=== PATIENT | female | born 1955 | race Caucasian/White ===

== ENCOUNTER 2017-10-16 14:27 | Inpatient (IN) | payer SELFPAY ==
[~2017-10-16] VITALS: Ht 157.5 cm; Wt 115.0 kg
[~2017-10-16 14:27] MED LIST: ALBUAER2 INH; ATOR-24 PO; CETI10TA84 PO; CHOL100010 PO; CLOB-65 EXT; HMLI SC; IBUP-1459 PO; LISI10TA PO; LORA-741 PO; MOME100A INH; PHEN-876 PO; SNG10 PO; TRAM-10 PO
--- NOTE | 2017-10-16 15:05 | DIAGNOSTIC IMAGING REPORT ---
R ANKLE 2 VIEWS CLINICAL HISTORY: 61 years-old Female presenting with RT ANKLE INJURY. TECHNIQUE: Frontal and crosstable lateral views of the right ankle were obtained. COMPARISON: Correlation made to plain radiographs of the left ankle from 08/11/2016. FINDINGS: Obliquely oriented fracture of the distal fibular metaphysis extending from the posterior lateral cortex proximally to the anterior medial cortex distally. Transversely oriented fracture of the medial malleolus. Subtle fracture of the posterior malleolus. Disruption of the ankle mortise with medial clear space widening and widening of the distal tibiofibular syndesmosis. Valgus alignment of the talus. Diffuse soft tissue swelling. IMPRESSION: Rondon B/Stage IV supination exorotation injury pattern (trimalleolar fracture with disruption of ankle mortise). Electronically signed by: Trell Lui M.D. 10/16/2017 3:04 PM Dictated Date/Time: 10/16/2017 2:59 PM
[2017-10-16] MEDS ORDERED: [UNRECOGNIZED DRUG - REMARK] SC (15:06)
[2017-10-16] MEDS ORDERED: INSU100I SC (15:06)
[2017-10-16] MEDS ORDERED: KETOROLAC TROMETHAMINE 30 MG/ML VIAL IV STA (15:07)
[2017-10-16] MEDS ORDERED: MoRPHine SULFATE 10 MG/ML CARP/VIAL IV STA (15:07)
[2017-10-16] MEDS ORDERED: FENTANYL CITRATE INJ 50 MCG/1 ML 2 ML VIAL IV STA (15:27)
--- NOTE | 2017-10-16 15:47 | DIAGNOSTIC IMAGING REPORT ---
CHEST ONE VIEW PORTABLE CLINICAL HISTORY: 61 years-old Female presenting with Pre-op CXR. TECHNIQUE: Portable upright AP view of the chest was obtained. COMPARISON: 02/10/2015. FINDINGS: Cardiomediastinal silhouette normal. Lungs and pleural spaces clear. Osseous structures normal. Upper abdomen normal. IMPRESSION: 1. No acute cardiopulmonary disease. Electronically signed by: Trell Lui M.D. 10/16/2017 3:46 PM Dictated Date/Time: 10/16/2017 3:45 PM
--- NOTE | 2017-10-16 15:48 | DIAGNOSTIC IMAGING REPORT ---
R TIBIA/FIBULA 2 VIEWS ROUTINE CLINICAL HISTORY: 61 years-old Female presenting with R leg pain, ankle fracture. TECHNIQUE: Frontal and lateral views of the right lower leg were obtained. COMPARISON: None. FINDINGS: Knee joints congruent. Medial joint space loss likely degenerative in etiology. Redemonstration of the trimalleolar right ankle fracture. No additional fibular fracture. No gross disruption of the proximal tibiofibular articulation. Diffuse subcutaneous swelling at the ankle. IMPRESSION: Redemonstration of the trimalleolar right ankle fracture. No additional osseous abnormality. Electronically signed by: Trell Lui M.D. 10/16/2017 3:47 PM Dictated Date/Time: 10/16/2017 3:46 PM
[2017-10-16 15:57] LABS: BASO % 0.4 %; BASO ABS # 0.03 K/uL (0-0.2); COMPLETE YES; EOS % 2.2 %; HEMATOCRIT 44.4 % (37-47); IG% 0.5 %; LYMPH % 18.2 %; MEAN CELL VOLUME 96.3 fL (80-100); MEAN CORPUSCULAR HEMOGLOBIN 33.4 pg (25-34); MEAN CORPUSCULAR HGB CONC 34.7 g/dl (32-36); MEAN PLATELET VOLUME 11.2 fL (7.4-10.4); MONO % 8.6 %; NEUT % 70.1 %; PLATELET COUNT 190 K/uL (130-400); RED BLOOD COUNT 4.61 M/uL (4.2-5.4); WHITE BLOOD COUNT 7.71 K/uL (4.8-10.8)
[2017-10-16 16:23] LABS: BUN/CREATININE RATIO 15.2 (10-20); CALCIUM 9.2 mg/dl (8.5-10.1); CREATININE 0.74 mg/dl (0.60-1.20)
--- NOTE | 2017-10-16 16:51 | EMERGENCY ROOM VISIT NOTE ---
History First contact with patient: 14:37 Chief Complaint: ANKLE PAIN Stated Complaint: ANKLE PAIN History of Present Illness The patient is a 61 year old female who presents to the Emergency Room with complaints of a right ankle injury last night. The patient reports that she tripped over wrapping paper and twisted the ankle. She was drinking alcohol at the time. The patient applied a heating pad to her ankle last night. When she got up this morning, she noticed that she still cannot apply any weight to the leg. As she was attempting to stand up late morning, she felt something pop again. Because she was unable to put weight on the ankle, she called 911 for transportation to the emergency department. The patient also reports pain radiating into the leg. She denies any other injuries from this fall, and currently rates her discomfort a 9 out of 10 on my exam. She has not noticed any paresthesias or numbness of the right foot or toes. Review of Systems HEENT: Denies dizziness, visual problems, hearing loss, tinnitus. Denies difficulty swallowing or oral lesions. PULMONARY: Denies cough, shortness of breath, sputum production or hemoptysis. CARDIOVASCULAR: Denies chest pain, palpitations, dyspnea on exertion, orthopnea or peripheral edema. GASTROINTESTINAL: Denies diarrhea, constipation, nausea, vomiting, or abdominal pain. GENITOURINARY: Denies dysuria, frequency, urgency or nocturia. NEUROLOGIC: Denies history of epilepsy, CVA, TIA or chronic headaches. MUSCULOSKELETAL: Denies history of joint tenderness/swelling. SKIN: Denies rashes or lesions. PSYCHIATRIC: Denies history of depression or mental illness. ENDOCRINE: History of diabetes. Denies history of thyroid disorders. Past Medical/Surgical History Medical Problems: (1) DIAB FLAVIO WO COMPL, TYPE II OR UNSPEC TYPE, NOT UNCNTRLD (2) FX METATARSAL-CLOSED Family History Unremarkable Social History Smoking Status: Never Smoker Alcohol Use: occasionally Housing Status: lives alone Occupation Status: unemployed Current/Historical Medications Scheduled Insulin Lispro (Human) (Humalog), 1 DOSE SC AC [Unknown Insulin], 60 UNITS SC HS Physical Exam Vital Signs Date Time Temp Pulse Resp B/P (MAP) Pulse Ox O2 Delivery O2 Flow Rate FiO2 10/16/17 16:10 145/108 10/16/17 16:06 86 18 95 Room Air 10/16/17 14:38 36.6 87 20 195/101 95 Room Air Physical Exam CONSTITUTIONAL: Morbidly obese female, alert and oriented X 3 with positive affect. The patient appears in moderate discomfort from pain. HEENT: Normocephalic, atraumatic. Pupils equal, round and reactive. NECK: Full active range of motion without discomfort. RESPIRATORY: Clear to auscultation bilaterally with no wheezing, crackles, rhonchi or stridor. CARDIOVASCULAR: Regular rate and rhythm with no murmurs, rubs or gallops. GASTROINTESTINAL: Bowel sounds present in all quadrants. Protuberant but soft and nontender to palpation. MUSCULOSKELETAL: Examination shows diffuse edema and ecchymosis of the right ankle. No open wounds or skin tenting is noted. The patient does have some blisters on the lateral ankle region that the patient reports was secondary to heating pad use. The patient has no tenderness to palpation through the dorsal midfoot, metatarsals or phalanges. Capillary refill is less than 2 seconds. The patient does have moderate tenderness to palpation of the leg as well. No knee effusion or tenderness through the medial or lateral joint line of the knee. Negative logroll. INTEGUMENTARY: No rash or other significant dermatologic conditions noted. NEUROLOGIC: Right foot and toes are sensory intact. Medical Decision & Procedures ER Provider Diagnostic Interpretation: My interpretation of right ankle x-ray shows a trimalleolar fracture with ankle mortise disruption. Radiologist report is as follows: R ANKLE 2 VIEWS CLINICAL HISTORY: 61 years-old Female presenting with RT ANKLE INJURY. TECHNIQUE: Frontal and crosstable lateral views of the right ankle were obtained. COMPARISON: Correlation made to plain radiographs of the left ankle from 08/11/2016. FINDINGS: Obliquely oriented fracture of the distal fibular metaphysis extending from the posterior lateral cortex proximally to the anterior medial cortex distally. Transversely oriented fracture of the medial malleolus. Subtle fracture of the posterior malleolus. Disruption of the ankle mortise with medial clear space widening and widening of the distal tibiofibular syndesmosis. Valgus alignment of the talus. Diffuse soft tissue swelling. IMPRESSION: Rondon B/Stage IV supination exorotation injury pattern (trimalleolar fracture with disruption of ankle mortise). My interpretation of right tib-fib x-rays does not show any other acute fractures, dislocations or obvious syndesmotic widening. Radiologist report is as follows: R TIBIA/FIBULA 2 VIEWS ROUTINE CLINICAL HISTORY: 61 years-old Female presenting with R leg pain, ankle fracture. TECHNIQUE: Frontal and lateral views of the right lower leg were obtained. COMPARISON: None. FINDINGS: Knee joints congruent. Medial joint space loss likely degenerative in etiology. Redemonstration of the trimalleolar right ankle fracture. No additional fibular fracture. No gross disruption of the proximal tibiofibular articulation. Diffuse subcutaneous swelling at the ankle. IMPRESSION: Redemonstration of the trimalleolar right ankle fracture. No additional osseous abnormality. My interpretation of a preoperative chest x-ray does not show any consolidations , pneumothorax or cardiac prominence. Radiologist report is as follows: CHEST ONE VIEW PORTABLE CLINICAL HISTORY: 61 years-old Female presenting with Pre-op CXR. TECHNIQUE: Portable upright AP view of the chest was obtained. COMPARISON: 02/10/2015. FINDINGS: Cardiomediastinal silhouette normal. Lungs and pleural spaces clear. Osseous structures normal. Upper abdomen normal. IMPRESSION: 1. No acute cardiopulmonary disease. Post reduction x-ray shows some improved tibiotalar alignment. A preoperative ECG shows a normal sinus rhythm of [address] elevation or other conduction abnormalities. Laboratory Results 10/16/17 15:47 Red Blood Count 4.61, Mean Corpuscular Volume 96.3, Mean Corpuscular Hemoglobin 33.4, Mean Corpuscular Hemoglobin Concent 34.7, Mean Platelet Volume 11.2, Neutrophils (%) (Auto) 70.1, Lymphocytes (%) (Auto) 18.2, Monocytes (%) (Auto) 8.6, Eosinophils (%) (Auto) 2.2, Basophils (%) (Auto) 0.4, Neutrophils # (Auto) 5.41, Lymphocytes # (Auto) 1.40, Monocytes # (Auto) 0.66, Eosinophils # (Auto) 0.17, Basophils # (Auto) 0.03 10/16/17 15:47 Test 10/16/17 15:47 White Blood Count 7.71 K/uL (4.8-10.8) Red Blood Count 4.61 M/uL (4.2-5.4) Hemoglobin 15.4 g/dL (12.0-16.0) Hematocrit 44.4 % (37-47) Mean Corpuscular Volume 96.3 fL (80-100) Mean Corpuscular Hemoglobin 33.4 pg (25-34) Mean Corpuscular Hemoglobin Concent 34.7 g/dl (32-36) Platelet Count 190 K/uL (130-400) Mean Platelet Volume 11.2 fL (7.4-10.4) Neutrophils (%) (Auto) 70.1 % Lymphocytes (%) (Auto) 18.2 % Monocytes (%) (Auto) 8.6 % Eosinophils (%) (Auto) 2.2 % Basophils (%) (Auto) 0.4 % Neutrophils # (Auto) 5.41 K/uL (1.4-6.5) Lymphocytes # (Auto) 1.40 K/uL (1.2-3.4) Monocytes # (Auto) 0.66 K/uL (0.11-0.59) Eosinophils # (Auto) 0.17 K/uL (0-0.5) Basophils # (Auto) 0.03 K/uL (0-0.2) RDW Standard Deviation 46.3 fL (36.4-46.3) RDW Coefficient of Variation 13.3 % (11.5-14.5) Immature Granulocyte % (Auto) 0.5 % Immature Granulocyte # (Auto) 0.04 K/uL (0.00-0.02) Anion Gap 10.0 mmol/L (3-11) Est Creatinine Clear Calc Drug Dose 93.4 ml/min Estimated GFR () 99.9 Estimated GFR (Non- 86.2 BUN/Creatinine Ratio 15.2 (10-20) Calcium Level 9.2 mg/dl (8.5-10.1) Beta-Hydroxybutyric Acid 44.00 mg/dL (0.2-2.81) The above labs were reviewed. Medications Administered Medications (Trade) Dose Ordered Sig/Link Route Start Time Stop Time Status Last Admin Dose Admin Morphine Sulfate (MoRPHine SULFATE INJ) 6 mg NOW STAT IV 10/16/17 15:07 10/16/17 15:15 DC 10/16/17 15:56 6 MG Ketorolac Tromethamine (Toradol Inj) 30 mg NOW STAT IV 10/16/17 15:07 10/16/17 15:15 DC 10/16/17 15:57 30 MG Fentanyl Citrate (Fentanyl Inj) 100 mcg NOW STAT IV 10/16/17 15:27 10/16/17 15:28 DC 10/16/17 16:06 100 MCG ED Course Patient history and physical exam were performed. Nurse's notes were reviewed. Vital signs were reviewed and were normal. Initial x-ray of the right ankle shows a trauma yellow fracture with an ankle mortise disruption. At this point , I suggested intravenous access for preoperative labs and pain titration management. The patient was in agreement. IV access was established, and labs were drawn. The patient was initially administered morphine 6 mg and Zofran 4 mg IVP. Labs were drawn and were grossly normal. ECG and portable chest x-ray were also normal. The case was then further discussed with Dr. Capps, ED attending physician , and Dr. Liu, orthopedic surgeon on-call. Dr. Liu reviewed the x-rays and suggested reduction and post reduction x-rays. He also indicated that if the patient would find it difficult to ambulate and follow-up as an outpatient, he could arrange for surgical treatment 1 tomorrow surgery scheduled. The case was discussed further with the patient, who indicated that she could not put any weight at all on the right lower extremity, and is concerned that she will fall at home. Fracture reduction was performed by Dr. Capps after the patient was administered fentanyl 100 g IV push. A posterior and sugar tong Ortho-Glass splint was applied. Post reduction x-rays shows adequate reduction. The patient refused any analgesics after her post reduction procedure. Please see Dr. Liu's dictation for further surgical treatment and final disposition. Medical Decision Patient presents with a trimalleolar fracture of the right ankle, and associated ankle mortise disruption. Postreduction x-rays were normal. Additional x-rays of the tib-fib does not show any additional fractures. The patient denies any other injuries from her fall. Her labs, ECG and chest x-ray were also normal. [place] Drug Monitoring Program Search Results: patient reviewed within database, no issues identified Medication Reconcilliation Current Medication List: was personally reviewed by me Blood Pressure Screening Patient's blood pressure: Elevated blood pressure Blood pressure disposition: Referred to PCP Impression Primary Impression: Closed displaced trimalleolar fracture of right ankle Additional Impression: Fall at home Departure Information Referrals No Doctor, Assigned (PCP) Patient Instructions My [facility] Problem Qualifiers Primary Impression: Closed displaced trimalleolar fracture of right ankle Encounter type: initial encounter Qualified Codes: S82.851A - Displaced trimalleolar fracture of right lower leg, initial encounter for closed fracture Additional Impression: Fall at home Encounter type: initial encounter Qualified Codes: W19.XXXA - Unspecified fall, initial encounter; Y92.099 - Unspecified place in other non-institutional residence as the place of occurrence of the external cause
--- NOTE | 2017-10-16 16:53 | DIAGNOSTIC IMAGING REPORT ---
R ANKLE MIN 3 VIEWS ROUTINE CLINICAL HISTORY: 61 years-old Female presenting with R ankle fx/post-reduction. TECHNIQUE: Frontal, mortise, and lateral views of the right ankle were obtained. COMPARISON: 10/16/2017 at 2:44 PM. FINDINGS: Fiberglas cast now in place, which minimally obscures underlying osseous detail. There is persistent disruption of the ankle mortise with redemonstration of the obliquely oriented fracture of the fibula at the level of the syndesmosis and transversely oriented fracture of the medial malleolus. Minimal decrease in medial clear space widening. Increased opening of the anterior aspect of the ankle mortise, now measuring 11 mm previously 6 mm. IMPRESSION: Increased malalignment at the ankle mortise anteriorly. Electronically signed by: Trell Lui M.D. 10/16/2017 4:52 PM Dictated Date/Time: 10/16/2017 4:50 PM
[2017-10-16] MEDS ORDERED: MAGNESIUM HYDROXIDE SUSP 30 ML UDC PO PRN (17:00)
[2017-10-16] MEDS ORDERED: ONDANSETRON INJ 2 MG/ML 2 ML VIAL IV PRN (17:00)
[2017-10-16] MEDS ORDERED: METOCLOPRAMIDE HCL INJ 5 MG/ML 2 ML VIAL IV PRN (17:00)
[2017-10-16] MEDS ORDERED: GLUCOSE 40% GEL 15 GM TUBE PO PRN (17:00)
[2017-10-16] MEDS ORDERED: HYDROmorphone HCL 2 MG TAB PO PRN ×2 (17:00→19:30)
[2017-10-16] MEDS ORDERED: HYDROmorphone INJ 0.5 MG/0.5 ML SYR IV PRN (17:00)
[2017-10-16] MEDS ORDERED: DEXTROSE 50% 50 ML SYR IV PRN (17:00)
[2017-10-16] MEDS ORDERED: GLUCOSE 10 TABS/TUBE PO PRN (17:00)
[2017-10-16] MEDS ORDERED: GLUCAGON FOR INJ 1 MG VIAL SQ PRN (17:00)
[2017-10-16] MEDS ORDERED: ALUMINUM/MAGNESIUM SUSP 30 ML UDC PO PRN (17:00)
[2017-10-16] MEDS ORDERED: ZOLPIDEM TARTRATE 5 MG TAB PO PRN (17:00)
[2017-10-16] MEDS ORDERED: DiphenhydrAMINE HCL 50 MG/ML VIAL IV PRN (17:00)
[2017-10-16 18:15] VITALS: BP 151/85; TEMP 36.7; O2SAT 98; BMI 46.4
--- NOTE | 2017-10-16 19:05 | Medical Consult ---
Consultation Date of Consultation: Oct 16, 2017. Attending Physician: Dr. Liu Reason for Consultation: Medical Management - Diabetes History of Present Illness Ms. Hamilton is a 61 y/o female with PMHx of IDDM - Type 2, HLD, and Asthma was admitted due to a R Trimalleolar Ankle Fx. Hospitalist consulted for hyperglycemia. Patient reports she was drinking wine and tripped over a rolled wrapping paper and twist her ankle. This occurred on 10/15. She states that she had a lot of pain and swelling and difficulty bearing weight. Because of ambulatory dysfunction, she decided to try and wait for the swelling to go down before coming to the ED. However the swelling did not improve and she presented today. Fracture was unsuccessfully reduced in the ED with follow-up x -ray supporting a slightly increased malalignment. Plan for OR repair on 10/17. Patient is somewhat of a poor historian at this current time as she seems to be having difficulty with recall. She said this started after they gave her multiple pain medications in the emergency department. She is alert and oriented. She states that she was on multiple medications in the past including one that was "heart protective" but she cannot tell me what medication this is. She states she also took a cholesterol medication and inhalers in the past. She states she has not taken any other medications except her insulin since May 2017. ED labs significant for glucose 318 and beta hydroxybutyric acid of 44. She has mild hyponatremia which is likely related to her elevated glucose. There is no presence of an anion gap. Patient reports she takes a long-acting insulin of 60-80 units at bedtime daily and a Humalog sliding scale. She states that she is not on Lantus but is not sure of the name of her long-acting insulin. Stephen does not sound familiar to her so may possibly be Basaglar? She reports her sugars are normally 120-130 but has noticed her sugars closer to 300 over the holidays as she is with her daughter who cooks high carb foods. Past Medical/Surgical History 1. HTN 2. IDDM - Type 2 3. HLD 4. Asthma 5. S/P Tonsillectomy 6. Kidney Stones Family History Diabetes mellitus Hypertension Social History Smoking Status: Never Smoker Smokeless Tobacco Use: No Alcohol Use: socially (holidays and birthday") Drug Use: none Housing Status: lives alone Occupation Status: unemployed Allergies Coded Allergies: Grass (Verified Allergy, Intermediate, ASTHMATIC SYMPTOMS, 10/16/17) Milk (Verified Allergy, Unknown, INCREASED MUCUS-ASTHMAS AGGRAVATION, 03/12) Molds and Smuts (Verified Allergy, Unknown, ASTHMATIC SYMPTOMS, 03/12/15) Codeine (Verified Adverse Reaction, Unknown, HALLUCINATIONS, 10/16/17) Current Inpatient Medications Current Inpatient Medications Medications (Trade) Dose Ordered Sig/Link Route Start Time Stop Time Status Last Admin Dose Admin Diphenhydramine HCl (Benadryl Inj) 25 mg Q8 PRN IV 10/16/17 17:00 11/15/17 16:59 UNV Zolpidem Tartrate (Ambien Tab) 5 mg HSZ PRN PO 10/16/17 17:00 11/15/17 16:59 UNV Metoclopramide HCl (Reglan Inj) 10 mg Q6H PRN IV 10/16/17 17:00 11/15/17 16:59 UNV Ondansetron HCl (Zofran Inj) 4 mg Q6H PRN IV 10/16/17 17:00 11/15/17 16:59 UNV Al Hydroxide/Mg Hydroxide (Maalox Susp) 30 ml Q6H PRN PO 10/16/17 17:00 11/15/17 16:59 UNV Docusate Sodium (coLACE CAP) 100 mg BID PO 10/16/17 21:00 11/15/17 20:59 UNV Pantoprazole Sodium (Protonix Tab) 40 mg QAM PO 10/17/17 09:00 11/16/17 08:59 UNV Magnesium Hydroxide (Milk Of Magnesia Susp) 30 ml Q6H PRN PO 10/16/17 17:00 11/15/17 16:59 UNV Sodium Chloride 1,000 ml @ 75 mls/hr [id number] IV 10/16/17 16:59 11/15/17 16:58 UNV Cefazolin Sodium 2000 mg/Dextrose 60 ml @ 100 mls/hr PREOP IV 10/17/17 06:00 10/17/17 06:35 UNV Glucose (Glucose 40% Gel) 15-30 GRAMS 15 GRAMS... UD PRN PO 10/16/17 17:00 11/15/17 16:59 UNV Glucose (Glucose Chew Tab) 4-8 Tablets 4 Tabl... UD PRN PO 10/16/17 17:00 11/15/17 16:59 UNV Dextrose (Dextrose 50% 50ML Syringe) 25-50ML OF 50% DW IV FOR... UD PRN IV 10/16/17 17:00 11/15/17 16:59 UNV Glucagon (Glucagon Inj) 1 mg UD PRN SQ 10/16/17 17:00 11/15/17 16:59 UNV Hydromorphone HCl (Dilaudid Inj) 0.5 mg Q1H PRN IV 10/16/17 17:00 10/30/17 16:59 UNV Hydromorphone HCl (Dilaudid Tab) 2 mg Q2H PRN PO 10/16/17 17:00 10/30/17 16:59 UNV Insulin Aspart (novoLOG ASPART) SLIDING SCALE If C... ACHS SC 10/16/17 21:00 11/15/17 20:59 UNV Insulin Glargine (Lantus Per Unit) 10 units ONE STAT SC 10/16/17 18:52 10/16/17 18:53 UNV Review of Systems Constitutional: + problem reported ("drowsy"), No fever, No chills, No fatigue ENT: No nasal symptoms, No sore throat, No trouble swallowing Respiratory: No cough, No shortness of breath Cardiovascular: No chest pain, No palpitations Abdomen: No pain, No nausea, No vomiting, No diarrhea, No constipation Musculoskeletal: + joint pain (R ankle), + swelling (RLE) Hematologic / Lymphatic: No abnormal bleeding/bruising Physical Exam Date Time Temp Pulse Resp B/P (MAP) Pulse Ox O2 Delivery O2 Flow Rate FiO2 10/16/17 18:04 72 18 115/58 96 Room Air 10/16/17 16:10 145/108 10/16/17 16:06 86 18 95 Room Air 10/16/17 14:38 36.6 87 20 195/101 95 Room Air General Appearance: WD/WN, no apparent distress Head: normocephalic, atraumatic Eyes: sclerae normal ENT: hearing grossly normal Neck: supple, no JVD, trachea midline Respiratory/Chest: lungs clear, normal breath sounds, no respiratory distress, no accessory muscle use Cardiovascular: regular rate, rhythm, no gallop, no murmur Abdomen/GI: normal bowel sounds, non tender, soft Extremities/Musculoskelatal: + pertinent finding (RLE splinted and ISATU wrapped ; motor function intact to toes; temperature warm; immediate cap refill) Neurologic/Psych: alert, oriented x 3 Skin: normal color, warm/dry Laboratory Results Last 24 Hours Test 10/16/17 15:47 10/16/17 18:51 White Blood Count 7.71 K/uL Red Blood Count 4.61 M/uL Hemoglobin 15.4 g/dL Hematocrit 44.4 % Mean Corpuscular Volume 96.3 fL Mean Corpuscular Hemoglobin 33.4 pg Mean Corpuscular Hemoglobin Concent 34.7 g/dl Platelet Count 190 K/uL Mean Platelet Volume 11.2 fL Neutrophils (%) (Auto) 70.1 % Lymphocytes (%) (Auto) 18.2 % Monocytes (%) (Auto) 8.6 % Eosinophils (%) (Auto) 2.2 % Basophils (%) (Auto) 0.4 % Neutrophils # (Auto) 5.41 K/uL Lymphocytes # (Auto) 1.40 K/uL Monocytes # (Auto) 0.66 K/uL Eosinophils # (Auto) 0.17 K/uL Basophils # (Auto) 0.03 K/uL RDW Standard Deviation 46.3 fL RDW Coefficient of Variation 13.3 % Immature Granulocyte % (Auto) 0.5 % Immature Granulocyte # (Auto) 0.04 K/uL Sodium Level 133 mmol/L Potassium Level 4.0 mmol/L Chloride Level 101 mmol/L Carbon Dioxide Level 22 mmol/L Anion Gap 10.0 mmol/L Blood Urea Nitrogen 11 mg/dl Creatinine 0.74 mg/dl Est Creatinine Clear Calc Drug Dose 93.4 ml/min Estimated GFR () 99.9 Estimated GFR (Non- 86.2 BUN/Creatinine Ratio 15.2 Random Glucose 318 mg/dl Calcium Level 9.2 mg/dl Beta-Hydroxybutyric Acid 44.00 mg/dL Assessment & Plan Ms. Hamilton is a 61 y/o female with PMHx of IDDM - Type 2, HLD, and Asthma was admitted due to a R Trimalleolar Ankle Fx. Hospitalist consulted for hyperglycemia. Mechanical Fall with R Trimalleolar Ankle Fx: - Pain Management, IVF, PT/OT, DVT Prophylaxis per primary - Plan for OR repair on 10/17 Preoperative Clearance: - Patient appropriately functions at home and is able to complete ADLs - She denies cardiac history of OH/CHF/PE/DVT - reports she does occasionally have high blood pressure and was previously treated for high cholesterol - States she was on a "heart protective" medication but is unsure of the name - she has not taken any other medications except her insulin since May 2017 - EKG reveals NSR without ischemic findings - She is hemodynamically stable with appropriate kidney function; no recent illnesses; CXR without acute cardiopulmonary findings - She reports no previous adverse reactions to anesthesia - She appears optimal for surgical intervention Hyperglycemia with IDDM - Type 2: - Initial laboratories reveal glucose 318. Beta hydroxybutyric acid 44 - no presents of anion gap on labs - She is alert and oriented but having difficulty with recall - this may be related to the pain medications given in the ED but it is possible related to her higher sugars - Last A1c from approximately a year ago was 9.5 - patient states her sugars have been running around 300 during the holidays - Give 1 L bolus now and obtain updated BSG - instructed nursing staff to cover this reading with sliding scale ordered - Give Lantus 10 units now - currently she is ordered NPO and will be cautious with adjustments - We'll cover with sliding scale at this time but will likely need long-acting scheduled coverage post surgery Asthma without Exacerbation: - Reports she has known asthma - she previously had an inhaler but reports not needing this since April 2017 Disposition: - Reports she follows with [facility]; reporting noncompliance with previously prescribed medications I personally interviewed and examined the patient. I agree with history of present illness and physical exam mentioned above, I also performed my own history taking and examination. Past medical history and review of system has been obtained by myself I reviewed all pertinent labs and studies Reviewed current medications I discussed and formulated of the assessment and plan mentioned above. Please refer to the Summary mentioned below. Agree With Miss. Guadalupe's plan General Appearance: Mild acute distress Eyes: normal Sclerae, extraocular muscle intact ENT: hearing grossly normal Neck: supple Respiratory/Chest: Normal air entry bilateral , mild respiratory distress, no accessory muscle use, currently she is comfortable on room air Cardiovascular: no murmur, no tachycardia Abdomen: non tender, soft, no masses Extremities: no edema Neurologic/Psychiatric: Awake alert oriented times place and person moves all extremities sensation intact cranial nerves II-12 appear to be intact Skin: normal color, warm/dry, no rash Lower extremity wrapped 61 years old female presented to the ED with lower extremity fracture after mechanical fall, she was found to have elevated blood sugar Assessment Right ankle fracture secondary to mechanical fall Uncontrolled diabetes mellitus with hyperglycemia Obesity plan: continue supportive care Benefits from the surgery outweighs the risk thus patient is medically clear for surgical intervention 10 units Lantus subcutaneous Sliding scale insulin Monitor anion gap DVT prophylaxis and PT as per primary orthopedic team Lisa Kennedy MD, [facility]
[2017-10-16] MEDS ORDERED: LANTUS PER UNIT CHARGE SC SCH (19:06)
[2017-10-16] MEDS ORDERED: ALBUT/IPRATROP 3MG/0.5MG NEB 3 ML VIAL INH PRN (19:30)
[2017-10-16] MEDS ORDERED: HydrALAZINE HCL 20 MG/ML VIAL IV. PRN (19:30)
[2017-10-16] MEDS ORDERED: SODIUM CHLORIDE 0.9% 1000ML 1,000 ML IV SCH (20:45)
[2017-10-16] MEDS ORDERED: INSULIN GLARGINE SOLOSTAR 100 UNITS/ML 3 ML PEN SC SCH (21:00)
[2017-10-16] MEDS ORDERED: INSULIN ASPART 100 UNITS/ML 3 ML PEN SC SCH (21:00)
[2017-10-16] MEDS ORDERED: INSULIN HUMAN REGULAR SC SCH (21:00)
[2017-10-16] MEDS: DOCUSATE SODIUM 100 MG CAP PO SCH (21:24)
[2017-10-16] MEDS: SODIUM CHLORIDE 0.9% 1000ML 1,000 ML IV SCH (21:34)
[2017-10-16 22:57] VITALS: BP 150/84; PULSE 84; TEMP 37; O2SAT 96
[2017-10-17] VITALS (8 sets, daily range): BP systolic 131–187; BP diastolic 80–88; PULSE 75–97; TEMP 36.6–37.3; O2SAT 92–100; BMI 46.4
[2017-10-17 00:17] LABS: URINE APPEARANCE CLEAR (CLEAR); URINE BILIRUBIN NEG (NEG); URINE COLOR YELLOW; URINE NITRITE NEG (NEG); URINE SPECIFIC GRAVITY 1.041 (1.000-1.030); UROBILINOGEN NEG (NEG)
[2017-10-17 00:23] LABS: MANUAL MICROSCOPIC REQUIRED? NO; REVIEW REQ? NO
[2017-10-17] MEDS ORDERED: NURSING DECISION MEDICATION ORDER SCH (02:15)
[2017-10-17] MEDS ORDERED: CEFAZOLIN IV 2,000 MG in DEXTROSE 5% 50ML 50 ML IV SCH (06:00)
[2017-10-17] MEDS ORDERED: CEFAZOLIN 2000MG IV PUSH 10 ML IV SCH (06:00)
[2017-10-17] MEDS: INSULIN ASPART 100 UNITS/ML 3 ML PEN SC SCH ×4 (06:07→20:45)
[2017-10-17 06:30] LABS: MEAN CELL VOLUME 96.5 fL (80-100); MEAN CORPUSCULAR HEMOGLOBIN 32.7 pg (25-34); MEAN CORPUSCULAR HGB CONC 33.8 g/dl (32-36); MEAN PLATELET VOLUME 11.1 fL (7.4-10.4); PLATELET COUNT 161 K/uL (130-400); RED BLOOD COUNT 4.04 M/uL (4.2-5.4); WHITE BLOOD COUNT 5.51 K/uL (4.8-10.8)
[2017-10-17 06:54] LABS: BUN/CREATININE RATIO 21.6 (10-20); CALCIUM 8.4 mg/dl (8.5-10.1); CREATININE 0.62 mg/dl (0.60-1.20); MAGNESIUM 2.1 mg/dl (1.8-2.4); POTASSIUM 3.6 mmol/L (3.5-5.1)
[2017-10-17 07:07] LABS: ESTIMATED AVERAGE GLUCOSE 329 mg/dl; HA1C FLAG Normal (Normal)
[2017-10-17] MEDS: PANTOprazole SOD 40 MG TAB PO SCH (08:50)
[2017-10-17] MEDS: DOCUSATE SODIUM 100 MG CAP PO SCH ×2 (08:50→20:46)
--- NOTE | 2017-10-17 09:17 | HISTORY & PHYSICAL EXAMINATION ---
DATE OF ADMISSION: 10/16/2017 CHIEF COMPLAINT: Right ankle injury. HISTORY OF PRESENT ILLNESS: A 61-year-old female lives by herself with a history of insulin-dependent diabetes who sustained an injury on [place]. Apparently she was drinking some alcohol and kind of stumbled and twisted her ankle. She had acute onset of pain and swelling. She decided to just elevate and rest it overnight and tried to walk on it the next day. Pain has gotten worse and she presented to the Emergency Room yesterday with ankle fracture subluxation. She was seen in the ER and admitted for fixation. No other injuries. No preexisting ankle problems. Denies any chest pain, no shortness of breath. No head injury, no neck pain. PAST MEDICAL HISTORY: 1. Insulin-dependent diabetes. 2. Hypertension. 3. Asthma. PAST SURGICAL HISTORY: Include: 1. Kidney stones. 2. Bilateral carpal tunnel release. 3. Tonsillectomy. 4. Breast biopsy. ALLERGIES: MOLD AND GRASS. CURRENT MEDICATIONS: Include insulin. SOCIAL HISTORY: A 61-year-old female. She says she lives by herself, but she has some children that spend time with her. No significant smoking history. She does drink alcohol. FAMILY HISTORY: Noncontributory. REVIEW OF SYSTEMS: Significant for diabetes. Fairly poorly controlled recently. No chest pain or shortness of breath. No history of DVT or PE. Medical doctor is Dr. Barney. PHYSICAL EXAMINATION: GENERAL: Reveals a healthy pleasant, middle-aged female. She is lying in bed, looks reasonably comfortable. VITAL SIGNS: Her temperature is 36.6. Vital signs stable. HEAD, EYES, EARS, NOSE, AND THROAT EXAMINATION: Benign. NECK: Supple. No lymphadenopathy. LUNGS: Clear to auscultation. HEART: Regular rate and rhythm. ABDOMEN: Soft, nontender, nondistended. EXTREMITY EXAMINATION: Grossly neurovascularly intact except as follows: Examination of the right lower extremity reveals the splint to be in place. There is no obvious deformity to her ankle. She can flex or extend her toes appropriately. She is neurologically intact. X-RAYS: X-rays of the ankle from the ER were reviewed. It shows a right trimalleolar ankle fracture subluxation. The post-reduction films reveal it to be better located in the medial lateral plane but a little bit subluxated posteriorly. Diffuse osteopenia. ASSESSMENT: A 61-year-old female diabetic with a right trimalleolar ankle fracture subluxation. PLAN: The patient has been admitted to the hospital. She has been evaluated by medicine. Fairly poorly controlled diabetes and she is on insulin sliding scale and we have consulted them to better manage her blood glucose control. We are going to plan on fixing her ankle later on today. The risks and benefits of ORIF of right trimalleolar ankle fracture were explained to the patient including but not limited to DVT, PE, , infection, neurological injury, vascular injury, bleeding problem, pain, limited range of motion, stiffness, failure to relieve her symptoms, incomplete relief of symptoms, need for further surgery in the future. The patient understands with her diabetes the risk of nonunion, malunion and even Charcot arthropathy were elevated. She would like to proceed. In the meantime, we will continue insulin sliding scale coverage with the medicine following and optimize her medical care. DVT prophylaxis including thigh-high TEDs, SCDs, and aspirin postoperatively. DIANE
--- NOTE | 2017-10-17 10:43 | Hospitalist Progress Note ---
Hospitalist Progress Note Date of Service Oct 17, 2017. (Ana Guadalupe PA-C) Subjective Pt evaluation today including: conversation w/ patient, physical exam, chart review, lab review, review of studies, review of inpatient medication list Patient seen and evaluated. No acute events overnight. A1c is 13. Patient states she was last seen by the [facility] approx. 1 year ago but states she was given enough insulin for coverage. She currently does not have insurance but states that she has an application in process that should start in October. Discussed with child care centre manager and she will be discussing with he patient. Discussed with patient the importance of compliance and sugar control for appropriate healing as well as prevention of cardiovascular disease. Will need to assist with an affordable regimen due to lack of insurance and possibility of delayed/decline coverage with her current application that is pending. She reports pain is under control of her R ankle. She verbalizes no other issues. Constitutional: No fever, No chills Respiratory: No shortness of breath Cardiovascular: No chest pain Abdomen: No pain, No nausea, No vomiting, No diarrhea, No constipation Female : No dysuria Heme: No abnormal bleeding/bruising (Ana Guadalupe PA-C) Medications Current Inpatient Medications Medications (Trade) Dose Ordered Sig/Link Route Start Time Stop Time Status Last Admin Dose Admin Diphenhydramine HCl (Benadryl Inj) 25 mg Q8 PRN IV 10/16/17 17:00 11/15/17 16:59 Zolpidem Tartrate (Ambien Tab) 5 mg HSZ PRN PO 10/16/17 17:00 11/15/17 16:59 Metoclopramide HCl (Reglan Inj) 10 mg Q6H PRN IV 10/16/17 17:00 11/15/17 16:59 Ondansetron HCl (Zofran Inj) 4 mg Q6H PRN IV 10/16/17 17:00 11/15/17 16:59 Al Hydroxide/Mg Hydroxide (Maalox Susp) 30 ml Q6H PRN PO 10/16/17 17:00 11/15/17 16:59 Docusate Sodium (coLACE CAP) 100 mg BID PO 10/16/17 21:00 11/15/17 20:59 10/17/17 08:50 100 MG Pantoprazole Sodium (Protonix Tab) 40 mg QAM PO 10/17/17 09:00 10/20/17 08:59 10/17/17 08:50 40 MG Magnesium Hydroxide (Milk Of Magnesia Susp) 30 ml Q6H PRN PO 10/16/17 17:00 11/15/17 16:59 Sodium Chloride 1,000 ml @ 75 mls/hr [id number] IV 10/16/17 21:50 11/15/17 21:49 10/16/17 21:34 75 MLS/HR Glucose (Glucose 40% Gel) 15-30 GRAMS 15 GRAMS... UD PRN PO 10/16/17 17:00 11/15/17 16:59 Glucose (Glucose Chew Tab) 4-8 Tablets 4 Tabl... UD PRN PO 10/16/17 17:00 11/15/17 16:59 Dextrose (Dextrose 50% 50ML Syringe) 25-50ML OF 50% DW IV FOR... UD PRN IV 10/16/17 17:00 11/15/17 16:59 Glucagon (Glucagon Inj) 1 mg UD PRN SQ 10/16/17 17:00 11/15/17 16:59 Hydromorphone HCl (Dilaudid Inj) 0.5 mg Q1H PRN IV 10/16/17 17:00 10/30/17 16:59 10/16/17 23:51 0.5 MG Hydromorphone HCl (Dilaudid Tab) 1 mg Q2H PRN PO 10/16/17 19:30 10/30/17 16:59 Albuterol/ Ipratropium (Duoneb) 3 ml Q2H PRN INH 10/16/17 19:30 11/15/17 19:29 Hydralazine HCl (HydrALAZINE INJ) 10 mg Q6 PRN IV. 10/16/17 19:30 11/15/17 19:29 Cefazolin Sodium 10 ml @ 2.5 mls/min PREOP IV 10/17/17 06:00 10/17/17 18:00 Insulin Aspart (novoLOG ASPART) SLIDING SCALE If C... Q6 SC 10/17/17 06:00 11/16/17 05:59 10/17/17 06:07 4 UNITS (Ana Guadalupe, PA-C) Objective Vital Signs Date Time Temp Pulse Resp B/P (MAP) Pulse Ox O2 Delivery O2 Flow Rate FiO2 10/17/17 07:40 Room Air 10/17/17 06:52 36.6 75 19 136/84 (101) 94 Room Air 10/16/17 23:40 Room Air 10/16/17 22:57 37.0 84 18 150/84 (106) 96 Room Air 10/16/17 18:15 36.7 18 151/85 Room Air 10/16/17 18:15 36.7 18 151/85 (107) 98 Room Air 10/16/17 18:04 72 18 115/58 96 Room Air 10/16/17 16:10 145/108 10/16/17 16:06 86 18 95 Room Air 10/16/17 14:38 36.6 87 20 195/101 95 Room Air (Ana Guadalupe PA-C) Physical Exam General Appearance: WD/WN, no apparent distress, + obese Eyes: sclerae normal ENT: hearing grossly normal Neck: supple, no JVD, trachea midline Respiratory/Chest: lungs clear, normal breath sounds, no respiratory distress, no accessory muscle use Cardiovascular: regular rate, rhythm, no gallop, no murmur Abdomen: normal bowel sounds, non tender, soft Extremities: + pertinent finding (RLE with splint and ISATU wrap; movement to toes; temperature appropriate; approp. cap refill) Neurologic/Psychiatric: alert, oriented x 3 Skin: normal color, warm/dry (Ana Guadalupe PA-C) Laboratory Results Last 24 Hours Test 10/16/17 15:47 10/16/17 20:12 10/17/17 00:04 10/17/17 05:53 White Blood Count 7.71 K/uL Red Blood Count 4.61 M/uL Hemoglobin 15.4 g/dL Hematocrit 44.4 % Mean Corpuscular Volume 96.3 fL Mean Corpuscular Hemoglobin 33.4 pg Mean Corpuscular Hemoglobin Concent 34.7 g/dl Platelet Count 190 K/uL Mean Platelet Volume 11.2 fL Neutrophils (%) (Auto) 70.1 % Lymphocytes (%) (Auto) 18.2 % Monocytes (%) (Auto) 8.6 % Eosinophils (%) (Auto) 2.2 % Basophils (%) (Auto) 0.4 % Neutrophils # (Auto) 5.41 K/uL Lymphocytes # (Auto) 1.40 K/uL Monocytes # (Auto) 0.66 K/uL Eosinophils # (Auto) 0.17 K/uL Basophils # (Auto) 0.03 K/uL RDW Standard Deviation 46.3 fL RDW Coefficient of Variation 13.3 % Immature Granulocyte % (Auto) 0.5 % Immature Granulocyte # (Auto) 0.04 K/uL Sodium Level 133 mmol/L Potassium Level 4.0 mmol/L Chloride Level 101 mmol/L Carbon Dioxide Level 22 mmol/L Anion Gap 10.0 mmol/L Blood Urea Nitrogen 11 mg/dl Creatinine 0.74 mg/dl Est Creatinine Clear Calc Drug Dose 93.4 ml/min Estimated GFR () 99.9 Estimated GFR (Non- 86.2 BUN/Creatinine Ratio 15.2 Random Glucose 318 mg/dl Estimated Average Glucose 329 mg/dl Hemoglobin A1c 13.1 % Calcium Level 9.2 mg/dl Beta-Hydroxybutyric Acid 44.00 mg/dL Bedside Glucose 304 mg/dl 291 mg/dl Urine Color YELLOW Urine Appearance CLEAR Urine pH 5.0 Urine Specific D[place] 1.041 Urine Protein NEG Urine Glucose (UA) 3+ Urine Ketones 3+ Urine Occult Blood NEG Urine Nitrite NEG Urine Bilirubin NEG Urine Urobilinogen NEG Urine Leukocyte Esterase NEG Test 10/17/17 06:03 White Blood Count 5.51 K/uL Red Blood Count 4.04 M/uL Hemoglobin 13.2 g/dL Hematocrit 39.0 % Mean Corpuscular Volume 96.5 fL Mean Corpuscular Hemoglobin 32.7 pg Mean Corpuscular Hemoglobin Concent 33.8 g/dl RDW Standard Deviation 46.8 fL RDW Coefficient of Variation 13.3 % Platelet Count 161 K/uL Mean Platelet Volume 11.1 fL Sodium Level 135 mmol/L Potassium Level 3.6 mmol/L Chloride Level 105 mmol/L Carbon Dioxide Level 23 mmol/L Anion Gap 7.0 mmol/L Blood Urea Nitrogen 13 mg/dl Creatinine 0.62 mg/dl Est Creatinine Clear Calc Drug Dose 111.5 ml/min Estimated GFR () 111.2 Estimated GFR (Non- 96.0 BUN/Creatinine Ratio 21.6 Random Glucose 295 mg/dl Calcium Level 8.4 mg/dl Magnesium Level 2.1 mg/dl (Ana Guadalupe PA-C) Assessment and Plan Ms. Hamilton is a 61 y/o female with PMHx of IDDM - Type 2, HLD, and Asthma was admitted due to a R Trimalleolar Ankle Fx. Hospitalist consulted for hyperglycemia. Mechanical Fall with R Trimalleolar Ankle Fx: - Pain Management, IVF, PT/OT, DVT Prophylaxis per primary - Plan for OR repair on 10/17 Preoperative Clearance: - Patient appropriately functions at home and is able to complete ADLs - She denies cardiac history of AR/CHF/PE/DVT - reports she does occasionally have high blood pressure and was previously treated for high cholesterol - States she was on a "heart protective" medication but is unsure of the name - she has not taken any other medications except her insulin since May 2017 - EKG reveals NSR without ischemic findings - She is hemodynamically stable with appropriate kidney function; no recent illnesses; CXR without acute cardiopulmonary findings - She reports no previous adverse reactions to anesthesia - She appears optimal for surgical intervention - will need [employer] control of DM to prevent dealing healing and cardiovascular compromise Hyperglycemia with IDDM - Type 2: - Continues to be hyperglycemia - A1c 13.1 which suggests her sugars do not run where she reported yesterday; states she [facility] and was given enough supplies to cover her...A1c supports non -compliance and unsure if she is truly taking medications; last A1c from approximately a year ago was 9.5 - Give Lantus 40 units x 1 on 10/17 and check random BSG and cover with SSI - SSI with correction - when diet is advanced will need carb coverage Asthma without Exacerbation: - Reports she has known asthma - she previously had an inhaler but reports not needing this since April 2017 Disposition: - Reports she [facility] with [facility]; reporting noncompliance with previously prescribed medications - She is currently uninsured and states she has an application pending for insurance coverage for October (Ana Guadalupe PA-C) Reviewed: Pt Seen/Exam by Me (Dayana Darling DO) History Pt is doing well. Anticipating OR this afternoon. Pain is controlled. No chest pain or SOB. Agree with HPI/ROS as noted by PAC (Dayana Darling DO) General Appearance: no apparent distress, obese Respiratory: normal breath sounds, no respiratory distress Cardiovascular: normal peripheral pulses, regular rate, rhythm Gastrointestinal: non tender, soft Extremities: non-tender, no pedal edema Neurologic/Psychiatric: alert, oriented x 3 Skin Characteristics: normal color, warm/dry (Dayana Darling, DO) Assessment/Plan Agree with plan as outlined above s/p ankle fracture, awaiting OR DM uncontrolled with A1c 13.1 Will work with pt during admission for better control DM education (Dayana Darling, DO)
[2017-10-17] MEDS ORDERED: INSULIN GLARGINE SOLOSTAR 100 UNITS/ML 3 ML PEN SC ONE (10:45)
[2017-10-17] MEDS: SODIUM CHLORIDE 0.9% 1000ML 1,000 ML IV SCH (11:40)
[2017-10-17] MEDS ORDERED: LIDOCAINE HCL 2% 2 ML VIAL (20MG/ML) ONE (13:46)
[2017-10-17] MEDS ORDERED: ONDANSETRON INJ 2 MG/ML 2 ML VIAL ONE (13:46)
[2017-10-17] MEDS ORDERED: DEXAMETHASONE SOD INJ 4 MG/ML VIAL ONE (13:46)
[2017-10-17] MEDS ORDERED: PROPOFOL IV EMULSION 10 MG/ML 20 ML VIAL IV ONE (13:46)
[2017-10-17] MEDS ORDERED: FENTANYL CITRATE INJ 50 MCG/1 ML 2 ML VIAL ONE (13:46)
[2017-10-17] MEDS ORDERED: NEOSTIGMINE METHYLSULFATE 5 MG/5 ML SYR ONE (13:46)
[2017-10-17] MEDS ORDERED: GLYCOPYRROLATE INJ 0.2 MG/ML VIAL ONE (13:46)
[2017-10-17] MEDS ORDERED: MIDAZOLAM HCL 1 MG/ML 2ML VIAL ONE ×2 (13:46)
[2017-10-17] MEDS ORDERED: BUPIVACAINE 0.25% 30 ML VIAL ONE (13:51)
[2017-10-17] MEDS ORDERED: BUPIVACAINE 0.5 % 5 MG/1 ML PF 10ML VIAL ONE (13:51)
[2017-10-17] MEDS ORDERED: KETOROLAC TROMETHAMINE 30 MG/ML VIAL IV. PRN (14:15)
[2017-10-17] MEDS ORDERED: LABETALOL HCL IV 5 MG/ML 20ML IV PRN ×2 (14:15→16:15)
[2017-10-17] MEDS ORDERED: ONDANSETRON INJ 2 MG/ML 2 ML VIAL IV PRN ×3 (14:15→16:30)
[2017-10-17] MEDS ORDERED: HYDROmorphone INJ 2 MG/ML SYR/VIAL IV PRN (14:15)
[2017-10-17] MEDS ORDERED: ATROPINE SULFATE 0.1 MG/ML 5ML SYR IV PRN ×2 (14:15→16:15)
[2017-10-17] MEDS ORDERED: BACITRACIN 50000 UNIT VIAL ONE (14:30)
[2017-10-17] MEDS ORDERED: BUPIVACAINE/EPINEPHRINE 0.5% MPF 1:200,000 30 ML VIAL ONE (14:30)
[2017-10-17] MEDS ORDERED: NovoLIN-R INSULIN PER UNIT CHARGE ONE (14:43)
[2017-10-17] MEDS ORDERED: PHENYLEPHRINE 100MCG/ML 5ML SYR ONE (15:11)
[2017-10-17] MEDS ORDERED: PHENYLEPHRINE HCL INJ 10 MG/ML VIAL ONE (15:26)
--- NOTE | 2017-10-17 16:03 | DIAGNOSTIC IMAGING REPORT ---
R ANKLE MIN 3 VIEWS ROUTINE CLINICAL HISTORY: 61 years-old Female presenting with ORIF Right ankle FX. TECHNIQUE: 3 fluoroscopic spot image(s) obtained as part of an intraoperative procedure. COMPARISON: 10/16/2017. FINDINGS/IMPRESSION: Cortical compression plate and screw fixation of the distal fibula. Single lag screw through the medial malleolus. Ankle mortise grossly intact with anatomic alignment restored. Please see surgical report for further details. Fluoroscopy dosage (mGy): 0.74. Fluoroscopy time: 27.8 seconds. Number of fluoroscopic spot images: 3. Electronically signed by: Trell Lui M.D. 10/17/2017 4:02 PM Dictated Date/Time: 10/17/2017 3:59 PM
[2017-10-17] MEDS ORDERED: FLUMAZENIL 0.1 MG/1 ML 10 ML VIAL IV PRN (16:15)
[2017-10-17] MEDS ORDERED: FENTANYL CITRATE INJ 50 MCG/1 ML 2 ML VIAL IV PRN (16:15)
[2017-10-17] MEDS ORDERED: NALOXONE HCL 0.4 MG/1 ML VIAL/CARP IV PRN (16:15)
[2017-10-17] MEDS ORDERED: EpHEDrine SULFATE INJ 50 MG/ML AMP IV PRN (16:15)
[2017-10-17] MEDS ORDERED: MEPERIDINE HCL 25 MG/ML CARP IV PRN (16:15)
[2017-10-17] MEDS ORDERED: PHENYLEPHRINE 100MCG/ML 5ML SYR IV PRN (16:15)
--- NOTE | 2017-10-17 16:23 | [facility] Post Operative Brief Note ---
Immediate Operative Summary Operative Date Oct 17, 2017. Pre-Operative Diagnosis Right trimalleolar ankle fracture subluxation Post-Operative Diagnosis Same as preoperative diagnosis Procedure(s) Performed Open reduction internal fixation right ankle fracture Surgeon Dr. Liu Featherer Surgeon(s) Froylan Tamez PA-C Estimated Blood Loss 20ml Findings Unstable ankle fracture Fluids (cc crystalloids) 900 cc Specimens None Anesthesia General Complication(s) None Disposition Recovery Room / PACU
[2017-10-17] MEDS ORDERED: BISACODYL 10 MG SUPP PR PRN (16:30)
[2017-10-17] MEDS ORDERED: ALUMINUM/MAGNESIUM/SIMETH (MAALOX MAX) 30 ML UDC PO PRN (16:30)
[2017-10-17] MEDS ORDERED: MAGNESIUM HYDROXIDE SUSP 30 ML UDC PO PRN (16:30)
[2017-10-17] MEDS ORDERED: ZOLPIDEM TARTRATE 5 MG TAB PO PRN (16:30)
[2017-10-17] MEDS ORDERED: DiphenhydrAMINE HCL 50 MG/ML VIAL IV PRN (16:30)
[2017-10-17] MEDS ORDERED: METOCLOPRAMIDE HCL INJ 5 MG/ML 2 ML VIAL IV PRN (16:30)
[2017-10-17] MEDS ORDERED: ASPEC325 PO (16:33)
[2017-10-17] MEDS ORDERED: DLD/2 PO (16:33)
[2017-10-17] MEDS ORDERED: ACET-1256 PO (16:33)
--- NOTE | 2017-10-17 16:56 | Anesthesiology Progress Note ---
Anesthesia Post Op Note Date & Time Oct 17, 2017 at 16:55 Vital Signs Pain Intensity: 0 Vital Signs Past 12 Hours Date Time Temp Pulse Resp B/P (MAP) Pulse Ox O2 Delivery O2 Flow Rate FiO2 10/17/17 16:50 82 18 134/70 96 Nasal Cannula 2 10/17/17 16:40 77 16 129/70 96 Oxymask 10 10/17/17 16:30 85 20 148/78 99 Oxymask 10 10/17/17 16:24 36.7 80 20 162/78 97 Oxymask 10 10/17/17 13:45 82 18 176/102 (126) 96 Room Air 10/17/17 07:40 Room Air 10/17/17 06:52 36.6 75 19 136/84 (101) 94 Room Air Notes Mental Status: alert / awake / arousable, participated in evaluation Pt Amnestic to Procedure: Yes Nausea / Vomiting: adequately controlled Pain: adequately controlled Airway Patency, RR, SpO2: stable & adequate BP & HR: stable & adequate Hydration State: stable & adequate Anesthetic Complications: no major complications apparent Block working in pacu
[2017-10-17] MEDS: POTASSIUM CHLORIDE INJ 10 MEQ in SODIUM CHLORIDE 0.9% 1000ML 1,000 ML IV SCH (18:15)
[2017-10-17] MEDS: KETOROLAC TROMETHAMINE 15 MG/ML VIAL IV. SCH (18:15)
[2017-10-17] MEDS ORDERED: NURSING VERBAL MED ORDER ONE ×3 (18:15→21:45)
--- NOTE | 2017-10-17 19:24 | OPERATIVE REPORT ---
DATE OF OPERATION: 10/17/2017 SURGEON: Dr. Jaron Liu. PRESETTER OPERATOR: SANDEEP Fuentes PREOPERATIVE DIAGNOSIS: Right trimalleolar ankle fracture subluxation. POSTOPERATIVE DIAGNOSIS: Same. PROCEDURE PERFORMED: Open reduction and internal fixation, right trimalleolar ankle fracture subluxation. COMPLICATIONS: None. ESTIMATED BLOOD LOSS: 20 mL. FLUID REPLACEMENT 900 mL crystalloid fluid replacement. TOURNIQUET TIME: 48 minutes at 300 mmHg. ANESTHESIA: General with popliteal block. TOURNIQUET TIME: 48 minutes. OPERATIVE INDICATIONS: The patient is a 61-year-old female diabetic has taken some alcohol on [employer] and sustained a fall. She has acute onset of pain in her ankle. She waited till the next day and then tried to walk on it again and could not. She was brought to the emergency room where x-rays revealed a fracture subluxation of her ankle. The patient was admitted to the hospital, medically optimized and indicated for surgical treatment. OPERATIVE IMPLANTS: Medial side implants consisted of a Synthes 4.0 partially threaded long threaded screw of 42 mm in length with a washer. Lateral side implants: Lateral side implants consisted of: 1. A Synthes 7-hole 1/3 semitubular plate, stainless Steel. 2. A 4.0 partially threaded cancellous screws x1. 3. A 4.0 fully threaded cancellous screws x2. 4. A 3.5 fully threaded cortical screws x4. OPERATIVE PROCEDURE: The patient was taken to the operating room, identified and placed on the operating table in supine position. All contact areas were appropriately padded. IV antibiotics were provided by the anesthesia team. A general anesthetic was implemented by anesthesia team. Right thigh tourniquet was then placed. The splint was then removed from the right ankle. I scrubbed the foot and ankle with Hibiclens and then prepped it with ChloraPrep and draped in the usual sterile fashion. The right leg was then elevated and exsanguinated with the use of an Esmarch and tourniquet was placed at 300 mmHg. A medial approach to the medial malleolus was then performed through a curvilinear incision. Sharp dissection was carried out through the subcutaneous tissue directly down to the fracture site. The fracture site was identified and cleaned of soft tissues. The periosteum was stuck in the fracture itself. I removed this. I reduced this and held it with reduction clamps and this was not very large, so I could only place a single screw. We placed several guidewires and then once the wire through the central aspect of the fragment. I measured this, overdrilled it and then placed a 42 mm partially threaded long threaded cancellous screw with a washer over top the guidewire. This provided excellent fixation. Attention was then drawn laterally. A direct lateral approach to the fibula was then performed through a longitudinal incision over the fibula. Sharp dissection was carried out through the subcutaneous tissues down to the level of the fracture. The fracture was exposed. I tried to minimize the stripping of the fracture site itself. The fracture was evacuated of all clot. I then reduced the fracture and held it with reduction clamps. I placed a single 4.0 partially threaded cancellous screw across the fracture site in a lag fashion. I then contoured a 7-hole 1/3 semitubular plate to the posterolateral aspect of the fibula. It did tend to the posterior instability to the fracture site placed on the posterolateral side of the fibula. I then removed the distal portion of the plate and then bent it times of the last holes in order to maximize contact with the fibula. I then fixed it proximally with four 3.5 fully threaded cortical screws and distally with two 4.0 fully threaded cancellous screws. X-ray was brought in. The fracture is anatomically aligned. It was completely stable. I stressed the mortise and there was no gapping of the mortise. Attention was then drawn toward closing. All wounds were irrigated extensively. I injected locally with 30 mL of 0.5% Marcaine with epinephrine. The periosteum over the fibula plate was closed with 0 Vicryl suture in a [id number] fashion. The tourniquet was then let down for a tourniquet time of 48 minutes. Hemostasis was assured with use of electrocautery. Both wounds were then closed with subcutaneous tissue, again closed with 2-0 Dexon suture in a buried interrupted fashion and skin with a combination of 3-0 and 4-0 nylon suture. The ankle was then cleaned and dried and a sterile dressing of Xeroform, 4 x 4, sterile cast padding and a well-padded posterior and stirrup splint were applied. The patient was then brought out of general anesthesia and transferred to the recovery room in stable condition. The patient tolerated the procedure well with on complications. All needle and sponge counts were correct at the end of the operation. I attest to the content of the Intraoperative Record and any orders documented therein. Any exception s are noted below.
--- NOTE | 2017-10-17 20:25 | Discharge Instructions ---
Discharge Instructions Date of Service Oct 17 Admission Reason for Admission: Right Trimalleolar Ankle Fracture Discharge Discharge Diagnosis / Problem: ORIF Right Ankle Fracture Discharge Goals Goal(s): Decrease discomfort, Improve function, Increase independence, Improve disease control, Therapeutic intervention Activity Recommendations Activity Limitations: per Instructions/Follow-up section Weightbearing Status: Right non-weightbearing . Instructions / Follow-Up Instructions / Follow-Up Keep splint clean, dry, and in place until return to clinic appointmen Schedule Return to clinic appointment approximately 2 weeks from surgery date. Keep all pressure of heel to avoid heel ulcer formation. No weight on right leg for foot until seen in clinic. Current Hospital Diet Patient's current hospital diet: Diabetes Type 2 Diet Discharge Diet Recommended Diet: Diabetes Type 2 Diet Procedures Procedures Performed: Open reduction internal fixation right ankle fracture Pending Studies Studies pending at discharge: no Laboratory Results Hemoglobin A1c Test 10/16/17 15:47 Range/Units Estimated Average Glucose 329 mg/dl Hemoglobin A1c 13.1 H 4.5-5.6 % Medical Emergencies . Who to Call and When: Medical Emergencies: If at any time you feel your situation is an emergency, please call 911 immediately. . Non-Emergent Contact Non-Emergency issues call your: Surgeon . "Provider Documentation" section prepared by Jaron Liu. . VTE Core Measure Inpt VTE Proph given/why not?: Other Anticoagulation, T.E.D. Stockings, SCD's
[2017-10-17] MEDS: CEFAZOLIN IV 2,000 MG in SYRINGE 0 ML IV SCH (20:45)
[2017-10-17] MEDS: ASPIRIN 325 MG ECTAB PO SCH (20:46)
[2017-10-17] MEDS ORDERED: DOCUSATE SODIUM 100 MG CAP PO SCH (21:00)
[2017-10-17] MEDS ORDERED: SENNA 8.6 MG TAB PO SCH (21:00)
[2017-10-17] MEDS ORDERED: INSULIN HUMAN NPH SC SCH (21:00)
[2017-10-18] MEDS ORDERED: INSULIN ASPART 100 UNITS/ML 3 ML PEN SC ONE
[2017-10-18] MEDS: KETOROLAC TROMETHAMINE 15 MG/ML VIAL IV. SCH ×3 (00:27→13:20)
[2017-10-18] MEDS ORDERED: NURSING DECISION MEDICATION ORDER SCH (01:45)
[2017-10-18 03:41] VITALS: BP 135/84; PULSE 80; TEMP 36.8; O2SAT 97
[2017-10-18] MEDS ORDERED: NURSING VERBAL MED ORDER ONE (04:00)
[2017-10-18] MEDS ORDERED: INSULIN ASPART 100 UNITS/ML 3 ML PEN SC SCH (04:00)
[2017-10-18] MEDS: CEFAZOLIN IV 2,000 MG in SYRINGE 0 ML IV SCH (04:01)
[2017-10-18] MEDS: POTASSIUM CHLORIDE INJ 10 MEQ in SODIUM CHLORIDE 0.9% 1000ML 1,000 ML IV SCH ×2 (04:01→14:33)
[2017-10-18 06:58] VITALS: BP 132/83; PULSE 71; TEMP 36.6; O2SAT 97
--- NOTE | 2017-10-18 08:20 | Anesthesiology Progress Note ---
Anesthesia Post Op Note Date & Time Oct 18, 2017 at 08:18 Vital Signs Pain Intensity: 0.0 Vital Signs Past 12 Hours Date Time Temp Pulse Resp B/P (MAP) Pulse Ox O2 Delivery O2 Flow Rate FiO2 10/18/17 06:58 36.6 71 16 132/83 (99) 97 Room Air 10/18/17 03:41 36.8 80 16 135/84 (101) 97 Room Air 10/18/17 00:20 Room Air 10/17/17 22:55 37.0 97 20 187/88 (121) 100 Room Air Notes Mental Status: alert / awake / arousable, participated in evaluation Pt Amnestic to Procedure: Yes Nausea / Vomiting: adequately controlled Pain: adequately controlled Airway Patency, RR, SpO2: stable & adequate BP & HR: stable & adequate Hydration State: stable & adequate Anesthetic Complications: no major complications apparent
[2017-10-18] MEDS ORDERED: MULTIVITAMIN TAB PO SCH (09:00)
[2017-10-18] MEDS ORDERED: PANTOprazole SOD 40 MG TAB PO SCH (09:00)
[2017-10-18] MEDS: DOCUSATE SODIUM 100 MG CAP PO SCH (09:11)
[2017-10-18] MEDS: ASPIRIN 325 MG ECTAB PO SCH (09:12)
[2017-10-18] MEDS: PANTOprazole SOD 40 MG TAB PO SCH (09:12)
[2017-10-18] MEDS ORDERED: INFLUENZA ADMINISTRATION CHARGE ONE (09:15)
[2017-10-18] MEDS: INSULIN ASPART 100 UNITS/ML 3 ML PEN SC SCH ×3 (09:18→16:41)
[2017-10-18] MEDS ORDERED: INFLUENZA VIRUS QUAD VACCINE 0.5 ML SYR IM. ONE (09:30)
[2017-10-18] MEDS ORDERED: INFLUENZA VACCINE HIGH DOSE 65+ 0.5 ML SYR IM. ONE (09:30)
--- NOTE | 2017-10-18 12:12 | Orthopedic Progress Note ---
Orthopedic Progress Note Date of Service Oct 18, 2017. Subjective Post OP Day: 1 Additional Notes: POD #1 ORIF right ankle fx. Doing well. No pain yet Objective N/V intact, dressing C/D/I, A&O x3, toes mobile Date Time Temp Pulse Resp B/P (MAP) Pulse Ox O2 Delivery O2 Flow Rate FiO2 10/18/17 08:28 Room Air 10/18/17 06:58 36.6 71 16 132/83 (99) 97 Room Air 10/18/17 03:41 36.8 80 16 135/84 (101) 97 Room Air 10/18/17 00:20 Room Air 10/17/17 22:55 37.0 97 20 187/88 (121) 100 Room Air 10/17/17 20:10 37.1 85 18 158/85 (109) 97 Room Air 10/17/17 19:24 37.0 89 18 150/83 (105) 95 Room Air 10/17/17 18:10 37.3 84 17 164/87 (112) 98 Nasal Cannula 2.0 10/17/17 17:46 37.2 92 18 131/80 (97) 92 10/17/17 17:40 98 Nasal Cannula 2.0 10/17/17 17:10 93 Nasal Cannula 2.0 10/17/17 17:10 37.0 84 18 140/83 (102) 93 Nasal Cannula 2.0 10/17/17 17:10 93 Nasal Cannula 2.0 10/17/17 17:00 36.3 81 13 147/75 97 Nasal Cannula 2 10/17/17 16:50 82 18 134/70 96 Nasal Cannula 2 10/17/17 16:40 77 16 129/70 96 Oxymask 10 10/17/17 16:30 85 20 148/78 99 Oxymask 10 10/17/17 16:24 36.7 80 20 162/78 97 Oxymask 10 10/17/17 13:45 82 18 176/102 (126) 96 Room Air Assessment & Plan Assessment: POD #1 ORIF right ankle fx Plan: Discharge home today. Her son will be there to help her out she said. Continue aspirin 325mg BID Keep splint clean and dry. NWB RLE F/u with Dr. Liu in approx 2 weeks.
[2017-10-18] MEDS ORDERED: NVLNI SC (12:46)
--- NOTE | 2017-10-18 13:19 | Discharge Instructions ---
Discharge Instructions Date of Service Oct 18, 2017. Admission Reason for Admission: Right Trimalleolar Ankle Fracture Discharge Discharge Diagnosis / Problem: R Ankle Fracture Discharge Goals Goal(s): Decrease discomfort, Improve function, Increase independence Activity Recommendations Activity Limitations: per Instructions/Follow-up section (Please follow orthopedics recommendations) . Instructions / Follow-Up Instructions / Follow-Up Diabetes: - Please check you sugars at a minimum of three times a day with meals. Taking a night time check with your Novolin-N will be beneficial too - [facility] carries [id number] insulin the Novolin - N and Humalog you are on. As well, needles can be purchased over the counter too - Recommend to follow-up with the free clinic while you await your insurance. Please fill out the form for the free [facility] and our case planner will assist on getting follow-up appt. through this program - Recommend an record press operator (diabetes doctor) - this is a group you saw in the past to get a better insulin regimen. - Luckily you have type 2 diabetes and therefore diet control and exercise ( within the limits of your ankle fracture) can benefit your sugars and overall health. Even a 5-10 lb weight loss will show improvements in your sugar readings. Recommend to avoid high carbohydrate foods (PASTA, POTATO, CHIPS, CANDY, BREADS) these can be incorporated into the diet but balance this is good high proteins and vegetables. Would encourage incorporated fruits (2-3 servings a day) but be mindful even though they are natural sugars they can impact your sugars. - Recommend to continue your Novolin-N 60 units at bedtime - Recommend the following for your short acting insulin with meals ---- BREAKFAST - TAKE 5 UNITS ---- LUNCH - TAKE 5 UNITS ---- DINNER - TAKE 5 UNITS - IN ADDITION TO THE 5 UNITS WITH EACH MEAL - DO THE FOLLOWING SLIDING SCALE BASED ON YOUR SUGARS AT THAT MEAL 60-200 - DO NO TAKE ANY ADDITIONAL INSULIN 200-300 - TAKE 2 UNITS IN ADDITION TO THE 5 UNITS WITH EACH MEAL - TOTAL 7 UNITS 300-450 - TAKE 4 UNITS IN ADDITION TO THE 5 UNITS WITH EACH MEAL - TOTAL 9 UNITS SUGARS GREATER THAN 450 OR LOWER THAN 60 - CALL A DOCTOR OR COME TO THE HOSPITAL Current Hospital Diet Patient's current hospital diet: Diabetes Type 2 Diet Discharge Diet Recommended Diet: Diabetes Type 2 Diet Procedures Procedures Performed: Open reduction internal fixation right ankle fracture Pending Studies Studies pending at discharge: no Laboratory Results Hemoglobin A1c Test 10/16/17 15:47 Range/Units Estimated Average Glucose 329 mg/dl Hemoglobin A1c 13.1 H 4.5-5.6 % Medical Emergencies . Who to Call and When: Medical Emergencies: If at any time you feel your situation is an emergency, please call 911 immediately. . Non-Emergent Contact Non-Emergency issues call your: Primary Care Provider . . "Provider Documentation" section prepared by Ana Guadalupe. . VTE Core Measure Inpt VTE Proph given/why not?: Other Anticoagulation, T.E.D. Stockings, SCD's
[2017-10-18 14:00] VITALS: BP 142/84; PULSE 90; O2SAT 98
--- NOTE | 2017-10-18 14:51 | Hospitalist Progress Note ---
Hospitalist Progress Note Date of Service Oct 18, 2017. Subjective Pt evaluation today including: conversation w/ patient, physical exam, chart review, lab review, review of studies, review of inpatient medication list Patient seen and evaluated. No acute events overnight. Unfortunately do not have a great picture of her diabetes management as the information seems to change each day when visiting. Turns out patient is on NPH and only taking once a day and not a long-acting regimen. Appears she was switched to this from Lantus when she lost insurance from the free clinic. Unsure of how much she is truly taking or how often she misses doses. certified breastfeeding educator met with her again today and [facility] has OTC purchases for insulin and needles. Patient states she does not have an income but states her ex- is supportive financially. Gave D/C instructions to continue her Novolin-N as prescribed - states she takes 60-80 units (mostly 60 from her account). And gave instructions for a sliding scale. Given uncertainty of how compliant she is at home, do not want to make drastic changes as her current regimen may give her benefit if she is consistent. Goal will be for simplicity to improve compliance but ultimately outpatient monitoring will be necessary Constitutional: No fever, No chills Respiratory: No cough, No shortness of breath Cardiovascular: No chest pain Abdomen: No pain, No nausea, No vomiting, No diarrhea, No constipation, No GI bleeding Musculoskeletal: No joint pain Heme: No abnormal bleeding/bruising Objective Vital Signs Date Time Temp Pulse Resp B/P (MAP) Pulse Ox O2 Delivery O2 Flow Rate FiO2 10/18/17 08:28 Room Air 10/18/17 06:58 36.6 71 16 132/83 (99) 97 Room Air 10/18/17 03:41 36.8 80 16 135/84 (101) 97 Room Air 10/18/17 00:20 Room Air 10/17/17 22:55 37.0 97 20 187/88 (121) 100 Room Air 10/17/17 20:10 37.1 85 18 158/85 (109) 97 Room Air 10/17/17 19:24 37.0 89 18 150/83 (105) 95 Room Air 10/17/17 18:10 37.3 84 17 164/87 (112) 98 Nasal Cannula 2.0 10/17/17 17:46 37.2 92 18 131/80 (97) 92 10/17/17 17:40 98 Nasal Cannula 2.0 10/17/17 17:10 93 Nasal Cannula 2.0 10/17/17 17:10 37.0 84 18 140/83 (102) 93 Nasal Cannula 2.0 10/17/17 17:10 93 Nasal Cannula 2.0 10/17/17 17:00 36.3 81 13 147/75 97 Nasal Cannula 2 10/17/17 16:50 82 18 134/70 96 Nasal Cannula 2 10/17/17 16:40 77 16 129/70 96 Oxymask 10 10/17/17 16:30 85 20 148/78 99 Oxymask 10 10/17/17 16:24 36.7 80 20 162/78 97 Oxymask 10 Physical Exam General Appearance: WD/WN, no apparent distress, + obese Eyes: sclerae normal ENT: hearing grossly normal Neck: supple, no JVD, trachea midline Respiratory/Chest: lungs clear, normal breath sounds, no respiratory distress, no accessory muscle use Cardiovascular: regular rate, rhythm, no gallop, no murmur Abdomen: normal bowel sounds, non tender, soft Extremities: + pertinent finding (RLE wrapped c/d/i ) Neurologic/Psychiatric: alert, oriented x 3 Skin: normal color, warm/dry Laboratory Results Last 24 Hours Test 10/17/17 16:26 10/17/17 19:23 10/17/17 23:59 10/18/17 03:38 Bedside Glucose 127 mg/dl 307 mg/dl 263 mg/dl 218 mg/dl Test 10/18/17 07:58 10/18/17 11:47 Bedside Glucose 126 mg/dl 182 mg/dl Assessment and Plan Ms. Hamilton is a 61 y/o female with PMHx of IDDM - Type 2, HLD, and Asthma was admitted due to a R Trimalleolar Ankle Fx. Hospitalist consulted for hyperglycemia. Mechanical Fall with R Trimalleolar Ankle Fx S/P Repair: - Pain Management, IVF, PT/OT, DVT Prophylaxis per primary Hyperglycemia with IDDM - Type 2: - Continues to be hyperglycemic - A1c 13.1 which suggests her sugars do not run where she reported; states she was last seen by the [facility] approx. 1 year ago and was given enough supplies to cover her...A1c supports non-compliance and unsure if she is truly taking medications; last A1c from approximately a year ago was 9.5 - Pending D/C for the day but can continue SSI as prescribed in-hospital and continue home regimen if returning home Asthma without Exacerbation: - Reports she has known asthma - she previously had an inhaler but reports not needing this since April 2017 Disposition: - Reports she follows with the free clinic; reporting noncompliance with previously prescribed medications - She is currently uninsured and states she has an application pending for insurance coverage for October
[2017-10-18 15:03] VITALS: Ht 157.5 cm; Wt 115.0 kg
[2017-10-18 15:11] VITALS: BP 135/80; PULSE 83; TEMP 36.7; O2SAT 92
[2017-10-18 17:09] VITALS: BP 135/80; PULSE 83; TEMP 36.7; O2SAT 92
--- NOTE | 2017-10-18 18:36 | PROGRESS NOTE ---
DATE: 10/18/2017 SUBJECTIVE: A 61-year-old white female postop day #1 from ORIF of right trimalleolar ankle fracture subluxation. She is doing pretty well. Not having any pain yet. She has got some tingling still in her foot. Had no pain at all. Still feels pretty numb. No chest pain or shortness of breath. Not feeling dizzy or lightheaded. OBJECTIVE: VITAL SIGNS: Temperature 36.7. Vital signs stable. GENERAL: Reveals a pleasant, elderly, middle-aged female. She is lying in bed and looks comfortable. EXTREMITIES: Examination of the right leg reveals a splint in place. There is a little bit of the splint posteriorly that is beginning to irritate her calf. She can plantarflex her toes. She cannot dorsiflex her foot or toes yet. Her sensory exam is decreased. The splint is fitting well. No detectable bloody drainage. ASSESSMENT: A 61-year-old female diabetic postop day #1 from open reduction external fixation of right trimalleolar ankle fracture subluxation. Her peroneal nerve and sensory function still not back to normal, but I suspect this is from the block. I checked her splint and is not tight. There is one area that is digging to the back of her calf a little and I have padded that today with a couple ABDs and reinforced with an Carmelo. Once again, I have checked her splint and is not tight or putting any pressure on peroneal nerve. She was lying on side and it is possible that she could have a peroneal nerve neuropraxia from that, but I think it is unlikely and most likely just related to the persistent block. PLAN: 1. DVT prophylaxis including thigh-high TEDs, SCDs, and aspirin twice a day. 2. PT/OT. She is strict nonweightbearing, right leg. Therapist planning to go to [facility]. We discussed with the patient and she adamantly refuses. She says she has plenty of help at home. We will leave that up to her. 3. Medical management as per the medicine service. 4. Disposition: Plan to discharge to home and I will see her back in 2 weeks. DIANE
--- NOTE | 2017-10-25 10:51 | DISCHARGE SUMMARY ---
ADMITTING PHYSICIAN AND SURGEON: Jaron Liu MD. ADMITTING DIAGNOSIS: Right trimalleolar ankle fracture subluxation. SURGERY PERFORMED: Open reduction internal fixation of a right trimalleolar ankle fracture. SECONDARY DIAGNOSES: Insulin-dependent diabetes, hypertension, asthma. CONSULTS: Dr. Foster for postoperative medical management and diabetes. HISTORY AND PHYSICAL EXAMINATION: Well documented in the patient's chart. HOSPITAL COURSE: The patient was admitted on 10/16/2017 with a right ankle fracture subluxation. She underwent attempted closed reduction in the Emergency Room and splinting. On 10/17/2017, she was taken to the operating room and underwent open reduction internal fixation of the ankle fracture. She tolerated the procedure well. There were no complications. She was transferred to the PACU postoperatively and later to the orthopedic floor for further care. She was given Ancef for antibiotic prophylaxis, MIGUEL stockings, SCDs and aspirin for DVT prophylaxis. Hemoglobin, hematocrit and vital signs were monitored and remained stable. She did not require any blood transfusions. There were no complications. On postoperative day 1, the peroneal nerve function and sensory function in her foot was still not quite back to normal, suspected from her block. Her splint was checked and reinforced and it was felt the nerve function was related to the persistent block. There were no complications during her hospital stay. On postoperative day 1, she was tolerating a diabetic diet, pain was controlled. She really was not having any pain at that point. On postoperative day 1, she was discharged home. She was given printed discharge instructions including new prescriptions for extra strength Tylenol, aspirin 325 mg b.i.d., Dilaudid for pain. Continue her home medications. She should keep her splint clean, dry and intact until her followup appointment in approximately 2 weeks. She was also given instructions to keep pressure off her heel to help avoid ulcer formation, nonweightbearing to the right lower extremity. Follow up in 2 weeks.
== END 2017-10-18 17:35 | disposition home or self-care (01) | DRG 494 ==
LOC: EDBD 14:27 → C.EDD 14:28 → C.MSW 17:11 → ENRESERV 17:35
PROVIDERS: ADMIT Orthopaedic Surgery Sports Medicine; ATTEND Orthopaedic Surgery Sports Medicine
PROC: 0SSF04Z Reposition Right Ankle Joint with Internal Fixation Device, Open Approach (ICD-10-PCS; principal; 2017-10-17 09:15)
DX: S82.851A Displaced trimalleolar fracture of right lower leg, initial encounter for closed fracture (principal); W19.XXXA Unspecified fall, initial encounter; I10 Essential (primary) hypertension; E78.5 Hyperlipidemia, unspecified; J45.909 Unspecified asthma, uncomplicated; E11.65 Type 2 diabetes mellitus with hyperglycemia; Z83.3 Family history of diabetes mellitus; Z82.49 Family history of ischemic heart disease and other diseases of the circulatory system; Z79.4 Long term (current) use of insulin

== ENCOUNTER 2023-09-22 11:26 | Inpatient (IN) ==
[2023-09-22] MEDS: SODIUM CHLORIDE 0.9% 1,000 ML IV SCH ×2 (12:11→13:03)
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
--- NOTE | 2023-09-22 12:52 | XRay Report ---
XR chest 1V portable CLINICAL HISTORY: Sepsis TECHNIQUE: Single frontal radiograph of the chest was obtained. Comparison: None available at the time of this dictation. FINDINGS: No lines and tubes are seen. The cardiomediastinal silhouette is normal. The lungs are clear. No evid ence of pleural effusion or pneumothorax. IMPRESSION: No acute abnormalities and in particular no radiographic evidence of pneumonia. ACT 112: Negative or not required by law. Electronically signed by: Farhat Gold M.D. 09/22/2023 12:51 PM
[2023-09-22 12:55] LABS: Bilirubin Direct 0.1 mg/dl (0-0.2)
[2023-09-22] MEDS ORDERED: CEFEPIME 2,000 MG/20 ML VIAL IV STA (12:56)
[2023-09-22 12:57] LABS: Albumin Globulin Ratio 0.9 (0.9-2); Albumin Level 3.6 gm/dl (3.4-5.0); BUN Creatinine Ratio 17.3 (10-20); Bilirubin,Total 0.8 mg/dl (0.2-1.0); Calcium 9.1 mg/dl (8.6-10.3); Creatinine Clr Calc Pharmacy 42.2 ml/min; Est GFR (African American) 40.8 ml/min; Est GFR (Non-African American) 35.2 ml/min; Globulin 3.9 gm/dl (2.5-4.0); Magnesium 2.2 mg/dl (1.7-2.4); Potassium 3.7 mmol/L (3.5-5.1); Total Protein 7.5 gm/dl (6.0-8.3)
[2023-09-22 13:00] LABS: Appearance Urine Cloudy (Clear); Bacteria Urine Automated 4+ (Negative); Bilirubin Urine Negative (Negative); Blood Urine Trace (Negative); Cast Urine Automated 0 /lpf (0-5); Color Urine Yellow; Epithelial Cell Urine Auto 0-5 /lpf (0-5); Glucose Urine UA 3+ (Negative); Ketones Urine 3+ (Negative); Leukocyte Esterase Urine 1+ (Negative); Nitrite Urine Negative (Negative); Protein Urine Trace (Negative); Specific Gravity Urine 1.023 (1.000-1.030); Urobilinogen Urine Negative (Negative); WBC Urine Automated >30 /hpf (0-5)
[2023-09-22 13:02] LABS: Hematocrit (blood only) 39.5 % (37.0-47.0); Hemoglobin 13.9 g/dl (12.0-16.0); Mean Corpuscular Hemoglobin 30.5 pg (25.0-34.0); Mean Corpuscular Hgb Conc 35.2 g/dL (32.0-36.0); Mean Corpuscular Volume 86.6 fL (80.0-100.0); Mean Platelet Volume 12.8 fL (9.4-12.4); Platelet Count 204 K/uL (130-400); RDW Coefficient of Variation 13.2 % (11.5-14.5); RDW Standard Deviation 41.6 fL (36.4-46.3); Red Blood Count 4.56 M/uL (4.20-5.40); White Blood Count 11.03 K/ul (4.8-10.8)
[2023-09-22 13:17] LABS: Basophils # (auto) 0.02 K/uL (0.00-0.20); Basophils % (auto) 0.2 %; Eosinophils # (auto) 0.11 K/uL (0.00-0.50); Immature Granulocytes # (auto) 0.26 K/uL (0.01-0.20); Immature Granulocytes % (auto) 2.4 %; Lymphocytes # (auto) 1.91 K/uL (1.20-3.40); Lymphocytes % (auto) 17.3 %; Monocytes # (auto) 0.57 K/uL (0.11-0.59); Monocytes % (auto) 5.2 %; Neutrophils # (auto) 8.16 K/uL (1.40-6.50); Neutrophils % (auto) 73.9 %
[2023-09-22] MEDS ORDERED: NovoLIN-R INSULIN PER UNIT CHARGE IV STA (13:20)
[2023-09-22 13:23] LABS: Lyme Ab IgG w/WB Rflx Negative (Negative); Lyme Ab IgM w/WB Rflx Negative (Negative)
[2023-09-22] MEDS ORDERED: CEFEPIME 2,000 MG in SYRINGE 0 ML IV SCH (14:00)
[2023-09-22 14:15] LABS: Troponin I High Sensitivity 8.6 pg/ml (0-14)
[2023-09-22] MEDS ORDERED: STAT IV Infusion **Titration per Protocol STA (14:16)
[2023-09-22] MEDS ORDERED: DKA GOAL RANGE 150-250 mg/dl ONE (14:16)
[2023-09-22] MEDS ORDERED: PHARMACY GLYCEMIC MGMT CONSULT PRN (14:16)
[2023-09-22] MEDS ORDERED: PLASMA-LYTE A 1,000 ML IV ONE ×2 (14:17→20:23)
--- NOTE | 2023-09-22 14:17 | History & Physical Report ---
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 Sepsis bolus 1620ml. Received 2000ml NSS. Possible source UTI but no specific symptoms for this - may discontinue antibiotics if culture subsequently negative Switch cefepime to ceftriaxone 2g IV daily, follow up blood and urine cultures (3) Hyponatremia: Plan: Corrected 134 therefore should just correct with glucose management (4) Uncontrolled type 2 diabetes mellitus: (5) Hypertension: Plan: Hold HCTZ and lisinopril Plan VTE Prophylaxis Diet - NPO Disposition - admit to PCU Admission and Anticipated Discharge Date Admission Date: September 22 History of Present Illness Chief Complaint: Generalized weakness and fatigue Primary Care Provider: Lucia Stock MD Eun Hamilton is a 67 year old female who presents to the ER due to generalized weakness and fatigue. She has type 2 diabetes mellitus with previous use of an insulin pump requiring (per last PCP note in February) 3.5 units basal/hr with 6:1 carb ratio. She notes hurting her shoulder in May (left humeral fracture) and has been unable to refill her insulin pump since then therefore has not been taking any insulin. She has not informed any of her doctors of this predicament. She has continued on Trulicity and feels she is having significant side effects of this with early satiety after only one shrimp with nausea and vomiting when she tries to eat more. She also reports running out of pregabalin during week but does not wish to go back on this medication. She denies any respiratory, gastrointestinal or urinary infective symptoms. No fever or chills. Allergies Allergy/AdvReac Type Severity Reaction Status Date / Time grass pollen-perennial rye, Allergy Intermediate ASTHMATIC Verified 09/22/23 13:58 standar SYMPTOMS milk Allergy Unknown INCREASED Verified 09/22/23 13:58 MUCUS-ASTHMAS AGGRAVATION mold Allergy Unknown ASTHMATIC Verified 09/22/23 13:58 SYMPTOMS codeine AdvReac Unknown HALLUCINATI Verified 09/22/23 13:58 ONS Home Medications Medication Instructions Recorded Confirmed Type glucagon HCl 1 mg/mL solution for 1 mg IM UD PRN hypoglycemia #2 ea 11/20/19 09/22/23 Rx injection cetirizine 10 mg capsule (Zyrtec) 10 mg PO DAILY 02/13/20 09/22/23 History insulin aspart U-100 100 unit/mL 240 unit continuous subcutaneous 06/06/22 09/22/23 History subcutaneous solution infusion DAILY lisinopril 40 mg tablet 40 mg PO DAILY #90 tabs 11/24/22 09/22/23 Rx hydrochlorothiazide 25 mg tablet 25 mg PO DAILY #90 tabs 03/06/23 09/22/23 Rx rosuvastatin 20 mg tablet 20 mg PO QPM #90 tabs 03/20/23 09/22/23 Rx montelukast 10 mg tablet 10 mg PO DAILY #90 tabs 04/11/23 09/22/23 Rx (Singulair) ondansetron HCl 4 mg tablet 4 mg PO Q8H PRN nausea and 06/07/23 09/22/23 Rx vomiting #30 tabs albuterol sulfate 90 mcg/actuation 2 inh inhalation Q6H PRN shortness 06/21/23 09/22/23 Rx aerosol inhaler of breath or wheezing #13.4 grams pregabalin 75 mg capsule 75 mg PO BID #60 caps 09/18/23 09/22/23 Rx Past Med/Surg History Medical History Class 3 severe obesity with body mass index (BMI) of 50.0 to 59.9 in adult Closed head injury Fall down steps Hypertension Mixed hyperlipidemia NAFLD (nonalcoholic fatty liver disease) Pain of left lower extremity Stage 3 chronic renal impairment associated with type 2 diabetes mellitus Type 2 diabetes mellitus with obesity Surgical History H/O colonoscopy History of bilateral carpal tunnel release History of tonsillectomy Family History Unknown Diabetes Pancreatic cancer Thyroid disorder Sleep apnea nonorganic Alcoholism Brother Diabetes Sarcoidosis Mother Thyroid disorder Sleep apnea nonorganic Emphysema, unspecified Sister Sleep apnea nonorganic Grandmother Sleep apnea nonorganic Social History Smoking Status: Never smoker Second Hand Exposure: No; Do You Dip or Chew Tobacco: No; Hx Alcohol Use: Yes Alcohol type: wine Hx Substance Use: No Preferred Language: Thai Communication Ability: Effective Strategic Partnership Manager Required: No Beliefs That Will Affect Care: None marital status: Current Living Situation: Family Current Living Situation Comment: lives with son current occupational status: unemployed Other Information That Helps Us Care for You: No Feels Safe at Home: Yes Safety Concerns: Feels Safe At This Time Childhood Exposure to Second-Hand Smoke: Yes Dental Care, Regularly: Yes Physical Activity Frequency: Does not Exercise Seatbelt Use: always Sunscreen Use: Yes Assistive Devices: Walker Review of Systems Review of Systems: All systems reviewed & are unremarkable except as noted in HPI & below Physical Exam Constitutional: well developed; + not well nourished and no acute distress Eyes: PERRL, conjunctivae normal, anicteric sclerae ENMT: Mouth: + dry oral mucous membranes Neck: trachea midline, no thyromegaly Respiratory: normal respiratory effort, lungs clear to auscultation Cardiovascular: RRR, no murmur, no edema Gastrointestinal (Abdomen): normal bowel sounds, soft, nontender, no hepatosplenomegaly Skin: tinea pedis on bilateral feet without significant surrounding cellulitis Neurologic: moves all extremities and awake; not confused Psychiatric: A+Ox3, euthymic affect Results & Data Results & Data Vital Signs (Past 12 Hours) Vital Signs Temp Pulse Resp BP Pulse Ox O2 Del Method 09/22/23 12:45 87 16 123/74 96 09/22/23 12:31 90 12 82/59 L 97 09/22/23 12:15 89 18 87/66 L 98 09/22/23 12:10 89 17 100/58 L 97 09/22/23 12:05 88 09/22/23 12:00 91 H 20 94/60 L 95 09/22/23 11:50 101 H 22 98 09/22/23 11:50 37.4 C 09/22/23 11:34 36.5 C 101 H 20 67/53 L 98 Room Air Laboratory Results Abnormal lab results 09/22/23 09/22/23 09/22/23 Range/Units 11:35 11:39 11:55 WBC 11.03 H (4.8-10.8) K/ul MPV 12.8 H (9.4-12.4) fL Neut # (Auto) 8.16 H (1.40-6.50) K/uL Immature Gran # (Auto) 0.26 H (0.01-0.20) K/uL VBG pH (7.36-7.41) Sodium 126 L (136-145) mmol/L Potassium (3.5-5.1) mmol/L Chloride 82 L (98-107) mmol/L Carbon Dioxide 20 L (21-32) mmol/L Anion Gap 24 H (3-11) BUN 26 H (6-23) mg/dl Creatinine 1.50 H (0.6-1.2) mg/dl BUN/Creatinine Ratio (10-20) Glucose 435 H* (70-99(Fasting)) mg/dl POC Glucose 422 H* (70-99) mg/dl Lactate (0.4-2.0) mmol/L Calcium (8.6-10.3) mg/dl Phosphorus (2.5-4.9) mg/dl Procalcitonin 0.65 H (0-0.5) ng/ml Urine Appearance Cloudy A (Clear) Urine Protein Trace H (Negative) Urine Glucose (UA) 3+ H (Negative) Urine Ketones 3+ H (Negative) Urine Blood Trace H (Negative) Ur Leukocyte Esterase 1+ H (Negative) Urine WBC (Auto) >30 H (0-5) /hpf Urine RBC (Auto) 5-10 H (0-4) /hpf Urine Bacteria (Auto) 4+ H (Negative) Urine Yeast Budding A (None Prsent) 09/22/23 09/22/23 09/22/23 Range/Units 12:39 15:02 15:32 WBC (4.8-10.8) K/ul MPV (9.4-12.4) fL Neut # (Auto) (1.40-6.50) K/uL Immature Gran # (Auto) (0.01-0.20) K/uL VBG pH 7.31 L (7.36-7.41) Sodium 129 L (136-145) mmol/L Potassium (3.5-5.1) mmol/L Chloride 90 L (98-107) mmol/L Carbon Dioxide 18 L (21-32) mmol/L Anion Gap 21 H (3-11) BUN 26 H (6-23) mg/dl Creatinine 1.25 H (0.6-1.2) mg/dl BUN/Creatinine Ratio 20.8 H (10-20) Glucose 322 H* (70-99(Fasting)) mg/dl POC Glucose 293 H (70-99) mg/dl Lactate 4.0 H* 2.5 H* (0.4-2.0) mmol/L Calcium 8.3 L (8.6-10.3) mg/dl Phosphorus (2.5-4.9) mg/dl Procalcitonin (0-0.5) ng/ml Urine Appearance (Clear) Urine Protein (Negative) Urine Glucose (UA) (Negative) Urine Ketones (Negative) Urine Blood (Negative) Ur Leukocyte Esterase (Negative) Urine WBC (Auto) (0-5) /hpf Urine RBC (Auto) (0-4) /hpf Urine Bacteria (Auto) (Negative) Urine Yeast (None Prsent) 09/22/23 09/22/23 09/22/23 Range/Units 16:29 17:31 18:25 WBC (4.8-10.8) K/ul MPV (9.4-12.4) fL Neut # (Auto) (1.40-6.50) K/uL Immature Gran # (Auto) (0.01-0.20) K/uL VBG pH 7.43 H (7.36-7.41) Sodium 131 L (136-145) mmol/L Potassium 3.2 L (3.5-5.1) mmol/L Chloride 94 L (98-107) mmol/L Carbon Dioxide 19 L (21-32) mmol/L Anion Gap 18 H (3-11) BUN 25 H (6-23) mg/dl Creatinine (0.6-1.2) mg/dl BUN/Creatinine Ratio 21.9 H (10-20) Glucose 127 H (70-99(Fasting)) mg/dl POC Glucose 254 H 159 H (70-99) mg/dl Lactate (0.4-2.0) mmol/L Calcium 8.2 L (8.6-10.3) mg/dl Phosphorus 2.1 L (2.5-4.9) mg/dl Procalcitonin (0-0.5) ng/ml Urine Appearance (Clear) Urine Protein (Negative) Urine Glucose (UA) (Negative) Urine Ketones (Negative) Urine Blood (Negative) Ur Leukocyte Esterase (Negative) Urine WBC (Auto) (0-5) /hpf Urine RBC (Auto) (0-4) /hpf Urine Bacteria (Auto) (Negative) Urine Yeast (None Prsent) 09/22/23 09/22/23 09/22/23 Range/Units 19:01 20:03 20:59 WBC (4.8-10.8) K/ul MPV (9.4-12.4) fL Neut # (Auto) (1.40-6.50) K/uL Immature Gran # (Auto) (0.01-0.20) K/uL VBG pH (7.36-7.41) Sodium (136-145) mmol/L Potassium (3.5-5.1) mmol/L Chloride (98-107) mmol/L Carbon Dioxide (21-32) mmol/L Anion Gap (3-11) BUN (6-23) mg/dl Creatinine (0.6-1.2) mg/dl BUN/Creatinine Ratio (10-20) Glucose (70-99(Fasting)) mg/dl POC Glucose 101 H 109 H 166 H (70-99) mg/dl Lactate (0.4-2.0) mmol/L Calcium (8.6-10.3) mg/dl Phosphorus (2.5-4.9) mg/dl Procalcitonin (0-0.5) ng/ml Urine Appearance (Clear) Urine Protein (Negative) Urine Glucose (UA) (Negative) Urine Ketones (Negative) Urine Blood (Negative) Ur Leukocyte Esterase (Negative) Urine WBC (Auto) (0-5) /hpf Urine RBC (Auto) (0-4) /hpf Urine Bacteria (Auto) (Negative) Urine Yeast (None Prsent) 09/22/23 Range/Units 22:00 WBC (4.8-10.8) K/ul MPV (9.4-12.4) fL Neut # (Auto) (1.40-6.50) K/uL Immature Gran # (Auto) (0.01-0.20) K/uL VBG pH (7.36-7.41) Sodium (136-145) mmol/L Potassium (3.5-5.1) mmol/L Chloride (98-107) mmol/L Carbon Dioxide (21-32) mmol/L Anion Gap (3-11) BUN (6-23) mg/dl Creatinine (0.6-1.2) mg/dl BUN/Creatinine Ratio (10-20) Glucose (70-99(Fasting)) mg/dl POC Glucose 190 H (70-99) mg/dl Lactate (0.4-2.0) mmol/L Calcium (8.6-10.3) mg/dl Phosphorus (2.5-4.9) mg/dl Procalcitonin (0-0.5) ng/ml Urine Appearance (Clear) Urine Protein (Negative) Urine Glucose (UA) (Negative) Urine Ketones (Negative) Urine Blood (Negative) Ur Leukocyte Esterase (Negative) Urine WBC (Auto) (0-5) /hpf Urine RBC (Auto) (0-4) /hpf Urine Bacteria (Auto) (Negative) Urine Yeast (None Prsent) Diagnostic Findings XR chest 1V portable CLINICAL HISTORY: Sepsis TECHNIQUE: Single frontal radiograph of the chest was obtained. Comparison: None available at the time of this dictation. FINDINGS: No lines and tubes are seen. The cardiomediastinal silhouette is normal. The lungs are clear. No evidence of pleural effusion or pneumothorax. IMPRESSION: No acute abnormalities and in particular no radiographic evidence of pneumonia. Medications Administered ER Medications Given: Normal saline 1000ml bolus x2 Cefepime 2000mg IV Insulin 5 units IV ECG Rate (beats per minute): 102 Rhythm: sinus tachycardia Findings: + nonspecific-ST abn Comparison ECG Date: from (October 16, 2017) Change: no significant change Code Status & VTE Plan Code Status Full VTE Prophylaxis Plan VTE Prophylaxis will be ordered: Yes PG Care Time/CCT Total # of Minutes Spent Total Time Spent with Patient: Total time spent is greater than 50% in coordination of care (as documented) at patient's floor/unit and/or counseling patient: Coding Level of Care Code 91036 INT INP/OBS CARE 3/75MIN Diagnoses Diabetic ketoacidosis without coma associated with type 2 diabetes mellitus E11.10 Diabetes mellitus type: type 2 Diabetes mellitus complication detail: without coma Sepsis without acute organ dysfunction, due to unspecified organism A41.9 Sepsis type: sepsis due to unspecified organism Sepsis acute organ dysfunction status: without acute organ dysfunction Hyponatremia E87.1 Uncontrolled type 2 diabetes mellitus E11.65 Hypertension I10 (1) DKA (diabetic ketoacidosis) Diabetes mellitus type: type 2 Diabetes mellitus complication detail: without coma Qualified Code(s): E11.10 - Type 2 diabetes mellitus with ketoacidosis without coma (2) Sepsis Sepsis type: sepsis due to unspecified organism Sepsis acute organ dysfunction status: without acute organ dysfunction Qualified Code(s): A41.9 - Sepsis, unspecified organism
[2023-09-22 14:30] LABS: Adenovirus PCR Not Detected (NotDetected); Bordetella parapertussis PCR Not Detected (NotDetected); Bordetella pertussis PCR Not Detected (NotDetected); Chlamydia pneumoniae PCR Not Detected (NotDetected); Coronavirus 229E PCR Not Detected (NotDetected); Coronavirus CoV-2 (COVID19)PCR Not Detected (NotDetected); Coronavirus HKU1 PCR Not Detected (NotDetected); Coronavirus NL63 PCR Not Detected (NotDetected); Coronavirus OC43PCR Not Detected (NotDetected); Human Metapneumovirus PCR Not Detected (NotDetected); Influenza A PCR Not Detected (NotDetected); Influenza B PCR Not Detected (NotDetected); Mycoplasma pneumoniae PCR Not Detected (NotDetected); Parainfluenza Virus 1 PCR Not Detected (NotDetected); Parainfluenza Virus 2 PCR Not Detected (NotDetected); Parainfluenza Virus 3 PCR Not Detected (NotDetected); Parainfluenza Virus 4 PCR Not Detected (NotDetected); Respiratory Syncytial VirusPCR Not Detected (NotDetected); Rhinovirus/Enterovirus PCR Not Detected (NotDetected)
[2023-09-22] MEDS ORDERED: PENDING 1/2NSS+20mEq KCL IVF SCH (14:30)
[2023-09-22] MEDS ORDERED: DEXTROSE 50% 50 ML SYRINGE IV PRN (14:45)
[2023-09-22] MEDS ORDERED: GLUCAGON FOR INJ 1 MG VIAL IM PRN (14:45)
[2023-09-22] MEDS ORDERED: CARBOHYDRATES FOR HYPOGLYCEMIA PO PRN (14:45)
[2023-09-22] MEDS ORDERED: GLUCOSE 40% GEL 15 GM TUBE PO PRN (14:45)
[2023-09-22] MEDS ORDERED: GLUCOSE 10 TAB/TUBE PO PRN (14:45)
[2023-09-22] MEDS ORDERED: SODIUM CHLOR 0.45% + 20MEQ KCL 20 MEQ/1,000 ML BAG IV SCH (15:00)
[2023-09-22] MEDS ORDERED: NovoLIN-R BOLUS FROM BAG IV ONE (15:00)
[2023-09-22 15:48] LABS: BUN Creatinine Ratio 20.8 (10-20); Calcium 8.3 mg/dl (8.6-10.3); Creatinine Clr Calc Pharmacy 50.6 ml/min; Est GFR (African American) 50.8 ml/min; Est GFR (Non-African American) 43.9 ml/min; Phosphorus 2.8 mg/dl (2.5-4.9); Potassium 3.5 mmol/L (3.5-5.1)
[2023-09-22] MEDS: INSULIN REGULAR 250 UNITS in SODIUM CHLORIDE 0.9% 247.5 ML IV SCH (15:49)
--- NOTE | 2023-09-22 18:02 | Electrocardiogram Report ---
Test Reason : Blood Pressure : / mmHG Vent. Rate : 102 BPM Atrial Rate : 102 BPM P-R Int : 148 ms QRS Dur : 074 ms QT Int : 358 ms P-R-T Axes : 071 030 085 degrees QTc Int : 466 ms Sinus tachycardia Nonspecific ST abnormality Abnormal ECG When compared with ECG of 16-OCT-2017 15:37, No significant change was found Confirmed by Kem Vogel ([id number]) on 09/22/2023 6:01:52 PM Referred By: REFERRED SELF Confirmed By:Fracisco Vogel
[2023-09-22] MEDS: INSULIN ASPART PER UNIT CHARGE SC SCH ×2 (18:24→21:05)
[2023-09-22] MEDS: cefTRIAXone SODIUM 2,000 MG in DEXTROSE 5 % MINI-B 50 ML IV SCH (18:24)
[2023-09-22 18:52] LABS: BUN Creatinine Ratio 21.9 (10-20); Calcium 8.2 mg/dl (8.6-10.3); Creatinine Clr Calc Pharmacy 55.5 ml/min; Est GFR (African American) 56.8 ml/min; Magnesium 1.8 mg/dl (1.7-2.4); Phosphorus 2.1 mg/dl (2.5-4.9); Potassium 3.2 mmol/L (3.5-5.1)
[2023-09-22] MEDS: PENDING D5 1/2NS+20mEq KCL IVF SCH ×2 (19:35→20:37)
[2023-09-22] MEDS: D5W AND 1/2NSS + 20MEQ KCL 20 MEQ/1,000 ML BAG IV SCH (20:06)
[2023-09-22] MEDS: POTASSIUM CHLORIDE / WTR 10 MEQ/100 ML PLCT IV SCH ×4 (20:52→23:54)
[2023-09-22] MEDS: CLOTRIMAZOLE 1% CR 15 GM TUBE EXT SCH (21:56)
[2023-09-22] MEDS: ROSUVASTATIN CALCIUM 20 MG TAB PO SCH (21:57)
[2023-09-22] MEDS ORDERED: ONDANSETRON INJ 2 MG/ML 2 ML VIAL IV PRN (22:03)
[2023-09-22] MEDS: ENOXAPARIN INJ 40 MG/0.4 ML SYR SQ SCH (23:51)
[2023-09-23 00:08] LABS: Calcium 7.8 mg/dl (8.6-10.3); Magnesium 1.9 mg/dl (1.7-2.4); Potassium 3.7 mmol/L (3.5-5.1)
[2023-09-23 00:14] LABS: BUN Creatinine Ratio 19.3 (10-20); Creatinine Clr Calc Pharmacy 58.5 ml/min; Est GFR (Non-African American) 51.8 ml/min; Phosphorus 1.9 mg/dl (2.5-4.9)
[2023-09-23] MEDS: D5W AND 1/2NSS + 20MEQ KCL 20 MEQ/1,000 ML BAG IV SCH ×3 (00:49→11:09)
[2023-09-23 03:07] LABS: Calcium 7.5 mg/dl (8.6-10.3); Magnesium 1.8 mg/dl (1.7-2.4); Potassium 3.8 mmol/L (3.5-5.1)
[2023-09-23 03:13] LABS: BUN Creatinine Ratio 18.2 (10-20); Creatinine Clr Calc Pharmacy 64.4 ml/min; Est GFR (African American) 67.4 ml/min; Est GFR (Non-African American) 58.1 ml/min
[2023-09-23 03:15] LABS: Phosphorus 1.5 mg/dl (2.5-4.9)
[2023-09-23 07:49] LABS: BUN Creatinine Ratio 15.7 (10-20); Calcium 7.7 mg/dl (8.6-10.3); Creatinine Clr Calc Pharmacy 63.3 ml/min; Est GFR (Non-African American) 56.1 ml/min; Potassium 3.8 mmol/L (3.5-5.1)
[2023-09-23 07:58] LABS: Magnesium 1.9 mg/dl (1.7-2.4); Phosphorus 1.3 mg/dl (2.5-4.9)
--- NOTE | 2023-09-23 08:02 | Hospitalist Progress Note ---
Date of Service September 23, 2023 Assessment & Plan (1) DKA (diabetic ketoacidosis): (2) Generalized weakness: (3) Elevated lactic acid level: Plan DKA (diabetic ketoacidosis) Usually on > 100 units insulin / day but just stopped in May/June due to her left humeral fracture DKA order set Start with half NSS + KCl 20 meq @ 200 ml/hr, add D5 when glucose in range Q4h labs, IV insulin with DKA aim range 150-250 NPO until anion gap closed - P low, 2 successive 1.4 reads after 16 mmol oral P given --> ordered 30 mmol potassium phosphate Sepsis [place] body weight 54 kg. Sepsis bolus 1620ml. Received 2000 mL NSS. 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 Knox. In agreement with the documented findings as noted in the resident documentation with any exceptions or additions as noted here. Resting comfortably in bed with improving symtpoms of fatigue without other complaint at present. On examination, S1/S2 nl RRR no MCG. CTAB. Abd NT/ND BS+ve VS: 121/73, 75, 19, 36.8C, 95 RA Data: Phos 1.4, glucose 165 at 1500, Cr 0.91 DKA in the setting of T2DM with insulin pump in outpatient - transition today from insulin drip to SQ and restart diet Hypophosphatemia - likely driving intracellular with DKA - PO repletion without considerable change without symptoms - will trial IV x 1 and monitor Sepsis with potential bacturia - polymicrobial initial Cx - will try obtaining repeat UCx, f/u BCx, continue ceftriaxone and monitor Else see resident documentation as noted. Subjective Chief Complaint: Generalized weakness and fatigue Primary Care Provider: MD Eun Nguyễnon is a 67 yo F who presents to the ED due to generalized weakness and fatigue. PMHx includes T2DM with previous use of an insulin pump requiring (per last PCP note in February) 3.5 units basal/hr with 6:1 carb ratio. She notes hurting her shoulder in May (left humeral fracture) and has been unable to refill her insulin pump since then therefore has not been taking any insulin. She has not informed any of her doctors of this predicament. She has continued on Trulicity and feels she is having significant side effects of this with early satiety after only one shrimp with nausea and vomiting when she tries to eat more. She also reports running out of pregabalin during week but does not wish to go back on this medication. She denies any respiratory, gastrointestinal or urinary infective symptoms. No fever or chills. Review of Systems Constitutional: no fever, no chills, no fatigue and no weakness Eyes: no diplopia and no worsening vision Respiratory: no cough and no dyspnea Cardiovascular: no chest pain and no palpitations Gastrointestinal: no abdominal pain, no nausea, no vomiting, no constipation and no diarrhea/loose stools Genitourinary: no dysuria and no urinary frequency Psychiatric: no difficulty concentrating and no confusion Physical Exam Constitutional: WD/WN, vitals as above Respiratory: normal respiratory effort, lungs clear to auscultation Cardiovascular: RRR, no murmur, no edema Gastrointestinal (Abdomen): normal bowel sounds, soft, nontender, no hepatosplenomegaly Psychiatric: A+Ox3, euthymic affect Results & Data Results & Data Vital Signs (Past 12 Hours) Vital Signs Temp Pulse Pulse Pulse Resp BP Pulse Ox 09/23/23 03:48 36.6 C 77 18 114/76 96 09/23/23 00:50 87 129/80 09/23/23 00:29 82 09/22/23 23:00 36.5 C 80 20 101/72 96 09/22/23 22:06 85 09/22/23 20:33 99/62 L 09/22/23 20:11 36.4 C 87 20 88/54 L 97 O2 Del Method 09/23/23 03:48 Room Air 09/23/23 00:50 09/23/23 00:29 09/22/23 23:00 Room Air 09/22/23 22:06 09/22/23 20:33 09/22/23 20:11 Room Air Resident Activity Tracking Resident Involvement: Resident Care Provided Care Provided: Adult Hospital Medicine (1) DKA (diabetic ketoacidosis) Diabetes mellitus complication detail: without coma Diabetes mellitus type: type 2 Qualified Code(s): E11.10 - Type 2 diabetes mellitus with ketoacidosis without coma
[2023-09-23] MEDS: INSULIN ASPART PER UNIT CHARGE SC SCH ×4 (08:25→21:24)
[2023-09-23] MEDS: POT PHOSPHATE MONOBASIC W/ SOD TAB PO SCH ×4 (08:29→21:02)
[2023-09-23] MEDS: CLOTRIMAZOLE 1% CR 15 GM TUBE EXT SCH ×2 (08:29→21:01)
[2023-09-23] MEDS ORDERED: CETIRIZINE HCL 10 MG TABLET PO SCH (09:00)
[2023-09-23] MEDS ORDERED: INFLUENZA VIRUS QUADRIVALENT VACCINE (IIV4) 0.5 ML SYR IM ONE (09:00)
[2023-09-23] MEDS ORDERED: Nursing to Pharmacy Communication SCH (09:00)
[2023-09-23 10:56] LABS: BUN Creatinine Ratio 15.4 (10-20); Calcium 7.7 mg/dl (8.6-10.3); Creatinine Clr Calc Pharmacy 70.9 ml/min; Est GFR (African American) 74.6 ml/min; Est GFR (Non-African American) 64.4 ml/min; Potassium 3.6 mmol/L (3.5-5.1)
[2023-09-23 11:01] LABS: Magnesium 1.8 mg/dl (1.7-2.4); Phosphorus 1.4 mg/dl (2.5-4.9)
[2023-09-23] MEDS: ENOXAPARIN INJ 40 MG/0.4 ML SYR SQ SCH ×2 (11:09→21:26)
[2023-09-23] MEDS ORDERED: LANTUS PER UNIT CHARGE SC ONE (12:45)
[2023-09-23] MEDS: INSULIN REGULAR 250 UNITS in SODIUM CHLORIDE 0.9% 247.5 ML IV SCH (15:04)
--- NOTE | 2023-09-23 15:13 | Pharmacy Report ---
Pharmacy Glycemic Short Note 2 - Date of Service September 23, 2023 - Glycemic Short BSG Results (Last 24 hours): 09/22/23 09/22/23 09/22/23 15:02 15:32 16:29 Glucose 322 H* POC Glucose 293 H 254 H 09/22/23 09/22/23 09/22/23 17:31 18:25 19:01 Glucose 127 H POC Glucose 159 H 101 H 09/22/23 09/22/23 09/22/23 20:03 20:59 22:00 Glucose POC Glucose 109 H 166 H 190 H 09/22/23 09/22/23 09/22/23 22:56 23:02 23:59 Glucose 214 H POC Glucose 231 H 225 H 09/23/23 09/23/23 09/23/23 01:01 01:50 02:13 Glucose 264 H POC Glucose 220 H 225 H 09/23/23 09/23/23 09/23/23 03:50 05:55 06:49 Glucose 227 H POC Glucose 239 H 229 H 09/23/23 09/23/23 09/23/23 08:05 10:18 12:02 Glucose 231 H POC Glucose 234 H 218 H 09/23/23 09/23/23 12:59 14:00 Glucose POC Glucose 212 H 223 H OUTPATIENT ANTIDIABETIC REGIMEN: * Novolog insulin pump (3.5 units/hr basal rate w/ insulin:carb ratio of 6) * Patient reports that she hurt her shoulder in May and has been unable to refill her pump since that time, which suggests no insulin administration since that time. HbA1c on 03/10/23 of 9.9%, recheck ordered for 09/24 ASSESSMENT: * CF is a 67 year old female who presented to ED on 09/22/23 w/ generalized weakness * Labs suggestive of DKA, anion gap of 24, carbon dioxide: 20 mmol/L, VBG pH: 7.31 * As noted above, DKA likely related to non-compliance w/ pump. Patient reports shoulder injury in May and that she has not been using her insulin pump since that time. * IV fluids and insulin infusion initiated in ED and continue today * Anion gap is now closed, serum bicarb normal, VBG pH WNL, and diet ordered so will transition to SC basal/bolus * Home insulin pump provides ~84 units of basal insulin * Dextrose-containing fluids discontinued PLAN FOR INPATIENT GLYCEMIC CONTROL: * Basal insulin * Lantus 50 units SC x 1 this afternoon to transition off infusion * Lantus 0-20 units SC HS (see EHR for details) * Bolus insulin * NovoLog per scale ACHS or Q6hrs while NPO * Goal Range: Low 110 mg/dL - High 140 mg/dL * Correction Factor: 15 mg/dL/unit * Nutritional / Prandial insulin per carb ratio of 1 unit per 6 grams CHO consumed * checks with same parameters
[2023-09-23] MEDS ORDERED: POTASSIUM PHOS 3 MMOL/1 ML INFUSION IV STA (15:22)
[2023-09-23] MEDS ORDERED: POTASSIUM PHOSPHATE 30 MMOL in SODIUM CHLORIDE 0.9% 500 ML IV ONE (16:00)
[2023-09-23] MEDS: ACETAMINOPHEN 325 MG TAB PO PRN (16:14)
[2023-09-23] MEDS: cefTRIAXone SODIUM 2,000 MG in DEXTROSE 5 % MINI-B 50 ML IV SCH (17:38)
[2023-09-23 18:39] LABS: Appearance Urine Turbid (Clear); Bacteria Urine Automated Negative (Negative); Bilirubin Urine Negative (Negative); Blood Urine Trace (Negative); Color Urine Yellow; Glucose Urine UA 3+ (Negative); Ketones Urine Trace (Negative); Leukocyte Esterase Urine 3+ (Negative); Nitrite Urine Negative (Negative); Protein Urine Negative (Negative); Specific Gravity Urine 1.011 (1.000-1.030); Urobilinogen Urine Negative (Negative); WBC Urine Automated >30 /hpf (0-5); pH Urine 5.5 (4.5-7.5)
[2023-09-23 19:00] LABS: RBC Urine Automated 0-4 /hpf (0-4)
[2023-09-23] MEDS: CETIRIZINE HCL 10 MG TABLET PO SCH (21:00)
[2023-09-23] MEDS ORDERED: LANTUS PER UNIT CHARGE SC SCH (21:00)
[2023-09-23] MEDS: MONTELUKAST SODIUM 10 MG TABLET PO SCH (21:01)
[2023-09-23] MEDS: ROSUVASTATIN CALCIUM 20 MG TAB PO SCH (21:02)
[2023-09-23 22:33] LABS: A calco-baum cmplx NotReported Not Detected (NotDetected); Bact fragilis Not Reported Not Detected (NotDetected); Blood Culture Id Panel PCR Panel Negative (NotDetected); C auris Not Reported Not Detected (NotDetected); Calbicans Not Reported Not Detected (NotDetected); Candida glabrata Not Reported Not Detected (NotDetected); Candida krusei Not Reported Not Detected (NotDetected); Cneoformans/gatti Not Reported Not Detected (NotDetected); Cparapsilosis Not Reported Not Detected (NotDetected); E cloacae compx Not Reported Not Detected (NotDetected); Efaecalis Not Reported Not Detected (NotDetected); Efaecium Not Reported Not Detected (NotDetected); Enterobacterales Not Reported Not Detected (NotDetected); Escherichia coli Not Reported Not Detected (NotDetected); H influenzae Not Reported Not Detected (NotDetected); K aerogenes Not Reported Not Detected (NotDetected); Koxytoca Not Reported Not Detected (NotDetected); Kpneumoniae grp Not Reported Not Detected (NotDetected); Lmonocyt Not Reported Not Detected (NotDetected); N meningitidis Not Reported Not Detected (NotDetected); P aeruginosa Not Reported Not Detected (NotDetected); Proteus spp Not Reported Not Detected (NotDetected); Salmonella spp Not Reported Not Detected (NotDetected); Smarcescens Not Reported Not Detected (NotDetected); Staph lugdunensis Not Reported Not Detected (NotDetected); Staph spp. Not Reported Not Detected (NotDetected); Staphaureus Not Reported Not Detected (NotDetected); Staphepi Not Reported Not Detected (NotDetected); Stenmaltophilia Not Reported Not Detected (NotDetected); Strep agal(GrpB) Not Reported Not Detected (NotDetected); Strep pneum Not Reported Not Detected (NotDetected); Strep pyog (GrpA) Not Reported Not Detected (NotDetected); Strep spp Not Reported Not Detected (NotDetected)
[2023-09-24] MEDS: INSULIN ASPART PER UNIT CHARGE SC SCH ×6 (00:18→20:46)
--- NOTE | 2023-09-24 07:34 | Discharge Summary ---
Date of Service September 24, 2023 Admission HPI Per Admitting Provider Eun Hamilton is a 67 year old female who presents to the ER due to generalized weakness and fatigue. She has type 2 diabetes mellitus with previous use of an insulin pump requiring (per last PCP note in February) 3.5 units basal/hr with 6:1 carb ratio. She notes hurting her shoulder in May (left humeral fracture) and has been unable to refill her insulin pump since then therefore has not been taking any insulin. She has not informed any of her doctors of this predicament. She has continued on Trulicity and feels she is having significant side effects of this with early satiety after only one shrimp with nausea and vomiting when she tries to eat more. She also reports running out of pregabalin during week but does not wish to go back on this medication. She denies any respiratory, gastrointestinal or urinary infective symptoms. No fever or chills. Discharge Exam Constitutional WD/WN, vitals as above Respiratory normal respiratory effort, lungs clear to auscultation Cardiovascular RRR, no murmur, no edema Gastrointestinal (Abdomen) normal bowel sounds, soft, nontender, no hepatosplenomegaly Psychiatric A+Ox3, euthymic affect Discharge Data Allergies Allergy/AdvReac Type Severity Reaction Status Date / Time grass pollen-perennial rye, Allergy Intermediate ASTHMATIC Verified 09/22/23 13:58 standar SYMPTOMS milk Allergy Unknown INCREASED Verified 09/22/23 13:58 MUCUS-ASTHMAS AGGRAVATION mold Allergy Unknown ASTHMATIC Verified 09/22/23 13:58 SYMPTOMS codeine AdvReac Unknown HALLUCINATI Verified 09/22/23 13:58 ONS Consultations 09/22/23 14:11 ED Decision to Admit Stat Hospital Course (1) DKA (diabetic ketoacidosis): (2) Generalized weakness: (3) Elevated lactic acid level: Plan DKA (diabetic ketoacidosis) Usually on > 100 units insulin / day but just stopped in May/June due to her left humeral fracture DKA order set Start with half NSS + KCl 20 meq @ 200 ml/hr, add D5 when glucose in range Q4h labs, IV insulin with DKA aim range 150-250 NPO until anion gap closed - P low, 2 successive 1.4 reads after 16 mmol oral P given --> ordered 30 mmol potassium phosphate Sepsis [place] body weight 54 kg. Sepsis bolus 1620ml. Received 2000 mL NSS. Possible source UTI but no specific symptoms for this - may discontinue antibiotics if culture subsequently negative Switch cefepime to ceftriaxone 2g IV daily, follow up blood and urine cultures, blood cultures pending, urine CX rpt collection recommended, [id number] ordered Hyponatremia Corrected 134 therefore should just correct with glucose management Uncontrolled type 2 diabetes mellitus unit educator Hypertension Hold HCTZ and lisinopril Plan VTE Prophylaxis Diet - NPO Disposition - admit to PCU Discharge Plan Discharge Items Reason For Visit: DKA, SEPSIS Follow-up/Referrals: Lucia Stock MD [Primary Care Provider] - Medications and DC Order Prescriptions: No Action lisinopril 40 mg tablet 40 mg PO DAILY Qty: 90 3RF rosuvastatin 20 mg tablet 20 mg PO QPM Qty: 90 3RF montelukast [Singulair] 10 mg tablet 10 mg PO DAILY Qty: 90 1RF albuterol sulfate 90 mcg/actuation HFA aerosol inhaler 2 inh inhalation Q6H PRN (Reason: shortness of breath or wheezing) Qty: 13.4 3RF pregabalin 75 mg capsule 75 mg PO BID Qty: 60 0RF Rx Instructions: Ongoing therapy Supervising physician Lucia Stock MD NATALIA [id number] Zyrtec 10 mg capsule 10 mg PO DAILY hydrochlorothiazide 25 mg tablet 25 mg PO DAILY Qty: 90 1RF insulin aspart U-100 100 unit/mL solution 240 unit continuous subcutaneous infusion DAILY Rx Instructions: Patient states that she hasn't been able to use her pump since her arm was broken but she doesn't remember when the incident happened. glucagon HCl 1 mg recon soln 1 mg IM UD PRN (Reason: hypoglycemia) Qty: 2 1RF ondansetron HCl 4 mg tablet 4 mg PO Q8H PRN (Reason: nausea and vomiting) Qty: 30 0RF Krames/Other Patient Handouts: Managing Type 2 Diabetes, Diabetic Ketoacidosis Admission Data Admit Date/Time: 09/22/23 14:42 Attending Provider: Kem Lowry Admit Provider: Elijah Perez Primary Care Provider: Lucia Stock Other Providers: Elijah Perez Resident Activity Tracking Resident Involvement: Resident Care Provided Care Provided: Adult [facility] Medicine
[2023-09-24 07:37] LABS: Basophils # (auto) 0.04 K/uL (0.00-0.20); Basophils % (auto) 0.9 %; Eosinophils # (auto) 0.14 K/uL (0.00-0.50); Eosinophils % (auto) 3.2 %; Hematocrit (blood only) 32.7 % (37.0-47.0); Hemoglobin 11.3 g/dl (12.0-16.0); Immature Granulocytes # (auto) 0.14 K/uL (0.01-0.20); Immature Granulocytes % (auto) 3.2 %; Lymphocytes # (auto) 1.24 K/uL (1.20-3.40); Mean Corpuscular Hgb Conc 34.6 g/dL (32.0-36.0); Mean Corpuscular Volume 86.7 fL (80.0-100.0); Mean Platelet Volume 12.1 fL (9.4-12.4); Monocytes # (auto) 0.44 K/uL (0.11-0.59); Monocytes % (auto) 9.9 %; Neutrophils # (auto) 2.43 K/uL (1.40-6.50); Neutrophils % (auto) 54.8 %; Platelet Count 122 K/uL (130-400); RDW Coefficient of Variation 13.5 % (11.5-14.5); RDW Standard Deviation 42.3 fL (36.4-46.3); Red Blood Count 3.77 M/uL (4.20-5.40); White Blood Count 4.43 K/ul (4.8-10.8)
[2023-09-24 07:40] LABS: Estimated Average Glucose 381 mg/dl; Hemoglobin A1C 14.9 % (4.5-5.6)
[2023-09-24 07:56] LABS: Albumin Level 2.9 gm/dl (3.4-5.0); Bilirubin,Total 0.4 mg/dl (0.2-1.0); Calcium 7.5 mg/dl (8.6-10.3); Creatinine Clr Calc Pharmacy 64.2 ml/min; Est GFR (African American) 66.6 ml/min; Est GFR (Non-African American) 57.4 ml/min; Globulin 2.8 gm/dl (2.5-4.0); Potassium 3.4 mmol/L (3.5-5.1); Total Protein 5.7 gm/dl (6.0-8.3)
[2023-09-24] MEDS: LANTUS PER UNIT CHARGE SC SCH ×2 (09:10→20:46)
[2023-09-24] MEDS: ACETAMINOPHEN 325 MG TAB PO PRN ×2 (09:11→17:16)
[2023-09-24] MEDS: CLOTRIMAZOLE 1% CR 15 GM TUBE EXT SCH ×2 (09:15→20:32)
[2023-09-24] MEDS ORDERED: POTASSIUM CHLORIDE CRTAB 20 MEQ TABCR PO STA (10:50)
[2023-09-24] MEDS: ENOXAPARIN INJ 40 MG/0.4 ML SYR SQ SCH ×2 (10:59→21:31)
--- NOTE | 2023-09-24 15:53 | Hospitalist Progress Note ---
Date of Service September 24, 2023 Assessment & Plan (1) DKA (diabetic ketoacidosis): (2) Generalized weakness: (3) Elevated lactic acid level: Plan DKA (diabetic ketoacidosis) Usually on > 100 units insulin/day but just stopped in May/June due to her left humeral fracture DKA order set Start with half NSS + KCl 20 meq @ 200 ml/hr, add D5 when glucose in range Q4h labs, IV insulin with DKA aim range 150-250 NPO until anion gap closed, AG 8 (..) - P low, 2 successive 1.4 reads after 16 mmol oral P given --> ordered 30 mmol potassium phosphate - K low, K 3.4 --> 40 mEq KCl, PO given - trend w/ BMP, P Sepsis [place] body weight 54 kg. Sepsis bolus 1620ml. Received 2000 mL NSS. Possible source UTI but no specific symptoms for this - may discontinue antibiotics if culture subsequently negative Switch cefepime to ceftriaxone 2g IV daily, follow up blood and urine cultures, 1 of 2 blood cultures positive for anaerobic, gram+ cocci pathogen likely Peptostreptococcus, would be covered by ceftriaxone urine CX rpt collection recommended, [id number] ordered --> +non-Margie albicans yeast likely to be contaminant, continue to monitor clinical Sx Hyponatremia Na, 135 (..) therefore should just correct with glucose management Uncontrolled type 2 diabetes mellitus patient educator Patient wants Omnipod pump and Dexcom Hypertension Hold HCTZ and lisinopril Plan VTE Prophylaxis Diet - NPO Disposition - admit to PCU Admission and Anticipated Discharge Date Admission Date: September 22, 2023 Supervising Physician Co-Signing Physician Notes Attending attestation Pt seen and examined in concert with Dr. Knox. In agreement with the documented findings as noted in the resident documentation with any exceptions or additions as noted here. Resting comfortably in chair at bedside, at approximate baseline. Did complain this morning of intermittent b/l LE weakness that resulted in a fall prior to her admission which has been occurring subacutely (and with similar issues in family). On examination, S1/S2 nl RRR no MCG. CTAB. Abd NT/ND BS+ve VS: 121/73, 75, 19, 36.8C, 95 RA Data: K 3.4, glucose 125, Cr 1 Reported ambulatory dysfunction - PT/OT consult - placed, likely Monday AM DKA in the setting of T2DM with insulin pump in outpatient - reviewed patient's hardware needs - patient reports difficulty with filling insulin pump following humerus fracture 3 months ago was two-fold - had difficulty doing so, but also was apathetic towards it. Understands the consequences of that and we reviewed that hyperglycemia often causes malaise and can worsen mood disorder. Patient would like to d/w DM educator re: other alternatives for insulin administration 2/2 limited ROM of the LUE Sepsis with potential bacturia - polymicrobial initial Cx - continue ceftriaxone - anerobic bottle +ve for gram positive cocci - likely contaminant (or peptostreptococcus) Clinically improving. Else see resident documentation as noted. Subjective Chief Complaint: Generalized weakness and fatigue Primary Care Provider: Lucia Stock MD Eun Hamilton is a 67 yo F who presents to the ED due to generalized weakness and fatigue. PMHx includes T2DM with previous use of an insulin pump requiring (per last PCP note in February) 3.5 units basal/hr with 6:1 carb ratio. She notes hurting her shoulder in May (left humeral fracture) and has been unable to refill her insulin pump since then therefore has not been taking any insulin. She has not informed any of her doctors of this predicament. She has continued on Trulicity and feels she is having significant side effects of this with early satiety after only one shrimp with nausea and vomiting when she tries to eat more. She also reports running out of pregabalin during week but does not wish to go back on this medication. She has continued to deny any respiratory, gastrointestinal or urinary infective symptoms. No fever or chills. Patient is wanting help obtaining an Omnipod pump and Dexcom for her T2DM before leaving the hospital. The rn diabetes educator, who is only here on , can help her out with this tomorrow. Review of Systems Constitutional: no fever, no chills, no fatigue and no weakness Eyes: no diplopia and no worsening vision Respiratory: no cough and no dyspnea Cardiovascular: no chest pain and no palpitations Gastrointestinal: no abdominal pain, no nausea, no vomiting, no constipation and no diarrhea/loose stools Genitourinary: no dysuria and no urinary frequency Psychiatric: no difficulty concentrating and no confusion Physical Exam Constitutional: WD/WN, vitals as above Respiratory: normal respiratory effort, lungs clear to auscultation Cardiovascular: RRR, no murmur, no edema Gastrointestinal (Abdomen): normal bowel sounds, soft, nontender, no hepatosplenomegaly Psychiatric: A+Ox3, euthymic affect Results & Data Results & Data Vital Signs (Past 12 Hours) Vital Signs Temp Pulse Pulse Resp BP Pulse Ox O2 Del Method 09/24/23 15:20 37.1 C 83 18 105/65 96 Room Air 09/24/23 12:46 36.8 C 94 H 18 100/62 94 Room Air 09/24/23 07:37 36.6 C 77 18 137/72 94 Room Air 09/24/23 07:30 73 (1) DKA (diabetic ketoacidosis) Diabetes mellitus complication detail: without coma Diabetes mellitus type: type 2 Qualified Code(s): E11.10 - Type 2 diabetes mellitus with ketoacidosis without coma
[2023-09-24] MEDS: cefTRIAXone SODIUM 2,000 MG in DEXTROSE 5 % MINI-B 50 ML IV SCH (17:38)
[2023-09-24] MEDS: CETIRIZINE HCL 10 MG TABLET PO SCH (20:36)
[2023-09-24] MEDS: MONTELUKAST SODIUM 10 MG TABLET PO SCH (20:37)
[2023-09-24] MEDS: ROSUVASTATIN CALCIUM 20 MG TAB PO SCH (21:31)
[2023-09-25 04:36] LABS: BUN Creatinine Ratio 8.9 (10-20); Calcium 8.3 mg/dl (8.6-10.3); Creatinine Clr Calc Pharmacy 63.6 ml/min; Est GFR (African American) 65.8 ml/min; Est GFR (Non-African American) 56.8 ml/min; Magnesium 1.6 mg/dl (1.7-2.4); Potassium 3.7 mmol/L (3.5-5.1)
[2023-09-25] MEDS: ACETAMINOPHEN 325 MG TAB PO PRN (08:12)
[2023-09-25] MEDS: INSULIN ASPART PER UNIT CHARGE SC SCH ×4 (08:17→21:43)
[2023-09-25] MEDS: LANTUS PER UNIT CHARGE SC SCH ×2 (08:17→21:43)
[2023-09-25] MEDS: CLOTRIMAZOLE 1% CR 15 GM TUBE EXT SCH ×2 (08:19→21:42)
[2023-09-25 08:28] LABS: Basophils # (auto) 0.05 K/uL (0.00-0.20); Eosinophils # (auto) 0.17 K/uL (0.00-0.50); Eosinophils % (auto) 3.5 %; Hemoglobin 11.2 g/dl (12.0-16.0); Immature Granulocytes # (auto) 0.18 K/uL (0.01-0.20); Immature Granulocytes % (auto) 3.7 %; Lymphocytes % (auto) 26.7 %; Mean Corpuscular Hgb Conc 33.9 g/dL (32.0-36.0); Mean Corpuscular Volume 88.5 fL (80.0-100.0); Mean Platelet Volume 13.5 fL (9.4-12.4); Monocytes % (auto) 8.2 %; Neutrophils # (auto) 2.77 K/uL (1.40-6.50); Neutrophils % (auto) 56.9 %; Platelet Count 120 K/uL (130-400); RDW Coefficient of Variation 13.7 % (11.5-14.5); RDW Standard Deviation 44.8 fL (36.4-46.3); Red Blood Count 3.73 M/uL (4.20-5.40); White Blood Count 4.87 K/ul (4.8-10.8)
[2023-09-25] MEDS ORDERED: MAGNESIUM SULFATE / D5W 1 GM/100 ML BAG IV ONE (08:30)
[2023-09-25] MEDS: POT PHOSPHATE MONOBASIC W/ SOD TAB PO SCH ×4 (08:43→21:42)
[2023-09-25] MEDS: ENOXAPARIN INJ 40 MG/0.4 ML SYR SQ SCH ×2 (11:37→21:43)
[2023-09-25] MEDS ORDERED: MICONAZOLE NITRATE POWDER 85 GM EXT PRN (12:36)
[2023-09-25] MEDS ORDERED: ONDANSETRON 4 MG OD TAB PO PRN (15:53)
[2023-09-25] MEDS: cefTRIAXone SODIUM 2,000 MG in DEXTROSE 5 % MINI-B 50 ML IV SCH (17:45)
--- NOTE | 2023-09-25 18:57 | Hospitalist Progress Note ---
Date of Service September 25, 2023 Assessment & Plan (1) DKA (diabetic ketoacidosis): (2) Generalized weakness: (3) Elevated lactic acid level: Plan Plan DKA (diabetic ketoacidosis) Usually on > 100 units insulin/day but just stopped in May/June due to her left humeral fracture DKA order set Start with half NSS + KCl 20 meq @ 200 ml/hr, add D5 when glucose in range Q4h labs, IV insulin with DKA aim range 150-250 NPO until anion gap closed, AG 8 (12.03.23) - P low, 2 successive 1.4 reads after 16 mmol oral P given --> ordered 30 mmol potassium phosphate - K low, K 3.4 --> 40 mEq KCl, PO given - trend w/ BMP, P Sepsis [place] body weight 54 kg. Sepsis bolus 1620ml. Received 2000 mL NSS. Possible source UTI but no specific symptoms for this - may discontinue antibiotics if culture subsequently negative Switch cefepime to ceftriaxone 2g IV daily, follow up blood and urine cultures, 1 of 2 blood cultures positive for anaerobic, gram+ cocci pathogen likely Peptostreptococcus, pt on ceftriaxone, Pharm said it wouldn't cover it, could also be a contaminant; will re-evaluate before d/c and do appropriate workup and antibiotic course urine Cx rpt collection recommended, [id number] ordered --> +non-Margie albicans yeast, + enterococcus both possibly contaminants, continue to monitor clinical Sx Hyponatremia Na, 135 (12.03.23) therefore should just correct with glucose management Uncontrolled type 2 diabetes mellitus special education paraeducator Patient wants Omnipod pump and Dexcom F/U w/ PCP and Medicare insurance about getting devices Hypertension Hold HCTZ and lisinopril Plan VTE Prophylaxis Diet - NPO Disposition - admit to PCU Admission and Anticipated Discharge Date Admission Date: September 22, 2023 Supervising Physician Co-Signing Physician Notes I personally examined the patient and verified all abraham points of history and exam, discussed case, and agree with decision making with Dr Knox feeling better thinks up to going home by tomorrow. vitals noted nad heent nc at mmm breathing unlabored no accessory muscles good effort skin no rashes no pallor or icterus neuro no focal deficits Reported ambulatory dysfunction - PT/OT consult - for home, outpt therapy hyperglycemic dehydration in the setting of T2DM on insulin - doing better now. more aware that unfortunately neglecting DM care does not alter the course of the disease or lessen the consequences question of bacteremia - appearing more than likely to be contaminant. await final speciation/sensitivities. repeat cultures for completeness. if still unclear may need ID input. Else see resident documentation as noted. Subjective Chief Complaint: Generalized weakness and fatigue Primary Care Provider: Lucia Stock MD Eun Hamilton is a 67 yo F who presents to the ED due to generalized weakness and fatigue. PMHx includes T2DM with previous use of an insulin pump requiring (per last PCP note in February) 3.5 units basal/hr with 6:1 carb ratio. She notes hurting her shoulder in May (left humeral fracture) and has been unable to refill her insulin pump since then therefore has not been taking any insulin. She has not informed any of her doctors of this predicament. She has continued on Trulicity and feels she is having significant side effects of this with early satiety after only one shrimp with nausea and vomiting when she tries to eat more. She also reports running out of pregabalin during thanks week but does not wish to go back on this medication. She has continued to deny any respiratory, gastrointestinal or urinary infective symptoms. No fever or chills. Patient is wanting help obtaining an Omnipod pump and Dexcom for her T2DM before leaving the hospital. The staff development educator, who is only here on , can help her out with this tomorrow. Review of Systems Constitutional: + weakness (patient endorses weakness in her legs during activities); no fever, no chills and no fatigue Eyes: no diplopia and no worsening vision Respiratory: no cough and no dyspnea Cardiovascular: no chest pain and no palpitations Gastrointestinal: no abdominal pain, no nausea, no vomiting, no constipation and no diarrhea/loose stools Genitourinary: no dysuria and no urinary frequency Psychiatric: no difficulty concentrating and no confusion Physical Exam Constitutional: WD/WN, vitals as above Respiratory: normal respiratory effort, lungs clear to auscultation Cardiovascular: RRR, no murmur, no edema Gastrointestinal (Abdomen): normal bowel sounds, soft, nontender, no he patosplenomegaly Psychiatric: A+Ox3, euthymic affect Results & Data Results & Data Vital Signs (Past 12 Hours) Vital Signs Temp Pulse Resp BP Pulse Ox O2 Del Method 09/25/23 15:53 36.9 C 80 18 111/71 96 Room Air 09/25/23 11:51 36.9 C 92 H 18 117/86 99 Room Air 09/25/23 07:14 36.9 C 82 19 133/78 96 Room Air (1) DKA (diabetic ketoacidosis) Diabetes mellitus complication detail: without coma Diabetes mellitus type: type 2 Qualified Code(s): E11.10 - Type 2 diabetes mellitus with ketoacidosis without coma
[2023-09-25] MEDS: ROSUVASTATIN CALCIUM 20 MG TAB PO SCH (21:42)
[2023-09-25] MEDS: CETIRIZINE HCL 10 MG TABLET PO SCH (21:42)
[2023-09-25] MEDS: MONTELUKAST SODIUM 10 MG TABLET PO SCH (21:42)
[2023-09-26 07:09] LABS: Hematocrit (blood only) 33.4 % (37.0-47.0); Hemoglobin 11.4 g/dl (12.0-16.0); Mean Corpuscular Hemoglobin 29.9 pg (25.0-34.0); Mean Corpuscular Hgb Conc 34.1 g/dL (32.0-36.0); Mean Corpuscular Volume 87.7 fL (80.0-100.0); Mean Platelet Volume 12.2 fL (9.4-12.4); Nucleated RBC # (auto) 0.02 K/uL (0.00-0.12); Nucleated RBC % (auto) 0.4 %; Platelet Count 138 K/uL (130-400); RDW Coefficient of Variation 14.2 % (11.5-14.5); RDW Standard Deviation 45.8 fL (36.4-46.3); Red Blood Count 3.81 M/uL (4.20-5.40); White Blood Count 5.39 K/ul (4.8-10.8)
[2023-09-26 07:31] LABS: BUN Creatinine Ratio 8.1 (10-20); Calcium 8.4 mg/dl (8.6-10.3); Creatinine Clr Calc Pharmacy 74.5 ml/min; Est GFR (African American) 79.9 ml/min; Est GFR (Non-African American) 68.9 ml/min; Magnesium 1.8 mg/dl (1.7-2.4); Phosphorus 2.5 mg/dl (2.5-4.9); Potassium 3.5 mmol/L (3.5-5.1)
[2023-09-26 07:41] LABS: Basophils # (auto) 0.09 K/uL (0.00-0.20); Basophils % (auto) 1.7 %; Eosinophils # (auto) 0.15 K/uL (0.00-0.50); Eosinophils % (auto) 2.8 %; Immature Granulocytes # (auto) 0.37 K/uL (0.01-0.20); Immature Granulocytes % (auto) 6.9 %; Lymphocytes # (auto) 1.61 K/uL (1.20-3.40); Lymphocytes % (auto) 29.9 %; Monocytes # (auto) 0.44 K/uL (0.11-0.59); Monocytes % (auto) 8.2 %; Neutrophils # (auto) 2.73 K/uL (1.40-6.50); Neutrophils % (auto) 50.5 %
[2023-09-26] MEDS ORDERED: LANTUS PER UNIT CHARGE SC SCH (09:00)
[2023-09-26] MEDS: INSULIN ASPART PER UNIT CHARGE SC SCH ×3 (09:03→18:01)
[2023-09-26] MEDS: POT PHOSPHATE MONOBASIC W/ SOD TAB PO SCH ×3 (10:47→17:58)
[2023-09-26] MEDS: ENOXAPARIN INJ 40 MG/0.4 ML SYR SQ SCH (10:47)
[2023-09-26] MEDS: CLOTRIMAZOLE 1% CR 15 GM TUBE EXT SCH (10:48)
[2023-09-26] MEDS ORDERED: LANTUS PER UNIT CHARGE SC ONE (11:30)
[2023-09-26] MEDS ORDERED: OPTIRAY 320 500ml IV ONE (12:08)
--- NOTE | 2023-09-26 12:29 | CT Scan Report ---
ABDOMEN AND PELVIS CT WITH IV AND ORAL CONTRAST CT DOSE: 1394.82 mGy.cm HISTORY: peptostreptococcus bacteremia TECHNIQUE: Multiaxial CT images of the abdomen and pelvis were performed following the use of intrave nous and oral contrast. A dose lowering technique was utilized adhering to the principles of ALARA. COMPARISON STUDY: Abdomen and pelvis CT 05/31/2023. FINDINGS: The lung bases are clear. No pneumoperitoneum. No pneumatosis. No acute fractures. Mild hep atic steatosis. No hepatic or splenic masses. The main portal vein is patent. The gallbladder, pancre as, and adrenal glands are unremarkable. There is a 2.3 cm exophytic hypodense lesion within the left kidney, unchanged. This favors a cyst. There is a punctate stone within the right kidney on image 14 1. No ureteral stones. No hydronephrosis. Calcified plaque within the normal caliber abdominal aorta. No retroperitoneal or pelvic lymphadenopathy. No pelvic free fluid. The bladder, uterus, bilateral a dnexa are unremarkable. Colonic diverticulosis. No evidence for acute diverticulitis. No bowel wall t hickening or obstruction. Normal appendix. IMPRESSION: 1. No bowel wall thickening or obstruction. 2. Normal appendix. 3. Right-sided nephrolithiasis. No ureteral stones. No hydronephrosis. 4. Hepatic steatosis. ACT 112: Negative or not required by law. Electronically signed by: Nils Healy M.D. 09/26/2023 12:28 PM
--- NOTE | 2023-09-26 12:38 | XCELERA ---
[id number] \\[email or web address]\[id number]
--- NOTE | 2023-09-26 13:30 | Infectious Disease Consult ---
Date of Consultation September 26, 2023 PLEASE NOTE: E-consult was performed for this visit given that no telepresenter was available today. Assessment & Plan (1) DKA (diabetic ketoacidosis): (2) Candiduria: (3) Urine culture positive: (4) Infection due to Peptostreptococcus species: (5) Gram-positive cocci bacteremia: Plan Eun Hamilton is a 67-year-old woman with T2DM (HbA1c 14.9) on insulin pump, recent L humeral fx and has not filled her insulin recently, obesity, CKD, who presents on 09/22/23 with fatigue and generalized weakness, found to have DKA. BCx from 09/22 with anaerobic GPCs with 09/22 blood PCR panel without ID (possibly Peptostreptococcus/Finegoldia or related anaerobic spp). Patient without clear infectious source, although had a recent dental implant 05/2023. GPCs in the blood, anaerobic and without ID on BCx. May be Peptostreptococcus/Finegoldia or related anaerobe, most likely an organism that is normal scott of the mouth/GI//skin. Unclear source; considered the possibility of contamination given that it can be a skin colonizer, however Peptostreptococcus/Finegoldia and related species can be implicated in more serious infections including IE. BCx were obtained during an episode of DKA which can be precipitated by infection, although the patient also had not been using her insulin. Considered dental source, skin/wound source, GI source, and endovascular infection/IE. Patient with dental implant placed 05/2023 though has not been having dental symptoms. No cuts/wounds to suggest SSTI. CT A/P without acute GI pathology, did show R-sided nephrolithiasis without hydro. TTE without valvular vegetations. As below, would follow-up closely with PCP, and ensure follow-up with dental and consideration of colonoscopy, to further evaluate for dental and GI sources. Her L humeral fx is likely unrelated though would continue to monitor clinically. Reassuringly, patient without hardware/implants. Will repeat BCx to confirm clearance though should be highly abx-susceptible. Have been on cefepime -> ceftriaxone for which Peptostreptococcus should be susceptible. Can change to Unasyn while inpatient, and if will be discharging can change to high-dose PO Augmentin. Although the bacteria could be a contaminant or at least clinically insignificant, given that there remains some clinical uncertainty, out of an abundance of caution will recommend to complete a 14-day course. Pt without urinary symptoms. Had some pyuria but also with significantly elevated urine glucose. Margie and Enterococcus can both be colonizers in the urine. Can continue to clinically monitor. ID Problem List: 1.Blood cultures positive for Gram positive cocci, possibly Peptostreptococcus/Finegoldia 2.Diabetes mellitus type II, poorly controlled 3.Diabetic ketoacidosis, hyperglycemia Recommendations: - Can change from ceftriaxone to Unasyn 3g IV Q6H and continue while inpatient - If improving and will be discharging, can stop Unasyn, change to Augmentin 2g XR PO Q12H to complete a 14-day course (09/22-10/06/23) - Recommend outpatient follow-up with dental - Consider outpatient colonoscopy - Close follow-up with PCP, return precautions to return for any fevers, chills, night sweats, or other new/concerning symptoms - F/u 09/25 BCx to ensure remain negative Plan discussed with hospitalist. Thank you for letting ID participate in the care of this patient. The patient will likely discharge today. ID will sign off at this time. If questions, please contact the [facility] call center at [phone]. Nargis Vasquez MD, S Infectious Diseases [facility] direct line: [phone] Consultation Information This patient recommendation is based on a telemedicine consult request which was completed asynchronously through chart review and information provided by the primary physician. The patient was not seen or examined today. The evaluation is consultative in nature and all patient care and treatment decisions can either be accepted or rejected by the patient's primary hospital-based treating physician using their own independent medical judgment for their patient. Dishwashing Machine Repairer contact information: Please call [facility] Call Center [phone]. (Phone Number For Physician Use Only) Time Spent Reviewing Chart: 31+ minutes History of Present Illness Reason for Consultation: Anaerobic GPC bacteremia Attending Physician: Steve Murdock DO History of Present Illness PLEASE NOTE: E-consult was performed for this visit given that no telepresenter was available today. Eun Hamilton is a 67-year-old woman with T2DM (HbA1c 14.9) on insulin pump, recent L humeral fx and has not filled her insulin recently, obesity, CKD, who presents on 09/22/23 with fatigue and generalized weakness, found to have DKA. BCx from 09/22 with anaerobic GPCs with 09/22 blood PCR panel without ID (possibly Peptostreptococcus/Finegoldia or related anaerobic spp). She has stopped using her insulin pump and has not informed any of her doctors of this change. She has had fatigue, generalized weakness, and poor PO intake for the last week. Her weakness progressed to the point that she was unable to walk. She also developed nausea and multiple episodes of vomiting. No fevers, chills. No chest pain, shortness of breath. No dysuria. In The ED 09/22, afebrile. WBC 11.03. Glucose 435 Cr 1.5. lactate 4->2.5. Procal 0.65. 09/22 BCx x2: probable anaerobic GPCs with 09/22 blood PCR panel without ID. 09/23 UCx >100k yeast (non C.albicans/dubliniensis), 80k probable Enterococcus (UA >30 WBCs, 0-4 RBCs, 10-20 epithelial cells). She has been on cefepime -> ceftriaxone. She has been afebrile with normal WBC. Per the hospitalist team, the patient has no implants/hardware. She did have a dental implant placed in May 2023 though has had no dental pain or issues with the implant since placement. Allergies Allergy/AdvReac Type Severity Reaction Status Date / Time grass pollen-perennial rye, Allergy Intermediate ASTHMATIC Verified 09/22/23 13:58 standar SYMPTOMS milk Allergy Unknown INCREASED Verified 09/22/23 13:58 MUCUS-ASTHMAS AGGRAVATION mold Allergy Unknown ASTHMATIC Verified 09/22/23 13:58 SYMPTOMS codeine AdvReac Unknown HALLUCINATI Verified 09/22/23 13:58 ONS Home Medications Medication Instructions Recorded Confirmed Type glucagon HCl 1 mg/mL solution for 1 mg IM UD PRN hypoglycemia #2 ea 11/20/19 09/22/23 Rx injection cetirizine 10 mg capsule (Zyrtec) 10 mg PO DAILY 02/13/20 09/22/23 History insulin aspart U-100 100 unit/mL 240 unit continuous subcutaneous 06/06/2211/14 History subcutaneous solution infusion DAILY lisinopril 40 mg tablet 40 mg PO DAILY #90 tabs 11/24/22 09/22/23 Rx hydrochlorothiazide 25 mg tablet 25 mg PO DAILY #90 tabs 03/06/23 09/22/23 Rx rosuvastatin 20 mg tablet 20 mg PO QPM #90 tabs 03/20/23 09/22/23 Rx montelukast 10 mg tablet 10 mg PO DAILY #90 tabs 04/11/23 09/22/23 Rx (Singulair) ondansetron HCl 4 mg tablet 4 mg PO Q8H PRN nausea and 06/07/23 09/22/23 Rx vomiting #30 tabs albuterol sulfate 90 mcg/actuation 2 inh inhalation Q6H PRN shortness 06/21/23 09/22/23 Rx aerosol inhaler of breath or wheezing #13.4 grams pregabalin 75 mg capsule 75 mg PO BID #60 caps 09/18/23 09/22/23 Rx amoxicillin-potassium clavulanate 2 tab PO BID 14 days #56 tabs 09/26/23 Rx 1,000 mg-62.5 mg tablet,ext.rel 12hr (Augmentin XR) insulin aspart U-100 100 unit/mL 1 sliding scale dose subcut 09/26/23 Rx subcutaneous solution USEASDIRECTD #50 mL insulin glargine 100 unit/mL (3 60 unit (0.6 mL) subcut DAILY #60 09/26/23 Rx mL) subcutaneous pen (Lantus mL Solostar U-100 Insulin) needle (disp) 32 gauge 32 gauge x #100 ea 09/26/23 Rx 03/07" Patient History Medical History Class 3 severe obesity with body mass index (BMI) of 50.0 to 59.9 in adult Closed head injury Fall down steps Hypertension Mixed hyperlipidemia NAFLD (nonalcoholic fatty liver disease) Pain of left lower extremity Stage 3 chronic renal impairment associated with type 2 diabetes mellitus Type 2 diabetes mellitus with obesity Surgical History H/O colonoscopy History of bilateral carpal tunnel release History of tonsillectomy Family History Unknown Diabetes Pancreatic cancer Thyroid disorder Sleep apnea nonorganic Alcoholism Brother Diabetes Sarcoidosis Mother Thyroid disorder Sleep apnea nonorganic Emphysema, unspecified Sister Sleep apnea nonorganic Grandmother Sleep apnea nonorganic Social History Smoking Status: Never smoker Second Hand Exposure: No; Do You Dip or Chew Tobacco: No; Hx Alcohol Use: Yes Alcohol type: wine Hx Substance Use: No Preferred Language: [place]i Communication Ability: Effective Operations Support Professionals Required: No Beliefs That Will Affect Care: None marital status: Current Living Situation: Family Current Living Situation Comment: lives with son current occupational status: unemployed Feels Safe at Home: Yes Childhood Exposure to Second-Hand Smoke: Yes Dental Care, Regularly: Yes Physical Activity Frequency: Does not Exercise Seatbelt Use: always Sunscreen Use: Yes Assistive Devices: Walker Results & Data Vital Signs (Past 12 Hours) Vital Signs Temp Pulse Resp BP Pulse Ox O2 Del Method 09/26/23 10:11 36.6 C 95 H 18 118/73 96 Room Air Diagnostic Findings Diagnostics: 09/26 TTE: no valvular vegetations noted though poor visualization of TV. 09/26 CT A/P: 1. No bowel wall thickening or obstruction. 2. Normal appendix. 3. Right-sided nephrolithiasis. No ureteral stones. No hydronephrosis. 4. Hepatic steatosis. 09/22 CXR No acute abnormalities and in particular no radiographic evidence of pneumonia. Micro Summary: 09/25 BCx x2 pending 09/23 UCx >100k yeast (non C.albicans/dubliniensis), 80k probable Enterococcus (UA >30 WBCs, 0-4 RBCs, 10-20 epithelial cells) 09/23 MRSA screen neg 09/22 BCx x2: probable anaerobic GPCs with 09/22 blood PCR panel without ID 09/22 UCx: mixed organisms (UA with >30 WBCs, 5-10 RBCs, 0-5 epithelial cells) 09/22 RVP neg 09/22 Lyme Ab IgM neg, IgG neg Antibiotic Summary: cefepime (09/22) ceftriaxone (09/22-present) Abx Allergies: None (1) DKA (diabetic ketoacidosis) Diabetes mellitus complication detail: without coma Diabetes mellitus type: type 2 Qualified Code(s): E11.10 - Type 2 diabetes mellitus with ketoacidosis without coma
--- NOTE | 2023-09-26 13:58 | Pharmacy Report ---
Pharmacy Glycemic Short Note 2 - Date of Service September 26, 2023 - Glycemic Short BSG Results (Last 24 hours): 09/25/23 09/25/23 09/26/23 16:57 20:21 06:31 Glucose 101 H POC Glucose 126 H 118 H 09/26/23 09/26/23 07:20 11:41 Glucose POC Glucose 118 H 112 H OUTPATIENT ANTIDIABETIC REGIMEN: * Novolog insulin pump (3.5 units/hr basal rate w/ insulin:carb ratio of 6) * Patient reports that she hurt her shoulder in May and has been unable to refill her pump since that time, which suggests no insulin administration since that time. * HbA1c: 14.9% (09/24/23) ASSESSMENT: 09/26: * Eun received 98 units of insulin yesterday, 60 units basal + 38 units bolus. BSGs were: [phone] mg/dL. * Fasting BSG was 118 mg/dL. Fastings continue to trend down ever so slightly. Will decrease basal insulin by 5% today. * CDE recommending transition to daily basal injection because patient will be discharged on basal-bolus regimen until pump supplies can be reordered and once daily basal allows an easier transition back to the pump. * Tightened carb ratio with breakfast this AM to see if we could control lunchtime BSG. BSG at lunch dropped to 112 mg/dL. Therefore, loosened Novolog back to carb ratio of 5. 12/2: * CF is a 67 year old female who presented to ED on 09/22/23 w/ generalized weakness * Labs suggestive of DKA, anion gap of 24, carbon dioxide: 20 mmol/L, VBG pH: 7.31 * As noted above, DKA likely related to non-compliance w/ pump. Patient reports shoulder injury in May and that she has not been using her insulin pump since that time. * IV fluids and insulin infusion initiated in ED and continue today * Anion gap is now closed, serum bicarb normal, VBG pH WNL, and diet ordered so will transition to SC basal/bolus * Home insulin pump provides ~84 units of basal insulin * Dextrose-containing fluids discontinued PLAN FOR INPATIENT GLYCEMIC CONTROL: * Basal insulin * Lantus 28 units SC x 2 (once at breakfast and once at lunchtime) * Lantus 56 units SC daily starting tomorrow AM * Bolus insulin * NovoLog per scale ACHS or Q6hrs while NPO * Goal Range: Low 110 mg/dL - High 140 mg/dL * Correction Factor: 15 mg/dL/unit * Nutritional / Prandial insulin per carb ratio of 1 unit per 5 grams CHO consumed
[2023-09-26] MEDS ORDERED: AMPICILLIN/SULBACTAM SOD 3,000 MG in SODIUM CHLOR 0.9% MINI-B 100 ML IV SCH (14:00)
[2023-09-26] MEDS ORDERED: AMOXICILLIN/CLAVULANATE 500 MG TAB PO SCH (14:05)
--- NOTE | 2023-09-26 14:07 | Critical Care Progress Note ---
Date of Service September 26, 2023 Assessment & Plan (1) DKA (diabetic ketoacidosis): (2) Generalized weakness: (3) Elevated lactic acid level: Plan Plan DKA (diabetic ketoacidosis) Usually on > 100 units insulin/day but just stopped in May/June due to her left humeral fracture DKA order set Start with half NSS + KCl 20 meq @ 200 ml/hr, add D5 when glucose in range Q4h labs, IV insulin with DKA aim range 150-250 NPO until anion gap closed, AG 8 (12.03.23) - P low, 2 successive 1.4 reads after 16 mmol oral P given --> ordered 30 mmol potassium phosphate - K low, K 3.4 --> 40 mEq KCl, PO given - trend w/ BMP, P Sepsis [place] body weight 54 kg. Sepsis bolus 1620ml. Received 2000 mL NSS. Possible source UTI but no specific symptoms for this - may discontinue antibiotics if culture subsequently negative Switch cefepime to ceftriaxone 2g IV daily, follow up blood and urine cultures, 1 of 2 blood cultures positive for anaerobic, gram+ cocci pathogen likely Peptostreptococcus, pt on ceftriaxone, Pharm said it wouldn't cover it, could also be a contaminant; will re-evaluate before d/c and do appropriate workup and antibiotic course urine Cx rpt collection recommended, [id number] ordered --> +non-Margie albicans yeast, + enterococcus both possibly contaminants, continue to monitor clinical Sx Hyponatremia Na, 135 (12.03.23) therefore should just correct with glucose management Uncontrolled type 2 diabetes mellitus unit educator Patient wants Omnipod pump and Dexcom F/U w/ PCP and Medicare insurance about getting devices Hypertension Hold HCTZ and lisinopril Plan VTE Prophylaxis Diet - NPO Disposition - admit to PCU Admission and Anticipated Discharge Date Admission Date: September 22, 2023 Subjective Chief Complaint: Generalized weakness and fatigue Primary Care Provider: Lucia Stock MD Eun Hamilton is a 67 yo F who presents to the ED due to generalized weakness and fatigue. PMHx includes T2DM with previous use of an insulin pump requiring (per last PCP note in February) 3.5 units basal/hr with 6:1 carb ratio. She notes hurting her shoulder in May (left humeral fracture) and has been unable to refill her insulin pump since then therefore has not been taking any insulin. She has not informed any of her doctors of this predicament. She has continued on Trulicity and feels she is having significant side effects of this with early satiety after only one shrimp with nausea and vomiting when she tries to eat more. She also reports running out of pregabalin during week but does not wish to go back on this medication. She has continued to deny any respiratory, gastrointestinal or urinary infective symptoms. No fever or chills. Patient is wanting help obtaining an Omnipod pump and Dexcom for her T2DM before leaving the hospital. The family educator, who is only here on , can help her out with this tomorrow. Review of Systems Constitutional: + weakness (patient endorses weakness in her legs during activities); no fever, no chills and no fatigue Eyes: no diplopia and no worsening vision Respiratory: no cough and no dyspnea Cardiovascular: no chest pain and no palpitations Gastrointestinal: no abdominal pain, no nausea, no vomiting, no constipation and no diarrhea/loose stools Genitourinary: no dysuria and no urinary frequency Psychiatric: no difficulty concentrating and no confusion Physical Exam Constitutional: WD/WN, vitals as above Respiratory: normal respiratory effort, lungs clear to auscultation Cardiovascular: RRR, no murmur, no edema Gastrointestinal (Abdomen): normal bowel sounds, soft, nontender, no hepatosplenomegaly Psychiatric: A+Ox3, euthymic affect Results & Data Results & Data Vital Signs (Past 12 Hours) Vital Signs Temp Pulse Resp BP Pulse Ox O2 Del Method 09/26/23 10:11 36.6 C 95 H 18 118/73 96 Room Air (1) DKA (diabetic ketoacidosis) Diabetes mellitus complication detail: without coma Diabetes mellitus type: type 2 Qualified Code(s): E11.10 - Type 2 diabetes mellitus with ketoacidosis without coma
--- NOTE | 2023-09-26 17:47 | Discharge Summary ---
Date of Service September 26, 2023 Admission Exam Per Admitting Provider Constitutional: WD/WN, vitals as above Respiratory: normal respiratory effort, lungs clear to auscultation Cardiovascular: RRR, no murmur, no edema Gastrointestinal (Abdomen): normal bowel sounds, soft, nontender, no hepatosplenomegaly Psychiatric: A+Ox3, euthymic affect Principal Diagnosis Diabetic ketoacidosis, sepsis (anaerobic gram-positive bacilli) Discharge Exam Constitutional WD/WN, vitals as above Respiratory normal respiratory effort, lungs clear to auscultation Cardiovascular RRR, no murmur, no edema Gastrointestinal (Abdomen) normal bowel sounds, soft, nontender, no hepatosplenomegaly Psychiatric A+Ox3, euthymic affect Discharge Data Allergies Allergy/AdvReac Type Severity Reaction Status Date / Time grass pollen-perennial rye, Allergy Intermediate ASTHMATIC Verified 09/22/23 13:58 standar SYMPTOMS milk Allergy Unknown INCREASED Verified 09/22/23 13:58 MUCUS-ASTHMAS AGGRAVATION mold Allergy Unknown ASTHMATIC Verified 09/22/23 13:58 SYMPTOMS codeine AdvReac Unknown HALLUCINATI Verified 09/22/23 13:58 ONS Consultations 09/22/23 14:11 ED Decision to Admit Stat 09/25/23 19:31 Consult Infectious Diseases Routine Ordered Studies 09/26/23 08:37 CT abd pelvis oral and IV con Routine Diabetes Follow up Diabetes Follow-up Needed for HgbA1c >9% Hospital Course (1) DKA (diabetic ketoacidosis): (2) Generalized weakness: (3) Elevated lactic acid level: (4) Infection due to Peptostreptococcus species: (5) Sepsis: Plan Plan DKA (diabetic ketoacidosis) Usually on > 100 units insulin/day but just stopped in May/June due to her left humeral fracture DKA order set Start with half NSS + KCl 20 meq @ 200 ml/hr, add D5 when glucose in range Q4h labs, IV insulin with DKA aim range 150-250 NPO until anion gap closed, AG 8 (09.24.23) - P low, 2 successive 1.4 reads after 16 mmol oral P given --> ordered 30 mmol potassium phosphate - K low, K 3.4 --> 40 mEq KCl, PO given - trend w/ BMP, P Sepsis [place] body weight 54 kg. Sepsis bolus 1620ml. Received 2000 mL NSS. Possible source UTI but no specific symptoms for this - may discontinue antibiotics if culture subsequently negative Switch cefepime to ceftriaxone 2g IV daily, follow up blood and urine cultures, 1 of 2 blood cultures positive for anaerobic, gram+ cocci pathogen likely Peptostreptococcus, pt was on ceftriaxone (wouldn't cover it per Pharm rec), could also be a contaminant the risk that it's not a contaminant is too high, start on antibiotic course: Ampicillin, 2000 mg, BID, 2 weeks urine Cx rpt collection recommended, [id number] ordered --> +non-Margie albicans yeast, + enterococcus Hyponatremia Na, 137 (12.05.23), resolved Uncontrolled type 2 diabetes mellitus intake clinician Patient wants Omnipod pump and Dexcom, retaught how to work w/ current insulin pump F/U w/ PCP and Medicare insurance about getting devices Hypertension Hold HCTZ and lisinopril Plan VTE Prophylaxis Diet - NPO Disposition - admit to PCU Total Time Total Time Spent Total Time Spent (In Minutes): see attending attestation Discharge Plan Discharge Items Patient Disposition: Home - Self-Care Reason For Visit: DKA, SEPSIS Discharge Diagnosis: Diabetic ketoacidosis, sepsis Activity: Resume your previous activity Non-emergency contact: Primary Care Provider Call non-emergency contact if: you have any medication questions Follow-up/Referrals: Gina Cherry RD, LDN, CDE [Registered Dietitian] - 10/03/23 2:00 pm Lucia Stock MD [Primary Care Provider] - 10/02/23 11:00 am (WITH ALESHIA LUIS) Diet: Carb Consistent or DM2 Addtl Attending Provider Instructions: You were admitted to the hospital for diabetic ketoacidosis. You were treated with insulin, potassium, phosphorus, IV fluids, ceftriaxone, and ampicillin- sulbactam. A discharge summary will be sent to your primary care physician to ensure continuity of care. Please bring this discharge summary with you to your next office appointment so that your provider can review it at that time. Follow-up appointments: We have requested a follow-up appointment with your primary care physician within one week of discharge. Please call their office if you do not hear from them. Keep all your follow-up appointments as already scheduled. If you cannot make an appointment, notify your provider. Medications: Your medication list has been reviewed and reconciled upon discharge to ensure accuracy and continuity of care. An updated list of all your medications is included with your hospital discharge paperwork. Please review this list closely, and make note of any changes. We sent a new medication called Augmentin (amoxicillin-potassium clavulanate) to your pharmacy. Take Augmentin 1000/62.5 mg two tablets, twice a day for 14 days. Take your medications as instructed; do not skip a dose of your medicines. Make sure all of your doctors know every medicine you are taking (including nucr-knx-igsdvfx medicines, vitamins, and supplements). Call your primary care provider before taking any new medicines (including knav-qmg-nmceypt medicines, vitamins, and supplements), because some of these may interact with your current medications, or may make your symptoms worse. Tell your primary care provider if you cannot afford your medications. CONTACT YOUR PRIMARY CARE PROVIDER if you experience any of the following: weakness, body aches fever, chills, feelings of delirium Difficulty following your treatment plan, or difficulty taking medications CALL 911 OR GO TO THE EMERGENCY DEPARTMENT if you experience any of the following: Sudden, severe abdominal pain or nausea/vomiting Severe chest pain, or chest pain that radiates (moves) to your jaw or arm Sudden, severe shortness of breath or difficulty breathing Thank you for allowing us to participate in your care Pending Studies at Discharge: No Stand-Alone Forms: My [facility] [employer], Smoking Cessation Medications and DC Order Prescriptions: New amoxicillin-pot clavulanate [Augmentin XR] 1,000-62.5 mg tablet extended release 12 hr 2 tab PO BID 14 Days Qty: 56 0RF Rx Instructions: next dose evening of 09/26/23 insulin aspart U-100 100 unit/mL solution 1 sliding scale dose subcut USEASDIRECTD Qty: 50 0RF Rx Instructions: Vials. Patient has insulin pump. To take as sliding scale dosing (up to 200 units daily) insulin glargine [Lantus Solostar U-100 Insulin] 100 unit/mL (3 mL) insulin pen 60 unit subcut DAILY Qty: 60 0RF (DME) needle (disp) 32 gauge 32 gauge x 5/16" needle See Rx Instructions .Route Qty: 100 0RF Rx Instructions: As directed Continued lisinopril 40 mg tablet 40 mg PO DAILY Qty: 90 3RF rosuvastatin 20 mg tablet 20 mg PO QPM Qty: 90 3RF montelukast [Singulair] 10 mg tablet 10 mg PO DAILY Qty: 90 1RF albuterol sulfate 90 mcg/actuation HFA aerosol inhaler 2 inh inhalation Q6H PRN (Reason: shortness of breath or wheezing) Qty: 13.4 3RF pregabalin 75 mg capsule 75 mg PO BID Qty: 60 0RF Rx Instructions: Ongoing therapy Supervising physician Lucia Stock MD NATALIA [id number] Zyrtec 10 mg capsule 10 mg PO DAILY hydrochlorothiazide 25 mg tablet 25 mg PO DAILY Qty: 90 1RF glucagon HCl 1 mg recon soln 1 mg IM UD PRN (Reason: hypoglycemia) Qty: 2 1RF ondansetron HCl 4 mg tablet 4 mg PO Q8H PRN (Reason: nausea and vomiting) Qty: 30 0RF Discontinued insulin aspart U-100 100 unit/mL solution 240 unit continuous subcutaneous infusion DAILY Rx Instructions: Patient states that she hasn't been able to use her pump since her arm was broken but she doesn't remember when the incident happened. Discharge Orders: Discharge Order (Routine); Ordered 09/26/23 Ordered By: Kem Perdue/Other Patient Handouts: Managing Type 2 Diabetes, Diabetic Ketoacidosis Admission Data Admit Date/Time: 09/22/23 14:42 Attending Provider: Steve Murdock Admit Provider: Elijah Perez Primary Care Provider: Lucia Stock Other Providers: Kem Lowry; Elijah Perez; Courtney Rosales; Gael Fields; Rosario Matrinez; Alejandrina Mcdaniel; Hoa Angulo; Charlette Malone; Jeannie Carrera; Bernard Duncan; Geeta Kerns; Nargis Vasquez Supervising Physician Co-Signing Physician Notes I personally examined the patient and verified all abraham points of history and exam, discussed case, and agree with decision making with Dr Knox feels good overall and would like to go home. Discussed positive blood culture with implications given that micro lab feels it may be Peptostreptococcus. Infectious disease input greatly appreciated.. vitals noted nad heent nc at mmm breathing unlabored no accessory muscles good effort skin no rashes no pallor or icterus neuro no focal deficits Reported ambulatory dysfunction - PT/OT consult - for home, outpt therapy hyperglycemic dehydration in the setting of T2DM on insulin - doing better now. more aware that unfortunately neglecting DM care does not alter the course of the disease or lessen the consequences question of bacteremia - ID input as below in italics, Close outpatient PCP follow-up dental follow-up, consider colonoscopy. Discussed cost of Augmentin XR, and on good Rx, we were able to find it at [facility] for about $110, which she expressed my same frustration at the cost, but did feel that it was affordable and preferable to staying in the hospital longer. Plan Eun Hamilton is a 67-year-old woman with T2DM (HbA1c 14.9) on insulin pump, recent L humeral fx and has not filled her insulin recently, obesity, CKD, who presents on 09/22/23 with fatigue and generalized weakness, found to have DKA. BCx from 09/22 with anaerobic GPCs with 09/22 blood PCR panel without ID (possibly Peptostreptococcus/Finegoldia or related anaerobic spp). Patient without clear infectious source, although had a recent dental implant 05/2023. GPCs in the blood, anaerobic and without ID on BCx. May be Peptostreptococcus/Finegoldia or related anaerobe, most likely an organism that is normal scott of the mouth/GI//skin. Unclear source; considered the possibility of contamination given that it can be a skin colonizer, however Peptostreptococcus/Finegoldia and related species can be implicated in more serious infections including IE. BCx were obtained during an episode of DKA which can be precipitated by infection, although the patient also had not been using her insulin. Considered dental source, skin/wound source, GI source, and endovascular infection/IE. Patient with dental implant placed 05/2023 though has not been having dental symptoms. No cuts/wounds to suggest SSTI. CT A/P without acute GI pathology, did show R-sided nephrolithiasis without hydro. TTE without valvular vegetations. As below, would follow-up closely with PCP, and ensure follow-up with dental and consideration of colonoscopy, to further evaluate for dental and GI sources. Her L humeral fx is likely unrelated though would continue to monitor clinically. Reassuringly, patient without hardware/implants. Will repeat BCx to confirm clearance though should be highly abx-susceptible. Have been on cefepime -> ceftriaxone for which Peptostreptococcus should be susceptible. Can change to Unasyn while inpatient, and if will be discharging can change to high-dose PO Augmentin. Although the bacteria could be a contaminant or at least clinically insignificant, given that there remains some clinical uncertainty, out of an abundance of caution will recommend to complete a 14-day course. Pt without urinary symptoms. Had some pyuria but also with significantly elevated urine glucose. Margie and Enterococcus can both be colonizers in the urine. Can continue to clinically monitor. ID Problem List: 1.Blood cultures positive for Gram positive cocci, possibly Peptostreptococcus/Finegoldia 2.Diabetes mellitus type II, poorly controlled 3.Diabetic ketoacidosis, hyperglycemia Recommendations: - Can change from ceftriaxone to Unasyn 3g IV Q6H and continue while inpatient - If improving and will be discharging, can stop Unasyn, change to Augmentin 2g XR PO Q12H to complete a 14-day course (09/22-10/06/23) - Recommend outpatient follow-up with dental - Consider outpatient colonoscopy - Close follow-up with PCP, return precautions to return for any fevers, chills, night sweats, or other new/concerning symptoms - F/u 09/25 BCx to ensure remain negative Else see resident documentation as noted.
--- NOTE | 2023-09-26 18:15 | Billing Data ---
Date of Service September 26, 2023 Coding Level of Care Code 15161 IN/OBS DISCH 30 MIN/LESS
[2023-09-27] MEDS ORDERED: LANTUS PER UNIT CHARGE SC SCH (09:00)
== END 2023-09-26 19:30 | disposition home or self-care (01) | DRG 871 ==
LOC: ED 11:26 → EDINP 14:42 → SUATTDRO 14:42 → EDINP 19:29 → 4W 19:59 → 3N 09-25 18:40

== ENCOUNTER 2025-01-13 05:56 | Inpatient (IN) ==
[2025-01-13 06:56] LABS: Basophils # (auto) 0.08 K/uL (0.00-0.20); Basophils % (auto) 1.1 %; Hematocrit (blood only) 41.6 % (37.0-47.0); Hemoglobin 13.9 g/dl (12.0-16.0); Immature Granulocytes # (auto) 0.16 K/uL (0.01-0.20); Immature Granulocytes % (auto) 2.3 %; Lymphocytes # (auto) 1.24 K/uL (1.20-3.40); Lymphocytes % (auto) 17.5 %; Mean Corpuscular Hemoglobin 31.1 pg (25.0-34.0); Mean Corpuscular Hgb Conc 33.4 g/dL (32.0-36.0); Mean Corpuscular Volume 93.1 fL (80.0-100.0); Mean Platelet Volume 11.5 fL (9.4-12.4); Monocytes # (auto) 0.67 K/uL (0.11-0.59); Monocytes % (auto) 9.5 %; Neutrophils # (auto) 4.93 K/uL (1.40-6.50); Neutrophils % (auto) 69.6 %; Platelet Count 174 K/uL (130-400); RDW Coefficient of Variation 13.7 % (11.5-14.5); RDW Standard Deviation 47.3 fL (36.4-46.3); Red Blood Count 4.47 M/uL (4.20-5.40); White Blood Count 7.08 K/ul (4.8-10.8)
[2025-01-13] MEDS: ALBUT/IPRATROP 3MG/0.5MG NEB 3 ML VIAL NEB STA (07:12)
[2025-01-13] MEDS: methylPREDNISolone 125 MG/2 ML VIAL IV STA (07:12)
[2025-01-13] MEDS: cefTRIAXone SODIUM 2,000 MG/50 ML BAG IV STA (07:13)
[2025-01-13 07:16] LABS: Troponin I High Sensitivity 12.5 pg/ml (0-14)
[2025-01-13 07:25] LABS: Alanine Aminotransferase 10 U/L (7-52); Albumin Level 3.6 gm/dl (3.4-5.0); Alkaline Phosphatase 79 U/L (34-104); Anion Gap 20 (3-11); BUN Creatinine Ratio 19.7 (10-20); Bilirubin,Total 0.5 mg/dl (0.2-1.0); Blood Urea Nitrogen 23 mg/dl (6-23); Calcium 8.5 mg/dl (8.6-10.3); Carbon Dioxide 16 mmol/L (21-32); Chloride 91 mmol/L (98-107); Creatinine Clr Calc Pharmacy 54.1 ml/min; Globulin 3.5 gm/dl (2.5-4.0); Glucose 459 mg/dl (70-99(Fasting)); Magnesium 2.2 mg/dl (1.7-2.4); Sodium 127 mmol/L (136-145); Thyroid Stimulating Hormone 0.511 uIu/ml (0.300-4.500); Total Protein 7.1 gm/dl (6.0-8.3)
--- NOTE | 2025-01-13 07:31 | Emergency Department Note ---
Impression & Plan SOB (shortness of breath), RSV (respiratory syncytial virus infection), Asthma exacerbation, Acute hyperglycemia, Acidosis ED Provider Note NAME: FLASH CONLEY AGE: 69 SEX: F : 1955 ARRIVES VIA: Ambulance INFORMANT: [Patient][EMS] ED PROVIDER(S): [Nicholas Mauricio MD] CHIEF COMPLAINT: Short of breath HISTORY OF PRESENT ILLNESS: The patient is a 69-year-old female with a history of asthma. She presents to the ER with about a week of cough and congestion and some shortness of breath. He states that she was too weak today to get out of bed and she lost bowel and bladder continence. She believes that she has had a fever. Her cough has been at times productive. No urinary complaints, no abdominal pain, no nausea or vomiting. As per EMS, she required O2 supplementation, she was given a DuoNeb en route to the hospital. PMHx/PSHx/Social Hx: See Below PHYSICAL EXAM: GENERAL: Patient is in no acute distress. HEENT: No acute trauma, normocephalic atraumatic, mucous membranes moist, no nasal congestion. NECK: No stridor, no adenopathy, no meningismus, trachea is midline. LUNGS: Diminished breath sounds with some wheezes and crackles bilaterally. No obvious respiratory distress. HEART: Without murmurs gallops or rubs, regular rate and rhythm. ABDOMEN: Soft, nontender, no peritonitis. Obese. EXTREMITIES: No cyanosis, full range of motion of all the joints without pain or difficulty. NEUROLOGIC: Oriented x 3, no acute motor or sensory deficits, no focal weakness. SKIN: No jaundice, no diaphoresis. DIFFERENTIAL DIAGNOSIS: Bronchitis or pneumonia, CHF, OR, viral illness, asthma exacerbation, among others. EMERGENCY DEPARTMENT PROCEDURES: MEDICAL DECISION MAKING: There is no leukocytosis or concerning anemia. There is a normal platelet count. VBG does show an acidosis with pH of 7.21. Bicarb was somewhat low. Renal panel testing shows a hyponatremia, likely from the sugar value that returned at over 400. And anion gap was seen. CO2 was low consistent with acidosis. Lactic acid level was not elevated making severe sepsis less likely. No concerning liver enzyme elevation. BNP was slightly elevated, this certainly could be consistent with some fluid overload/CHF. Chest x-ray showed potential CHF, no obvious focal infiltrate. There was some atelectasis at both bases. ECG showed a sinus rhythm, no ischemia or dysrhythmia. Cardiac enzyme testing x 1 is not consistent with acute cardiac injury. Patient appeared to be in a euthyroid state. Respiratory bio fire returned positive for RSV. On exam, the patient was wheezing with some crackles bilaterally. The patient received IV insulin as a bolus. She eventually was placed on an insulin drip. She was given a 500 cc saline bolus. No additional saline was given as there was some concern for fluid overload based on her testing and imaging. Patient was given IV Solu-Medrol for presumed bronchospasm. Patient was given IV ceftriaxone as antibiotic coverage. Patient was given a DuoNeb. Patient did appear improved with the above treatment. The patient presents dyspneic. She has RSV which has flared her asthma. She is quite hyperglycemic and somewhat acidotic. DKA was a consideration although, she is a known type II diabetic which certainly makes DKA less likely. I did speak with the patient and case management. Hospitalization is clearly warranted/indicated. The on-call hospitalist was consulted. Prior/Outside records/notes reviewed: Today's EMS notes describing her presentation and transport to this hospital. ECG per my interpretation: Indication was shortness of breath. The ECG shows a normal sinus rhythm with a rate of 98. There is no ST elevation, no PVCs. The QTc is 469. Continuous Cardiac Monitoring per my interpretation: An order was placed for continuous cardiac monitoring. The monitor shows a rate of 96 with normal sinus rhythm. Imaging/x-ray results per my interpretation: Chest x-ray shows some potential mild CHF, there was no focal infiltrate. Chronic Medical/Social conditions affecting care: Advanced age, history of diabetes. Care/Management discussed with: Case management, the on-call hospitalist. Level of care consideration(s): After review of the information above and other included data: --I believe the patient requires escalation of care to admission Critical Care Note: I have personally spent 52 minutes of critical care time in the direct management of this patient. This includes bedside care, interpretation of diagnostic studies, and testing, discussion with consultants, patient, and family members, and other required patient management activities. This 52 minutes is in excess of all separately billable procedures. DISPOSITION: Admission Past Med/Surg History Problem List (Updated 01/13/25 @ 13:02 by Nicholas Mauricio MD) Acidosis (Acute) Acute hyperglycemia (Acute) Asthma exacerbation (Acute) RSV (respiratory syncytial virus infection) (Acute) SOB (shortness of breath) (Acute) RSV (respiratory syncytial virus pneumonia) Acute respiratory failure with hypoxia Cough productive of yellow sputum Hyperlipidemia Albuminuria Obesity, morbid, BMI 40.0-49.9 Proximal humeral fracture CKD (chronic kidney disease) Gram-positive cocci bacteremia Infection due to Peptostreptococcus species Urine culture positive Candiduria Hyponatremia Hyperglycemia (Acute) Elevated procalcitonin (Acute) Elevated lactic acid level (Acute) Generalized weakness (Acute) Class 3 severe obesity with body mass index (BMI) of 50.0 to 59.9 in adult Mixed hyperlipidemia Hypertension NAFLD (nonalcoholic fatty liver disease) Stage 3 chronic renal impairment associated with type 2 diabetes mellitus Type 2 diabetes mellitus with obesity Allergic rhinitis Anxiety Asthma Eustachian tube dysfunction Lichen sclerosus et atrophicus Microalbuminuria Nephrolithiasis Osteopenia Postmenopausal bleeding Rosacea Vitamin D deficiency Metabolic syndrome Uncontrolled type 2 diabetes mellitus Right flank pain Low back pain Lumbar disc disease Lumbar back pain with radiculopathy affecting lower extremity Medical History Pain of left lower extremity Fall down steps Closed head injury Surgical History History of bilateral carpal tunnel release H/O colonoscopy Fiberoptic History of tonsillectomy Family History Unknown Diabetes Pancreatic cancer Thyroid disorder Sleep apnea nonorganic Alcoholism Brother Diabetes Sarcoidosis Mother Thyroid disorder Sleep apnea nonorganic Emphysema, unspecified Sister Sleep apnea nonorganic Grandmother Sleep apnea nonorganic Social History Smoking Status: Never smoker Second Hand Exposure: No; Do You Dip or Chew Tobacco: No; Hx Alcohol Use: Yes Alcohol type: wine Alcohol Intake Frequency: Monthly or Less Hx Substance Use: No Preferred Language: Chilean Communication Ability: Effective Cylinder Filler Required: No Beliefs That Will Affect Care: None marital status: Current Living Situation: Family Current Living Situation Comment: lives with son current occupational status: retired current occupation: Retired from special ed in elementary school setting How many Children do You have: 2 Feels Safe at Home: Yes Childhood Exposure to Second-Hand Smoke: Yes Dental Care, Regularly: Yes Physical Activity Frequency: Does not Exercise Seatbelt Use: always Sunscreen Use: Yes Assistive Devices: Walker Allergies Allergies Allergy/AdvReac Type Severity Reaction Status Date / Time grass pollen-perennial rye, Allergy Intermediate ASTHMATIC Verified 01/13/25 09:27 standar SYMPTOMS milk Allergy Unknown INCREASED Verified 01/13/25 09:27 MUCUS-ASTHMAS AGGRAVATION mold Allergy Unknown ASTHMATIC Verified 01/13/25 09:27 SYMPTOMS dulaglutide [From Trulicity] AdvReac Intermediate Nausea Verified 01/13/25 09:27 codeine AdvReac Unknown HALLUCINATI Verified 01/13/25 09:27 ONS Home Meds Home Medications Medication Instructions Recorded Confirmed aspirin 81 mg tablet,delayed 81 mg PO DAILY 01/13/25 01/13/25 release Previous Rx's Medication Instructions Recorded Humalog U-100 Insulin 100 unit/mL See Rx Instructions subcut 08/28/24 subcutaneous solution (insulin CONTINOUS #40 mL lispro) acetone (urine) test (Ketostix #50 ea 08/28/24 strips) blood sugar diagnostic (OneTouch #400 ea 08/28/24 Verio test strips) blood-glucose meter (OneTouch #1 ea 08/28/24 Verio Flex Meter) glucagon 3 mg/actuation nasal 3 mg intranasal ONCE #2 ea 08/28/24 spray (Baqsimi) glucagon HCl 1 mg/mL solution for 1 mg IM UD PRN hypoglycemia #2 ea 08/28/24 injection hydrochlorothiazide 25 mg tablet 25 mg PO DAILY #90 tabs 08/28/24 lancets 30 gauge (OneTouch Delica #400 ea 08/28/24 Plus Lancet) lisinopril 40 mg tablet 40 mg PO DAILY #90 tabs 08/28/24 needle (disp) 32 gauge 32 gauge x #100 ea 08/28/24 5/16" rosuvastatin 20 mg tablet 20 mg PO QPM #90 tabs 08/28/24 Dexcom G6 Sensor (blood-glucose #9 ea 10/21/24 sensor) albuterol sulfate 90 mcg/actuation 2 inh inhalation Q4H PRN shortness 12/05/24 aerosol inhaler of breath or wheezing #13.4 grams Dexcom G6 Transmitter #1 ea 12/20/24 (blood-glucose transmitter) Results & Data (ED) Vital Signs Vital Signs - 24 hr 01/13/25 06:24 01/13/25 06:30 01/13/25 07:01 Temperature 36.7 C Temperature Source Oral Pulse Rate 98 H 94 H 87 Pulse Rate [Apical] Pulse Rhythm Regular Pulse Strength Normal Respiratory Rate 21 22 Respiratory Effort / Characteristics Non-Labored Spontaneous Respiratory Depth Normal Respiratory Pattern Regular Blood Pressure 147/77 H Blood Pressure [Left Arm] Blood Pressure Mean 87 Blood Pressure Mean [Left Arm] Pulse Oximetry 99 100 Oxygen Delivery Method Nasal Cannula Oxygen Flow Rate 2 Sepsis Recent Fever Within 48 Hours No Sepsis New/Unexplained Change in Mental Status No Sepsis Action Taken by Nursing No Action Required 01/13/25 07:07 01/13/25 07:30 01/13/25 08:08 Temperature Temperature Source Pulse Rate 96 H 90 Pulse Rate [Apical] 95 H Pulse Rhythm Regular Pulse Strength Respiratory Rate 22 23 24 Respiratory Effort / Characteristics Respiratory Depth Normal Respiratory Pattern Blood Pressure 147/65 H Blood Pressure [Left Arm] 128/74 Blood Pressure Mean 90 Blood Pressure Mean [Left Arm] 92 Pulse Oximetry 100 99 95 Oxygen Delivery Method Nasal Cannula Room Air Oxygen Flow Rate 2 Sepsis Recent Fever Within 48 Hours Sepsis New/Unexplained Change in Mental Status Sepsis Action Taken by Nursing 01/13/25 08:08 01/13/25 09:00 Temperature Temperature Source Pulse Rate 91 H 85 Pulse Rate [Apical] Pulse Rhythm Pulse Strength Respiratory Rate 18 20 Respiratory Effort / Characteristics Respiratory Depth Respiratory Pattern Blood Pressure 128/74 126/67 Blood Pressure [Left Arm] Blood Pressure Mean 88 76 Blood Pressure Mean [Left Arm] Pulse Oximetry 94 93 Oxygen Delivery Method Room Air Room Air Oxygen Flow Rate Sepsis Recent Fever Within 48 Hours Sepsis New/Unexplained Change in Mental Status Sepsis Action Taken by Longterm Medications Current Medication List: was personally reviewed by me Laboratory Data Attestation: I reviewed the patient's lab results. 01/13/25 06:30 01/13/25 07:51 Lab Results 01/13/25 01/13/25 01/13/25 Range/Units 06:30 07:10 07:51 WBC 7.08 (4.8-10.8) K/ul RBC 4.47 (4.20-5.40) M/uL Hgb 13.9 (12.0-16.0) g/dl POC Hgb (12.0-16.0) g/dl Hct 41.6 (37.0-47.0) % POC Hct (37-47) % MCV 93.1 (80.0-100.0) fL MCH 31.1 (25.0-34.0) pg MCHC 33.4 (32.0-36.0) g/dL RDW Std Deviation 47.3 H (36.4-46.3) fL RDW Coeff of Reji 13.7 (11.5-14.5) % Plt Count 174 (130-400) K/uL MPV 11.5 (9.4-12.4) fL Immature Gran % (Auto) 2.3 % Neut % (Auto) 69.6 % Lymph % (Auto) 17.5 % [place] % (Auto) 9.5 % Eos % (Auto) 0.0 % Baso % (Auto) 1.1 % Neut # (Auto) 4.93 (1.40-6.50) K/uL Lymph # (Auto) 1.24 (1.20-3.40) K/uL [place] # (Auto) 0.67 H (0.11-0.59) K/uL Eos # (Auto) 0.00 (0.00-0.50) K/uL Baso # (Auto) 0.08 (0.00-0.20) K/uL Immature Gran # (Auto) 0.16 (0.01-0.20) K/uL Specimen Type POC pH (7.35-7.45) POC pCO2 (35-46) mmHg POC pO2 (80-95) mmHg POC HCO3 (19-24) jacob/L POC Total CO2 (24-31) mmol/L POC Base Excess (-9-1.8) jacob/L POC ABG O2 Sat (90-95) % VBG pH (7.36-7.41) VBG pCO2 (38-50) mmHg VBG pO2 mmHg VBG HCO3 mmol/L VBG O2 Saturation % VBG Base Excess mEq/L POC Sodium (135-144) mmol/L Sodium 127 L (136-145) mmol/L POC Potassium (3.3-5.0) mmol/L Potassium TNP 4.3 Chloride 91 L (98-107) mmol/L Carbon Dioxide 16 L (21-32) mmol/L Anion Gap 20 H (3-11) BUN 23 (6-23) mg/dl Creatinine 1.17 (0.6-1.2) mg/dl Est Cr Clr Drug Dosing 54.1 ml/min eGFR 49.89 BUN/Creatinine Ratio 19.7 (10-20) Glucose 459 H* (70-99(Fasting)) mg/dl POC Glucose (70-99) mg/dl Estimat Average Glucose mg/dl Hemoglobin A1c (4.5-5.6) % Lactate 1.5 (0.4-2.0) mmol/L Calcium 8.5 L (8.6-10.3) mg/dl Phosphorus (2.5-4.9) mg/dl Magnesium 2.2 (1.7-2.4) mg/dl Total Bilirubin 0.5 (0.2-1.0) mg/dl AST TNP 12 L ALT 10 (7-52) U/L Alkaline Phosphatase 79 (34-104) U/L Troponin I High Sens 12.5 (0-14) pg/ml B-Natriuretic Peptide 104 H (0-100) pg/ml Total Protein 7.1 (6.0-8.3) gm/dl Albumin 3.6 (3.4-5.0) gm/dl Globulin 3.5 (2.5-4.0) gm/dl Albumin/Globulin Ratio 1.0 (0.9-2) TSH 0.511 (0.300-4.500) uIu/ml Adenovirus (PCR) Not Detected (NotDetected) B. pertussis DNA (PCR) Not Detected (NotDetected) B.parapertussis DNA PCR Not Detected (NotDetected) C. pneumoniae DNA (PCR) Not Detected (NotDetected) Coronavirus OC43 (PCR) Not Detected (NotDetected) Coronavirus HKU1 (PCR) Not Detected (NotDetected) Coronavirus 229E (PCR) Not Detected (NotDetected) SARS-CoV-2 (PCR) Not Detected (NotDetected) Coronavirus NL63 (PCR) Not Detected (NotDetected) Human Metapneumovir PCR Not Detected (NotDetected) Influenza Type A (PCR) Not Detected (NotDetected) Influenza Type B (PCR) Not Detected (NotDetected) M. pneumoniae (PCR) Not Detected (NotDetected) Parainfluenza 1 (PCR) Not Detected (NotDetected) Parainfluenza 2 (PCR) Not Detected (NotDetected) Parainfluenza 3 (PCR) Not Detected (NotDetected) Parainfluenza 4 (PCR) Not Detected (NotDetected) RSV (PCR) DETECTED A (NotDetected) Entero/Rhino (PCR) Not Detected (NotDetected) 01/13/25 01/13/25 01/13/25 Range/Units 08:58 09:18 09:28 WBC (4.8-10.8) K/ul RBC (4.20-5.40) M/uL Hgb (12.0-16.0) g/dl POC Hgb 13.6 (12.0-16.0) g/dl Hct (37.0-47.0) % POC Hct 40 (37-47) % MCV (80.0-100.0) fL MCH (25.0-34.0) pg MCHC (32.0-36.0) g/dL RDW Std Deviation (36.4-46.3) fL RDW Coeff of Reji (11.5-14.5) % Plt Count (130-400) K/uL MPV (9.4-12.4) fL Immature Gran % (Auto) % Neut % (Auto) % Lymph % (Auto) % [place] % (Auto) % Eos % (Auto) % Baso % (Auto) % Neut # (Auto) (1.40-6.50) K/uL Lymph # (Auto) (1.20-3.40) K/uL [place] # (Auto) (0.11-0.59) K/uL Eos # (Auto) (0.00-0.50) K/uL Baso # (Auto) (0.00-0.20) K/uL Immature Gran # (Auto) (0.01-0.20) K/uL Specimen Type Arterial POC pH 7.26 L (7.35-7.45) POC pCO2 26 L (35-46) mmHg POC pO2 74 L (80-95) mmHg POC HCO3 12 L (19-24) jacob/L POC Total CO2 12 L (24-31) mmol/L POC Base Excess -15.0 L (-9-1.8) jacob/L POC ABG O2 Sat 93.0 (90-95) % VBG pH 7.21 L (7.36-7.41) VBG pCO2 36 L (38-50) mmHg VBG pO2 32 mmHg VBG HCO3 14 mmol/L VBG O2 Saturation < 60.0 % VBG Base Excess -12.6 mEq/L POC Sodium 128 L (135-144) mmol/L Sodium (136-145) mmol/L POC Potassium 4.3 (3.3-5.0) mmol/L Potassium Chloride (98-107) mmol/L Carbon Dioxide (21-32) mmol/L Anion Gap (3-11) BUN (6-23) mg/dl Creatinine (0.6-1.2) mg/dl Est Cr Clr Drug Dosing ml/min eGFR BUN/Creatinine Ratio (10-20) Glucose (70-99(Fasting)) mg/dl POC Glucose 439 H* (70-99) mg/dl Estimat Average Glucose 407 mg/dl Hemoglobin A1c 15.8 H (4.5-5.6) % Lactate (0.4-2.0) mmol/L Calcium (8.6-10.3) mg/dl Phosphorus 4.4 (2.5-4.9) mg/dl Magnesium (1.7-2.4) mg/dl Total Bilirubin (0.2-1.0) mg/dl AST ALT (7-52) U/L Alkaline Phosphatase (34-104) U/L Troponin I High Sens (0-14) pg/ml B-Natriuretic Peptide (0-100) pg/ml Total Protein (6.0-8.3) gm/dl Albumin (3.4-5.0) gm/dl Globulin (2.5-4.0) gm/dl Albumin/Globulin Ratio (0.9-2) TSH (0.300-4.500) uIu/ml Adenovirus (PCR) (NotDetected) B. pertussis DNA (PCR) (NotDetected) B.parapertussis DNA PCR (NotDetected) C. pneumoniae DNA (PCR) (NotDetected) Coronavirus OC43 (PCR) (NotDetected) Coronavirus HKU1 (PCR) (NotDetected) Coronavirus 229E (PCR) (NotDetected) SARS-CoV-2 (PCR) (NotDetected) Coronavirus NL63 (PCR) (NotDetected) Human Metapneumovir PCR (NotDetected) Influenza Type A (PCR) (NotDetected) Influenza Type B (PCR) (NotDetected) M. pneumoniae (PCR) (NotDetected) Parainfluenza 1 (PCR) (NotDetected) Parainfluenza 2 (PCR) (NotDetected) Parainfluenza 3 (PCR) (NotDetected) Parainfluenza 4 (PCR) (NotDetected) RSV (PCR) (NotDetected) Entero/Rhino (PCR) (NotDetected) Administered Medications Insulin Human Regular 250 (units/ Sodium Chloride) 250 mls @ 12 mls/hr IV .[id number] [facility]; Protocol Stop: 02/12/25 09:14 Last Titration: 01/13/25 12:09 Dose: 12 units/hr, 12 mls/hr Documented By: CINTHIA Co-signed By: SEUN Titration: 01/13/25 11:11 Dose: 12 units/hr, 12 mls/hr Documented By: SEUN Co-signed By: DARRICK Admin: 01/13/25 09:56 Dose: 10 units/hr, 10 mls/hr Documented By: SEUN Co-signed By: DARRICK Discontinued Medications Albuterol (Albut/Ipratrop 3mg/0.5mg Neb 3 Ml Vial) 3 ml NEB NOW STA; Protocol Stop: 01/13/25 06:53 Last Admin: 01/13/25 07:12 Dose: 3 ml Documented By: NOELLE Ceftriaxone Sodium (Rocephin) 2,000 mg in 50 mls @ 100 mls/hr IV NOW STA Stop: 01/13/25 07:21 Last Infusion: 01/13/25 08:19 Dose: Infused Documented By: Admin: 01/13/25 07:13 Dose: 100 mls/hr Documented By: NOELLE Sodium Chloride (Nss) 500 mls @ 999 mls/hr IV .Q31M ONE Stop: 01/13/25 09:41 Last Infusion: 01/13/25 12:15 Dose: Infused Documented By: Admin: 01/13/25 09:56 Dose: 999 mls/hr Documented By: SEUN Lactated Ringer's (Lr) 500 mls @ 999 mls/hr IV .Q31M ONE Stop: 01/13/25 11:29 Last Infusion: 01/13/25 12:38 Dose: Infused Documented By: Admin: 01/13/25 11:59 Dose: 999 mls/hr Documented By: ANALI Insulin Human Regular (Novolin-R Insulin Per Unit Charge) 10 units IV NOW STA Stop: 01/13/25 07:28 Last Admin: 01/13/25 07:59 Dose: 10 units Documented By: SEUN Co-signed By: DARRICK Methylprednisolone (Methylprednisolone 125 Mg/2 Ml Vial) 60 mg IV NOW STA Stop: 01/13/25 06:53 Last Admin: 01/13/25 07:12 Dose: 60 mg Documented By: NOELLE Imaging Data Radiologist's Impression: Chest X-Ray 01/13/25 06:32 EXAM: XR chest 1V portable CLINICAL HISTORY: Weakness TECHNIQUE: An X-ray image of the chest is obtained AP projection. COMPARISON: 02/20/24 previous X-ray. FINDINGS: Pulmonary Parenchyma: Bilateral faint opacity in the lung bases more on the right. Bilateral prominent bronchial markings. The rest of the lungs are clear bilaterally. No evidence of consolidation or collapse. No pulmonary nodules are identified. No evidence of pleural effusion or pleural thickening. Heart and Mediastinum: Heart size and shape are normal. No mediastinal widening or masses. No hilar or mediastinal lymphadenopathy. Bony Thorax: The bony thorax appears intact without fractures or deformities. Dorsal spine spondylosis. Soft Tissues: Soft tissues overlying the chest wall are unremarkable. IMPRESSION: 1. Bilateral faint opacity in the lung based more on the right, increase in comparison to the last study. 2. No other interval changes. Electronically signed by Shlomo Auguste 01-13-2025 07:37 AM Discharge Plan Visit Data Chief Complaint: Illness Stated Complaint: COUGH, WEAKNESS, CONGESTION ED Provider: Nicholas Mauricio Discharge Problem: SOB (shortness of breath), RSV (respiratory syncytial virus infection), Asthma exacerbation, Acute hyperglycemia, Acidosis Patient Disposition: Admitted As Inpatient Condition: Serious Discharge Instructions Interventions: ED Discharge Assessment Last Done: 01/13/25 12:38 Discharge Problem: RSV (respiratory syncytial virus infection) Qualifiers: RSV infection type: acute bronchitis Qualified Code(s): J20.5 - Acute bronchitis due to respiratory syncytial virus Asthma exacerbation Qualifiers: Asthma severity: moderate Asthma persistence: persistent Qualified Code(s): J 45.41 - Moderate persistent asthma with (acute) exacerbation
--- NOTE | 2025-01-13 07:38 | XRay Report ---
EXAM: XR chest 1V portable CLINICAL HISTORY: Weakness TECHNIQUE: An X-ray image of the chest is obtained AP projection. COMPARISON: 02/20/24 previous X-ray. FINDINGS: Pulmonary Parenchyma: Bilateral faint opacity in the lung bases more on the right. Bilateral prominent bronchial markings. The rest of the lungs are clear bilaterally. No evidence of consolidation or collapse. No pulmonary nodules are identified. No evidence of pleural effusion or pleural thickening. Heart and Mediastinum: Heart size and shape are normal. No mediastinal widening or masses. No hilar or mediastinal lymphadenopathy. Bony Thorax: The bony thorax appears intact without fractures or deformities. Dorsal spine spondylosis. Soft Tissues: Soft tissues overlying the chest wall are unremarkable. IMPRESSION: 1. Bilateral faint opacity in the lung based more on the right, increase in comparison to the last study. 2. No other interval changes. Electronically signed by Shlomo Auguste 01-13-2025 07:37 AM
[2025-01-13] MEDS: NovoLIN-R INSULIN PER UNIT CHARGE IV STA (07:59)
[2025-01-13 08:09] LABS: Adenovirus PCR Not Detected (NotDetected); Bordetella parapertussis PCR Not Detected (NotDetected); Bordetella pertussis PCR Not Detected (NotDetected); Chlamydia pneumoniae PCR Not Detected (NotDetected); Coronavirus 229E PCR Not Detected (NotDetected); Coronavirus CoV-2 (COVID19)PCR Not Detected (NotDetected); Coronavirus HKU1 PCR Not Detected (NotDetected); Coronavirus NL63 PCR Not Detected (NotDetected); Coronavirus OC43PCR Not Detected (NotDetected); Human Metapneumovirus PCR Not Detected (NotDetected); Influenza A PCR Not Detected (NotDetected); Influenza B PCR Not Detected (NotDetected); Mycoplasma pneumoniae PCR Not Detected (NotDetected); Parainfluenza Virus 1 PCR Not Detected (NotDetected); Parainfluenza Virus 2 PCR Not Detected (NotDetected); Parainfluenza Virus 3 PCR Not Detected (NotDetected); Parainfluenza Virus 4 PCR Not Detected (NotDetected); Respiratory Syncytial VirusPCR DETECTED (NotDetected); Rhinovirus/Enterovirus PCR Not Detected (NotDetected)
[2025-01-13 08:32] LABS: Potassium 4.3 mmol/L (3.5-5.1)
--- NOTE | 2025-01-13 09:07 | History & Physical Report ---
Date of Service January 13, 2025 Assessment & Plan (1) RSV (respiratory syncytial virus pneumonia): (2) Acute respiratory failure with hypoxia: (3) Generalized weakness: (4) Hyperglycemia: Plan This patient is a 69-year-old female with a history of HTN, CKD stage III, DM 2, obesity, nonalcoholic fatty liver disease, suspected WESTON, asthma, allergies, chronic LBP, who presents to the ER with 1 week of cold symptoms and increasing SOB and generalized weakness w/ subjective fevers at home. She was found to have RSV with likely pneumonia and bronchitis, acute asthma exacerbation, and DKA. #Acute respiratory failure with hypoxia/suspected pneumonia/acute bronchitis/ acute asthma exacerbation-presents with 1 week of progressive symptoms from viral illness with RSV, cough productive of white sputum, subjective fevers at home, wheezing from acute asthma exacerbation. Chest x-ray with faint right greater than left basilar opacities, requiring 2L NC O2 on initial presentation. She received Solu-Medrol 125 Mg IV x 1 in the ED along with DuoNebs with i mprovement in oxygenation. No evidence of sepsis. Do not suspect PE. Troponin negative. BNP mildly elevated but no history of heart failure no other evidence of such-in fact, she is dry on exam -Admit to medical floor with telemetry monitoring -Continue supplemental O2 to keep pulse ox greater than 90% -Check procalcitonin but likely will treat for secondary bacterial pneumonia- continue ceftriaxone 1000 mg IV every 24 hours and add azithromycin 500 mg IV x 1 now, then 250 Mg p.o. once daily x 4 more days through 01/17 -Follow chest x-ray to resolution in 4 to 6 weeks -Start DuoNebs every 6 hours scheduled and every 2 hours as needed -Continue Solu-Medrol 40 Mg IV twice daily for asthma exacerbation -Tylenol as needed for fevers, Zofran as needed for nausea #DM2/hyperglycemia/possible DKA/pseudohyponatremia-blood glucose in the 400s, serum bicarbonate low at 16 on admission, anion gap elevated at 20, VBG pH 7.21, VBG pCO2 36, lactate normal. She typically wears an insulin pump but is a type II diabetic and no BS history of DKA. She reports her blood sugar typically is very well-controlled at home with glucose 120-150 range-has CGM, however her last HgbA1c was 9.1% in 02/2024 and now is up to 15.8%. No IV fluids were given in the ER due to concern for heart failure initially but she appears dry on exam. She had severe dehydration requiring hospitalization after trying Trulicity in the past and never started Mounjaro for fear of a recurrence. With pseudohyponatremia with sodium 136 after correction -Start insulin drip and DKA protocol-pharmacy managing -Give 500 mL of LR now but hold off on further maintenance IV fluids after that as she is able to take p.o. -family living educator consulted -Holding home insulin pump for now -Follow serial labs with BMP, VBG, phosphorus while on insulin drip and correct electrolytes as needed, follow anion gap -Diabetic diet, BSG's as per protocol with insulin drip #Generalized weakness-secondary to RSV and DKA. Had a fall 1 week ago without any injuries but was unable to get out of bed on the morning of admission due to weakness. -Treating RSV and DKA -PT/OT consults placed #CKD stage III-GFR typically 49-61, creatinine 1.1 here which is around her baseline -Avoid nephrotoxins -Renally dose medications when appropriate -Follow BMP #HTN/HLD-blood pressures are normal at this time -Hold home HCTZ and lisinopril while dehydrated with DKA and resume when clinically improved -Continue home baby aspirin and statin #Asthma/allergies/suspected WESTON-not on CPAP at home -Continue home Singulair -Treating for acute asthma exacerbation as above, but likely should be on Advair or Symbicort for LABA/ICS on discharge #Chronic lower back pain-no acute issues -Tylenol as needed for pain DVT prophylaxis-Lovenox SQ, SCDs Disposition-admit to medical floor with telemetry History of Present Illness Chief Complaint: Shortness of breath, weakness Primary Care Provider: Lucia Dsouza MD This patient is a 69-year-old female with a history of HTN, CKD stage III, DM 2, obesity, nonalcoholic fatty liver disease, suspected WESTON, asthma, allergies, chronic LBP, who presents to the ER with 1 week of cold symptoms and increasing SOB, weakness, sore throat, and chest tightness with cough productive of white sputum. She had subjective fevers but temperature not measured at home. She did have a fall 1 week ago when her symptoms first started with no injuries and was unable to get off the floor-EMS had to be called to get her up. This morning, she was unable to get out of bed and had incontinence to bowel and bladder. She was noted to be wheezing and SOB with a borderline low pulse ox in the ambulance and was given a DuoNeb in route. In the ER, chest x-ray showed faint opacity right greater than left base and prominent bronchial markings bilaterally, BioFire positive for RSV, blood glucose was quite elevated at 459 and w/ an anion gap metabolic acidosis and pH 7.21 on VBG, but lactate was normal. She was afebrile, no evidence of sepsis. She was placed on 2L NC O2 and given Solu-Medrol, ceftriaxone, insulin, and a DuoNeb. BNP was mildly elevated but troponin negative and ECG normal without ischemic changes. She reports her blood sugars were in the 400s yesterday and she thought that her insulin pump was malfunctioning so she removed it this morning. She will be admitted for acute respiratory failure with hypoxia, generalized weakness, suspected pneumonia and RSV. Allergies Allergy/AdvReac Type Severity Reaction Status Date / Time grass pollen-perennial rye, Allergy Intermediate ASTHMATIC Verified 01/13/25 09:27 standar SYMPTOMS milk Allergy Unknown INCREASED Verified 01/13/25 09:27 MUCUS-ASTHMAS AGGRAVATION mold Allergy Unknown ASTHMATIC Verified 01/13/25 09:27 SYMPTOMS [facility] AdvReac Intermediate Nausea Verified 01/13/25 09:27 codeine AdvReac Unknown HALLUCINATI Verified 01/13/25 09:27 ONS Home Medications Medication Instructions Recorded Confirmed Type Humalog U-100 Insulin 100 unit/mL See Rx Instructions subcut 08/28/24 01/13/25 Rx subcutaneous solution (insulin CONTINOUS #40 mL lispro) acetone (urine) test (Ketostix #50 ea 08/28/24 Rx strips) blood sugar diagnostic (OneTouch #400 ea 08/28/24 Rx Verio test strips) blood-glucose meter (OneTouch #1 ea 08/28/24 Rx Verio Flex Meter) glucagon 3 mg/actuation nasal 3 mg intranasal ONCE #2 ea 08/28/24 01/13/25 Rx spray (Baqsimi) glucagon HCl 1 mg/mL solution for 1 mg IM UD PRN hypoglycemia #2 ea 08/28/24 01/13/25 Rx injection hydrochlorothiazide 25 mg tablet 25 mg PO DAILY #90 tabs 08/28/24 01/13/25 Rx lancets 30 gauge (OneTouch Delica #400 ea 08/28/24 Rx Plus Lancet) lisinopril 40 mg tablet 40 mg PO DAILY #90 tabs 08/28/24 01/13/25 Rx needle (disp) 32 gauge 32 gauge x #100 ea 08/28/24 Rx 5/16" rosuvastatin 20 mg tablet 20 mg PO QPM #90 tabs 08/28/24 01/13/25 Rx Dexcom G6 Sensor (blood-glucose #9 ea 10/21/24 Rx sensor) albuterol sulfate 90 mcg/actuation 2 inh inhalation Q4H PRN shortness 12/05/24 01/13/25 Rx aerosol inhaler of breath or wheezing #13.4 grams Dexcom G6 Transmitter #1 ea 12/20/24 12/20/24 Rx (blood-glucose transmitter) aspirin 81 mg tablet,delayed 81 mg PO DAILY 01/13/25 01/13/25 History release Past Med/Surg History Problem List (Updated 01/13/25 @ 10:50 by Tawanna Salmeron MD) RSV (respiratory syncytial virus pneumonia) Acute respiratory failure with hypoxia Cough productive of yellow sputum Hyperlipidemia Albuminuria Obesity, morbid, BMI 40.0-49.9 Proximal humeral fracture CKD (chronic kidney disease) Gram-positive cocci bacteremia Infection due to Peptostreptococcus species Urine culture positive Candiduria Hyponatremia Hyperglycemia (Acute) Elevated procalcitonin (Acute) Elevated lactic acid level (Acute) Generalized weakness (Acute) Class 3 severe obesity with body mass index (BMI) of 50.0 to 59.9 in adult Mixed hyperlipidemia Hypertension NAFLD (nonalcoholic fatty liver disease) Stage 3 chronic renal impairment associated with type 2 diabetes mellitus Type 2 diabetes mellitus with obesity Allergic rhinitis Anxiety Asthma Eustachian tube dysfunction Lichen sclerosus et atrophicus Microalbuminuria Nephrolithiasis Osteopenia Postmenopausal bleeding Rosacea Vitamin D deficiency Metabolic syndrome Uncontrolled type 2 diabetes mellitus Right flank pain Low back pain Lumbar disc disease Lumbar back pain with radiculopathy affecting lower extremity Medical History Pain of left lower extremity Fall down steps Closed head injury Surgical History History of bilateral carpal tunnel release H/O colonoscopy Fiberoptic History of tonsillectomy Family History Unknown Diabetes Pancreatic cancer Thyroid disorder Sleep apnea nonorganic Alcoholism Brother Diabetes Sarcoidosis Mother Thyroid disorder Sleep apnea nonorganic Emphysema, unspecified Sister Sleep apnea nonorganic Grandmother Sleep apnea nonorganic Social History (Updated 01/13/25 @ 10:48 by Tawanna Salmeron MD) Smoking Status: Never smoker Second Hand Exposure: No; Do You Dip or Chew Tobacco: No; Hx Alcohol Use: Yes Alcohol type: wine Alcohol Intake Frequency: Monthly or Less Hx Substance Use: No Preferred Language: Frisian Communication Ability: Effective Field Supervisor Required: No Beliefs That Will Affect Care: None marital status: Current Living Situation: Family Current Living Situation Comment: lives with son current occupational status: retired current occupation: Retired from special ed in elementary school setting How many Children do You have: 2 Feels Safe at Home: Yes Childhood Exposure to Second-Hand Smoke: Yes Dental Care, Regularly: Yes Physical Activity Frequency: Does not Exercise Seatbelt Use: always Sunscreen Use: Yes Assistive Devices: Walker Review of Systems Review of Systems: All systems reviewed & are unremarkable except as noted in HPI & below Physical Exam Constitutional: WD/WN, vitals as above Eyes: PERRL, conjunctivae normal, anicteric sclerae ENMT: Mouth: + oral mucosal abnormality (Dry) and + tongue abnormality (Dry) Neck: trachea midline, no thyromegaly Respiratory: normal respiratory effort and + cough Auscultation: + wheezes (Bilateral and lower lung richards); no crackles and no rhonchi Cardiovascular: RRR, no murmur, no edema Chest (Breasts): Chest: normal inspection of chest Gastrointestinal (Abdomen): normal bowel sounds, soft, nontender, no hepatosplenomegaly Musculoskeletal: Extremities: extremities normal to inspection; no cyanosis and no clubbing Skin: no rashes, warm and dry Neurologic: moves all extremities and awake; no focal motor deficits Psychiatric: A+Ox3, euthymic affect Lymphatic: no lymphedema Results & Data Results & Data Vital Signs (Past 12 Hours) Vital Signs Temp Pulse Pulse Resp BP Pulse Ox O2 Del Method 01/13/25 08:08 95 H 24 128/74 95 Room Air 01/13/25 07:07 96 H 22 100 Nasal Cannula 01/13/25 07:01 36.7 C 87 22 100 Nasal Cannula 01/13/25 06:24 98 H O2 Flow Rate 01/13/25 08:08 01/13/25 07:07 2 01/13/25 07:01 2 01/13/25 06:24 Laboratory Results CBC, BMP, lactate, LFTs, BNP, troponin, TSH reviewed Viral respiratory BioFire panel positive for RSV Diagnostic Findings Chest x-ray image personally reviewed by fl Chest X-Ray 01/13/25 06:32 EXAM: XR chest 1V portable CLINICAL HISTORY: Weakness TECHNIQUE: An X-ray image of the chest is obtained AP projection. COMPARISON: 02/20/24 previous X-ray. FINDINGS: Pulmonary Parenchyma: Bilateral faint opacity in the lung bases more on the right. Bilateral prominent bronchial markings. The rest of the lungs are clear bilaterally. No evidence of consolidation or collapse. No pulmonary nodules are identified. No evidence of pleural effusion or pleural thickening. Heart and Mediastinum: Heart size and shape are normal. No mediastinal widening or masses. No hilar or mediastinal lymphadenopathy. Bony Thorax: The bony thorax appears intact without fractures or deformities. Dorsal spine spondylosis. Soft Tissues: Soft tissues overlying the chest wall are unremarkable. IMPRESSION: 1. Bilateral faint opacity in the lung based more on the right, increase in comparison to the last study. 2. No other interval changes. Electronically signed by Shlomo Auguste 01-13-2025 07:37 AM ECG Additional Comments: ECG on 01/13/2025 at 6:05 AM with normal sinus rhythm, rate 98, no ischemic changes Code Status & VTE Plan Code Status Full code VTE Prophylaxis Plan VTE Prophylaxis will be ordered: Yes PG Care Time/CCT Total # of Minutes Spent Total Time Spent with Patient: Total time spent is greater than 50% in coordination of care (as documented) at patient's floor/unit and/or counseling patient: Coding Level of Care Code 94135 INT INP/OBS CARE 3/75MIN Diagnoses RSV (respiratory syncytial virus pneumonia) J12.1 Acute respiratory failure with hypoxia J96.01 Generalized weakness R53.1 Hyperglycemia R73.9
[2025-01-13] MEDS ORDERED: GLUCOSE 10 TAB/TUBE PO PRN (09:08)
[2025-01-13] MEDS ORDERED: DEXTROSE 50% 50 ML SYRINGE IV PRN (09:08)
[2025-01-13] MEDS ORDERED: CARBOHYDRATES FOR HYPOGLYCEMIA PO PRN (09:08)
[2025-01-13] MEDS ORDERED: GLUCAGON FOR INJ 1 MG VIAL SQ PRN (09:08)
[2025-01-13] MEDS ORDERED: GLUCOSE 40% GEL 15 GM TUBE PO PRN (09:08)
[2025-01-13 09:34] LABS: Base Excess VBG -12.6 mEq/L; HCO3 VBG 14 mmol/L; Oxygen Saturation VBG < 60.0 %; PCO2 VBG 36 mmHg (38-50); PO2 VBG 32 mmHg; pH VBG 7.21 (7.36-7.41)
[2025-01-13 09:43] LABS: iSTAT Arterial Blood Gas HCO3 12 meg/L (19-24); iSTAT Arterial Blood Gas pCO2 26 mmHg (35-46); iSTAT Arterial Blood Gas pH 7.26 (7.35-7.45); iSTAT Arterial Blood Gas pO2 74 mmHg (80-95); iSTAT Carbon Dioxide 12 mmol/L (24-31); iSTAT Hematocrit 40 % (37-47); iSTAT Hemoglobin 13.6 g/dl (12.0-16.0); iSTAT Potassium 4.3 mmol/L (3.3-5.0); iSTAT Sample Type Arterial; iSTAT Sodium 128 mmol/L (135-144)
[2025-01-13 09:48] LABS: Estimated Average Glucose 407 mg/dl; Hemoglobin A1C 15.8 % (4.5-5.6)
[2025-01-13] MEDS: INSULIN REGULAR 250 UNITS in SODIUM CHLORIDE 0.9% 247.5 ML IV SCH (09:56)
[2025-01-13] MEDS: SODIUM CHLORIDE 0.9% 500 ML IV ONE (09:56)
[2025-01-13] MEDS: LACTATED RINGER'S 500 ML IV ONE (11:59)
[2025-01-13] MEDS ORDERED: MAGNESIUM HYDROXIDE SUSP 30 ML UDC PO PRN (12:36)
[2025-01-13] MEDS ORDERED: ALUMINUM/MAGNESIUM SUSP 30 ML UDC PO PRN (12:36)
[2025-01-13] MEDS ORDERED: ONDANSETRON INJ 2 MG/ML 2 ML VIAL IV PRN (12:36)
[2025-01-13] MEDS ORDERED: POLYETHYLENE (MIRALAX) 17 GM PACK PO PRN (12:36)
[2025-01-13] MEDS ORDERED: ACETAMINOPHEN 325 MG TAB PO PRN (12:36)
[2025-01-13] MEDS: DKA GOAL RANGE 150-250 mg/dl ONE (13:15)
[2025-01-13] MEDS: STAT IV Infusion **Titration per Protocol STA (13:15)
[2025-01-13] MEDS: ALBUT/IPRATROP 3MG/0.5MG NEB 3 ML VIAL NEB SCH (13:41)
[2025-01-13] MEDS: AZITHROMYCIN 500 MG/255 ML BAG IV ONE (13:41)
[2025-01-13 13:49] LABS: BUN Creatinine Ratio 22.4 (10-20); Calcium 8.3 mg/dl (8.6-10.3); Creatinine Clr Calc Pharmacy 54.6 ml/min; Phosphorus 2.7 mg/dl (2.5-4.9); Potassium 3.9 mmol/L (3.5-5.1)
[2025-01-13] MEDS: INSULIN ASPART PER UNIT CHARGE SC SCH (14:17)
--- NOTE | 2025-01-13 14:29 | Electrocardiogram Report ---
Test Reason : Blood Pressure : */* mmHG Vent. Rate : 98 BPM Atrial Rate : 98 BPM P-R Int : 146 ms QRS Dur : 86 ms QT Int : 368 ms P-R-T Axes : 67 20 47 degrees QTcB Int : 469 ms Normal sinus rhythm Normal ECG When compared with ECG of 22-Sep-2023 11:49, No significant change was found Confirmed by Narinder Viera ([id number]) on 01/13/2025 2:28:31 PM Referred By: REFERRED SELF Confirmed By: Narinder Viera
[2025-01-13 18:43] LABS: BUN Creatinine Ratio 21.9 (10-20); Calcium 8.3 mg/dl (8.6-10.3); Creatinine Clr Calc Pharmacy 40.9 ml/min; Phosphorus 2.5 mg/dl (2.5-4.9)
[2025-01-13] MEDS: ROSUVASTATIN CALCIUM 20 MG TAB PO SCH (20:00)
[2025-01-13] MEDS: methylPREDNISolone 40 MG in SYRINGE 0 ML IV SCH (20:00)
[2025-01-13] MEDS: ENOXAPARIN INJ 40 MG/0.4 ML SYR SQ SCH (20:01)
[2025-01-13 20:17] LABS: Appearance Urine Cloudy (Clear); Bacteria Urine Automated None Seen (None Seen); Bilirubin Urine Negative (Negative); Blood Urine Trace (Negative); Cast Urine Automated 0-2 /lpf (0-2); Color Urine Yellow; Epithelial Cell Urine Auto 0-2 /hpf (0-2); Glucose Urine UA 2+ (Negative); Ketones Urine 2+ (Negative); Leukocyte Esterase Urine 1+ (Negative); Nitrite Urine Negative (Negative); Protein Urine 2+ (Negative); RBC Urine Automated 0-2 /hpf (0-2); Specific Gravity Urine 1.014 (1.000-1.030); Urobilinogen Urine Negative (Negative); WBC Urine Automated 21-50 /hpf (0-5); pH Urine 5.5 (4.5-7.5)
[2025-01-13] MEDS ORDERED: methylPREDNISolone 125 MG/2 ML VIAL IV SCH (21:00)
[2025-01-13] MEDS ORDERED: PHARMACY GLYCEMIC MGMT CONSULT PRN (22:00)
[2025-01-13] MEDS: LACTATED RINGER'S 1,000 ML IV SCH (22:38)
[2025-01-14] MEDS: cefTRIAXone SODIUM 2,000 MG/50 ML BAG IV SCH (08:19)
[2025-01-14] MEDS: LANTUS PER UNIT CHARGE SQ ONE (08:58)
[2025-01-14 09:35] LABS: Basophils # (auto) 0.02 K/uL (0.00-0.20); Basophils % (auto) 0.3 %; Hematocrit (blood only) 35.7 % (37.0-47.0); Hemoglobin 12.1 g/dl (12.0-16.0); Immature Granulocytes % (auto) 1.5 %; Lymphocytes # (auto) 0.49 K/uL (1.20-3.40); Lymphocytes % (auto) 7.2 %; Mean Corpuscular Hemoglobin 30.3 pg (25.0-34.0); Mean Corpuscular Hgb Conc 33.9 g/dL (32.0-36.0); Mean Corpuscular Volume 89.3 fL (80.0-100.0); Mean Platelet Volume 11.4 fL (9.4-12.4); Monocytes # (auto) 0.42 K/uL (0.11-0.59); Monocytes % (auto) 6.2 %; Neutrophils # (auto) 5.78 K/uL (1.40-6.50); Neutrophils % (auto) 84.8 %; Platelet Count 150 K/uL (130-400); RDW Coefficient of Variation 13.8 % (11.5-14.5); RDW Standard Deviation 45.4 fL (36.4-46.3); White Blood Count 6.81 K/ul (4.8-10.8)
[2025-01-14] MEDS: ASPIRIN 81 MG ECTAB PO SCH (09:43)
[2025-01-14] MEDS: AZITHROMYCIN 250 MG TAB PO SCH (09:43)
[2025-01-14] MEDS: lisinopril 40 MG TAB PO SCH (09:43)
[2025-01-14 10:01] LABS: Calcium 8.2 mg/dl (8.6-10.3); Potassium 4.1 mmol/L (3.5-5.1)
[2025-01-14 10:10] LABS: BUN Creatinine Ratio 29.5 (10-20); Creatinine Clr Calc Pharmacy 56.5 ml/min
[2025-01-14] MEDS: LANTUS PER UNIT CHARGE SC ONE (12:53)
--- NOTE | 2025-01-14 15:00 | Pharmacy Report ---
Pharmacy Glycemic Short Note 2 - Date of Service January 14, 2025 - Glycemic Short BSG Results (Last 24 hours): 01/13/25 01/13/25 01/13/25 15:09 16:04 17:09 Glucose POC Glucose 336 H* 315 H* 269 H 01/13/25 01/13/25 01/13/25 18:09 18:59 20:04 Glucose 263 H POC Glucose 227 H 172 H 01/13/25 01/13/25 01/14/25 21:17 23:27 01:34 Glucose POC Glucose 153 H 224 H 173 H 01/14/25 01/14/25 01/14/25 03:30 07:30 08:32 Glucose POC Glucose 138 H 87 203 H 01/14/25 01/14/25 01/14/25 09:20 09:48 09:50 Glucose 354 H* POC Glucose 319 H* 329 H* 01/14/25 01/14/25 01/14/25 10:49 10:50 11:45 Glucose POC Glucose 323 H* 326 H* 307 H* 01/14/25 01/14/25 01/14/25 11:47 12:42 13:41 Glucose POC Glucose 301 H* 291 H 379 H* 01/14/25 13:42 Glucose POC Glucose 347 H* OUTPATIENT ANTIDIABETIC REGIMEN: * Rapid acting pump (per fill hx up to 100-300 units/day LF 08/15 and 09/15 NovoLog then Humalog) * HbA1c 15.8% (01/13/25), 9.1% (02/26/24) ASSESSMENT: * Eun is a 69 YOF admitted with weakness/shortness of breath and a history of type 2 diabetes mellitus. Pharmacy has been consulted for glycemic ma samria while inpatient. * BSGs in 400's upon admission, carbon dioxide low, anion gap elevated, acidotic. The decision was made to begin an insulin drip. This AM anion gap, carbon dioxide, and venous PH normalized. Discussed with casey Cooney to transition from insulin drip to SQ insulin. Gave about half of most recent Rx (50 units) this AM, BSGs continued to trend up. * Discussed insulin drip this AM with RN extensively, BSGs below goal range, but not hypoglycemic. Held drip per insulin calculator and gave breakfast, BSGs rebounded. Restarted at half previous rate. * She is also receiving methylprednisolone 40 units IV Q12H for asthma exacerbation, BSGs continuing to trend up throughout the day, gave additional 0.4 units/kg Lantus based on AdjBW to help with steroid induced hyperglycemia. Additional basal insulin and overnight checks added for significant steroid induced hyperglycemia. * Plan to discontinue drip at 1600, will continue to monitor BSG checks, low threshold to continue with insulin drip at this time. Glycemic pharmacist on second shift to monitor. PLAN FOR INPATIENT GLYCEMIC CONTROL: * Hold outpatient oral diabetes medications * Basal insulin * Lantus 50 units SQ x1 this AM @0856 * Lantus 30 units SQ x1 @1253 * Lantus 0-40 units HS x1 based on BSG (see eMAR for additional details) * Bolus insulin * NovoLog per scale ACHS or Q6hrs while NPO * Goal Range: Low 110 mg/dL - High 180 mg/dL * Correction Factor: 10 mg/dL/unit * Nutritional / Prandial insulin per carb ratio of 1 unit per 3 grams CHO consumed
[2025-01-14] MEDS: DC IV INSULIN INFUSION 1 EA DEVI ONE (16:50)
[2025-01-14] MEDS: INSULIN ASPART PER UNIT CHARGE SC SCH (17:43)
--- NOTE | 2025-01-14 18:33 | Hospitalist Progress Note ---
Date of Service January 14, 2025 Assessment & Plan (1) RSV (respiratory syncytial virus pneumonia): (2) Acute respiratory failure with hypoxia: (3) Generalized weakness: (4) Hyperglycemia: Plan This patient is a 69-year-old female with a history of HTN, CKD stage III, DM 2, obesity, nonalcoholic fatty liver disease, suspected WESTON, asthma, allergies, chronic LBP, who presents to the ER with 1 week of cold symptoms and increasing SOB and generalized weakness w/ subjective fevers at home. She was found to have RSV with community-acquired pneumonia and bronchitis, acute asthma exacerbation, and DKA. #Acute respiratory failure with hypoxia/suspected pneumonia/acute bronchitis/acute asthma exacerbation-presents with 1 week of progressive symptoms from viral illness with RSV, cough productive of white sputum, subjective fevers at home, wheezing from acute asthma exacerbation. Chest x-ray with faint right greater than left basilar opacities, requiring 2L NC O2 on initial presentation. No evidence of sepsis. Do not suspect PE. Troponin negative. BNP mildly elevated but no history of heart failure no other evidence of such-in fact, she is dry on exam on admission and received IV fluids Improving now with IV steroids-now weaned to room air some dyspnea. Procalcitonin negative but continuing to treat for secondary bacterial pneumonia -Continue IV Solu-Medrol but likely convert to p.o. prednisone tomorrow given significant hyperglycemia -continue ceftriaxone 2000 mg IV every 24 hours and azithromycin 250 Mg p.o. once daily through 01/17 -Follow chest x-ray to resolution in 4 to 6 weeks -Continue DuoNebs every 6 hours scheduled and every 2 hours as needed -Tylenol as needed for fevers, Zofran as needed for nausea #DM2/hyperglycemia/possible DKA/pseudohyponatremia-blood glucose in the 400s, serum bicarbonate low at 16 on admission, anion gap elevated at 20, VBG pH 7.21, VBG pCO2 36, lactate normal. She typically wears an insulin pump but is a type II diabetic and no BS history of DKA. She reports her blood sugar typically is very well-controlled at home with glucose 120-150 range-has CGM, however her last HgbA1c was 9.1% in 02/2024 and now is up to 15.8%. No IV fluids were given in the ER due to concern for heart failure initially but she appears dry on exam. She had severe dehydration requiring hospitalization after trying Trulicity in the past and never started Mounjaro for fear of a recurrence. With pseudohyponatremia with sodium 136 after correction. Anion gap and DKA are now closed/resolved. She was on extremely large doses of insulin on an insulin drip at 30 units/h at 1 point. Pharmacy is managing Appreciate medical educator consultation -Continue Lantus and NovoLog-she will need this on discharge until she can get a functioning insulin pump as an outpatient -Continue BSG's and diabetic diet -Will wean steroids tomorrow #Generalized weakness-secondary to RSV and DKA. Had a fall 1 week ago without any injuries but was unable to get out of bed on the morning of admission due to weakness. -Treating RSV and DKA -PT/OT consults placed #CKD stage III-GFR typically 49-61, creatinine 1.1 here which is around her baseline -Avoid nephrotoxins -Renally dose medications when appropriate -Follow BMP #HTN/HLD-blood pressures are normal at this time -Hold home HCTZ and lisinopril while dehydrated with DKA and resume when clinically improved -Continue home baby aspirin and statin #Asthma/allergies/suspected WESTON-not on CPAP at home -Continue home Singulair -Treating for acute asthma exacerbation as above, but likely should be on Advair or Symbicort for LABA/ICS on discharge #Chronic lower back pain-no acute issues -Tylenol as needed for pain DVT prophylaxis-Lovenox SQ, SCDs Disposition-continued stay medical floor with telemetry Admission and Anticipated Discharge Date Admission Date: January 13, 2025 Subjective Patient is now weaned to room air. Feels she is still short of breath. Blood sugars have been extremely elevated requiring very large doses of insulin on her insulin drip all day and just weaned off the insulin drip. She is out of bed and walking the unit. She denies any urinary symptoms such as frequency urgency or dysuria. Telemetry with normal sinus rhythm with rates in the 70s to 90s Physical Exam Constitutional: WD/WN, vitals as above Neck: trachea midline, no thyromegaly Respiratory: normal respiratory effort and + cough Auscultation: + wheezes (Bilateral and lower lung richards); no crackles and no rhonchi Cardiovascular: RRR, no murmur, no edema Chest (Breasts): Chest: normal inspection of chest Gastrointestinal (Abdomen): normal bowel sounds, soft, nontender, no hepatosplenomegaly Musculoskeletal: Extremities: extremities normal to inspection; no cyanosis and no clubbing Skin: no rashes, warm and dry Neurologic: moves all extremities and awake; no focal motor deficits Psychiatric: A+Ox3, euthymic affect Lymphatic: no lymphedema Results & Data Results & Data Vital Signs (Past 12 Hours) Vital Signs Temp Pulse Pulse Resp BP Pulse Ox Pulse Ox 01/14/25 15:17 36.5 C 94 H 18 122/75 92 01/14/25 15:01 88 18 93 01/14/25 13:35 96 01/14/25 13:00 98 H 01/14/25 11:24 68 18 92 01/14/25 11:07 36.6 C 89 18 135/82 95 01/14/25 07:40 01/14/25 07:15 36.4 C L 89 18 121/72 95 01/14/25 06:44 19 95 01/14/25 06:42 20 90 01/14/25 06:42 90 O2 Del Method O2 Del Method O2 Flow Rate 01/14/25 15:17 Room Air 01/14/25 15:01 Room Air 01/14/25 13:35 Room Air, Nasal Cannula 2 01/14/25 13:00 01/14/25 11:24 Nasal Cannula 4 01/14/25 11:07 Nasal Cannula 4 01/14/25 07:40 Nasal Cannula 4 01/14/25 07:15 Nasal Cannula 4 01/14/25 06:44 Nasal Cannula 4 01/14/25 06:42 Room Air 01/14/25 06:42 Room Air Laboratory Results CBC, BMP, magnesium level, blood culture, urine culture reviewed PG Care Time/CCT Total # of Minutes Spent Total Time Spent with Patient: Total time spent is greater than 50% in coordination of care (as documented) at patient's floor/unit and/or counseling patient: Coding Level of Care Code 78787 SUB INP/OBS CARE 2/35MIN Diagnoses RSV (respiratory syncytial virus pneumonia) J12.1 Acute respiratory failure with hypoxia J96.01 Generalized weakness R53.1 Hyperglycemia R73.9
[2025-01-14] MEDS ORDERED: LANTUS PER UNIT CHARGE SQ SCH (21:00)
[2025-01-14] MEDS: LANTUS PER UNIT CHARGE SC SCH (21:18)
[2025-01-14] MEDS: INSULIN HUMAN REGULAR PER UNIT 10 UNITS in SYRINGE 9.9 ML IV ONE (21:27)
[2025-01-14] MEDS: INSULIN ASPART PER UNIT CHARGE SC ONE (21:38)
[2025-01-15] MEDS: INSULIN ASPART PER UNIT CHARGE SC SCH (00:06)
[2025-01-15 07:48] LABS: BUN Creatinine Ratio 36.2 (10-20); Calcium 8.7 mg/dl (8.6-10.3); Creatinine Clr Calc Pharmacy 68.6 ml/min; Magnesium 2.2 mg/dl (1.7-2.4); Phosphorus 3.4 mg/dl (2.5-4.9); Potassium 4.1 mmol/L (3.5-5.1)
[2025-01-15] MEDS: predniSONE 20 MG TAB PO SCH (09:28)
[2025-01-15] MEDS: INSULIN ASPART PER UNIT CHARGE SC ONE (09:28)
[2025-01-15] MEDS: LANTUS PER UNIT CHARGE SC SCH ×2 (09:28→21:08)
--- NOTE | 2025-01-15 12:58 | Hospitalist Progress Note ---
Date of Service January 15, 2025 Assessment & Plan (1) RSV (respiratory syncytial virus pneumonia): (2) Acute respiratory failure with hypoxia: (3) Generalized weakness: (4) Hyperglycemia: Plan This patient is a 69-year-old female with a history of HTN, CKD stage III, DM 2, obesity, nonalcoholic fatty liver disease, suspected WESTON, asthma, allergies, chronic LBP, who presents to the ER with 1 week of cold symptoms and increasing SOB and generalized weakness w/ subjective fevers at home. She was found to have RSV with community-acquired pneumonia and bronchitis, acute asthma exacerbation, and DKA. #Acute respiratory failure with hypoxia/CAP/acute bronchitis/acute asthma exacerbation-presents with 1 week of progressive symptoms from viral illness with RSV, cough productive of white sputum, subjective fevers at home, wheezing from acute asthma exacerbation. Chest x-ray with faint right greater than left basilar opacities, requiring 2L NC O2 on initial presentation. No evidence of sepsis. Do not suspect PE. Troponin negative. BNP mildly elevated but no history of heart failure no other evidence of such-in fact, she is dry on exam on admission and received IV fluids initially Slowly improving with IV steroids- weaned to room air, with some residual PONCE. Procalcitonin negative but continuing to treat for secondary bacterial pneumonia -Change IV Solu-Medrol to p.o. prednisone 40mg daily and taper down -continue ceftriaxone 2000 mg IV every 24 hours and azithromycin 250 Mg p.o. once daily through 01/17 -Follow chest x-ray to resolution in 4 to 6 weeks -Continue DuoNebs every 6 hours scheduled and every 2 hours as needed -Tylenol as needed for fevers, Zofran as needed for nausea #DM2/hyperglycemia/possible DKA/pseudohyponatremia-blood glucose in the 400s, serum bicarbonate low at 16 on admission, anion gap elevated at 20, VBG pH 7.21, VBG pCO2 36, lactate normal. She typically wears an insulin pump but is a type II diabetic and no BS history of DKA. She reports her blood sugar typically is very well-controlled at home with glucose 120-150 range-has CGM, however her last HgbA1c was 9.1% in 02/2024 and now is up to 15.8%. No IV fluids were given in the ER due to concern for heart failure initially but she appeared dry on exam and was given some gentle IVFs initially. She had severe dehydration requiring hospitalization after trying Trulicity in the past and never started Mounjaro for fear of a recurrence. With pseudohyponatremia with sodium 136 after correction. Anion gap and DKA are now closed/resolved. She was on extremely large doses of insulin on an insulin drip at 30 units/h at 1 point. Pharmacy is managing Appreciate health data analyst consultation -Continue Lantus and NovoLog-she will need this on discharge until she can get a functioning insulin pump as an outpatient-will plan for Lantus and Novolog vials w/ syringes for injection -Continue BSG's and diabetic diet -continue to wean steroids -f/u with Endo as outpt -unclear why not on metformin-I do not see any contraindications to such- consider adding on as outpt #Generalized weakness-secondary to RSV and DKA. Had a fall 1 week ago without any injuries but was unable to get out of bed on the morning of admission due to weakness. -Treating RSV and DKA -PT/OT consults recommend home if can navigate stairs-pt prefers home with home health #CKD stage III-GFR typically 49-61, creatinine 0.9 here which is around her baseline -Avoid nephrotoxins -Renally dose medications when appropriate -Follow BMP #HTN/HLD-blood pressures are now elevated off meds -resume home HCTZ and lisinopril -Continue home baby aspirin and statin #Asthma/allergies/suspected WESTON-not on CPAP at home -Continue home Singulair -Treating for acute asthma exacerbation as above, but likely should be on Advair or Symbicort for LABA/ICS on discharge #Chronic lower back pain-no acute issues -Tylenol as needed for pain DVT prophylaxis-Lovenox SQ, SCDs Disposition-continued stay but downgrade to med/surg, possible dc to home tomorrow Admission and Anticipated Discharge Date Admission Date: January 13, 2025 Subjective Pt feels SOB with walking but a little better than yesterday. She feels very anxious and thinks it's from the steroids. Coughing up mucus. Tele with NSR rates 80-90s Physical Exam Constitutional: WD/WN, vitals as above Neck: trachea midline, no thyromegaly Respiratory: normal respiratory effort and + cough Auscultation: + wheezes (Bilateral and lower lung richards); no crackles and no rhonchi Cardiovascular: RRR, no murmur, no edema Chest (Breasts): Chest: normal inspection of chest Gastrointestinal (Abdomen): normal bowel sounds, soft, nontender, no hepatosplenomegaly Musculoskeletal: Extremities: extremities normal to inspection; no cyanosis and no clubbing Skin: no rashes, warm and dry Neurologic: moves all extremities and awake; no focal motor deficits Psychiatric: A+Ox3, euthymic affect Lymphatic: no lymphedema Results & Data Results & Data Vital Signs (Past 12 Hours) Vital Signs Temp Pulse Pulse Resp BP BP Pulse Ox 01/15/25 11:48 36.4 C L 96 H 16 176/83 H 93 01/15/25 10:28 88 16 96 01/15/25 08:04 36.4 C L 88 20 131/67 91 01/15/25 07:48 89 01/15/25 07:02 80 19 93 01/15/25 03:10 36.5 C 84 20 126/81 93 O2 Del Method FiO2 01/15/25 11:48 Room Air 01/15/25 10:28 Room Air 01/15/25 08:04 Room Air 01/15/25 07:48 01/15/25 07:02 Room Air 21 01/15/25 03:10 Room Air Laboratory Results BMP, mag, phos, urine cx reviewed PG Care Time/CCT Total # of Minutes Spent Total Time Spent with Patient: Total time spent is greater than 50% in coordination of care (as documented) at patient's floor/unit and/or counseling patient: Coding Level of Care Code 17230 SUB INP/OBS CARE 3/50MIN Diagnoses RSV (respiratory syncytial virus pneumonia) J12.1 Acute respiratory failure with hypoxia J96.01 Generalized weakness R53.1 Hyperglycemia R73.9
[2025-01-15] MEDS: hydroCHLOROthiazide 25 MG TAB PO SCH (13:31)
--- NOTE | 2025-01-15 14:36 | Pharmacy Report ---
Pharmacy Glycemic Short Note 2 - Date of Service January 15, 2025 - Glycemic Short BSG Results (Last 24 hours): 01/14/25 01/14/25 01/14/25 14:42 14:43 15:43 Glucose POC Glucose 358 H* 358 H* 287 H 01/14/25 01/14/25 01/14/25 16:42 19:15 21:04 Glucose POC Glucose 224 H 371 H* 310 H* 01/14/25 01/14/25 01/15/25 21:05 22:47 00:00 Glucose POC Glucose 309 H* 292 H 265 H 01/15/25 01/15/25 01/15/25 01:17 04:15 06:33 Glucose POC Glucose 272 H 245 H 278 H 01/15/25 01/15/25 01/15/25 06:43 08:00 12:04 Glucose 292 H POC Glucose 250 H 311 H* 01/15/25 12:05 Glucose POC Glucose 306 H* OUTPATIENT ANTIDIABETIC REGIMEN: * Rapid acting pump (per fill hx up to 100-300 units/day LF 08/15 and 09/15 NovoLog then Humalog) * HbA1c 15.8% (01/13/25), 9.1% (02/26/24) ASSESSMENT: 01/15 * Eun received ~416 units of insulin yesterday (120 were basal, 96 bolus, ~200 from the insulin drip) * Fasting BSG this AM still elevated, will increase basal insulin up to 30% today based on evening BSGs * IV Solumedrol was switched to prednisone 40mg today * NovoLog tightened this AM, lunch time BSG above 300, did not want to over adjust with high lunchtime value, consider IV bolus and further tightening with dinner if BSG still above 300 01/14 * Eun is a 69 YOF admitted with weakness/shortness of breath and a history of type 2 diabetes mellitus. Pharmacy has been consulted for glycemic management while inpatient. * BSGs in 400's upon admission, carbon dioxide low, anion gap elevated, acidotic. The decision was made to begin an insulin drip. This AM anion gap, carbon dioxide, and venous PH normalized. Discussed with casey Cooney to transition from insulin drip to SQ insulin. Gave about half of most recent Rx (50 units) this AM, BSGs continued to trend up. * Discussed insulin drip this AM with RN extensively, BSGs below goal range, but not hypoglycemic. Held drip per insulin calculator and gave breakfast, BSGs rebounded. Restarted at half previous rate. * She is also receiving methylprednisolone 40 units IV Q12H for asthma exacerbation, BSGs continuing to trend up throughout the day, gave additional 0.4 units/kg Lantus based on AdjBW to help with steroid induced hyperglycemia. Additional basal insulin and overnight checks added for significant steroid induced hyperglycemia. * Plan to discontinue drip at 1600, will continue to monitor BSG checks, low threshold to continue with insulin drip at this time. Glycemic pharmacist on second shift to monitor. PLAN FOR INPATIENT GLYCEMIC CONTROL: * Hold outpatient oral diabetes medications * Basal insulin * Lantus 80 units SQ daily * Lantus 40-80 units HS based on BSG (see eMAR for additional details) * Bolus insulin * NovoLog per scale ACHS or Q6hrs while NPO * Goal Range: Low 110 mg/dL - High 180 mg/dL * Correction Factor: 8 mg/dL/unit * Nutritional / Prandial insulin per carb ratio of 1 unit per 2 grams CHO consumed
[2025-01-15] MEDS: INSULIN HUMAN REGULAR PER UNIT 10 UNITS in SYRINGE 9.9 ML IV ONE (21:07)
[2025-01-16] MEDS: INSULIN ASPART PER UNIT CHARGE SC SCH (00:37)
[2025-01-16 07:40] VITALS: BP 142/77; TEMP 97.7
--- NOTE | 2025-01-16 08:53 | XRay Report ---
XR chest 2V PA/lateral CLINICAL HISTORY: f/u pneumonia COMPARISON STUDY: 01/13/2025 FINDINGS: Heart size and pulmonary vasculature are normal. No effusion, consolidation, or pneumothora x. IMPRESSION: No pneumonia seen. ACT 112: Negative or not required by law. Electronically signed by: Alvaro Fernandes M.D. 01/16/2025 8:52 AM
[2025-01-16] MEDS ORDERED: LANTUS PER UNIT CHARGE SC SCH ×2 (09:00→21:00)
[2025-01-16] MEDS: LANTUS PER UNIT CHARGE SC SCH (10:04)
[2025-01-16 10:38] LABS: BUN Creatinine Ratio 30.4 (10-20); Calcium 9.2 mg/dl (8.6-10.3); Creatinine Clr Calc Pharmacy 70.2 ml/min; Magnesium 2.5 mg/dl (1.7-2.4); Phosphorus 4.4 mg/dl (2.5-4.9); Potassium 3.9 mmol/L (3.5-5.1)
[2025-01-16 10:48] VITALS: O2SAT 93
--- NOTE | 2025-01-16 14:03 | Discharge Summary ---
Discharge Summary Date of Service January 16, 2025 Principal Dx & Hospital Course #1 = Principal Diagnosis (1) RSV (respiratory syncytial virus pneumonia): (2) Acute respiratory failure with hypoxia: (3) Generalized weakness: (4) Hyperglycemia: Plan This patient is a 69-year-old female with a history of HTN, CKD stage III, DM 2, obesity, nonalcoholic fatty liver disease, suspected WESTON, asthma, allergies, chronic LBP, who presents to the ER with 1 week of cold symptoms and increasing SOB and generalized weakness w/ subjective fevers at home. She was found to have RSV with community-acquired pneumonia and bronchitis, acute asthma exacerbation, and DKA. #Acute respiratory failure with hypoxia/CAP/acute bronchitis/acute asthma exacerbation-presents with 1 week of progressive symptoms from viral illness with RSV, cough productive of white sputum, subjective fevers at home, wheezing from acute asthma exacerbation. Chest x-ray with faint right greater than left basilar opacities, requiring 2L NC O2 on initial presentation. No evidence of sepsis. Do not suspect PE. Troponin negative. BNP mildly elevated but no history of heart failure no other evidence of such-in fact, she was dry on exam on admission and received IV fluids initially Now much improved after receiving IV and then p.o. steroids- weaned to room air, with some residual PONCE but she passed a two-step walk test. Procalcitonin negative but continuing to treat for secondary bacterial pneumonia Repeat CXR in 01/16 now clear of pneumonia -Complete quick taper down of prednisone after discharge -Received ceftriaxone 2000 mg IV every 24 hours and azithromycin 250 Mg p.o. once daily-complete 3 more days of cefdinir and 1 more day of azithromycin after discharge -Start Advair on discharge, continue albuterol as needed #DM2/hyperglycemia/possible DKA/pseudohyponatremia-blood glucose in the 400s, serum bicarbonate low at 16 on admission, anion gap elevated at 20, VBG pH 7.21, VBG pCO2 36, lactate normal. She typically wears an insulin pump but is a type II diabetic and no BS history of DKA. She reports her blood sugar typically is very well-controlled at home with glucose 120-150 range-has CGM, however her last HgbA1c was 9.1% in 02/2024 and now is up to 15.8%. No IV fluids were given in the ER due to concern for heart failure initially but she appeared dry on exam and was given some gentle IVFs initially. She had severe dehydration requiring hospitalization after trying Trulicity in the past and never started Mounjaro for fear of a recurrence. With pseudohyponatremia with sodium 136 after correction. Anion gap and DKA are now closed/resolved. She was on extremely large doses of insulin on an insulin drip at 30 units/h at 1 point. Appreciate ict educator consultation Patient is fearful of becoming hypoglycemic. Despite receiving 391 units of insulin in the 24 hours prior to discharge, she refuses to take more than Lantus 30 units twice a day along with NovoLog supplemental mealtime insulin with carbohydrate ratio after discharge. If blood sugars remain elevated, she will call her endocrinology office for assistance Stop insulin pump at this time as it is malfunctioning-she will follow-up with endocrinology in 2 weeks and get a new pump prescribed -Continue Lantus 30 units twice daily and NovoLog supplemental insulin-vials and insulin needles prescribed -Continue CGM and diabetic diet at discharge-she consumes sometimes up to 200 g of carbohydrates with each meal -continue to wean steroids -f/u with Endo as outpt -unclear why not on metformin-I do not see any contraindications to such- consider adding on as outpt-defer to endocrinology #Generalized weakness-secondary to RSV and DKA. Had a fall 1 week ago without any injuries but was unable to get out of bed on the morning of admission due to weakness. Now resolved, ambulating independently in the hallways #CKD stage III-GFR typically 49-61, creatinine 0.9 here which is around her baseline -Avoid nephrotoxins -Renally dose medications when appropriate -Follow BMP as an outpatient #HTN/HLD-blood pressures are now elevated off meds-improved with resuming HCTZ and lisinopril -Continue home HCTZ and lisinopril -Continue home baby aspirin and statin #Asthma/allergies/suspected WESTON-not on CPAP at home -Continue home Singulair -Treating for acute asthma exacerbation as above, prescribed Advair on discharge #Chronic lower back pain-no acute issues -Tylenol as needed for pain DVT prophylaxis-Lovenox SQ, SCDs Disposition-stable for discharge to home with home health Notes For Next Care Provider Consider adding on metformin Will need close monitoring of glucose levels and insulin administration after discharge Medication Changes From Visit Discontinued insulin pump Added Lantus 30 units twice daily, NovoLog supplemental Added cefdinir 300 mg p.o. twice daily x 3 days Added azithromycin to her 50 mg p.o. once daily x 1 day Added Advair 1 puff twice a day Added prednisone taper Admission HPI Per Admitting Provider This patient is a 69-year-old female with a history of HTN, CKD stage III, DM 2, obesity, nonalcoholic fatty liver disease, suspected WESTON, asthma, allergies, chronic LBP, who presents to the ER with 1 week of cold symptoms and increasing SOB, weakness, sore throat, and chest tightness with cough productive of white sputum. She had subjective fevers but temperature not measured at home. She di d have a fall 1 week ago when her symptoms first started with no injuries and was unable to get off the floor-EMS had to be called to get her up. This morning, she was unable to get out of bed and had incontinence to bowel and bladder. She was noted to be wheezing and SOB with a borderline low pulse ox in the ambulance and was given a DuoNeb in route. In the ER, chest x-ray showed faint opacity right greater than left base and prominent bronchial markings bilaterally, BioFire positive for RSV, blood glucose was quite elevated at 459 and w/ an anion gap metabolic acidosis and pH 7.21 on VBG, but lactate was normal. She was afebrile, no evidence of sepsis. She was placed on 2L NC O2 and given Solu-Medrol, ceftriaxone, insulin, and a DuoNeb. BNP was mildly elevated but troponin negative and ECG normal without ischemic changes. She reports her blood sugars were in the 400s yesterday and she thought that her insulin pump was malfunctioning so she removed it this morning. She will be admitted for acute respiratory failure with hypoxia, generalized weakness, suspected pneumonia and RSV. Discharge Exam Constitutional WD/WN, vitals as above Neck trachea midline, no thyromegaly Respiratory normal respiratory effort and + cough Auscultation: + wheezes (Bilateral and lower lung richards); no crackles and no rhonchi Cardiovascular RRR, no murmur, no edema Chest (Breasts) Chest: normal inspection of chest Gastrointestinal (Abdomen) normal bowel sounds, soft, nontender, no hepatosplenomegaly Musculoskeletal Extremities: extremities normal to inspection; no cyanosis and no clubbing Skin no rashes, warm and dry Neurologic moves all extremities and awake; no focal motor deficits Psychiatric A+Ox3, euthymic affect Lymphatic no lymphedema Discharge Plan Discharge Items Patient Disposition: Home - Home Health Services Reason For Visit: COUGH, WEAKNESS, CONGESTION Discharge Diagnosis: RSV Pneumonia Acute respiratory failure with hypoxemia DKA Condition on Discharge: Good Activity: Resume your previous activity Non-emergency contact: Primary Care Provider Call non-emergency contact if: you have any medication questions and your symptoms worsen Follow-up/Referrals: Lucia Dsouza MD [Primary Care Provider] - 01/23/25 3:00 pm Diet: Carb Consistent or DM2 Addtl Attending Provider Instructions: Please finish out 1 more day of azithromycin and 3 more days of cefdinir for antibiotics for your pneumonia. Continue your inhalers as needed for wheezing and cough. Finish out a taper of prednisone with 30 mg on 01/17, 20 mg on 01/18, and 10 mg on 01/19, then stop. You will be started on a daily inhaler called Advair on discharge to help improve your asthma control. You have significantly uncontrolled diabetes and your insulin pump has not been working. Please continue on Lantus 30 units twice a day along with NovoLog sliding scale and carbohydrate ratio as typed out for you with the adaptive physical educator. You may need to increase the doses of your insulin if your blood suga rs remain elevated over 200. Please call your locomotive pipe fitter if this is happening. Pending Studies at Discharge: Yes (Blood cultures-no growth to date) Stand-Alone Forms: [facility] [employer], Smoking Cessation Medications and DC Order Prescriptions: New azithromycin 250 mg Tablet 250 mg PO QAM Qty: 1 0RF insulin aspart U-100 [Novolog U-100 Insulin aspart] 100 unit/mL Solution See Rx Instructions .ROUTE .COMPLEX Qty: 50 0RF Rx Instructions: Take NovoLog with each meal as per sliding scale plus carbohydrate ratio up to 200 units/day insulin glargine [Lantus U-100 Insulin] 100 unit/mL Solution 30 unit SC BID 30 Days Qty: 20 0RF prednisone 10 mg tablet 30 mg PO DAILY Qty: 6 0RF Rx Instructions: X 1 day then 20 mg p.o. daily x 1 day, then 10 mg p.o. daily x 1 day, then stop (DME) insulin syringe-needle U-100 [Insulin Syringe] 1 mL 29 gauge x 1/2" syringe See Rx Instructions .Route Qty: 200 0RF Rx Instructions: For insulin administration 6 times per day cefdinir 300 mg capsule 300 mg PO BID Qty: 6 0RF fluticasone propion-salmeterol [Advair Diskus] 250-50 mcg/dose blister with device 1 inh inhalation BID Qty: 60 0RF Continued lisinopril 40 mg tablet 40 mg PO DAILY Qty: 90 0RF rosuvastatin 20 mg tablet 20 mg PO QPM Qty: 90 0RF (DME) Ketostix Strip See Rx Instructions miscellaneous .MEDSUPPLY Qty: 50 5RF Rx Instructions: Check when blood sugars > 250 for 4 to 6 hours (DME) OneTouch Verio test strips Strip See Rx Instructions miscellaneous .MEDSUPPLY Qty: 400 3RF Rx Instructions: Check before each meal and at bed (DME) blood-glucose meter [OneTouch Verio Flex meter] Misc See Rx Instructions miscellaneous .MEDSUPPLY Qty: 1 0RF Rx Instructions: As directed Baqsimi 3 mg/actuation spray,non-aerosol 3 mg intranasal ONCE Qty: 2 5RF glucagon HCl 1 mg/mL recon soln 1 mg IM UD PRN (Reason: hypoglycemia) Qty: 2 1RF hydrochlorothiazide 25 mg tablet 25 mg PO DAILY Qty: 90 1RF (DME) lancets [OneTouch Delica Plus Lancet] 30 gauge misc See Rx Instructions miscellaneous .MEDSUPPLY Qty: 400 3RF Rx Instructions: Check 4x a day (DME) needle (disp) 32 gauge 32 gauge x 5/16" needle See Rx Instructions .Route Qty: 100 0RF Rx Instructions: As directed (DME) Dexcom G6 Sensor Device See Rx Instructions .Route Qty: 9 3RF Rx Instructions: Change sensor every 10 days albuterol sulfate 90 mcg/actuation HFA aerosol inhaler 2 inh inhalation Q4H PRN (Reason: shortness of breath or wheezing) Qty: 13.4 5RF (DME) Dexcom G6 Transmitter Device See Rx Instructions .Route Qty: 1 0RF Rx Instructions: Change transmitter every 90 days aspirin 81 mg Tablet,Delayed Release (Dr/Ec) 81 mg PO DAILY Discontinued insulin lispro [Humalog U-100 Insulin] 100 unit/mL solution See Rx Instructions subcut CONTINOUS Qty: 40 5RF Rx Instructions: 110 units TDD subcutaneously continuous; Insulin pump Discharge Orders: Discharge Order (Routine); Ordered 01/16/25 Ordered By: Taawnna Salmeron Admission Data Admit Date/Time: 01/13/25 10:06 Attending Provider: Tawanna Salmeron Admit Provider: Tawanna Salmeron Primary Care Provider: Lucia Dsouza Other Providers: Tawanna Salmeron; [facility] Stay Data Consultations 01/13/25 09:11 ED Decision to Admit Stat Pending Results Patient Have Any Pending Studies at Discharge: Yes (Blood cultures-no growth to date) Discharge Instructions Given to Patient (Per Discharging Provider) Please finish out 1 more day of azithromycin and 3 more days of cefdinir for antibiotics for your pneumonia. Continue your inhalers as needed for wheezing and cough. Finish out a taper of prednisone with 30 mg on 01/17, 20 mg on 01/18, and 10 mg on 01/19, then stop. You will be started on a daily inhaler called Advair on discharge to help improve your asthma control. You have significantly uncontrolled diabetes and your insulin pump has not been working. Please continue on Lantus 30 units twice a day along with NovoLog sliding scale and carbohydrate ratio as typed out for you with the adaptive physical educator. You may need to increase the doses of your insulin if your blood sugars remain elevated over 200. Please call your locomotive pipe fitter if this is happening. Total Time Total Time Spent Total Time Spent (In Minutes): 45 minutes Total Time Includes: Examination of the Patient, Discharge Planning, Medication Reconciliation and Communication With Other Providers (ict educator, pharmacist) Coding Level of Care Code 33768 INP/OBS DISCH >30 MIN Diagnoses RSV (respiratory syncytial virus pneumonia) J12.1 Acute respiratory failure with hypoxia J96.01 Generalized weakness R53.1 Hyperglycemia R73.9
[2025-01-16 15:38] VITALS: RESP 16
[2025-01-16 16:01] VITALS: PULSE 93
== END 2025-01-16 18:39 | disposition home health service (06) | DRG 193 ==
LOC: SUATTDRO → ED 05:56 → EDINP 10:06 → 2N 12:38

== ENCOUNTER 2025-07-22 17:57 | Inpatient (IN) ==
--- NOTE | 2025-07-22 18:16 | Emergency Department Note ---
Impression & Plan DKA (diabetic ketoacidosis), Elevated procalcitonin, Generalized weakness, Acute UTI (urinary tract infection), Leukocytosis ED Provider Note HISTORY OF PRESENT ILLNESS: Patient is a 69-year-old female presenting with general malaise. Patient presents from home where she lives alone. She reports that in the last week she has been feeling generally unwell and generally weak. Son had called 911 because he thought that the patient has been more confused over the last week. Patient reports no fevers. Denies any abdominal pain or vomiting or diarrhea. She does report some intermittent nausea. She denies any particular complaints over the last week other than just feeling generally unwell. Son reported to EMS that she has not been getting up or off the couch in a week secondary to her symptoms. Patient denies any dysuria or hematuria. She denies any chest pain or significant shortness of breath. ROS: as above PHYSICAL EXAM: Constitutional: Patient appears in no acute distress. Morbidly obese HENT: Head: Normocephalic and atraumatic. Eyes: EOMI, PERRL Mouth/Throat: Mucous membranes moist. Neck: Trachea midline. Neck supple. Cardiovascular: RRR, No murmurs, rubs or gallops. Intact distal pulses. Pulmonary/Chest: No respiratory distress. Breath sounds clear and equal bilaterally. No wheezes or rales. Abdominal: Abdomen soft, no tenderness, rebound or guarding. Musculoskeletal: No edema, tenderness or deformity noted. Skin: Warm and dry. No rash, erythema, pallor or cyanosis Psychiatric: Appropriate mood and affect for situation. Neurological: Alert and keenly responsive. CN II-XII grossly intact, moving all extremities equally and fully. MDM: - Vitals signs showed hypertension - History obtained via patient. History as above. - Chronic conditions affecting care: DM-2; HTN; HLD; CKD; nonalcoholic fatty liver disease; obesity - Differential diagnoses include, but are not limited to: UTI; pneumonia; DKA; electrolyte abnormality; dysrhythmia; ACS - Order placed for continuous cardiac monitoring. At this time, monitor showed rate of 83 bpm with normal sinus rhythm, per my interpretation. - External medical records reviewed. Primary care visit note dated 07/02/2025 was reviewed. Patient was seen for short-term follow-up visit for her poorly controlled type 2 diabetes. - EKG image interpreted by myself showed normal sinus rhythm. Rate 92 bpm. QT 354. No acute ischemic changes. - Laboratory workup interpreted by myself showed leukocytosis (WBC 14.90) with neutrophil predominance; normal PT/INR; hyponatremia (Na 128 -likely pseudohyponatremia in the setting of hyperglycemia); elevated anion gap (19) with hyperglycemia (glucose 469); normal AST/ALT; elevated procalcitonin (1.91); normal troponin; normal lactate; normal TSH - Blood cultures obtained - CXR image reviewed and interpreted by myself as negative or pneumonia, per my interpretation. - VBG shows acidosis (pH 7.28) - Viral respiratory panel negative - UA showed evidence of infection. Given 2g IV rocephin - Given 1L NS and 4 mg IV zofran in ER. - Insulin drip ordered for patient's DKA. - Discussion was had with rehabilitation caseworker about patient's case and need for admission - Hospitalist consulted for admission - Patient admitted to [facility] service for further evaluation and management. I have personally spent 56 minutes of critical care time in the direct management of this patient. This includes bedside care, interpretation of diagnostic studies, and testing, discussion with consultants, patient, and family members, and other required patient management activities. This 56 minutes is in excess of all separately billable procedures. ASSESSMENT AND PLAN: Diagnosis: generalized weakness; DKA; acute UTI; leukocytosis; elevated procalcitonin Plan: admit Past Med/Surg History Problem List (Updated 07/22/25 @ 21:28 by Stephanie Mora MD) Leukocytosis (Acute) Acute UTI (urinary tract infection) (Acute) Generalized weakness (Acute) Elevated procalcitonin (Acute) DKA (diabetic ketoacidosis) (Acute) Poorly controlled type 2 diabetes mellitus Hypertension Hyperglycemia Asthma exacerbation (Acute) RSV (respiratory syncytial virus infection) (Acute) Cough productive of yellow sputum Albuminuria Obesity, morbid, BMI 40.0-49.9 Proximal humeral fracture CKD (chronic kidney disease) Gram-positive cocci bacteremia Infection due to Peptostreptococcus species Urine culture positive Candiduria Hyponatremia Elevated procalcitonin (Acute) Elevated lactic acid level (Acute) Class 3 severe obesity with body mass index (BMI) of 50.0 to 59.9 in adult Mixed hyperlipidemia NAFLD (nonalcoholic fatty liver disease) Stage 3 chronic renal impairment associated with type 2 diabetes mellitus Type 2 diabetes mellitus with obesity Allergic rhinitis Anxiety Asthma Eustachian tube dysfunction Lichen sclerosus et atrophicus Microalbuminuria Nephrolithiasis Osteopenia Postmenopausal bleeding Rosacea Vitamin D deficiency Metabolic syndrome Uncontrolled type 2 diabetes mellitus Right flank pain Low back pain Lumbar disc disease Lumbar back pain with radiculopathy affecting lower extremity Medical History Alcohol intoxication Hyperlipidemia Pain of left lower extremity Fall down steps Closed head injury Surgical History History of bilateral carpal tunnel release H/O colonoscopy History of tonsillectomy Family History Unknown Diabetes Pancreatic cancer Thyroid disorder Sleep apnea nonorganic Alcoholism Brother Diabetes Sarcoidosis Mother Thyroid disorder Sleep apnea nonorganic Emphysema, unspecified Sister Sleep apnea nonorganic Grandmother Sleep apnea nonorganic Social History Smoking Status: Never smoker Second Hand Exposure: No; Do You Dip or Chew Tobacco: No; Hx Alcohol Use: Yes Alcohol type: wine Alcohol Intake Frequency: Monthly or Less Hx Substance Use: No Preferred Language: Malagasy Communication Ability: Effective [employer] Intern Required: No Beliefs That Will Affect Care: None marital status: Current Living Situation: Alone Current Living Situation Comment: lives with son current occupational status: retired current occupation: Retired from special ed in elementary school setting How many Children do You have: 2 Feels Safe at Home: Yes Childhood Exposure to Second-Hand Smoke: Yes Dental Care, Regularly: Yes Physical Activity Frequency: Does not Exercise Seatbelt Use: always Sunscreen Use: Yes Assistive Devices: None Allergies Allergies Allergy/AdvReac Type Severity Reaction Status Date / Time grass pollen-perennial rye, Allergy Intermediate ASTHMATIC Verified 07/22/25 19:44 standar SYMPTOMS mold Allergy Intermediate ASTHMATIC Verified 07/22/25 19:44 SYMPTOMS codeine AdvReac Intermediate HALLUCINATI Verified 07/22/25 19:44 ONS dulaglutide [From Trulicity] AdvReac Intermediate Nausea Verified 07/22/25 19:44 Home Meds Home Medications Medication Instructions Recorded Confirmed aspirin 81 mg tablet,delayed 81 mg PO DAILY 01/13/25 07/22/25 release Previous Rx's Medication Instructions Recorded acetone (urine) test (Ketostix #50 ea 08/28/24 strips) blood-glucose meter (OneTouch #1 ea 08/28/24 Verio Flex Meter) glucagon 3 mg/actuation nasal 3 mg intranasal ONCE #2 ea 08/28/24 spray (Baqsimi) glucagon HCl 1 mg/mL solution for 1 mg IM UD PRN hypoglycemia #2 ea 08/28/24 injection hydrochlorothiazide 25 mg tablet 25 mg PO DAILY #90 tabs 08/28/24 lancets 30 gauge (OneTouch Delica #400 ea 08/28/24 Plus Lancet) rosuvastatin 20 mg tablet 20 mg PO QPM #90 tabs 08/28/24 albuterol sulfate 90 mcg/actuation 2 inh inhalation Q4H PRN shortness 12/05/24 aerosol inhaler of breath or wheezing #13.4 grams Dexcom G6 Transmitter #1 ea 12/20/24 (blood-glucose transmitter) fluticasone 250 mcg-salmeterol 50 1 inh inhalation BID #60 ea 01/16/25 mcg/dose blistr powdr for inhalation (Advair Diskus) insulin aspart U-100 100 unit/mL See Rx Instructions .Route 01/16/25 subcutaneous solution (Novolog .COMPLEX #50 mL U-100 Insulin aspart) lisinopril 40 mg tablet 40 mg PO DAILY #90 tabs 02/06/25 blood-glucose sensor (Dexcom G7 #1 ea 03/08/25 Sensor device) insulin pump cart,auto,BT,G6/7 #5 ea 03/08/25 (Omnipod 5 G6-G7 Pods (Gen 5) subcutaneous cartridge) cholecalciferol (vitamin D3) 1,250 50,000 unit PO .once weekly #8 caps 03/28/25 mcg (50,000 unit) capsule Dexcom G6 Sensor (blood-glucose #9 ea 04/09/25 sensor) Dexcom G6 Sensor (blood-glucose #9 ea 04/09/25 sensor) insulin glargine 100 unit/mL 85 unit (0.85 mL) subcut HS #40 mL 05/28/25 subcutaneous solution (Lantus U-100 Insulin) insulin syringe,safety needle 0.5 #100 ea 05/28/25 mL 30 gauge x 5/16" (BD SafetyGlide Insulin Syringe) blood sugar diagnostic (Accu-Chek #100 ea 06/02/25 Guide test strips) blood-glucose meter (Accu-Chek #1 ea 06/02/25 Guide Glucose Meter) spironolactone 25 mg tablet 25 mg PO DAILY #30 tabs 06/04/25 blood sugar diagnostic (OneTouch #100 ea 06/06/25 Verio test strips) Results & Data (ED) Vital Signs Vital Signs - 24 hr 07/22/25 18:10 07/22/25 18:10 07/22/25 18:16 Temperature 36.8 C Temperature Source Oral Pulse Rate 90 93 H Pulse Rate [Right Finger] Pulse Rhythm Regular Respiratory Rate 20 Respiratory Effort / Characteristics Non-Labored Spontaneous Respiratory Depth Normal Respiratory Pattern Regular Blood Pressure 181/84 H Blood Pressure [Left Arm] Blood Pressure Mean 116 Blood Pressure Mean [Left Arm] Blood Pressure Position Sitting Pulse Oximetry 96 96 Oxygen Delivery Method Room Air Sepsis Recent Fever Within 48 Hours No Sepsis New/Unexplained Change in Mental Status No Sepsis Action Taken by Nursing No Action Required 07/22/25 20:00 07/22/25 20:30 Temperature 36.8 C Temperature Source Oral Pulse Rate Pulse Rate [Right Finger] 85 83 Pulse Rhythm Respiratory Rate 17 18 Respiratory Effort / Characteristics Non-Labored Spontaneous Respiratory Depth Normal Respiratory Pattern Regular Blood Pressure Blood Pressure [Left Arm] 166/76 H 159/84 H Blood Pressure Mean Blood Pressure Mean [Left Arm] 106 109 Blood Pressure Position Pulse Oximetry 95 97 Oxygen Delivery Method Room Air Room Air Sepsis Recent Fever Within 48 Hours Sepsis New/Unexplained Change in Mental Status Sepsis Action Taken by Nursing Laboratory Data 07/22/25 18:19 07/22/25 18:19 Lab Results 07/22/25 07/22/25 07/22/25 Range/Units 18:19 18:40 19:06 WBC 14.90 H (4.8-10.8) K/ul RBC 5.09 (4.20-5.40) M/uL Hgb 14.8 (12.0-16.0) g/dl Hct 42.9 (37.0-47.0) % MCV 84.3 (80.0-100.0) fL MCH 29.1 (25.0-34.0) pg MCHC 34.5 (32.0-36.0) g/dL RDW Std Deviation 40.2 (36.4-46.3) fL RDW Coeff of Reji 13.1 (11.5-14.5) % Plt Count 211 (130-400) K/uL MPV 10.9 (9.4-12.4) fL Immature Gran % (Auto) 1.1 % Neut % (Auto) 84.9 % Lymph % (Auto) 7.8 % [place] % (Auto) 5.5 % Eos % (Auto) 0.2 % Baso % (Auto) 0.5 % Neut # (Auto) 12.64 H (1.40-6.50) K/uL Lymph # (Auto) 1.16 L (1.20-3.40) K/uL [place] # (Auto) 0.82 H (0.11-0.59) K/uL Eos # (Auto) 0.03 (0.00-0.50) K/uL Baso # (Auto) 0.08 (0.00-0.20) K/uL Immature Gran # (Auto) 0.17 (0.01-0.20) K/uL PT 11.1 (9.0-12.0) Seconds INR 1.1 (0.9-1.1) VBG pH 7.28 L (7.36-7.41) VBG pCO2 41 (38-50) mmHg VBG pO2 30 mmHg VBG HCO3 19 mmol/L VBG O2 Saturation < 60.0 % VBG Base Excess -7.1 mEq/L Sodium 128 L (136-145) mmol/L Potassium 4.2 (3.5-5.1) mmol/L Chloride 90 L (98-107) mmol/L Carbon Dioxide 19 L (21-32) mmol/L Anion Gap 19 H (3-11) BUN 12 (6-23) mg/dl Creatinine 1.00 (0.6-1.2) mg/dl Est Cr Clr Drug Dosing 61.5 ml/min eGFR 60.23 BUN/Creatinine Ratio 12.0 (10-20) Glucose 469 H* (70-99(Fasting)) mg/dl POC Glucose (70-99) mg/dl Lactate 1.5 (0.4-2.0) mmol/L Calcium 9.4 (8.6-10.3) mg/dl Magnesium 1.8 (1.7-2.4) mg/dl Total Bilirubin 0.6 (0.2-1.0) mg/dl AST 8 L (13-39) U/L ALT 7 (7-52) U/L Alkaline Phosphatase 104 (34-104) U/L Total Creatine Kinase 20 L (26-192) U/L Troponin I High Sens 11.1 (0-14) pg/ml Total Protein 7.5 (6.0-8.3) gm/dl Albumin 3.2 L (3.4-5.0) gm/dl Globulin 4.3 H (2.5-4.0) gm/dl Albumin/Globulin Ratio 0.7 L (0.9-2) Procalcitonin 1.91 H (0-0.5) ng/ml TSH 0.950 (0.300-4.500) uIu/ml Urine Color Yellow Urine Appearance Cloudy A (Clear) Urine pH 5.0 (4.5-7.5) Ur Specific [place] 1.028 (1.000-1.030) Urine Protein 3+ H (Negative) Urine Glucose (UA) 3+ H (Negative) Urine Ketones 3+ H (Negative) Urine Blood 2+ H (Negative) Urine Nitrite Negative (Negative) Urine Bilirubin Negative (Negative) Urine Urobilinogen Negative (Negative) Ur Leukocyte Esterase 1+ H (Negative) Urine WBC (Auto) >50 H (0-5) /hpf Urine RBC (Auto) 11-20 H (0-2) /hpf U Hyaline Cast (Auto) 6-10 H (0-2) /lpf U Epithel Cells (Auto) 3-5 H (0-2) /hpf Urine Bacteria (Auto) None Seen (None Seen) Urine Yeast Present A (None Prsent) Urine Comment Adenovirus (PCR) Not Detected (NotDetected) B. pertussis DNA (PCR) Not Detected (NotDetected) B.parapertussis DNA PCR Not Detected (NotDetected) C. pneumoniae DNA (PCR) Not Detected (NotDetected) Coronavirus OC43 (PCR) Not Detected (NotDetected) Coronavirus HKU1 (PCR) Not Detected (NotDetected) Coronavirus 229E (PCR) Not Detected (NotDetected) SARS-CoV-2 (PCR) Not Detected (NotDetected) Coronavirus NL63 (PCR) Not Detected (NotDetected) Human Metapneumovir PCR Not Detected (NotDetected) Influenza Type A (PCR) Not Detected (NotDetected) Influenza Type B (PCR) Not Detected (NotDetected) M. pneumoniae (PCR) Not Detected (NotDetected) Parainfluenza 1 (PCR) Not Detected (NotDetected) Parainfluenza 2 (PCR) Not Detected (NotDetected) Parainfluenza 3 (PCR) Not Detected (NotDetected) Parainfluenza 4 (PCR) Not Detected (NotDetected) RSV (PCR) Not Detected (NotDetected) Entero/Rhino (PCR) Not Detected (NotDetected) 07/22/25 Range/Units 20:11 WBC (4.8-10.8) K/ul RBC (4.20-5.40) M/uL Hgb (12.0-16.0) g/dl Hct (37.0-47.0) % MCV (80.0-100.0) fL MCH (25.0-34.0) pg MCHC (32.0-36.0) g/dL RDW Std Deviation (36.4-46.3) fL RDW Coeff of Reji (11.5-14.5) % Plt Count (130-400) K/uL MPV (9.4-12.4) fL Immature Gran % (Auto) % Neut % (Auto) % Lymph % (Auto) % [place] % (Auto) % Eos % (Auto) % Baso % (Auto) % Neut # (Auto) (1.40-6.50) K/uL Lymph # (Auto) (1.20-3.40) K/uL [place] # (Auto) (0.11-0.59) K/uL Eos # (Auto) (0.00-0.50) K/uL Baso # (Auto) (0.00-0.20) K/uL Immature Gran # (Auto) (0.01-0.20) K/uL PT (9.0-12.0) Seconds INR (0.9-1.1) VBG pH (7.36-7.41) VBG pCO2 (38-50) mmHg VBG pO2 mmHg VBG HCO3 mmol/L VBG O2 Saturation % VBG Base Excess mEq/L Sodium (136-145) mmol/L Potassium (3.5-5.1) mmol/L Chloride (98-107) mmol/L Carbon Dioxide (21-32) mmol/L Anion Gap (3-11) BUN (6-23) mg/dl Creatinine (0.6-1.2) mg/dl Est Cr Clr Drug Dosing ml/min eGFR BUN/Creatinine Ratio (10-20) Glucose (70-99(Fasting)) mg/dl POC Glucose 384 H* (70-99) mg/dl Lactate (0.4-2.0) mmol/L Calcium (8.6-10.3) mg/dl Magnesium (1.7-2.4) mg/dl Total Bilirubin (0.2-1.0) mg/dl AST (13-39) U/L ALT (7-52) U/L Alkaline Phosphatase (34-104) U/L Total Creatine Kinase (26-192) U/L Troponin I High Sens (0-14) pg/ml Total Protein (6.0-8.3) gm/dl Albumin (3.4-5.0) gm/dl Globulin (2.5-4.0) gm/dl Albumin/Globulin Ratio (0.9-2) Procalcitonin (0-0.5) ng/ml TSH (0.300-4.500) uIu/ml Urine Color Urine Appearance (Clear) Urine pH (4.5-7.5) Ur Specific [place] (1.000-1.030) Urine Protein (Negative) Urine Glucose (UA) (Negative) Urine Ketones (Negative) Urine Blood (Negative) Urine Nitrite (Negative) Urine Bilirubin (Negative) Urine Urobilinogen (Negative) Ur Leukocyte Esterase (Negative) Urine WBC (Auto) (0-5) /hpf Urine RBC (Auto) (0-2) /hpf U Hyaline Cast (Auto) (0-2) /lpf U Epithel Cells (Auto) (0-2) /hpf Urine Bacteria (Auto) (None Seen) Urine Yeast (None Prsent) Urine Comment Adenovirus (PCR) (NotDetected) B. pertussis DNA (PCR) (NotDetected) B.parapertussis DNA PCR (NotDetected) C. pneumoniae DNA (PCR) (NotDetected) Coronavirus OC43 (PCR) (NotDetected) Coronavirus HKU1 (PCR) (NotDetected) Coronavirus 229E (PCR) (NotDetected) SARS-CoV-2 (PCR) (NotDetected) Coronavirus NL63 (PCR) (NotDetected) Human Metapneumovir PCR (NotDetected) Influenza Type A (PCR) (NotDetected) Influenza Type B (PCR) (NotDetected) M. pneumoniae (PCR) (NotDetected) Parainfluenza 1 (PCR) (NotDetected) Parainfluenza 2 (PCR) (NotDetected) Parainfluenza 3 (PCR) (NotDetected) Parainfluenza 4 (PCR) (NotDetected) RSV (PCR) (NotDetected) Entero/Rhino (PCR) (NotDetected) Administered Medications Insulin Human Regular 250 (units/ Sodium Chloride) 250 mls @ 10 mls/hr IV .Q24H [facility]; Protocol Stop: 08/21/25 19:59 Last Admin: 07/22/25 20:26 Dose: 10 units/hr, 10 mls/hr Documented By: VIJAY Co-signed By: GEE Discontinued Medications Sodium Chloride (Nss) 1,000 mls @ 999 mls/hr IV .Q1H1M ONE Stop: 07/22/25 19:14 Last Infusion: 07/22/25 19:32 Dose: Infused Documented By: Admin: 07/22/25 18:24 Dose: 999 mls/hr Documented By: VIJAY Ceftriaxone Sodium (Rocephin) 2,000 mg in 50 mls @ 100 mls/hr IV NOW STA Stop: 07/22/25 19:35 Last Infusion: 07/22/25 20:37 Dose: Infused Documented By: Admin: 07/22/25 20:07 Dose: 100 mls/hr Documented By: GEE Insulin Human Regular (Novolin-R Bolus From Bag) 10 units IV ONE ONE Stop: 07/22/25 20:01 Last Admin: 07/22/25 20:27 Dose: 10 units Documented By: VIJAY Co-signed By: GEE Kucellaneous (Stat Iv Infusion Titration Per Protocol) 1 each N/A NOW STA Stop: 07/22/25 19:47 Last Admin: 07/22/25 20:30 Dose: Not Given Documented By: VIJAY Ondansetron HCl (Ondansetron Inj 2 Mg/Ml 2 Ml Vial) 4 mg IV NOW STA Stop: 07/22/25 18:15 Last Admin: 07/22/25 18:24 Dose: 4 mg Documented By: VIJAY Imaging Data Radiologist's Impression: Chest X-Ray 07/22/25 18:14 Chest radiograph, one view History: Weakness Comparison: None Findings: Single AP view of the chest performed. No focal consolidation or pleural effusion. No pneumothorax. The cardiomediastinal silhouette is within normal limits. Normal pulmonary vascularity. No evidence for lymphadenopathy. No visualized bony or soft tissue abnormality. Impression: Normal chest radiograph Electronically signed by Kem Dwyer 07-22-2025 6:37 PM Discharge Plan Visit Data Chief Complaint: Confusion Stated Complaint: CONFUSED ED Provider: Stephanie Mora Discharge Problem: DKA (diabetic ketoacidosis), Elevated procalcitonin, Generalized weakness, Acute UTI (urinary tract infection), Leukocytosis Patient Disposition: Admitted As Inpatient Condition: Fair Forms Stand Alone Forms: My [facility] Prescriptions Prescriptions: No Action rosuvastatin 20 mg tablet 20 mg PO QPM Qty: 90 0RF (DME) Ketostix Strip See Rx Instructions miscellaneous .MEDSUPPLY Qty: 50 5RF Rx Instructions: Check when blood sugars > 250 for 4 to 6 hours (DME) blood-glucose meter [OneTouch Verio Flex meter] Misc See Rx Instructions miscellaneous .MEDSUPPLY Qty: 1 0RF Rx Instructions: As directed Baqsimi 3 mg/actuation spray,non-aerosol 3 mg intranasal ONCE Qty: 2 5RF glucagon HCl 1 mg/mL recon soln 1 mg IM UD PRN (Reason: hypoglycemia) Qty: 2 1RF hydrochlorothiazide 25 mg tablet 25 mg PO DAILY Qty: 90 1RF (DME) lancets [OneTouch Delica Plus Lancet] 30 gauge misc See Rx Instructions miscellaneous .MEDSUPPLY Qty: 400 3RF Rx Instructions: Check 4x a day albuterol sulfate 90 mcg/actuation HFA aerosol inhaler 2 inh inhalation Q4H PRN (Reason: shortness of breath or wheezing) Qty: 13.4 5RF lisinopril 40 mg tablet 40 mg PO DAILY Qty: 90 0RF cholecalciferol (vitamin D3) 1,250 mcg (50,000 unit) capsule 50,000 unit PO .once weekly Qty: 8 0RF (DME) Dexcom G6 Sensor Device See Rx Instructions .Route Qty: 9 0RF Rx Instructions: Change sensor every 10 days (DME) Dexcom G6 Sensor Device See Rx Instructions .Route Qty: 9 0RF Rx Instructions: Change sensor every 10 days insulin glargine [Lantus U-100 Insulin] 100 unit/mL solution 85 unit subcut HS MDD 130 Qty: 40 4RF spironolactone 25 mg tablet 25 mg PO DAILY Qty: 30 2RF (DME) Dexcom G6 Transmitter Device See Rx Instructions .Route Qty: 1 0RF Rx Instructions: Change transmitter every 90 days (DME) OneTouch Verio test strips Strip See Rx Instructions miscellaneous .MEDSUPPLY Qty: 100 3RF Rx Instructions: Check blood sugar 3 times daily (DME) Accu-Chek Guide test strips Strip See Rx Instructions .Route Qty: 100 7RF Rx Instructions: Test glucose 3 times daily (DME) blood-glucose meter [Accu-Chek Guide Glucose Meter] Mis See Rx Instructions .Route Qty: 1 0RF Rx Instructions: Test glucose 3 times daily (DME) BD SafetyGlide Insulin Syringe 0.5 mL 30 gauge x 5/16" syringe See Rx Instructions .Route Qty: 100 2RF Rx Instructions: use 5 times per day wtih insulin aspirin 81 mg Tablet,Delayed Release (Dr/Ec) 81 mg PO DAILY insulin aspart U-100 [Novolog U-100 Insulin aspart] 100 unit/mL Solution See Rx Instructions .ROUTE .COMPLEX Qty: 50 0RF Rx Instructions: Take NovoLog with each meal as per sliding scale plus carbohydrate ratio up to 200 units/day fluticasone propion-salmeterol [Advair Diskus] 250-50 mcg/dose blister with device 1 inh inhalation BID Qty: 60 0RF (DME) Dexcom G7 Sensor Device See Rx Instructions .Route Qty: 1 0RF Rx Instructions: As directed (DME) Omnipod 5 G6-G7 Pods (Gen 5) Cartridge See Rx Instructions .Route Qty: 5 5RF Rx Instructions: As directed Referrals Referrals: Lucia Dsouza MD [Primary Care Provider] -
[2025-07-22] MEDS: SODIUM CHLORIDE 0.9% 1,000 ML IV ONE (18:24)
[2025-07-22] MEDS: ONDANSETRON INJ 2 MG/ML 2 ML VIAL IV STA (18:24)
[2025-07-22 18:35] LABS: Hematocrit (blood only) 42.9 % (37.0-47.0); Hemoglobin 14.8 g/dl (12.0-16.0); Immature Granulocytes # (auto) 0.17 K/uL (0.01-0.20); Immature Granulocytes % (auto) 1.1 %; Mean Corpuscular Hemoglobin 29.1 pg (25.0-34.0); Mean Corpuscular Volume 84.3 fL (80.0-100.0); Platelet Count 211 K/uL (130-400); RDW Standard Deviation 40.2 fL (36.4-46.3); Red Blood Count 5.09 M/uL (4.20-5.40); White Blood Count 14.90 K/ul (4.8-10.8)
--- NOTE | 2025-07-22 18:37 | XRay Report ---
Chest radiograph, one view History: Weakness Comparison: None Findings: Single AP view of the chest performed. No focal consolidation or pleural effusion. No pneumothorax. The cardiomediastinal silhouette is within normal limits. Normal pulmonary vascularity. No evidence for lymphadenopathy. No visualized bony or soft tissue abnormality. Impression: Normal chest radiograph Electronically signed by Kem Dwyer 07-22-2025 6:37 PM
[2025-07-22 19:03] LABS: INR 1.1 (0.9-1.1); Prothrombin Time 11.1 Seconds (9.0-12.0)
[2025-07-22 19:14] LABS: Alanine Aminotransferase 7.0 U/L (7-52); Albumin Globulin Ratio 0.7 (0.9-2); Albumin Level 3.2 gm/dl (3.4-5.0); Alkaline Phosphatase 104.0 U/L (34-104); Anion Gap 19.0 (3-11); Bilirubin,Total 0.6 mg/dl (0.2-1.0); Blood Urea Nitrogen 12.0 mg/dl (6-23); Calcium 9.4 mg/dl (8.6-10.3); Carbon Dioxide 19.0 mmol/L (21-32); Chloride 90.0 mmol/L (98-107); Creatine Kinase 20.0 U/L (26-192); Creatinine Clr Calc Pharmacy 61.5 ml/min; Globulin 4.3 gm/dl (2.5-4.0); Glucose 469.0 mg/dl (70-99(Fasting)); Magnesium 1.8 mg/dl (1.7-2.4); Potassium 4.2 mmol/L (3.5-5.1); Sodium 128.0 mmol/L (136-145); Thyroid Stimulating Hormone 0.95 uIu/ml (0.300-4.500); Total Protein 7.5 gm/dl (6.0-8.3)
[2025-07-22 19:20] LABS: Base Excess VBG -7.1 mEq/L; HCO3 VBG 19 mmol/L; Oxygen Saturation VBG < 60.0 %; PCO2 VBG 41 mmHg (38-50); PO2 VBG 30 mmHg; pH VBG 7.28 (7.36-7.41)
[2025-07-22 19:44] LABS: Appearance Urine Cloudy (Clear); Bacteria Urine Automated None Seen (None Seen); Glucose Urine UA 3+ (Negative); WBC Urine Automated >50 /hpf (0-5)
[2025-07-22] MEDS ORDERED: GLUCAGON FOR INJ 1 MG VIAL SQ PRN (19:46)
[2025-07-22] MEDS ORDERED: CARBOHYDRATES FOR HYPOGLYCEMIA PO PRN (19:46)
[2025-07-22] MEDS ORDERED: GLUCOSE 40% GEL 15 GM TUBE PO PRN (19:46)
[2025-07-22] MEDS ORDERED: GLUCOSE 10 TAB/TUBE PO PRN (19:46)
[2025-07-22 20:00] LABS: Chlamydia pneumoniae PCR Not Detected (NotDetected); Coronavirus 229E PCR Not Detected (NotDetected); Coronavirus CoV-2 (COVID19)PCR Not Detected (NotDetected); Coronavirus HKU1 PCR Not Detected (NotDetected); Coronavirus NL63 PCR Not Detected (NotDetected); Coronavirus OC43PCR Not Detected (NotDetected); Human Metapneumovirus PCR Not Detected (NotDetected); Parainfluenza Virus 1 PCR Not Detected (NotDetected); Parainfluenza Virus 2 PCR Not Detected (NotDetected); Parainfluenza Virus 3 PCR Not Detected (NotDetected); Parainfluenza Virus 4 PCR Not Detected (NotDetected); Respiratory Syncytial VirusPCR Not Detected (NotDetected); Rhinovirus/Enterovirus PCR Not Detected (NotDetected)
[2025-07-22] MEDS: cefTRIAXone SODIUM 2,000 MG/50 ML BAG IV STA (20:07)
[2025-07-22] MEDS: INSULIN REGULAR 250 UNITS in SODIUM CHLORIDE 0.9% 247.5 ML IV SCH (20:26)
[2025-07-22] MEDS: NovoLIN-R BOLUS FROM BAG IV ONE (20:27)
[2025-07-22] MEDS: STAT IV Infusion **Titration per Protocol STA (20:30)
[2025-07-22] MEDS: INSULIN ASPART PER UNIT CHARGE SC SCH (21:36)
--- NOTE | 2025-07-22 22:03 | History & Physical Report ---
Date of Service July 22, 2025 Assessment & Plan (1) Hyperglycemia: (2) Acute UTI (urinary tract infection): (3) Poorly controlled type 2 diabetes mellitus: (4) Hypertension: (5) CKD (chronic kidney disease): (6) Mixed hyperlipidemia: Plan 69yo female with history of poorly controlled DM (Last VmlP7O=09.5), HTN, CKD presenting with hyperglycemia, dehydration and UTI #Hyperglycemia/Poorly controlled DM II - patient near DKA, Anion gap=19, HCO3=19 and pH=7.28. She has ketones in the urine - possibly secondary to starvation ketosis as well as patient has not eaten much for 3 days. Possibly secondary to underlying UTI. Question compliance of home insulin regimen given her elevated A1C -Admit to PCU -Continue IVF - LR at 125ml/HR X 2L ordered -Continue insulin drip -BSG q hourly -BMP q 4 hours while on insulin drip with aggressive repletion of potassium -Repeat BMP and VBG revealed normalization of pH as well as improvement of anion gap to 12. Will likely be able to be transitioned to subcutaneous insulin in AM following next chemistry results #Acute UTI - patient with elevated WBC=14.9 as well as elevated procalcitonin of 1.91 -Follow cultures -Ceftriaxone #Hypertension -Continue Lisinopril 40mg po daily -Monitor #Hyperlipidemia -Continue Crestor #CKD - near baseline -Avoid nephrotoxic agents -Repeat chemistry q 4 History of Present Illness Chief Complaint: generalized weakness Primary Care Provider: Lucia Dsozua MD Eun Hamilton is a 69yo female with history of DM (poorly controlled with last HgbA1C on 03/27/2025 = 14.5. Patient written for Lantus 85u qHS and ISS) presenting with hyperglycemia, UTI and dehydration. Patient reports not doing well for the last several days. She has had some generalized weakness and her son states that she has been confused. Her son has been staying with her the last several days because he is concerned about her present condition. Patient has had some chills as well as nausea. Poor appetite and decreased oral intake for the last 3 days. Endorses some mild dysuria otherwise denies chest pain, palpitations, cough, SOB, abdominal pain, vomiting. She reports compliance with her insulin and other medications - no episodes of low blood sugar reported. In the ER she is afebrile, HD stable ER Course: 1L NSS Ceftriaxone Insulin drip Allergies Allergy/AdvReac Type Severity Reaction Status Date / Time grass pollen-perennial rye, Allergy Intermediate ASTHMATIC Verified 07/22/25 19:44 standar SYMPTOMS mold Allergy Intermediate ASTHMATIC Verified 07/22/25 19:44 SYMPTOMS codeine AdvReac Intermediate HALLUCINATI Verified 07/22/25 19:44 ONS dulaglutide [From [facility]] AdvReac Intermediate Nausea Verified 07/22/25 19:44 Home Medications Medication Instructions Recorded Confirmed Type acetone (urine) test (Ketostix #50 ea 08/28/24 06/02/25 Rx strips) blood-glucose meter (OneTouch #1 ea 08/28/24 06/02/25 Rx Verio Flex Meter) glucagon 3 mg/actuation nasal 3 mg intranasal ONCE #2 ea 08/28/24 07/22/25 Rx spray (Baqsimi) glucagon HCl 1 mg/mL solution for 1 mg IM UD PRN hypoglycemia #2 ea 08/28/24 07/22/25 Rx injection hydrochlorothiazide 25 mg tablet 25 mg PO DAILY #90 tabs 08/28/24 07/22/25 Rx lancets 30 gauge (OneTouch Delica #400 ea 08/28/24 06/02/25 Rx Plus Lancet) rosuvastatin 20 mg tablet 20 mg PO QPM #90 tabs 08/28/24 07/22/25 Rx albuterol sulfate 90 mcg/actuation 2 inh inhalation Q4H PRN shortness 12/05/24 07/22/25 Rx aerosol inhaler of breath or wheezing #13.4 grams Dexcom G6 Transmitter #1 ea 12/20/24 06/02/25 Rx (blood-glucose transmitter) aspirin 81 mg tablet,delayed 81 mg PO DAILY 01/13/25 07/22/25 History release fluticasone 250 mcg-salmeterol 50 1 inh inhalation BID #60 ea 01/16/25 07/22/25 Rx mcg/dose blistr powdr for inhalation (Advair Diskus) insulin aspart U-100 100 unit/mL See Rx Instructions .Route 01/16/25 07/22/25 Rx subcutaneous solution (Novolog .COMPLEX #50 mL U-100 Insulin aspart) lisinopril 40 mg tablet 40 mg PO DAILY #90 tabs 02/06/25 07/22/25 Rx blood-glucose sensor (Dexcom G7 #1 ea 03/08/25 06/02/25 Rx Sensor device) insulin pump cart,auto,BT,G6/7 #5 ea 03/08/25 06/02/25 Rx (Omnipod 5 G6-G7 Pods (Gen 5) subcutaneous cartridge) cholecalciferol (vitamin D3) 1,250 50,000 unit PO .once weekly #8 caps 03/28/25 07/22/25 Rx mcg (50,000 unit) capsule Dexcom G6 Sensor (blood-glucose #9 ea 04/09/25 06/02/25 Rx sensor) Dexcom G6 Sensor (blood-glucose #9 ea 04/09/25 06/02/25 Rx sensor) insulin glargine 100 unit/mL 85 unit (0.85 mL) subcut HS #40 mL 05/28/25 07/22/25 Rx subcutaneous solution (Lantus U-100 Insulin) insulin syringe,safety needle 0.5 #100 ea 05/28/25 06/02/25 Rx mL 30 gauge x 5/16" (BD SafetyGlide Insulin Syringe) blood sugar diagnostic (Accu-Chek #100 ea 06/02/25 06/02/25 Rx Guide test strips) blood-glucose meter (Accu-Chek #1 ea 06/02/25 06/02/25 Rx Guide Glucose Meter) spironolactone 25 mg tablet 25 mg PO DAILY #30 tabs 06/04/25 07/22/25 Rx blood sugar diagnostic (OneTouch #100 ea 06/06/25 06/06/25 Rx Verio test strips) Past Med/Surg History Problem List Leukocytosis (Acute) Acute UTI (urinary tract infection) (Acute) Generalized weakness (Acute) Elevated procalcitonin (Acute) DKA (diabetic ketoacidosis) (Acute) Poorly controlled type 2 diabetes mellitus Hypertension Hyperglycemia Asthma exacerbation (Acute) RSV (respiratory syncytial virus infection) (Acute) Cough productive of yellow sputum Albuminuria Obesity, morbid, BMI 40.0-49.9 Proximal humeral fracture CKD (chronic kidney disease) Gram-positive cocci bacteremia Infection due to Peptostreptococcus species Urine culture positive Candiduria Hyponatremia Elevated procalcitonin (Acute) Elevated lactic acid level (Acute) Class 3 severe obesity with body mass index (BMI) of 50.0 to 59.9 in adult Mixed hyperlipidemia NAFLD (nonalcoholic fatty liver disease) Stage 3 chronic renal impairment associated with type 2 diabetes mellitus Type 2 diabetes mellitus with obesity Allergic rhinitis Anxiety Asthma Eustachian tube dysfunction Lichen sclerosus et atrophicus Microalbuminuria Nephrolithiasis Osteopenia Postmenopausal bleeding Rosacea Vitamin D deficiency Metabolic syndrome Uncontrolled type 2 diabetes mellitus Right flank pain Low back pain Lumbar disc disease Lumbar back pain with radiculopathy affecting lower extremity Medical History Alcohol intoxication Hyperlipidemia Pain of left lower extremity Fall down steps Closed head injury Surgical History History of bilateral carpal tunnel release H/O colonoscopy Fiberoptic History of tonsillectomy Family History Unknown Diabetes Pancreatic cancer Thyroid disorder Sleep apnea nonorganic Alcoholism Brother Diabetes Sarcoidosis Mother Thyroid disorder Sleep apnea nonorganic Emphysema, unspecified Sister Sleep apnea nonorganic Grandmother Sleep apnea nonorganic Social History Smoking Status: Never smoker Second Hand Exposure: No; Do You Dip or Chew Tobacco: No; Hx Alcohol Use: Yes Alcohol type: wine Alcohol Intake Frequency: Monthly or Less Hx Substance Use: No Preferred Language: [place] Citizen Communication Ability: Effective Warehouse Distribution Associate Required: No Beliefs That Will Affect Care: None marital status: Current Living Situation: Family Current Living Situation Comment: lives with son current occupational status: retired current occupation: Retired from special ed in elementary school setting How many Children do You have: 2 Other Information That Helps Us Care for You: No Feels Safe at Home: Yes Safety Concerns: Feels Safe At This Time Childhood Exposure to Second-Hand Smoke: Yes Dental Care, Regularly: Yes Physical Activity Frequency: Does not Exercise Seatbelt Use: always Sunscreen Use: Yes Assistive Devices: Glasses and Walker Review of Systems Review of Systems: All systems reviewed & are unremarkable except as noted in HPI & below Physical Exam Physical Exam: General: patient resting comfortably, NAD, non-toxic in appearance, AA&O x 4 Skin: warm, dry, intact, no rashes or lesions HEENT: NC/AT, PERRL, EOMI, anicteric sclera, conjunctiva without injection, external ear normal to inspection and nontender, nares patent, moist mucus membranes, dentition intact, no oropharyngeal lesions, neck supple, trachea midline, no LAD, no thyromegaly, no JVD Heart: +S1/S2, regular, no m/r/g Lungs: equal air entry bilaterally, no rales/rhonchi/wheezes Abd: +BS, soft, NT/ND, no masses/organomegaly/ascites Ext: warm, 2+ pulses in UE/LE bilaterally, no clubbing/cyanosis or edema Neuro: nonfocal, patient AA&O x 4, speech intact, no facial droop, moving all extremities on command with equal strength 5/5 Results & Data Results & Data Vital Signs (Past 12 Hours) Vital Signs Temp Pulse Pulse Resp BP BP Pulse Ox 07/22/25 22:00 84 18 158/77 H 96 07/22/25 20:30 83 18 159/84 H 97 07/22/25 20:00 36.8 C 85 17 166/76 H 95 07/22/25 18:16 96 07/22/25 18:10 93 H 07/22/25 18:10 36.8 C 90 20 181/84 H 96 O2 Del Method 07/22/25 22:00 Room Air 07/22/25 20:30 Room Air 07/22/25 20:00 Room Air 07/22/25 18:16 07/22/25 18:10 07/22/25 18:10 Room Air Laboratory Results Laboratory Results WBC 14.90 K/ul (4.8-10.8) H 07/22/25 18:19 RBC 5.09 M/uL (4.20-5.40) 07/22/25 18:19 Hgb 14.8 g/dl (12.0-16.0) 07/22/25 18:19 Hct 42.9 % (37.0-47.0) 07/22/25 18:19 MCV 84.3 fL (80.0-100.0) 07/22/25 18:19 MCH 29.1 pg (25.0-34.0) 07/22/25 18:19 MCHC 34.5 g/dL (32.0-36.0) 07/22/25 18:19 RDW Std Deviation 40.2 fL (36.4-46.3) 07/22/25 18:19 RDW Coeff of Reji 13.1 % (11.5-14.5) 07/22/25 18:19 Plt Count 211 K/uL (130-400) 07/22/25 18:19 MPV 10.9 fL (9.4-12.4) 07/22/25 18:19 Immature Gran % (Auto) 1.1 % 07/22/25 18:19 Neut % (Auto) 84.9 % 07/22/25 18:19 Lymph % (Auto) 7.8 % 07/22/25 18:19 [place] % (Auto) 5.5 % 07/22/25 18:19 Eos % (Auto) 0.2 % 07/22/25 18:19 Baso % (Auto) 0.5 % 07/22/25 18:19 Neut # (Auto) 12.64 K/uL (1.40-6.50) H 07/22/25 18:19 Lymph # (Auto) 1.16 K/uL (1.20-3.40) L 07/22/25 18:19 [place] # (Auto) 0.82 K/uL (0.11-0.59) H 07/22/25 18:19 Eos # (Auto) 0.03 K/uL (0.00-0.50) 07/22/25 18:19 Baso # (Auto) 0.08 K/uL (0.00-0.20) 07/22/25 18:19 Immature Gran # (Auto) 0.17 K/uL (0.01-0.20) 07/22/25 18:19 PT 11.1 Seconds (9.0-12.0) 07/22/25 18:19 INR 1.1 (0.9-1.1) 07/22/25 18:19 VBG pH 7.38 (7.36-7.41) 07/22/25 23:09 VBG pCO2 42 mmHg (38-50) 07/22/25 23:09 VBG pO2 36 mmHg 07/22/25 23:09 VBG HCO3 25 mmol/L 07/22/25 23:09 VBG O2 Saturation 62.5 % 07/22/25 23:09 VBG Base Excess -0.4 mEq/L 07/22/25 23:09 Sodium 130 mmol/L (136-145) L 07/22/25 23:09 Potassium 3.4 mmol/L (3.5-5.1) L 07/22/25 23:09 Chloride 95 mmol/L (98-107) L 07/22/25 23:09 Carbon Dioxide 23 mmol/L (21-32) 07/22/25 23:09 Anion Gap 12 (3-11) H 07/22/25 23:09 BUN 12 mg/dl (6-23) 07/22/25 23:09 Creatinine 0.96 mg/dl (0.6-1.2) 07/22/25 23:09 Est Cr Clr Drug Dosing 63.9 ml/min 07/22/25 23:09 eGFR 63.25 07/22/25 23:09 BUN/Creatinine Ratio 12.5 (10-20) 07/22/25 23:09 Glucose 274 mg/dl (70-99(Fasting)) H 07/22/25 23:09 POC Glucose 161 mg/dl (70-99) H 07/23/25 01:38 Lactate 1.5 mmol/L (0.4-2.0) 07/22/25 18:19 Calcium 8.6 mg/dl (8.6-10.3) 07/22/25 23:09 Phosphorus 2.5 mg/dl (2.5-4.9) 07/22/25 23:09 Magnesium 1.8 mg/dl (1.7-2.4) 07/22/25 18:19 Total Bilirubin 0.6 mg/dl (0.2-1.0) 07/22/25 18:19 AST 8 U/L (13-39) L 07/22/25 18:19 ALT 7 U/L (7-52) 07/22/25 18:19 Alkaline Phosphatase 104 U/L (34-104) 07/22/25 18:19 Total Creatine Kinase 20 U/L (26-192) L 07/22/25 18:19 Troponin I High Sens 11.1 pg/ml (0-14) 07/22/25 18:19 Total Protein 7.5 gm/dl (6.0-8.3) 07/22/25 18:19 Albumin 3.2 gm/dl (3.4-5.0) L 07/22/25 18:19 Globulin 4.3 gm/dl (2.5-4.0) H 07/22/25 18:19 Albumin/Globulin Ratio 0.7 (0.9-2) L 07/22/25 18:19 Procalcitonin 1.91 ng/ml (0-0.5) H 07/22/25 18:19 TSH 0.950 uIu/ml (0.300-4.500) 07/22/25 18:19 Urine Color Yellow 07/22/25 18:40 Urine Appearance Cloudy (Clear) A 07/22/25 18:40 Urine pH 5.0 (4.5-7.5) 07/22/25 18:40 Ur Specific [place] 1.028 (1.000-1.030) 07/22/25 18:40 Urine Protein 3+ (Negative) H 07/22/25 18:40 Urine Glucose (UA) 3+ (Negative) H 07/22/25 18:40 Urine Ketones 3+ (Negative) H 07/22/25 18:40 Urine Blood 2+ (Negative) H 07/22/25 18:40 Urine Nitrite Negative (Negative) 07/22/25 18:40 Urine Bilirubin Negative (Negative) 07/22/25 18:40 Urine Urobilinogen Negative (Negative) 07/22/25 18:40 Ur Leukocyte Esterase 1+ (Negative) H 07/22/25 18:40 Urine WBC (Auto) >50 /hpf (0-5) H 07/22/25 18:40 Urine RBC (Auto) 11-20 /hpf (0-2) H 07/22/25 18:40 U Hyaline Cast (Auto) 6-10 /lpf (0-2) H 07/22/25 18:40 U Epithel Cells (Auto) 3-5 /hpf (0-2) H 07/22/25 18:40 Urine Bacteria (Auto) None Seen (None Seen) 07/22/25 18:40 Urine Yeast Present (None Prsent) A 07/22/25 18:40 Urine Comment 07/22/25 18:40 Adenovirus (PCR) Not Detected (NotDetected) 07/22/25 18:40 B. pertussis DNA (PCR) Not Detected (NotDetected) 07/22/25 18:40 B.parapertussis DNA PCR Not Detected (NotDetected) 07/22/25 18:40 C. pneumoniae DNA (PCR) Not Detected (NotDetected) 07/22/25 18:40 Coronavirus OC43 (PCR) Not Detected (NotDetected) 07/22/25 18:40 Coronavirus HKU1 (PCR) Not Detected (NotDetected) 07/22/25 18:40 Coronavirus 229E (PCR) Not Detected (NotDetected) 07/22/25 18:40 SARS-CoV-2 (PCR) Not Detected (NotDetected) 07/22/25 18:40 Coronavirus NL63 (PCR) Not Detected (NotDetected) 07/22/25 18:40 Human Metapneumovir PCR Not Detected (NotDetected) 07/22/25 18:40 Influenza Type A (PCR) Not Detected (NotDetected) 07/22/25 18:40 Influenza Type B (PCR) Not Detected (NotDetected) 07/22/25 18:40 M. pneumoniae (PCR) Not Detected (NotDetected) 07/22/25 18:40 Parainfluenza 1 (PCR) Not Detected (NotDetected) 07/22/25 18:40 Parainfluenza 2 (PCR) Not Detected (NotDetected) 07/22/25 18:40 Parainfluenza 3 (PCR) Not Detected (NotDetected) 07/22/25 18:40 Parainfluenza 4 (PCR) Not Detected (NotDetected) 07/22/25 18:40 RSV (PCR) Not Detected (NotDetected) 07/22/25 18:40 Entero/Rhino (PCR) Not Detected (NotDetected) 07/22/25 18:40 Impressions Chest X-Ray 07/22/25 18:14 Chest radiograph, one view History: Weakness Comparison: None Findings: Single AP view of the chest performed. No focal consolidation or pleural effusion. No pneumothorax. The cardiomediastinal silhouette is within normal limits. Normal pulmonary vascularity. No evidence for lymphadenopathy. No visualized bony or soft tissue abnormality. Impression: Normal chest radiograph Electronically signed by Kme Dwyer 07-22-2025 6:37 PM PG Care Time/CCT Total # of Minutes Spent Total Time Spent with Patient: Total time spent is greater than 50% in coordination of care (as documented) at patient's floor/unit and/or counseling patient: Coding Level of Care Code 58844 INT INP/OBS CARE 3/75MIN Diagnoses Hyperglycemia R73.9 Acute UTI (urinary tract infection) N39.0 Poorly controlled type 2 diabetes mellitus E11.65 Hypertension I10 Stage 2 chronic kidney disease N18.2 Chronic kidney disease stage: stage 2 (mild) Mixed hyperlipidemia E78.2 (5) CKD (chronic kidney disease) Chronic kidney disease stage: stage 2 (mild) Qualified Code(s): N18.2 - Chronic kidney disease, stage 2 (mild)
[2025-07-22] MEDS: LACTATED RINGER'S 1,000 ML IV ONE (23:23)
[2025-07-22 23:44] LABS: Base Excess VBG -0.4 mEq/L; HCO3 VBG 25 mmol/L; Oxygen Saturation VBG 62.5 %; PCO2 VBG 42 mmHg (38-50); PO2 VBG 36 mmHg; pH VBG 7.38 (7.36-7.41)
[2025-07-22] MEDS ORDERED: ACETAMINOPHEN 325 MG TAB PO PRN (23:57)
[2025-07-22] MEDS ORDERED: ALBUTEROL HFA 8 GM INHALER INH PRN (23:57)
[2025-07-22] MEDS ORDERED: DOCUSATE SODIUM 100 MG CAP PO PRN (23:57)
[2025-07-23 00:04] LABS: Anion Gap 12.0 (3-11); Blood Urea Nitrogen 12.0 mg/dl (6-23); Calcium 8.6 mg/dl (8.6-10.3); Carbon Dioxide 23.0 mmol/L (21-32); Chloride 95.0 mmol/L (98-107); Creatinine Clr Calc Pharmacy 63.9 ml/min; Glucose 274.0 mg/dl (70-99(Fasting)); Potassium 3.4 mmol/L (3.5-5.1); Sodium 130.0 mmol/L (136-145)
[2025-07-23] MEDS: LACTATED RINGER'S 1,000 ML IV SCH (00:16)
[2025-07-23] MEDS: POTASSIUM CHLORIDE CRTAB 20 MEQ TABCR PO STA (00:19)
[2025-07-23] MEDS: ONDANSETRON INJ 2 MG/ML 2 ML VIAL IV PRN (04:55)
[2025-07-23] MEDS: DEXTROSE 50% 50 ML SYRINGE IV PRN (04:56)
[2025-07-23] MEDS: NYSTATIN POWDER 15GM BTL EXT PRN (05:25)
[2025-07-23 06:06] LABS: Hematocrit (blood only) 39.8 % (37.0-47.0); Hemoglobin 14.3 g/dl (12.0-16.0); Mean Corpuscular Hemoglobin 30.1 pg (25.0-34.0); Mean Corpuscular Volume 83.8 fL (80.0-100.0); Platelet Count 183 K/uL (130-400); RDW Standard Deviation 39.1 fL (36.4-46.3); Red Blood Count 4.75 M/uL (4.20-5.40); White Blood Count 14.22 K/ul (4.8-10.8)
[2025-07-23] MEDS: FAMOTIDINE 20 MG TAB PO STA (06:17)
[2025-07-23 06:26] LABS: Anion Gap 11.0 (3-11); Calcium 8.7 mg/dl (8.6-10.3); Carbon Dioxide 23.0 mmol/L (21-32); Chloride 98.0 mmol/L (98-107); Potassium 4.0 mmol/L (3.5-5.1); Sodium 132.0 mmol/L (136-145)
[2025-07-23 06:32] LABS: Blood Urea Nitrogen 13.0 mg/dl (6-23); Creatinine Clr Calc Pharmacy 67.8 ml/min; Glucose 171.0 mg/dl (70-99(Fasting))
[2025-07-23] MEDS: ASPIRIN 81 MG ECTAB PO SCH (08:12)
[2025-07-23] MEDS: FLUTICASONE/VILANTEROL 200/25MCG 14 PUFFS/INHALER INH SCH (08:12)
[2025-07-23] MEDS: LANTUS PER UNIT CHARGE SQ ONE (08:58)
[2025-07-23] MEDS: ENOXAPARIN INJ 40 MG/0.4 ML SYR SQ SCH (09:46)
[2025-07-23 10:35] LABS: A calco-baum cmplx NotReported Not Detected (NotDetected); Bact fragilis Not Reported Not Detected (NotDetected); Blood Culture Id Panel See PCR Comment (NotDetected); C auris Not Reported Not Detected (NotDetected); CTX-M Resistant Gene Not Detected (NotDetected); Calbicans Not Reported Not Detected (NotDetected); Candida glabrata Not Reported Not Detected (NotDetected); Candida krusei Not Reported Not Detected (NotDetected); Cneoformans/gatti Not Reported Not Detected (NotDetected); Cparapsilosis Not Reported Not Detected (NotDetected); Ctropicalis Not Reported Not Detected (NotDetected); E cloacae compx Not Reported Not Detected (NotDetected); Efaecalis Not Reported Not Detected (NotDetected); Efaecium Not Reported Not Detected (NotDetected); Enterobacterales DETECTED (NotDetected); Enterobacterales Not Reported DETECTED (NotDetected); Escherichia coli Not Reported Not Detected (NotDetected); H influenzae Not Reported Not Detected (NotDetected); IMP Resistant Gene Not Detected (NotDetected); K aerogenes Not Reported Not Detected (NotDetected); KPC Resistant Gene Not Detected (NotDetected); Koxytoca Not Reported Not Detected (NotDetected); Kpneumoniae grp Not Reported DETECTED (NotDetected); Lmonocyt Not Reported Not Detected (NotDetected); N meningitidis Not Reported Not Detected (NotDetected); NDM Resistant Gene Not Detected (NotDetected); OXA 48 Like Resistant Gene Not Detected (NotDetected); P aeruginosa Not Reported Not Detected (NotDetected); Proteus spp Not Reported Not Detected (NotDetected); Salmonella spp Not Reported Not Detected (NotDetected); Staph lugdunensis Not Reported Not Detected (NotDetected); Staph spp. Not Reported Not Detected (NotDetected); Staphaureus Not Reported Not Detected (NotDetected); Staphepi Not Reported Not Detected (NotDetected); Stenmaltophilia Not Reported Not Detected (NotDetected); Strep agal(GrpB) Not Reported Not Detected (NotDetected); Strep pneum Not Reported Not Detected (NotDetected); Strep pyog (GrpA) Not Reported Not Detected (NotDetected); Strep spp Not Reported Not Detected (NotDetected); VIM Resistant Gene Not Detected (NotDetected); mcr-1 Colistin Resistant Gene Not Detected (NotDetected)
[2025-07-23 10:50] LABS: Klebsiella pneumoniae group DETECTED (NotDetected)
[2025-07-23] MEDS: DC IV INSULIN INFUSION 1 EA DEVI SCH (11:01)
[2025-07-23] MEDS ORDERED: Nursing to Pharmacy Communication SCH (15:00)
[2025-07-23] MEDS: INSULIN ASPART PER UNIT CHARGE SC SCH (16:57)
--- NOTE | 2025-07-23 17:05 | Hospitalist Progress Note ---
Date of Service July 23, 2025 Assessment & Plan (1) DKA (diabetic ketoacidosis): (2) Gram-negative bacteremia: (3) Acute UTI (urinary tract infection): (4) Poorly controlled type 2 diabetes mellitus: Plan # Diabetic Ketoacidosis (DKA) present on admission. Uncontrolled DM (Last JlhP7P=90.5) and DKA provoked by UTI/bacteremia Resolving, anion gap closure. - Transition from insulin drip to subcutaneous insulin, advance diet. - Assess for nonadherence or underdosing insulin. On further information she has not been taking insulins several months. Says it is too expensive but cost <$20 per DM ed. [facility] has had issues with her discounts per patient. Per ambulatory RN long history of noncompliance despite years of interventions - Significant insulin resistance, morbid obesity BMI 45. - Appreciate DM educator consult - discussed - needs insulin in vials and change pharmacy to [facility] # Gram negative bacteremia - Klebs pneumoniae without resistance pattern per molecular assay # Acute Urinary Tract Infection (UTI) - symptomatic Elevated white blood count, procalcitonin. - Continue ceftriaxone pending sensi # Hypertension Well-controlled. - Continue lisinopril 40 mg daily. # Hyperlipidemia Continue rosuvastatin. # Chronic Kidney Disease (CKD) Stage II-III Creatinine at baseline, stable. # Asthma Stable. DVT prophylaxis: enoxaparin 40 mg subcutaneously daily PT/OT evaluations: ordered Remains medically complex with resolving DKA, new diagnosis of bacteremia high risk for clinical worsening, high risk medications - transitioning from insulin drip to SQ Admission and Anticipated Discharge Date Admission Date: July 22, 2025 Subjective 69-year-old woman admitted with diabetic ketoacidosis and urinary tract infection. Reports feeling groggy today, no improvement from yesterday. Experienced high blood sugar levels yesterday, history of DKA. Diabetes management challenging since son moved in. No tremors. On glargine insulin 85 units and aspart insulin 25 units as needed before meals. She denied missing meds for me but DM educator reviewed fill history and when confronted with that admits she has not been taking insulin for quite some time (months) Experiencing dysuria for 2-3 days. No abdominal or pubic pain. Nausea improved. Appetite present. Asthma stable. Physical Exam Physical Exam: General: Slightly groggy but awake, alert, and oriented to place and situation. Cardiac: Regular rhythm, no murmurs, rubs, or gallops. Respiratory: Clear bilaterally, slightly diminished at bases. Abdominal: Active bowel sounds, soft, nondistended, nontender. No suprapubic tenderness. Extremities: No edema, warm and well perfused. Results & Data Results & Data Vital Signs (Past 12 Hours) Vital Signs Temp Pulse Pulse Resp BP Pulse Ox O2 Del Method 07/23/25 15:14 36.9 C 86 18 149/79 H 95 Room Air 07/23/25 14:31 89 07/23/25 11:23 36.9 C 86 20 149/79 H 95 Room Air 07/23/25 10:49 89 07/23/25 07:19 37.6 C H 86 16 149/79 H 91 Room Air Laboratory Results Labs - Glucose: 185 - Hemoglobin A1c: 14.5% - White blood count: 14, unchanged - Sodium: 132, improved from 128 - Anion gap: 11, improved from 19 - Creatinine: 0.9, baseline - Procalcitonin: 1.91, significantly elevated - Urinalysis: Grossly abnormal, no bacteria, epithelial cells present, yeast present - Respiratory BioFire: Negative Imaging - Chest x-ray: Normal Diagnostic Testing - Blood cultures: Pending PG Care Time/CCT Total # of Minutes Spent Total Time Spent with Patient: Total time spent is greater than 50% in coordination of care (as documented) at patient's floor/unit and/or counseling patient: Coding Level of Care Code 11258 SUB INP/OBS CARE 3/50MIN Diagnoses DKA (diabetic ketoacidosis) E11.10 Gram-negative bacteremia R78.81 Acute UTI (urinary tract infection) N39.0 Poorly controlled type 2 diabetes mellitus E11.65
--- NOTE | 2025-07-23 18:12 | Electrocardiogram Report ---
Test Reason : Blood Pressure : */* mmHG Vent. Rate : 92 BPM Atrial Rate : 92 BPM P-R Int : 146 ms QRS Dur : 78 ms QT Int : 354 ms P-R-T Axes : * -1 79 degrees QTcB Int : 437 ms Normal sinus rhythm Nonspecific ST and T wave abnormality Abnormal ECG When compared with ECG of 06-Mar-2025 03:01, No significant change was found Confirmed by Kem Vogel ([id number]) on 07/23/2025 6:11:47 PM Referred By: Confirmed By: Kem Vogel
[2025-07-23] MEDS: cefTRIAXone SODIUM 2,000 MG/50 ML BAG IV SCH (20:28)
[2025-07-23] MEDS: ROSUVASTATIN CALCIUM 20 MG TAB PO SCH (20:28)
[2025-07-24] MEDS: LANTUS PER UNIT CHARGE SQ SCH (08:06)
--- NOTE | 2025-07-24 12:49 | Hospitalist Progress Note ---
Date of Service July 24, 2025 Assessment & Plan (1) DKA (diabetic ketoacidosis): (2) Gram-negative bacteremia: (3) Acute UTI (urinary tract infection): (4) Poorly controlled type 2 diabetes mellitus: Plan # Diabetic Ketoacidosis (DKA) present on admission. Uncontrolled DM (Last LfzT1H=55.5) and DKA provoked by UTI/bacteremia. Treated with IVF and IV insulin drip. DKA resolved. # Uncontrolled DM. A1c >14. Continues to be hyperglycemic above goal - had not been taking insulin [employer] for several months - Significant insulin resistance, morbid obesity BMI 45. - Appreciate DM educator consult - discussed - needs insulin in vials and change pharmacy to [facility] - Increased glargine and increased premeal aspart to 15:6. BG 350 midday so ordered one dose of NPH 10 units. Work on transitioning glargine to her usual bedtime starting tomorrow # Gram negative bacteremia in 3/4 bottles from ED - Klebs pneumoniae without resistance pattern per molecular assay # Acute Urinary Tract Infection (UTI) - symptomatic Elevated white blood count, procalcitonin. - Continue ceftriaxone pending sensis, reviewed micro - not imaged on admission. Ordered renal ultrasound r/o obstruction. Hx nephrolithiasis. # possible metabolic encephalopathy - has made some confused statements though oriented x 4. Possible delirium related to infection - reorientation, delirium precautions, avoid sedating meds. Reviewed medlist # Mild hyponatremia - asymptomatic, 132 - monitor BMP # Hypertension Well-controlled. - Continue lisinopril 40 mg daily. # Hyperlipidemia Continue rosuvastatin. # Chronic Kidney Disease (CKD) Stage II-III Creatinine at baseline, stable. # Asthma Stable. DVT prophylaxis: enoxaparin 40 mg subcutaneously daily PT/OT evaluations: ordered Remains medically complex and high risk for clinical worsening with just resolved DKA and uncontrolled hyperglycemia, bacteremia Improved enough that she can be transferred from PCU to medical unit Admission and Anticipated Discharge Date Admission Date: July 22, 2025 Subjective The patient consented to use of [employer], an AI based tool that will listen to our encounter and draft a clinical note based on our conversation. All notes will be reviewed and edited by me before entering them into the clinical record. Reason for Admit: Diabetes and UTI. Patient feels well today, no respiratory issues, abdominal discomfort, nausea, or vomiting. Participating in physical therapy, including stair exercises, which are challenging but manageable. History of urinary incontinence for several years. Experienced bladder pain yesterday, no current discomfort. Past medical history of kidney stones. Diabetes managed with nighttime insulin. Previously tried twice-daily insulin regimen, found unhelpful. Adjusts insulin dosage based on food intake. Physical Exam 2 Physical Exam: AOx4 and sitting up in chair, looks better Skin: Warm, dry, no rashes, minimal ankle edema. Cardiac: Normal heart sounds, no murmurs, rubs, or gallops. Respiratory: Lungs clear anteriorly and posteriorly, no rhonchi, rales, or wheezes. Abdominal: Soft, nondistended, nontender. Results & Data Results & Data Vital Signs (Past 12 Hours) Vital Signs Temp Pulse Pulse Resp BP Pulse Ox O2 Del Method 07/24/25 11:30 36.9 C 76 19 139/84 96 Room Air 07/24/25 09:47 76 07/24/25 07:59 37.0 C 85 17 123/71 94 Room Air 07/24/25 02:59 37.0 C 84 18 147/77 H 93 Room Air Laboratory Results 07/23/25 05:40 07/23/25 05:40 BG 250-350 PG Care Time/CCT Total # of Minutes Spent Total Time Spent with Patient: Total time spent is greater than 50% in coordination of care (as documented) at patient's floor/unit and/or counseling patient: Coding Level of Care Code 76734 SUB INP/OBS CARE 3/50MIN Diagnoses DKA (diabetic ketoacidosis) E11.10 Gram-negative bacteremia R78.81 Acute UTI (urinary tract infection) N39.0 Poorly controlled type 2 diabetes mellitus E11.65
[2025-07-24] MEDS: NovoLIN-N (NPH) PER UNIT CHARGE SQ ONE (13:14)
--- NOTE | 2025-07-24 15:49 | Ultrasound Report ---
RENAL ULTRASOUND CLINICAL HISTORY: UTI, bacteremia, hx nephrolithiasis r/o obstruction COMPARISON STUDY: CT of the abdomen and pelvis September 26, 2023. TECHNIQUE: Sonography of the kidneys and the urinary bladder was performed. FINDINGS: The right kidney measures 11.9 x 6.1 x 5.5 cm and the left kidney measures 11.9 x 5.7 x 6.7 cm. There is no hydronephrosis. No renal calculi are identified by sonography. An exophytic 2.9 cm a nechoic left renal lesion represents a cyst, as shown on prior contrast enhanced CT. The left kidney is partially obscured. The ureteral jets were not visualized. Bladder is suboptimally assessed given underdistention. IMPRESSION: 1. No hydronephrosis. 2. 2.9 cm left renal cyst. ACT 112: Negative or not required by law. Electronically signed by: Ata Ocampo M.D. 07/24/2025 3:48 PM
[2025-07-25 08:13] LABS: Anion Gap 8.0 (3-11); Blood Urea Nitrogen 22.0 mg/dl (6-23); Calcium 8.6 mg/dl (8.6-10.3); Carbon Dioxide 25.0 mmol/L (21-32); Chloride 101.0 mmol/L (98-107); Creatinine Clr Calc Pharmacy 68.0 ml/min; Glucose 202.0 mg/dl (70-99(Fasting)); Potassium 3.8 mmol/L (3.5-5.1); Sodium 134.0 mmol/L (136-145)
[2025-07-25] MEDS ORDERED: LANTUS PER UNIT CHARGE SQ SCH (09:00)
[2025-07-25] MEDS: LANTUS PER UNIT CHARGE SQ SCH (09:08)
--- NOTE | 2025-07-25 18:57 | Hospitalist Progress Note ---
Date of Service July 25, 2025 Assessment & Plan (1) DKA (diabetic ketoacidosis): (2) Gram-negative bacteremia: (3) Acute UTI (urinary tract infection): (4) Poorly controlled type 2 diabetes mellitus: Plan # Diabetic Ketoacidosis (DKA) present on admission. Uncontrolled DM (Last [id number]=02.5) and DKA provoked by UTI/bacteremia. Treated with IVF and IV insulin drip. DKA resolved. # Uncontrolled DM. A1c >14. 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 - morbid obesity BMI 45, with significant insulin resistance - Appreciate DM educator consult - discussed - needs insulin in vials and change [facility] - increased CF:CR of aspart today - reports bid glargine did not help in past and will complicate compliance issues - changing to her usual HS glargine in anticipation for discharge tomorrow - glargine 50 u bid today - insulin NPH 40 units x 1 tomorrow AM (80% of the glargine for safety but will likely be too low) - resume HS glargine tomorrow night # Sepsis present on admission, due to bacteremia from UTI (resolved) # Gram negative bacteremia in 3/4 bottles from ED - Klebs pneumoniae without resistance pattern per molecular assay # Acute Urinary Tract Infection (UTI) - symptomatic Elevated white blood count, procalcitonin. - Hx nephrolithiasis. 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 no odd or confused statements today - reorientation, delirium precautions, avoid sedating meds. Reviewed medlist # Mild hyponatremia - asymptomatic, improved to 134 # Hypertension Well-controlled. - Continue lisinopril 40 mg daily. # Hyperlipidemia Continue rosuvastatin. # Chronic Kidney Disease (CKD) Stage II-III Creatinine at baseline, stable. BMP reviewed, stable # Asthma Stable. DVT prophylaxis: enoxaparin 40 mg subcutaneously daily PT/OT evaluations: home with Admission and Anticipated Discharge Date Admission Date: July 22, 2025 Subjective Feels much better Has been OOB to bathroom by herself No dysuria No dyspnea or CP Physical Exam 2 Physical Exam: AOx4 and sitting up in bed Skin: Warm, dry, no rashes, minimal ankle edema. Cardiac: Normal heart sounds, no murmurs, rubs, or gallops. Abd: s/nt/nd +BT Respiratory: Lungs clear anteriorly and posteriorly, no rhonchi, rales, or wheezes. Abdominal: Soft, nondistended, nontender. Results & Data Results & Data Vital Signs (Past 12 Hours) Vital Signs Temp Pulse Resp BP Pulse Ox O2 Del Method 07/25/25 15:49 36.8 C 84 16 127/78 96 Room Air 07/25/25 07:00 36.5 C 72 16 133/80 94 Room Air Laboratory Results 07/23/25 05:40 07/25/25 06:35 PG Care Time/CCT Total # of Minutes Spent Total Time Spent with Patient: Total time spent is greater than 50% in coordination of care (as documented) at patient's floor/unit and/or counseling patient: Coding Level of Care Code 23540 SUB INP/OBS CARE 2/35MIN Diagnoses DKA (diabetic ketoacidosis) E11.10 Gram-negative bacteremia R78.81 Acute UTI (urinary tract infection) N39.0 Poorly controlled type 2 diabetes mellitus E11.65
[2025-07-26 07:28] VITALS: RESP 18
[2025-07-26] MEDS ORDERED: INSULIN HUMAN NPH SC ONE (08:00)
[2025-07-26] MEDS: NovoLIN-N (NPH) PER UNIT CHARGE SC ONE ×2 (08:23→12:04)
--- NOTE | 2025-07-26 14:14 | Discharge Summary ---
Discharge Summary Date of Service July 26, 2025 Principal Dx & Hospital Course #1 = Principal Diagnosis (1) DKA (diabetic ketoacidosis): (2) Gram-negative bacteremia: (3) Acute UTI (urinary tract infection): (4) Poorly controlled type 2 diabetes mellitus: Plan # Diabetic Ketoacidosis (DKA) present on admission. Uncontrolled DM (Last OwmB3G=84.5) and DKA provoked by UTI/bacteremia. Treated with IVF and IV insulin drip. DKA resolved. # Uncontrolled DM. A1c >14. Continues to be hyperglycemic above goal - midday BG in 360s today, improved by evening - had not been taking insulin for several months - says [employer] messed up her coverage and was charging her $1400 for it. Should be <15 - morbid obesity BMI 45, with significant insulin resistance - Appreciate DM educator consult - needs insulin in vials and change [facility] - reports bid glargine did not help in past and will complicate compliance issues - changing to her usual HS glargine in anticipation for discharge tomorrow - glargine 100u HS with adequate control - premeal aspart per CF/CR see DC instructions - has [employer]@ 7 CGI - filled Rx for insulin vials and supplies - follow up with primary care in a week and has endo appt 08/08 # Sepsis present on admission, due to bacteremia from UTI (resolved) # Gram negative bacteremia in 3/4 bottles from ED - Klebs pneumoniae without resistance # Acute Urinary Tract Infection (UTI) - symptomatic Elevated white blood count, procalcitonin. - Hx nephrolithiasis. 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 # Hyperlipidemia Continue rosuvastatin. # Chronic Kidney Disease (CKD) Stage II-III Creatinine at baseline, stable. # Asthma Stable. Admission HPI Per Admitting Provider Eun Hamilton is a 69yo female with history of DM (poorly controlled with last HgbA1C on 03/27/2025 = 14.5. Patient written for Lantus 85u qHS and ISS) presenting with hyperglycemia, UTI and dehydration. Patient reports not doing well for the last several days. She has had some generalized weakness and her son states that she has been confused. Her son has been staying with her the last several days because he is concerned about her present condition. Patient has had some chills as well as nausea. Poor appetite and decreased oral intake for the last 3 days. Endorses some mild dysuria otherwise denies chest pain, palpitations, cough, SOB, abdominal pain, vomiting. She reports compliance with her insulin and other medications - no episodes of low blood sugar reported. In the ER she is afebrile, HD stable ER Course: 1L NSS Ceftriaxone Insulin drip Discharge Exam AOx4 and sitting up in chair, appears well Skin: Warm, dry, no rashes Respiratory: normal WOB Abdominal: nondistended. No LE edema Discharge Plan Discharge Items Patient Disposition: Home - Self-Care Reason For Visit: ELEVATED BLOOD SUGARS Discharge Diagnosis: DKA, sepsis due to Klebsiella bacteremia from UTI Condition on Discharge: Fair Activity: Resume your previous activity Non-emergency contact: Primary Care Provider Call non-emergency contact if: you have any medication questions and your s ymptoms worsen Follow-up/Referrals: Lucia Dsouza MD [Primary Care Provider] - Diet: Carb Consistent or DM2 Addtl Attending Provider Instructions: DKA was triggered by poorly controlled diabetes and severe UTI causing bloodstream infection We will finish the antibiotic treatment with several days of ciprofloxacin You can take a probiotic for 2-4 weeks to prevent antibiotic associated diarrhea. These are available over the counter. If you have rash or severe diarrhea after/while taking antibiotics, call your doctor. Diarrhea associated with broad spectrum antibiotics can occur up to six months following antibiotics. If you have significant ongoing diarrhea, especially with abdominal pain or fever, seek medical attention. Cipro is rarely associated with low blood sugar and tendon injury or rupture - stop taking and call your doctor if you are having these side effects We have restarted your insulins. Follow up with your wax molder 08/08 as scheduled Right now you're needing an increased dose of glargine - 100 units at bedtime. Its possible that you might have to reduce the dose when you return to your home diet and activity level and resolution of the infection If BG consistently running <150 you can reduce the glargine by 5-10 units If BG consistently running <120 or you have severe lows like <70 then reduce by 20 units Follow up with primary care next week to check on your blood sugars and insulin doses It was a pleasure taking care of you in the hospital, Geeta Campos MD Addtl Lace Roller Provider Instructions: Diabetes Meds o Lantus (Background): 100 units every evening Try to take your Lantus at the same time every day o Novolog (Carb Coverage): 1 unit for every 3 grams carbohydrate Try to take your Novolog 15 minutes before eating If you skip a meal, do not take the Novolog Carb Coverage + o Novolog (Blood Sugar Coverage): 1 unit will lower blood sugar ~ 10 points Add this extra Novolog to your Novolog carb coverage when your before meal blood sugar is above target Use before meals only! Do not use after meals or within 4 hours of prior Novolog dose. Take half dose at bedtime. Blood Sugar Extra Novolog Coverage 70 - 79 Subtract 3 units 80 - 89 Subtract 2 units 90 - 99 Subtract 1 unit 100-140 No Change 141 - 150 + 1 unit 151 - 160 + 2 units 161 - 170 + 3 units 171 - 180 + 4 units 181 - 190 + 5 units 191 - 200 + 6 units 201 - 210 + 7 units 211 - 220 + 8 units 220 - 230 + 9 units 231 - 240 + 10 units 241 - 250 + 11 units 251 - 260 + 12 units 261 - 270 + 13 units 271 - 280 + 14 units 281 - 290 + 15 units 291 - 300 + 16 units 301 - 310 + 17 units 311 - 320 + 18 units 321 - 330 + 19 units 331 - 340 + 20 units 341 - 350 + 21 units 351 - 360 + 22 units 361 - 370 + 23 units 371 - 380 + 24 units 381 - 390 + 25 units 391 - 400 + 26 unit Above 400 + 27 units Pending Studies at Discharge: No Stand-Alone Forms: [employer] DDS, Smoking Cessation Medications and DC Order Prescriptions: New insulin glargine 100 unit/mL solution 100 unit subcut PM Qty: 30 1RF insulin aspart U-100 100 unit/mL solution 1 sliding scale dose subcut TIDWMEAL Qty: 60 1RF Rx Instructions: per carb count/CF up to 200 units per day (DME) blood-glucose meter [OneTouch Verio Flex meter] Misc See Rx Instructions .Route Qty: 1 0RF Rx Instructions: check BG three times a day (DME) OneTouch Verio test strips Strip See Rx Instructions .Route Qty: 100 1RF Rx Instructions: Check BG three times a day (DME) lancets [OneTouch Delica Plus Lancet] 33 gauge misc See Rx Instructions .Route Qty: 100 1RF Rx Instructions: check BG three times a day (DME) BD SafetyGlide Insulin Syringe 1 mL 31 gauge x 15/64" syringe See Rx Instructions .Route Qty: 150 1RF Rx Instructions: five times a day ciprofloxacin HCl 750 mg tablet 750 mg PO BID Qty: 7 0RF Continued rosuvastatin 20 mg tablet 20 mg PO QPM Qty: 90 0RF (DME) Ketostix Strip See Rx Instructions miscellaneous .MEDSUPPLY Qty: 50 5RF Rx Instructions: Check when blood sugars > 250 for 4 to 6 hours Baqsimi 3 mg/actuation spray,non-aerosol 3 mg intranasal ONCE Qty: 2 5RF glucagon HCl 1 mg/mL recon soln 1 mg IM UD PRN (Reason: hypoglycemia) Qty: 2 1RF hydrochlorothiazide 25 mg tablet 25 mg PO DAILY Qty: 90 1RF albuterol sulfate 90 mcg/actuation HFA aerosol inhaler 2 inh inhalation Q4H PRN (Reason: shortness of breath or wheezing) Qty: 13.4 5RF lisinopril 40 mg tablet 40 mg PO DAILY Qty: 90 0RF cholecalciferol (vitamin D3) 1,250 mcg (50,000 unit) capsule 50,000 unit PO .once weekly Qty: 8 0RF spironolactone 25 mg tablet 25 mg PO DAILY Qty: 30 2RF aspirin 81 mg Tablet,Delayed Release (Dr/Ec) 81 mg PO DAILY fluticasone propion-salmeterol [Advair Diskus] 250-50 mcg/dose blister with device 1 inh inhalation BID Qty: 60 0RF (DME) Dexcom G7 Sensor Device See Rx Instructions .Route Qty: 1 0RF Rx Instructions: As directed (DME) Omnipod 5 G6-G7 Pods (Gen 5) Cartridge See Rx Instructions .Route Qty: 5 5RF Rx Instructions: As directed Discontinued (DME) blood-glucose meter [OneTouch Verio Flex meter] Misc See Rx Instructions miscellaneous .MEDSUPPLY Qty: 1 0RF Rx Instructions: As directed (DME) lancets [OneTouch Delica Plus Lancet] 30 gauge misc See Rx Instructions miscellaneous .MEDSUPPLY Qty: 400 3RF Rx Instructions: Check 4x a day (DME) Dexcom G6 Sensor Device See Rx Instructions .Route Qty: 9 0RF Rx Instructions: Change sensor every 10 days (DME) Dexcom G6 Sensor Device See Rx Instructions .Route Qty: 9 0RF Rx Instructions: Change sensor every 10 days insulin glargine [Lantus U-100 Insulin] 100 unit/mL solution 85 unit subcut HS MDD 130 Qty: 40 4RF (DME) Dexcom G6 Transmitter Device See Rx Instructions .Route Qty: 1 0RF Rx Instructions: Change transmitter every 90 days (DME) OneTouch Verio test strips Strip See Rx Instructions miscellaneous .MEDSUPPLY Qty: 100 3RF Rx Instructions: Check blood sugar 3 times daily (DME) Accu-Chek Guide test strips Strip See Rx Instructions .Route Qty: 100 7RF Rx Instructions: Test glucose 3 times daily (DME) blood-glucose meter [Accu-Chek Guide Glucose Meter] Misc See Rx Instructions .Route Qty: 1 0RF Rx Instructions: Test glucose 3 times daily (DME) BD SafetyGlide Insulin Syringe 0.5 mL 30 gauge x 5/16" syringe See Rx Instructions .Route Qty: 100 2RF Rx Instructions: use 5 times per day wtih insulin insulin aspart U-100 [Novolog U-100 Insulin aspart] 100 unit/mL Solution See Rx Instructions .ROUTE .COMPLEX Qty: 50 0RF Rx Instructions: Take NovoLog with each meal as per sliding scale plus carbohydrate ratio up to 200 units/day Discharge Orders: Discharge Order (Routine); Ordered 07/26/25 Ordered By: Geeta Campos Admission Data Admit Date/Time: 07/22/25 22:00 Attending Provider: Geeta Campos Admit Provider: Anika Liu Primary Care Provider: Lucia Dsouza Other Providers: Anika Liu Other Interventions: Discharge Summary Assessment (RN) Last Done: 07/26/25 14:21 Hospital Stay Data Consultations 07/22/25 20:51 ED Decision to Admit Stat Diagnostic Imagining Performed 07/24/25 13:12 US Renal Bladder [US renal/blad retro comp] Urgent Pending Results Patient Have Any Pending Studies at Discharge: No Discharge Instructions Given to Patient (Per Discharging Provider) DKA was triggered by poorly controlled diabetes and severe UTI causing bloodstream infection We will finish the antibiotic treatment with several days of ciprofloxacin You can take a probiotic for 2-4 weeks to prevent antibiotic associated diarrhea. These are available over the counter. If you have rash or severe diarrhea after/while taking antibiotics, call your doctor. Diarrhea associated with broad spectrum antibiotics can occur up to six months following antibiotics. If you have significant ongoing diarrhea, especially with abdominal pain or fever, seek medical attention. Cipro is rarely associated with low blood sugar and tendon injury or rupture - stop taking and call your doctor if you are having these side effects We have restarted your insulins. Follow up with your wax molder 08/08 as scheduled Right now you're needing an increased dose of glargine - 100 units at bedtime. Its possible that you might have to reduce the dose when you return to your home diet and activity level and resolution of the infection If BG consistently running <150 you can reduce the glargine by 5-10 units If BG consistently running <120 or you have severe lows like <70 then reduce by 20 units Follow up with primary care next week to check on your blood sugars and insulin doses It was a pleasure taking care of you in the hospital, Geeta Campos MD Total Time Total Time Spent Total Time Spent (In Minutes): I personally spent: 55 minutes today on clinical care activities including: reviewing chart notes and vital signs examining and counseling the patient writing orders writing prescriptions x 20 min, discharge instructions documentation Coding Level of Care Code 75688 INP/OBS DISCH >30 MIN Diagnoses DKA (diabetic ketoacidosis) E11.10 Gram-negative bacteremia R78.81 Acute UTI (urinary tract infection) N39.0 Poorly controlled type 2 diabetes mellitus E11.65
[2025-07-26 14:59] VITALS: BP 150/77; PULSE 90; TEMP 97.9; O2SAT 94
[2025-07-26] MEDS ORDERED: LANTUS PER UNIT CHARGE SQ SCH (21:00)
== END 2025-07-26 16:29 | disposition home or self-care (01) | DRG 871 ==
LOC: ED 17:57 → SUATTDRO 22:00 → 2E 22:00 → 3W 07-24 18:29

== ENCOUNTER 2025-09-24 13:29 | Inpatient (IN) ==
[2025-09-24 14:14] LABS: Hematocrit (blood only) 36.2 % (37.0-47.0); Hemoglobin 12.6 g/dL (12.0-16.0); Immature Granulocytes # (auto) 0.07 K/uL (0.01-0.20); Immature Granulocytes % (auto) 0.5 %; Mean Corpuscular Hemoglobin 30.4 pg (25.0-34.0); Mean Corpuscular Volume 87.2 fL (80.0-100.0); Platelet Count 209 K/uL (130-400); RDW Standard Deviation 42.2 fL (36.4-46.3); Red Blood Count 4.15 M/uL (4.20-5.40); White Blood Count 14.49 K/ul (4.8-10.8)
--- NOTE | 2025-09-24 14:18 | Emergency Department Note ---
Impression & Plan Acute confusion, Elevated troponin I level, Urinary tract infection ED Provider Note NAME: FLASH CONLEY AGE: 69 SEX: F : 1955 ARRIVES VIA: Walk-In INFORMANT: Patient, ED PROVIDER(S): Narinder Wu DO CHIEF COMPLAINT: Generalized weakness HPI: The patient is a 69-year-old female who presented to the emergency department for an evaluation. The patient states that she her blood sugar dropped. She states her blood sugar has dropped before in the past and she has felt the same way. The patient denies having any chest pain or difficulty breathing. She is feels off. She denies having any fever or cough. ROS: See above HPI for pertinent positives & negatives. A total of 10 systems reviewed and were otherwise negative. PAST MEDICAL HISTORY: See Below PAST SURGICAL HISTORY: See Below FAMILY HISTORY: See Below SOCIAL HISTORY: See Below HOME MEDICATIONS: See Below ALLERGIES: See Below VITALS: See Below PHYSICAL EXAMINATION: GENERAL: Patient is awake alert in no acute distress patient is resting comfortably and showing no signs of anxiety EYES: The conjunctivae are clear. The pupils are round and reactive. EARS, NOSE, MOUTH AND THROAT: The nose is without any evidence of any deformity. NECK: The neck is nontender and supple. RESPIRATORY: Normal respiratory effort is noted there is no evidence of wheezing rhonchi or rales CARDIOVASCULAR: Regular rate and rhythm noted there no murmurs rubs or gallops normal S1 normal S2. GASTROINTESTINAL: The abdomen is soft. Abdomen is nontender. MUSCULOSKELETAL/EXTREMITIES: There is no evidence of gross deformity full range of motion is noted in the hips and shoulders. SKIN: There is no obvious evidence of any rash. There are no petechiae, pallor or cyanosis noted. NEUROLOGIC: Patient is awake alert and oriented x3. There is no facial droop. Speech was clear. Strength was symmetric but diminished. MEDICAL DECISION MAKING: The patient is a 69-year-old female who presented to the emergency department for an evaluation. The patient arrived via ambulance. Her son did give some of the history prior to my evaluation. The patient was concerned because her blood sugar was not doing well. She was able to eat and drink in the emergency department. I discussed the patient's laboratory and radiographic studies with her. No obvious cause for her confusion could be found. She was found of a slight elevation in her troponin which is not new for her but it was not trending upward on multiple draws. The patient was felt to be better candidate for inpatient management given her ongoing symptoms. I discussed her condition with the on-call [facility] hospitalist group. They have agreed to evaluate the patient in the emergency department for further management and disposition. Triage Nursing notes reviewed. Prior medical records reviewed Vital Signs: reviewed and remarkable for no significant abnormalities Differential diagnosis: Infection, dehydration, metabolic abnormality, hypo/hyperglycemia, electrolyte disturbance, anemia, hypoxia, cardiac sources, intracerebral event, toxicologic, neurologic, as well as other pathologies. ER treatment provided: See below Diagnostics interpreted by me: ECG: EKG was obtained in the emergency department. My interpretation is sinus rhythm at 67 bpm. There is no ectopy. There is no acute ST segment abnormalities noted. This was compared to a tracing from July 28, 2025. No changes were noted. Cardiac Monitoring: An order was placed for continuous cardiac monitoring. The monitor shows a rate of 67 bpm with sinus rhythm. Laboratory studies: As stated above and show below. Imaging studies: See below. Radiographic imaging was reviewed by myself Consultation(s): I discussed this case with Sandi who is on-call for the [facility] hospitalist group. Past Med/Surg History Problem List (Updated 09/24/25 @ 18:50 by Narinder Wu DO) Urinary tract infection (Acute) Elevated troponin I level (Acute) Acute confusion (Acute) Acute encephalopathy Confusion Poorly controlled type 2 diabetes mellitus (Acute) Hypertension Hyperglycemia Asthma exacerbation (Acute) RSV (respiratory syncytial virus infection) (Acute) Cough productive of yellow sputum Albuminuria Obesity, morbid, BMI 40.0-49.9 Proximal humeral fracture CKD (chronic kidney disease) Gram-positive cocci bacteremia Infection due to Peptostreptococcus species Urine culture positive Candiduria Hyponatremia Elevated procalcitonin (Acute) Elevated lactic acid level (Acute) Class 3 severe obesity with body mass index (BMI) of 50.0 to 59.9 in adult Mixed hyperlipidemia NAFLD (nonalcoholic fatty liver disease) Stage 3 chronic renal impairment associated with type 2 diabetes mellitus Type 2 diabetes mellitus with obesity Allergic rhinitis Anxiety Asthma Eustachian tube dysfunction Lichen sclerosus et atrophicus Microalbuminuria Nephrolithiasis Osteopenia Postmenopausal bleeding Rosacea Vitamin D deficiency Metabolic syndrome Uncontrolled type 2 diabetes mellitus Right flank pain Low back pain Lumbar disc disease Lumbar back pain with radiculopathy affecting lower extremity Medical History Acute hyperglycemia Gram-negative bacteremia Acute UTI (urinary tract infection) DKA (diabetic ketoacidosis) Alcohol intoxication Hyperlipidemia Pain of left lower extremity Fall down steps Closed head injury Surgical History History of bilateral carpal tunnel release H/O colonoscopy Fiberoptic History of tonsillectomy Family History Unknown Diabetes Pancreatic cancer Thyroid disorder Sleep apnea nonorganic Alcoholism Brother Diabetes Sarcoidosis Mother Thyroid disorder Sleep apnea nonorganic Emphysema, unspecified Sister Sleep apnea nonorganic Grandmother Sleep apnea nonorganic Social History Smoking Status: Former smoker Second Hand Exposure: No; Do You Dip or Chew Tobacco: No; Hx Alcohol Use: Yes Alcohol type: beer Alcohol Intake Frequency: Monthly or Less Hx Substance Use: No Preferred Language: Portuguese Communication Ability: Effective Electric Welder Helper Required: No Beliefs That Will Affect Care: None marital status: Current Living Situation: Other Current Living Situation Comment: PT states she recently has been staying with a friend instead of her son current occupational status: retired current occupation: Retired from special ed in elementary school setting How many Children do You have: 2 Feels Safe at Home: Yes Childhood Exposure to Second-Hand Smoke: Yes Dental Care, Regularly: Yes Physical Activity Frequency: Does not Exercise Seatbelt Use: always Sunscreen Use: Yes Assistive Devices: Walker Allergies Allergies Allergy/AdvReac Type Severity Reaction Status Date / Time Milk Containing Products Allergy Severe Difficulty Verified 09/24/25 16:18 (Dairy) Breathing grass pollen-perennial rye, Allergy Intermediate ASTHMATIC Verified 09/24/25 16:18 standar SYMPTOMS mold Allergy Intermediate ASTHMATIC Verified 09/24/25 16:18 SYMPTOMS codeine AdvReac Intermediate HALLUCINATI Verified 09/24/25 16:18 ONS dulaglutide [From Trulicity] AdvReac Intermediate Nausea Verified 09/24/25 16:18 Home Meds Home Medications Medication Instructions Recorded Confirmed aspirin 325 mg tablet 325 mg PO DAILY 08/04/25 09/24/25 cetirizine 10 mg tablet (Zyrtec) 10 mg PO DAILY PRN Congestion 10/13/25 12/03/25 montelukast 10 mg tablet 10 mg PO DAILY 08/04/25 09/24/25 (Singulair) cholecalciferol (vitamin D3) 1,250 50,000 unit PO WK 09/24/25 09/24/25 mcg (50,000 unit) capsule Previous Rx's Medication Instructions Recorded acetone (urine) test (Ketostix #50 ea 08/28/24 strips) glucagon HCl 1 mg/mL solution for 1 mg IM UD PRN hypoglycemia #2 ea 08/28/24 injection hydrochlorothiazide 25 mg tablet 25 mg PO DAILY #90 tabs 08/28/24 rosuvastatin 20 mg tablet 20 mg PO QPM #90 tabs 08/28/24 albuterol sulfate 90 mcg/actuation 2 inh inhalation Q4H PRN shortness 12/05/24 aerosol inhaler of breath or wheezing #13.4 grams fluticasone 250 mcg-salmeterol 50 1 inh inhalation BID #60 ea 01/16/25 mcg/dose blistr powdr for inhalation (Advair Diskus) lisinopril 40 mg tablet 40 mg PO DAILY #90 tabs 02/06/25 blood-glucose sensor (Dexcom G7 #1 ea 03/08/25 Sensor device) insulin pump cart,auto,BT,G6/7 #5 ea 03/08/25 (Omnipod 5 G6-G7 Pods (Gen 5) subcutaneous cartridge) spironolactone 25 mg tablet 25 mg PO DAILY #30 tabs 06/04/25 blood sugar diagnostic (OneTouch #100 ea 07/26/25 Verio test strips) blood-glucose meter (OneTouch #1 ea 07/26/25 Verio Flex Meter) insulin aspart U-100 100 unit/mL 1 sliding scale dose subcut 07/26/25 subcutaneous solution TIDWMEAL #60 mL insulin glargine 100 unit/mL 100 unit subcut PM #30 mL 07/26/25 subcutaneous solution insulin syringe,safety needle 1 mL #150 ea 07/26/25 31 gauge x 15/64" (BD SafetyGlide Insulin Syringe) lancets 33 gauge (OneTouch Delica #100 ea 07/26/25 Plus Lancet) glucagon 3 mg/actuation nasal spray 3 mg intranasal ONCE #2 ea 08/01/25 Results & Data (ED) Vital Signs Vital Signs - 24 hr 09/24/25 13:30 09/24/25 14:24 09/24/25 14:30 Temperature 36.6 C Temperature Source Temporal Artery Scan Pulse Rate 74 69 70 Pulse Rate from SpO2 Sensor Respiratory Rate 16 18 Blood Pressure 175/81 H 154/77 H Blood Pressure Mean 112 124 Pulse Oximetry 94 95 Sepsis Recent Fever Within 48 Hours No Sepsis New/Unexplained Change in Mental Status N/A Sepsis Action Taken by Nursing No Action Required 09/24/25 15:00 09/24/25 15:00 09/24/25 15:00 Temperature Temperature Source Pulse Rate 63 Pulse Rate from SpO2 Sensor 64 Respiratory Rate 18 Blood Pressure 163/81 H 163/81 H Blood Pressure Mean 120 120 Pulse Oximetry 89 L Sepsis Recent Fever Within 48 Hours Sepsis New/Unexplained Change in Mental Status Sepsis Action Taken by Nursing 09/24/25 15:00 09/24/25 15:00 09/24/25 15:00 Temperature Temperature Source Pulse Rate Pulse Rate from SpO2 Sensor Respiratory Rate Blood Pressure 163/81 H 163/81 H 163/81 H Blood Pressure Mean 120 120 120 Pulse Oximetry Sepsis Recent Fever Within 48 Hours Sepsis New/Unexplained Change in Mental Status Sepsis Action Taken by Nursing 09/24/25 15:12 09/24/25 15:21 09/24/25 18:17 Temperature Temperature Source Pulse Rate 70 67 73 Pulse Rate from SpO2 Sensor 69 64 Respiratory Rate 18 19 Blood Pressure Blood Pressure Mean Pulse Oximetry 91 Sepsis Recent Fever Within 48 Hours Sepsis New/Unexplained Change in Mental Status Sepsis Action Taken by Jail Medications Current Medication List: was personally reviewed by me Laboratory Data Attestation: I reviewed the patient's lab results. 09/24/25 13:51 09/24/25 13:51 Lab Results 09/24/25 09/24/25 09/24/25 Range/Units 13:51 15:55 18:09 WBC 14.49 H (4.8-10.8) K/ul RBC 4.15 L (4.20-5.40) M/uL Hgb 12.6 (12.0-16.0) g/dL Hct 36.2 L (37.0-47.0) % MCV 87.2 (80.0-100.0) fL MCH 30.4 (25.0-34.0) pg MCHC 34.8 (32.0-36.0) g/dL RDW Std Deviation 42.2 (36.4-46.3) fL RDW Coeff of Reji 13.2 (11.5-14.5) % Plt Count 209 (130-400) K/uL MPV 12.0 (9.4-12.4) fL Immature Gran % (Auto) 0.5 % Neut % (Auto) 83.1 % Lymph % (Auto) 7.6 % [place] % (Auto) 7.9 % Eos % (Auto) 0.4 % Baso % (Auto) 0.5 % Neut # (Auto) 12.05 H (1.40-6.50) K/uL Lymph # (Auto) 1.10 L (1.20-3.40) K/uL [place] # (Auto) 1.14 H (0.11-0.59) K/uL Eos # (Auto) 0.06 (0.00-0.50) K/uL Baso # (Auto) 0.07 (0.00-0.20) K/uL Immature Gran # (Auto) 0.07 (0.01-0.20) K/uL PT 11.3 (9.0-12.0) Seconds INR 1.1 (0.9-1.1) APTT 31 (21-31) Seconds PTT Ratio 1.1 Sodium 135 L (136-145) mmol/L Potassium 3.5 (3.5-5.1) mmol/L Chloride 99 (98-107) mmol/L Carbon Dioxide 29 (21-32) mmol/L Anion Gap 7 (3-11) BUN 12 (6-23) mg/dl Creatinine 0.81 (0.6-1.2) mg/dl Est Cr Clr Drug Dosing Not Reportable eGFR 77.56 BUN/Creatinine Ratio 14.8 (10-20) Glucose 106 H (70-99(Fasting)) mg/dl Calcium 8.9 (8.6-10.3) mg/dl Magnesium 2.0 (1.7-2.4) mg/dl Total Bilirubin 0.8 (0.2-1.0) mg/dl AST 18 (13-39) U/L ALT 11 (7-52) U/L Alkaline Phosphatase 107 H (34-104) U/L Troponin I High Sens 18.9 H 17.5 H (0-14) pg/ml Total Protein 7.1 (6.0-8.3) gm/dl Albumin 2.9 L (3.4-5.0) gm/dl Globulin 4.2 H (2.5-4.0) gm/dl Albumin/Globulin Ratio 0.7 L (0.9-2) TSH 1.434 (0.300-4.500) uIu/ml Urine Color Dark Yellow Urine Appearance Turbid A (Clear) Urine pH 5.5 (4.5-7.5) Ur Specific [place] 1.019 (1.000-1.030) Urine Protein 3+ H (Negative) Urine Glucose (UA) Negative (Negative) Urine Ketones Trace H (Negative) Urine Blood 2+ H (Negative) Urine Nitrite Negative (Negative) Urine Bilirubin Negative (Negative) Urine Urobilinogen Negative (Negative) Ur Leukocyte Esterase 3+ H (Negative) Urine WBC (Auto) >50 H (0-5) /hpf Urine RBC (Auto) 3-5 H (0-2) /hpf U Hyaline Cast (Auto) >20 H (0-2) /lpf U Epithel Cells (Auto) 11-20 H (0-2) /hpf Urine Bacteria (Auto) 3+ H (None Seen) Hyaline Casts Present A (None Presnt) /lpf Urine Mucus Present A (None Prsent) Urine Comment Administered Medications Discontinued Medications Thiamine HCl 200 mg/ Sodium (Chloride) 52 mls @ 210 mls/hr IV NOW STA Stop: 09/24/25 18:39 Last Admin: 09/24/25 18:41 Dose: 210 mls/hr Documented By: alberto Imaging Data Attestation: I personally reviewed and interpreted this imaging study as follows: My Impression: CT of the brain was obtained in the emergency department. My interpretation is no intracranial hemorrhage or mass effect, final report below. Radiologist's Impression: Chest X-Ray 09/24/25 13:59 XR chest 1V portable CLINICAL HISTORY: weakness COMPARISON STUDY: 07/28/2025 FINDINGS: The cardiomediastinal contours remain. There is no lobar consolidation. There is mild interstitial thickening similar to the prior study. There is no lobar consolidation. No pleural effusions are visualized. There is no pneumothorax. There is an old proximal left humeral fracture. IMPRESSION: 1. Subtle interstitial thickening 2. No evidence of focal pulmonary consolidation ACT 112: Negative or not required by law. Electronically signed by: Ezra Elias M.D. 09/24/2025 2:[address] 09/24/25 14:10 CT SCAN OF THE BRAIN WITHOUT IV CONTRAST CLINICAL HISTORY: Confusion. Hypoglycemia. COMPARISON STUDY: Head CT July 29, 2025. TECHNIQUE: Unenhanced axial CT scan of the brain was performed from the vertex to the skull base. A dose lowering technique was utilized adhering to the principles of ALARA. CT DOSE: 962.98 mGy.cm FINDINGS: Brain parenchyma: No acute intracranial hemorrhage, midline shift or mass effect is present. Roche-white matter differentiation is preserved. There are no extra- axial fluid collections. There are no findings to suggest acute dural sinus thrombosis or acute territorial infarct. Ventricles, sulci, cisterns: There is no hydrocephalus. The basal cisterns are patent. Calvarium: Unremarkable. Sinuses and mastoids: There is moderate ethmoid sinus mucosal thickening. The mastoid air cells are well pneumatized. Orbits: The bony orbits are grossly intact. IMPRESSION: No acute intracranial findings. ACT 112: Negative or not required by law. Electronically signed by: Ata Ocampo M.D. 09/24/2025 2:53 PM Discharge Plan Visit Data Chief Complaint: Confusion Stated Complaint: CONFUSION, LOW BLOOD SUGAR ED Provider: Narinder Wu Discharge Problem: Acute confusion, Elevated troponin I level, Urinary tract infection Patient Disposition: Being Evaluated by Hospitalist Condition: Fair Forms Stand Alone Forms: My [facility] Prescriptions Prescriptions: No Action rosuvastatin 20 mg tablet 20 mg PO QPM Qty: 90 0RF (DME) Ketostix Strip See Rx Instructions miscellaneous .MEDSUPPLY Qty: 50 5RF Rx Instructions: Check when blood sugars > 250 for 4 to 6 hours glucagon HCl 1 mg/mL recon soln 1 mg IM UD PRN (Reason: hypoglycemia) Qty: 2 1RF hydrochlorothiazide 25 mg tablet 25 mg PO DAILY Qty: 90 1RF albuterol sulfate 90 mcg/actuation HFA aerosol inhaler 2 inh inhalation Q4H PRN (Reason: shortness of breath or wheezing) Qty: 13.4 5RF lisinopril 40 mg tablet 40 mg PO DAILY Qty: 90 0RF spironolactone 25 mg tablet 25 mg PO DAILY Qty: 30 2RF aspirin 325 mg tablet 325 mg PO DAILY montelukast [Singulair] 10 mg tablet 10 mg PO DAILY Patient Comments: 08/04/25 - Pt reports taking at home cetirizine [Zyrtec] 10 mg tablet 10 mg PO DAILY PRN (Reason: Congestion) Patient Comments: 08/04/25 - Pt reports taking. fluticasone propion-salmeterol [Advair Diskus] 250-50 mcg/dose blister with device 1 inh inhalation BID Qty: 60 0RF (DME) Dexcom G7 Sensor Device See Rx Instructions .Route Qty: 1 0RF Rx Instructions: As directed (DME) Omnipod 5 G6-G7 Pods (Gen 5) Cartridge See Rx Instructions .Route Qty: 5 5RF Rx Instructions: As directed insulin glargine 100 unit/mL solution 100 unit subcut PM Qty: 30 1RF insulin aspart U-100 100 unit/mL solution 1 sliding scale dose subcut TIDWMEAL Qty: 60 1RF Rx Instructions: per carb count/CF up to 200 units per day (DME) blood-glucose meter [OneTouch Verio Flex meter] Misc See Rx Instructions .Route Qty: 1 0RF Rx Instructions: check BG three times a day (DME) OneTouch Verio test strips Strip See Rx Instructions .Route Qty: 100 1RF Rx Instructions: Check BG three times a day (DME) lancets [OneTouch Delica Plus Lancet] 33 gauge misc See Rx Instructions .Route Qty: 100 1RF Rx Instructions: check BG three times a day (DME) BD SafetyGlide Insulin Syringe 1 mL 31 gauge x 15/64" syringe See Rx Instructions .Route Qty: 150 1RF Rx Instructions: five times a day glucagon 3 mg/actuation spray,non-aerosol 3 mg intranasal ONCE Qty: 2 5RF cholecalciferol (vitamin D3) 1,250 mcg (50,000 unit) capsule 50,000 unit PO WK Referrals Referrals: Lucia Dsouza MD [Primary Care Provider] -
[2025-09-24 14:32] LABS: Alanine Aminotransferase 11 U/L (7-52); Albumin Globulin Ratio 0.7 (0.9-2); Albumin Level 2.9 gm/dl (3.4-5.0); Alkaline Phosphatase 107 U/L (34-104); Anion Gap 7 (3-11); Bilirubin,Total 0.8 mg/dl (0.2-1.0); Blood Urea Nitrogen 12 mg/dl (6-23); Calcium 8.9 mg/dl (8.6-10.3); Carbon Dioxide 29 mmol/L (21-32); Chloride 99 mmol/L (98-107); Globulin 4.2 gm/dl (2.5-4.0); Glucose 106 mg/dl (70-99(Fasting)); Magnesium 2.0 mg/dl (1.7-2.4); Potassium 3.5 mmol/L (3.5-5.1); Sodium 135 mmol/L (136-145); Total Protein 7.1 gm/dl (6.0-8.3)
--- NOTE | 2025-09-24 14:35 | XRay Report ---
XR chest 1V portable CLINICAL HISTORY: weakness COMPARISON STUDY: 07/28/2025 FINDINGS: The cardiomediastinal contours remain. There is no lobar consolidation. There is mild inter stitial thickening similar to the prior study. There is no lobar consolidation. No pleural effusions are visualized. There is no pneumothorax. There is an old proximal left humeral fracture. IMPRESSION: 1. Subtle interstitial thickening 2. No evidence of focal pulmonary consolidation ACT 112: Negative or not required by law. Electronically signed by: Ezra Elias M.D. 09/24/2025 2:33 PM
--- NOTE | 2025-09-24 14:42 | Electrocardiogram Report ---
Test Reason : Blood Pressure : */* mmHG Vent. Rate : 67 BPM Atrial Rate : * BPM P-R Int : * ms QRS Dur : 78 ms QT Int : 420 ms P-R-T Axes : * 20 89 degrees QTcB Int : 443 ms Normal sinus rhythm Nonspecific ST and T wave abnormality Abnormal ECG When compared with ECG of 28-Jul-2025 18:42, T wave inversion no longer evident in Inferior leads Confirmed by Narinder Viera ([id number]) on 09/24/2025 2:42:25 PM Referred By: Confirmed By: Narinder Viera
[2025-09-24 14:45] LABS: Thyroid Stimulating Hormone 1.434 uIu/ml (0.300-4.500)
--- NOTE | 2025-09-24 14:54 | CT Scan Report ---
CT SCAN OF THE BRAIN WITHOUT IV CONTRAST CLINICAL HISTORY: Confusion. Hypoglycemia. COMPARISON STUDY: Head CT July 29, 2025. TECHNIQUE: Unenhanced axial CT scan of the brain was performed from the vertex to the skull base. A dose lowering technique was utilized adhering to the principles of ALARA. CT DOSE: 962.98 mGy.cm FINDINGS: Brain parenchyma: No acute intracranial hemorrhage, midline shift or mass effect is present. Roche-whi te matter differentiation is preserved. There are no extra-axial fluid collections. There are no find ings to suggest acute dural sinus thrombosis or acute territorial infarct. Ventricles, sulci, cisterns: There is no hydrocephalus. The basal cisterns are patent. Calvarium: Unremarkable. Sinuses and mastoids: There is moderate ethmoid sinus mucosal thickening. The mastoid air cells are w ell pneumatized. Orbits: The bony orbits are grossly intact. IMPRESSION: No acute intracranial findings. ACT 112: Negative or not required by law. Electronically signed by: Ata Ocampo M.D. 09/24/2025 2:53 PM
[2025-09-24 14:58] LABS: INR 1.1 (0.9-1.1); Partial Thromboplastin Time 31 Seconds (21-31); Prothrombin Time 11.3 Seconds (9.0-12.0)
--- NOTE | 2025-09-24 18:08 | History & Physical Report ---
Date of Service September 24, 2025 Assessment & Plan (1) Acute encephalopathy: (2) Leukocytosis: (3) Uncontrolled type 2 diabetes mellitus: (4) Hypertension: Plan Patient is a 69 y/o female with pmh of DM2, hypertension, hyperlipidemia, CKD stage III, Asthma that presented to the ED primary due to concern of confusion with possible hypoglycemia at home. Is admitted for observation and further workup #Altered mental status | leukocytosis - afebrile and not hypotensive on admission without clear source of infection. CXR without PNA. Head CT without acute findings. Recent admission for altered mental status due to bacteremia and subsequent admission due to to delirium. Attempted to call son x2 on admission, no answer Check UA Check medical ETOH level Check Tox screen TSH okay. Vit B12/B1/D levels checked last admission - continue home supple mentation and add IV thiamine now, PO supplementation for AM #DMT2 with concerns for possible hypoglycemia - patient reports glucose 84 at home, BSG 106 on arrival. Consult lithostripper to review CGM results Home regimen: Lantus 100u HS + SSI - held Lantus 70u HS with SSI CR 10 CR 5 based on last stay Am A1c #Hypertension: - continue lisinopril 40 mg and HCTZ and spironolactone # Hyperlipidemia Continue rosuvastatin. change asa to 81mg # Chronic Kidney Disease (CKD) Stage II-III Creatinine at baseline, stable. # Asthma Stable. Dispo: obs to med/surg Dvt porh: lovenox Patient has not seen PCP since 05/2025, attempt to identify barriers to follow up prior to discarge. Concern for underlying memory deficits, would benefit from formal neurocognitive testing. History of Present Illness Chief Complaint: confusion Primary Care Provider: Lucia Dsouza MD Patient is a 69 y/o female with pmh of DM2, hypertension, hyperlipidemia, CKD stage III, Asthma that presented to ED primary due to concern of low blood sugar and possible confusion. Patient states that her blood sugar got down to 84 today, however denies any symptoms or feeling off when this happensed. When asked why she came to the hospital, states her son made her. I attempted to call her son 2 times but no answer, voicemail box is full to it obtain collateral information. States that she did not eat today because she did not feel like it. States that she had felt in her normal state of health prior denies nausea or vomiting. She took her normal amount of insulin. She does endorse urinary symptoms but she is unable to tell me which ones, but then tells me that she probably has a UTI. denies fevers or chills. Reports that she ambulates without assistive devices.She knows it is 2024 she thinks is September or October and the recent holiday was . When asked if she consumes alcohol she says occasionally she thinks the last time she did was Thanksgiving. Denies cigarette or illicit drug use. Wishes to be a full code Allergies Allergy/AdvReac Type Severity Reaction Status Date / Time Milk Containing Products Allergy Severe Difficulty Verified 09/24/25 16:18 (Dairy) Breathing grass pollen-perennial rye, Allergy Intermediate ASTHMATIC Verified 09/24/25 16:18 standar SYMPTOMS mold Allergy Intermediate ASTHMATIC Verified 09/24/25 16:18 SYMPTOMS codeine AdvReac Intermediate HALLUCINATI Verified 09/24/25 16:18 ONS dulaglutide [From [facility]] AdvReac Intermediate Nausea Verified 09/24/25 16:18 Home Medications Medication Instructions Recorded Confirmed Type acetone (urine) test (Ketostix #50 ea 08/28/24 08/04/25 Rx strips) glucagon HCl 1 mg/mL solution for 1 mg IM UD PRN hypoglycemia #2 ea 08/28/24 09/24/25 Rx injection hydrochlorothiazide 25 mg tablet 25 mg PO DAILY #90 tabs 08/28/24 09/24/25 Rx rosuvastatin 20 mg tablet 20 mg PO QPM #90 tabs 08/28/24 09/24/25 Rx albuterol sulfate 90 mcg/actuation 2 inh inhalation Q4H PRN shortness 12/05/24 09/24/25 Rx aerosol inhaler of breath or wheezing #13.4 grams fluticasone 250 mcg-salmeterol 50 1 inh inhalation BID #60 ea 01/16/25 09/24/25 Rx mcg/dose blistr powdr for inhalation (Advair Diskus) lisinopril 40 mg tablet 40 mg PO DAILY #90 tabs 02/06/25 09/24/25 Rx blood-glucose sensor (Dexcom G7 #1 ea 03/08/25 08/04/25 Rx Sensor device) insulin pump cart,auto,BT,G6/7 #5 ea 03/08/25 08/04/25 Rx (Omnipod 5 G6-G7 Pods (Gen 5) subcutaneous cartridge) spironolactone 25 mg tablet 25 mg PO DAILY #30 tabs 06/04/25 09/24/25 Rx blood sugar diagnostic (OneTouch #100 ea 07/26/25 08/04/25 Rx Verio test strips) blood-glucose meter (OneTouch #1 ea 07/26/25 08/04/25 Rx Verio Flex Meter) insulin aspart U-100 100 unit/mL 1 sliding scale dose subcut 07/26/25 09/24/25 Rx subcutaneous solution TIDWMEAL #60 mL insulin glargine 100 unit/mL 100 unit subcut PM #30 mL 07/26/25 09/24/25 Rx subcutaneous solution insulin syringe,safety needle 1 mL #150 ea 07/26/25 08/04/25 Rx 31 gauge x 15/64" (BD SafetyGlide Insulin Syringe) lancets 33 gauge (OneTouch Delica #100 ea 07/26/25 08/04/25 Rx Plus Lancet) glucagon 3 mg/actuation nasal spray 3 mg intranasal ONCE #2 ea 08/01/25 09/24/25 Rx aspirin 325 mg tablet 325 mg PO DAILY 08/04/25 09/24/25 History cetirizine 10 mg tablet (Zyrtec) 10 mg PO DAILY PRN Congestion 08/04/25 09/24/25 History montelukast 10 mg tablet 10 mg PO DAILY 08/04/25 09/24/25 History (Singulair) cholecalciferol (vitamin D3) 1,250 50,000 unit PO WK 09/24/25 09/24/25 History mcg (50,000 unit) capsule Past Med/Surg History Problem List (Updated 09/24/25 @ 18:50 by Narinder Wu DO) Urinary tract infection (Acute) Elevated troponin I level (Acute) Acute confusion (Acute) Acute encephalopathy Confusion Poorly controlled type 2 diabetes mellitus (Acute) Hypertension Hyperglycemia Asthma exacerbation (Acute) RSV (respiratory syncytial virus infection) (Acute) Cough productive of yellow sputum Albuminuria Obesity, morbid, BMI 40.0-49.9 Proximal humeral fracture CKD (chronic kidney disease) Gram-positive cocci bacteremia Infection due to Peptostreptococcus species Urine culture positive Candiduria Hyponatremia Elevated procalcitonin (Acute) Elevated lactic acid level (Acute) Class 3 severe obesity with body mass index (BMI) of 50.0 to 59.9 in adult Mixed hyperlipidemia NAFLD (nonalcoholic fatty liver disease) Stage 3 chronic renal impairment associated with type 2 diabetes mellitus Type 2 diabetes mellitus with obesity Allergic rhinitis Anxiety Asthma Eustachian tube dysfunction Lichen sclerosus et atrophicus Microalbuminuria Nephrolithiasis Osteopenia Postmenopausal bleeding Rosacea Vitamin D deficiency Metabolic syndrome Uncontrolled type 2 diabetes mellitus Right flank pain Low back pain Lumbar disc disease Lumbar back pain with radiculopathy affecting lower extremity Medical History Acute hyperglycemia Gram-negative bacteremia Acute UTI (urinary tract infection) DKA (diabetic ketoacidosis) Alcohol intoxication Hyperlipidemia Pain of left lower extremity Fall down steps Closed head injury Surgical History History of bilateral carpal tunnel release H/O colonoscopy Fiberoptic History of tonsillectomy Family History Unknown Diabetes Pancreatic cancer Thyroid disorder Sleep apnea nonorganic Alcoholism Brother Diabetes Sarcoidosis Mother Thyroid disorder Sleep apnea nonorganic Emphysema, unspecified Sister Sleep apnea nonorganic Grandmother Sleep apnea nonorganic Social History Smoking Status: Former smoker Second Hand Exposure: No; Do You Dip or Chew Tobacco: No; Hx Alcohol Use: Yes Alcohol type: beer Alcohol Intake Frequency: Monthly or Less Hx Substance Use: No Preferred Language: Micronesian Communication Ability: Effective Internal Recruiter Required: No Beliefs That Will Affect Care: None marital status: Current Living Situation: Other Current Living Situation Comment: PT states she recently has been staying with a friend instead of her son current occupational status: retired current occupation: Retired from special ed in elementary school setting How many Children do You have: 2 Feels Safe at Home: Yes Childhood Exposure to Second-Hand Smoke: Yes Dental Care, Regularly: Yes Physical Activity Frequency: Does not Exercise Seatbelt Use: always Sunscreen Use: Yes Assistive Devices: Walker Review of Systems Review of Systems: All systems reviewed & are unremarkable except as noted in Subjective Physical Exam Physical Exam: General: NAD, VS as above Resp: normal respiratory effort, lungs clear to auscultation CV: RRR, no murmur, Abd: normal bowel sounds, non tender, soft Extremities: Moves all extremities, no edema Neuro: A&O x2, Oriented to person and place but not time or situation Skin: intact, no lesions noted Results & Data Results & Data Vital Signs (Past 12 Hours) Vital Signs Temp Pulse Resp BP Pulse Ox 09/24/25 15:21 67 19 91 09/24/25 15:12 70 18 09/24/25 15:00 163/81 H 09/24/25 15:00 163/81 H 09/24/25 15:00 163/81 H 09/24/25 15:00 163/81 H 09/24/25 15:00 163/81 H 09/24/25 15:00 63 18 89 L 09/24/25 14:30 70 18 154/77 H 95 09/24/25 14:24 69 09/24/25 13:30 97.9 F 74 16 175/81 H 94 Laboratory Results CBC, chemistry reviewed Troponin reviewed Supervising Physician Co-Signing Physician Notes PA Supervision Note: I personally saw and examined the patient. I verified all abraham points and agree with SANDEEP Ravi with the following exceptions and/or additions: S-this patient is 69-year-old female with a history of obesity, alcohol abuse, possible marijuana abuse, asthma, DM 2, HTN, HLD, here with generalized malaise, relatively low blood sugar at 84, and urinary symptoms. No abdominal pain or nausea vomiting, no diarrhea. No chest pain or shortness of breath or fevers or chills. History and ROS otherwise reviewed as above After admission, UA found to be positive consistent with UTI O- Vitals reviewed Gen: AAOx3, NAD, morbidly obese HEENT: Anicteric sclerae, EOMI CV: RRR no mgr nl S1S2 Pulm: CTAB no wcr Abd: +BS soft NT ND no masses Ext: No edema Skin: No rashes, warm/dry Neuro: Full strength throughout A/[id number]-30-[id number]-old female here with UTI, leukocytosis, generalized malaise - Start ciprofloxacin for UTI given history of Enterococcus and Klebsiella bacteremia - Check blood cultures, follow urine culture - Monitor blood sugars - Order PT/OT for evaluation for need for rehab PG Care Time/CCT Total # of Minutes Spent Total Time Spent with Patient: Total time spent is greater than 50% in coordination of care (as documented) at patient's floor/unit and/or counseling patient: Coding Level of Care Code 92272 INT INP/OBS CARE 3/75MIN Diagnoses Acute encephalopathy G93.40 Leukocytosis D72.829 Uncontrolled type 2 diabetes mellitus E11.65 Hypertension I10
[2025-09-24] MEDS: THIAMINE HCL 200 MG in SODIUM CHLORIDE 0.9% 50 ML IV STA (18:41)
[2025-09-24 18:43] LABS: Appearance Urine Turbid (Clear); Bacteria Urine Automated 3+ (None Seen); Cast Urine Automated >20 /lpf (0-2); Glucose Urine UA Negative (Negative); WBC Urine Automated >50 /hpf (0-5)
[2025-09-24 19:37] LABS: Amphetamines+Metham, Urine Neg (Neg); MDMA (Ecstacy), Urine Neg (Neg); Marijuana, Urine Neg (Neg)
[2025-09-24] MEDS: cefTRIAXone SODIUM 2,000 MG/50 ML BAG IV STA (20:13)
[2025-09-24] MEDS: CIPROFLOXACIN / D5W 400 MG/200 ML BAG IV SCH (20:51)
[2025-09-24] MEDS ORDERED: DEXTROSE 50% 50 ML SYRINGE IV PRN (23:06)
[2025-09-24] MEDS ORDERED: ONDANSETRON INJ 2 MG/ML 2 ML VIAL IV PRN (23:06)
[2025-09-24] MEDS ORDERED: GLUCAGON FOR INJ 1 MG VIAL SQ PRN (23:06)
[2025-09-24] MEDS ORDERED: CETIRIZINE HCL 10 MG TABLET PO PRN (23:06)
[2025-09-24] MEDS ORDERED: ACETAMINOPHEN 325 MG TAB PO PRN (23:06)
[2025-09-24] MEDS ORDERED: GLUCOSE 10 TAB/TUBE PO PRN (23:06)
[2025-09-24] MEDS ORDERED: GLUCOSE 40% GEL 15 GM TUBE PO PRN (23:06)
[2025-09-25] MEDS: INSULIN ASPART PER UNIT CHARGE SC SCH (00:04)
[2025-09-25] MEDS: ROSUVASTATIN CALCIUM 20 MG TAB PO SCH (00:04)
[2025-09-25] MEDS: LANTUS PER UNIT CHARGE SQ SCH ×2 (00:04→21:26)
[2025-09-25 07:16] LABS: Hematocrit (blood only) 32.5 % (37.0-47.0); Hemoglobin 11.3 g/dL (12.0-16.0); Mean Corpuscular Hemoglobin 30.1 pg (25.0-34.0); Mean Corpuscular Volume 86.7 fL (80.0-100.0); Platelet Count 209 K/uL (130-400); RDW Standard Deviation 41.8 fL (36.4-46.3); Red Blood Count 3.75 M/uL (4.20-5.40); White Blood Count 13.50 K/ul (4.8-10.8)
[2025-09-25] MEDS: CARBOHYDRATES FOR HYPOGLYCEMIA PO PRN (07:35)
[2025-09-25 07:37] LABS: Hemoglobin A1C 9.9 % (4.5-5.6)
[2025-09-25 07:47] LABS: Anion Gap 10.0 (3-11); Blood Urea Nitrogen 14.0 mg/dl (6-23); Calcium 8.3 mg/dl (8.6-10.3); Carbon Dioxide 26.0 mmol/L (21-32); Chloride 98.0 mmol/L (98-107); Creatinine Clr Calc Pharmacy 77.5 ml/min; Glucose 55.0 mg/dl (70-99(Fasting)); Potassium 2.9 mmol/L (3.5-5.1); Sodium 134.0 mmol/L (136-145)
[2025-09-25] MEDS: FLUTICASONE/VILANTEROL 200/25MCG 14 PUFFS/INHALER INH SCH (08:53)
[2025-09-25] MEDS: ASPIRIN 81 MG ECTAB PO SCH (08:55)
[2025-09-25] MEDS: hydroCHLOROthiazide 25 MG TAB PO SCH (08:55)
[2025-09-25] MEDS: SPIRONOLACTONE 25 MG TAB PO SCH (08:55)
[2025-09-25] MEDS: THIAMINE HCL 100 MG TAB PO SCH (08:55)
[2025-09-25] MEDS: MONTELUKAST SODIUM 10 MG TABLET PO SCH (08:55)
[2025-09-25] MEDS: POTASSIUM CHLORIDE CRTAB 20 MEQ TABCR PO SCH (09:03)
[2025-09-25 13:08] LABS: A calco-baum cmplx NotReported Not Detected (NotDetected); Bact fragilis Not Reported Not Detected (NotDetected); Blood Culture Id Panel See PCR Comment (NotDetected); C auris Not Reported Not Detected (NotDetected); CTX-M Resistant Gene Not Detected (NotDetected); Calbicans Not Reported Not Detected (NotDetected); Candida glabrata Not Reported Not Detected (NotDetected); Candida krusei Not Reported Not Detected (NotDetected); Cneoformans/gatti Not Reported Not Detected (NotDetected); Cparapsilosis Not Reported Not Detected (NotDetected); Ctropicalis Not Reported Not Detected (NotDetected); E cloacae compx Not Reported Not Detected (NotDetected); Efaecalis Not Reported Not Detected (NotDetected); Efaecium Not Reported Not Detected (NotDetected); Enterobacterales DETECTED (NotDetected); Enterobacterales Not Reported DETECTED (NotDetected); Escherichia coli Not Reported Not Detected (NotDetected); H influenzae Not Reported Not Detected (NotDetected); IMP Resistant Gene Not Detected (NotDetected); K aerogenes Not Reported Not Detected (NotDetected); KPC Resistant Gene Not Detected (NotDetected); Koxytoca Not Reported Not Detected (NotDetected); Kpneumoniae grp Not Reported DETECTED (NotDetected); Lmonocyt Not Reported Not Detected (NotDetected); N meningitidis Not Reported Not Detected (NotDetected); NDM Resistant Gene Not Detected (NotDetected); OXA 48 Like Resistant Gene Not Detected (NotDetected); P aeruginosa Not Reported Not Detected (NotDetected); Proteus spp Not Reported Not Detected (NotDetected); Salmonella spp Not Reported Not Detected (NotDetected); Staph lugdunensis Not Reported Not Detected (NotDetected); Staph spp. Not Reported Not Detected (NotDetected); Staphaureus Not Reported Not Detected (NotDetected); Staphepi Not Reported Not Detected (NotDetected); Stenmaltophilia Not Reported Not Detected (NotDetected); Strep agal(GrpB) Not Reported Not Detected (NotDetected); Strep pneum Not Reported Not Detected (NotDetected); Strep pyog (GrpA) Not Reported Not Detected (NotDetected); Strep spp Not Reported Not Detected (NotDetected); VIM Resistant Gene Not Detected (NotDetected); mcr-1 Colistin Resistant Gene Not Detected (NotDetected)
[2025-09-25 13:26] LABS: Klebsiella pneumoniae group DETECTED (NotDetected)
--- NOTE | 2025-09-25 17:04 | Hospitalist Progress Note ---
"Date of Service September 25, 2025 Assessment & Plan (1) Acute encephalopathy: (2) Urinary tract infection: (3) Gram-negative bacteremia: (4) Uncontrolled type 2 diabetes mellitus: Plan Patient is a 69 y/o female with pmh of DM2, hypertension, hyperlipidemia, CKD stage III, Asthma that presented to the ED primary due to concern of confusion with possible hypoglycemia at home. Is admitted for observation and further workup # Acute metabolic encephalopathy | gram-negative bacteremia from UTI - afebrile and not hypotensive on admission without clear source of infection. CXR without PNA. Head CT without acute findings. Recent admission for altered mental status due to bacteremia and subsequent admission due to to delirium. ETOH and tox screen negative. TSH okay. Vit B12/B1/D levels checked last admission - continue home supplementation and added thiamine UC and BC + for klebsiella, awaiting sensitivities continue Cipro PT/OT Spoke with son 09/25 - reports no outside caregivers in the home. Brought mom to the hospital because she kept saying help and then could not say what was wrong. Missed PCP appointment after last discharge because he did not know about it. I did ask him to clear some of his voice mail box so that if people from the hospital need to leave him a message at home, that he knows who to call back. #DMT2 - patient reports that son made her come to the hospital bc BSG low, but CGM reviewed with rn diabetes educator and has remained in range. Home regimen: Lantus 100u HS + SSI - held Hypoglycemic event over night, decrease lantus from 70 to 50 units continue SSI CR 10 CR 5 based on last stay a1c 9.9 which is much improved from 14.3% 2 months ago #Hypertension: - continue lisinopril 40 mg and HCTZ and spironolactone # Hyperlipidemia Continue rosuvastatin. change asa to 81mg # Chronic Kidney Disease (CKD) Stage II-III Creatinine at baseline, stable. # Asthma Stable. Dispo:continued inpatient stay, awaiting culture date Dvt proph: lovenox Patient has not seen PCP since 05/2025, son did not know about follow up appointment. Has been open with ambulatory CM in the past, but closed bc no one responded. Son asked to delete some of his VM so staff could more readably contact him. Concern for underlying memory deficits, would benefit from formal neurocognitive testing. Admission and Anticipated Discharge Date Admission Date: September 25, 2025 Supervising Physician Co-Signing Physician Notes PA Supervision Note: I did not personally see or examine the patient today, but I verified all abraham points of SANDEEP Ravi's assessment and plan with the following exceptions/additions: None Subjective Patient seen sitting up in the chair - we discussed her UTI and bacteremia. We also discussed her low blood sugar this morning - overall she feels okay from all of this, she feels tired hopes her son is coming to visit today but she is unsure Physical Exam Physical Exam: General: NAD, VS as above Resp: normal respiratory effort, lungs clear to auscultation CV: RRR, no murmur, Abd: normal bowel sounds, non tender, soft Extremities: Moves all extremities, no edema Results & Data Results & Data Vital Signs (Past 12 Hours) Vital Signs Temp Pulse Resp BP Pulse Ox O2 Del Method 09/25/25 15:37 97.9 F 71 16 162/84 H 94 Room Air 09/25/25 07:50 Room Air 09/25/25 07:19 97.9 F 75 17 129/64 94 Room Air Laboratory Results cbc and chemistry reviewed blood cultures reviewed PG Care Time/CCT Total # of Minutes Spent Total Time Spent with Patient: Total time spent is greater than 50% in coordination of care (as documented) at patient's floor/unit and/or counseling patient: Coding Level of Care Code 71922 SUB INP/OBS CARE 3/50MIN Diagnoses Acute encephalopathy G93.40 Urinary tract infection N39.0 Gram-negative bacteremia R78.81 Uncontrolled type 2 diabetes mellitus E11.65"
[2025-09-26 06:10] LABS: Hematocrit (blood only) 31.8 % (37.0-47.0); Hemoglobin 10.9 g/dL (12.0-16.0); Mean Corpuscular Hemoglobin 29.6 pg (25.0-34.0); Mean Corpuscular Volume 86.4 fL (80.0-100.0); Platelet Count 199 K/uL (130-400); RDW Standard Deviation 42.0 fL (36.4-46.3); Red Blood Count 3.68 M/uL (4.20-5.40); White Blood Count 10.94 K/ul (4.8-10.8)
[2025-09-26 06:43] LABS: Anion Gap 8.0 (3-11); Blood Urea Nitrogen 24.0 mg/dl (6-23); Calcium 8.3 mg/dl (8.6-10.3); Carbon Dioxide 27.0 mmol/L (21-32); Chloride 100.0 mmol/L (98-107); Creatinine Clr Calc Pharmacy 57.3 ml/min; Glucose 103.0 mg/dl (70-99(Fasting)); Magnesium 2.1 mg/dl (1.7-2.4); Potassium 4.0 mmol/L (3.5-5.1); Sodium 135.0 mmol/L (136-145)
--- NOTE | 2025-09-26 14:19 | Discharge Summary ---
Discharge Summary Date of Service September 26, 2025 Principal Dx & Hospital Course #1 = Principal Diagnosis (1) Acute encephalopathy: (2) Urinary tract infection: (3) Gram-negative bacteremia: (4) Uncontrolled type 2 diabetes mellitus: Plan Patient is a 69 y/o female with pmh of DM2, hypertension, hyperlipidemia, CKD stage III, Asthma that presented to the ED primary due to concern of confusion with possible hypoglycemia at home. Is admitted for observation and further workup # Acute metabolic encephalopathy | gram-negative bacteremia from UTI - afebrile and not hypotensive on admission without clear source of infection. CXR without PNA. Head CT without acute findings. Recent admission for altered mental status due to bacteremia and subsequent admission due to to delirium. ETOH and tox screen negative. TSH okay. Vit B12/B1/D levels checked last admission - continue home supplementation and added thiamine UC and BC + for klebsiella, sensitive to Cipro which she has been treated with thus far PT/OT eval - did well, recommends use of RW at all times and home health eval Prior provider covering spoke with son 09/25 - reports no outside caregivers in the home. Brought mom to the hospital because she kept saying help and then could not say what was wrong. Missed PCP appointment after last discharge because he did not know about it. I did ask him to clear some of his voice mail box so that if people from the hospital need to leave him a message at home, that he knows who to call back. 09/26, attempted to call son and daughter multiple times without any success in reaching someone. Her son's VM is still full and could not leave a message. Home health recommended, son spoke with CM and stated that the decision was hers. CM to go and discuss with pt prior to discharge. #DMT2 - patient reports that son made her come to the hospital bc BSG low, but CGM reviewed with hematology nurse educator and has remained in range. Home regimen: Lantus 100u HS + SSI - held Hypoglycemic event over night, decrease lantus from 70 to 50 units continue SSI CR 10 CR 5 based on last stay a1c 9.9 which is much improved from 14.3% 2 months ago #Hypertension: - continue lisinopril 40 mg and HCTZ and spironolactone # Hyperlipidemia Continue rosuvastatin. change asa to 81mg # Chronic Kidney Disease (CKD) Stage II-III Creatinine at baseline, stable. # Asthma Stable. Patient is medically stable for discharge. Recommend home health PT and OT services. CM to discuss with patient if she will consider allowing us to set this up for her. She would benefit from formal neurocog testing, may have mild underlying dementia, but she is alert and oriented today. She is converted to oral ciprofloxacin to complete 5 more days upon discharge. She does not require follow up blood cultures. She should have close PCP follow up in the next week or sooner if needed. Would likely benefit from additional home health services/caregivers but this would be at the discretion of her family. Plan has been d/w Dr. Salmeron who is in agreement. Notes For Next Care Provider Being treated for Klebsiella UTI with bacteremia - 7 days of Cipro Needs formal neurocognitive testing - possible underlying dementia dx? Limited support at home - would benefit from additional services if she qualifies due to her "forgetfulness" Medication Changes From Visit None Admission HPI Per Admitting Provider Patient is a 69 y/o female with pmh of DM2, hypertension, hyperlipidemia, CKD stage III, Asthma that presented to ED primary due to concern of low blood sugar and possible confusion. Patient states that her blood sugar got down to 84 today, however denies any symptoms or feeling off when this happensed. When asked why she came to the hospital, states her son made her. I attempted to call her son 2 times but no answer, voicemail box is full to it obtain collateral information. States that she did not eat today because she did not feel like it. States that she had felt in her normal state of health prior denies nausea or vomiting. She took her normal amount of insulin. She does endorse urinary symptoms but she is unable to tell me which ones, but then tells me that she probably has a UTI. denies fevers or chills. Reports that she ambulates without assistive devices.She knows it is 2024 she thinks is September or October and the recent holiday was [place]. When asked if she consumes alcohol she says occasionally she thinks the last time she did was [place]. Denies cigarette or illicit drug use. Wishes to be a full code Discharge Exam GENERAL: 69 yo obese elderly WF. A&O x3. No distress. LUNGS: Clear to auscultation bilaterally. No W/R/R. CARDIOVASCULAR: Regular rate and rhythm. ABDOMEN: Soft, non-tender and non-distended. BS normoactive x 4 quad. EXTREMITIES: No edema. Non-tender. Peripheral pulses +2/4. PSYCHIATRIC: Cooperative. Appropriate mood and affect. SKIN: Warm, dry, intact. No rashes or lesions. Discharge Plan Discharge Items Patient Disposition: Home - Home Health Services Reason For Visit: AMS Discharge Diagnosis: Urinary tract infection Confusion due to infection Condition on Discharge: Fair Activity: Resume your previous activity Non-emergency contact: Primary Care Provider Call non-emergency contact if: you have any medication questions and your symptoms worsen Follow-up/Referrals: Lucia Dsouza MD [Primary Care Provider] - 10/08/25 11:00 am Diet: Carb Consistent or DM2 Addtl Attending Provider Instructions: You were hospitalized for confusion which was found to be due to a infection in your bladder that spread to your bloodstream. This is likely what caused you to be confused. Fortunately, the bacteria that grew is easy to treat with antibiotics. You were started on Ciprofloxacin given through your IV and will be changed to a pill form that you can complete upon your return home. Please complete the full course of antibiotics as directed. Your next dose will be due on 09/26 before bed. Your prescription has been sent to the [facility] on [address] [facility]. You worked with physical and occupational therapy and they recommended that you use your rolled walker at all times and have home health services including home physical and occupational therapists come to your home to work with you. You will need to follow up with your family doctor within 1 week or sooner if needed. Call 911 in the event of a medical emergency. Pending Studies at Discharge: No Stand-Alone Forms: [facility] [employer], Smoking Cessation Medications and DC Order Prescriptions: New ciprofloxacin HCl 500 mg tablet 500 mg PO BID Qty: 10 0RF Rx Instructions: next dose due on 09/26 before bed Continued rosuvastatin 20 mg tablet 20 mg PO QPM Qty: 90 0RF (DME) Ketostix Strip See Rx Instructions miscellaneous .MEDSUPPLY Qty: 50 5RF Rx Instructions: Check when blood sugars > 250 for 4 to 6 hours glucagon HCl 1 mg/mL recon soln 1 mg IM UD PRN (Reason: hypoglycemia) Qty: 2 1RF hydrochlorothiazide 25 mg tablet 25 mg PO DAILY Qty: 90 1RF albuterol sulfate 90 mcg/actuation HFA aerosol inhaler 2 inh inhalation Q4H PRN (Reason: shortness of breath or wheezing) Qty: 13.4 5RF lisinopril 40 mg tablet 40 mg PO DAILY Qty: 90 0RF spironolactone 25 mg tablet 25 mg PO DAILY Qty: 30 2RF aspirin 325 mg tablet 325 mg PO DAILY montelukast [Singulair] 10 mg tablet 10 mg PO DAILY Patient Comments: 08/04/25 - Pt reports taking at home cetirizine [Zyrtec] 10 mg tablet 10 mg PO DAILY PRN (Reason: Congestion) Patient Comments: 08/04/25 - Pt reports taking. fluticasone propion-salmeterol [Advair Diskus] 250-50 mcg/dose blister with device 1 inh inhalation BID Qty: 60 0RF (DME) Dexcom G7 Sensor Device See Rx Instructions .Route Qty: 1 0RF Rx Instructions: As directed (DME) Omnipod 5 G6-G7 Pods (Gen 5) Cartridge See Rx Instructions .Route Qty: 5 5RF Rx Instructions: As directed insulin glargine 100 unit/mL solution 100 unit subcut PM Qty: 30 1RF insulin aspart U-100 100 unit/mL solution 1 sliding scale dose subcut TIDWMEAL Qty: 60 1RF Rx Instructions: per carb count/CF up to 200 units per day (DME) blood-glucose meter [OneTouch Verio Flex meter] Misc See Rx Instructions .Route Qty: 1 0RF Rx Instructions: check BG three times a day (DME) OneTouch Verio test strips Strip See Rx Instructions .Route Qty: 100 1RF Rx Instructions: Check BG three times a day (DME) lancets [OneTouch Delica Plus Lancet] 33 gauge misc See Rx Instructions .Route Qty: 100 1RF Rx Instructions: check BG three times a day (DME) BD SafetyGlide Insulin Syringe 1 mL 31 gauge x 15/64" syringe See Rx Instructions .Route Qty: 150 1RF Rx Instructions: five times a day glucagon 3 mg/actuation spray,non-aerosol 3 mg intranasal ONCE Qty: 2 5RF cholecalciferol (vitamin D3) 1,250 mcg (50,000 unit) capsule 50,000 unit PO WK Discharge Orders: Discharge Order (Routine); Ordered 09/26/25 Ordered By: Jossie Perdue/Other Patient Handouts: Managing Type 2 Diabetes Admission Data Admit Date/Time: 09/25/25 08:41 Attending Provider: Tawanna Salmeron Admit Provider: Tawanna Salmeron Primary Care Provider: Lucia Dsouza Other Providers: Tawanna Salmeron; [facility] Other Interventions: Discharge Summary Assessment (RN) Last Done: 09/26/25 16:23 Hospital Stay Data Consultations 09/24/25 16:59 ED Decision to Admit Stat Diagnostic Imagining Performed 09/24/25 14:10 CT head/brain wo con Stat Pending Results Patient Have Any Pending Studies at Discharge: No Discharge Instructions Given to Patient (Per Discharging Provider) You were hospitalized for confusion which was found to be due to a infection in your bladder that spread to your bloodstream. This is likely what caused you to be confused. Fortunately, the bacteria that grew is easy to treat with antibiotics. You were started on Ciprofloxacin given through your IV and will be changed to a pill form that you can complete upon your return home. Please complete the full course of antibiotics as directed. Your next dose will be due on 09/26 before bed. Your prescription has been sent to the [facility] on [address] [facility]. You worked with physical and occupational therapy and they recommended that you use your rolled walker at all times and have home health services including home physical and occupational therapists come to your home to work with you. You will need to follow up with your family doctor within 1 week or sooner if needed. Call 911 in the event of a medical emergency. Supervising Physician Co-Signing Physician Notes PA Supervision Note: I did not personally see or examine the patient today, but I verified all abraham points of SANDEEP Valverde's assessment and plan with the following exceptions/additions: None Total Time Total Time Spent Total Time Spent (In Minutes): 35 minutes Coding Level of Care Code 45214 INP/OBS DISCH >30 MIN Diagnoses Acute encephalopathy G93.40 Urinary tract infection N39.0 Gram-negative bacteremia R78.81 Uncontrolled type 2 diabetes mellitus E11.65 Home Health Attestation I certify that this patient is under my care and that I, or a physicians assistant professor of chemistry working with me, had a face to-face encounter that meets the home health [id number] encounter requirements with this patient. The encounter with the patient was in whole, or in part, for the following medical condition, which is the primary reason for home health care (list medical condition): I certify that, based on my findings, the following services are medically necessary home health services: My clinical findings support the need for the above services because: Further, I certify that my clinical findings support that this patient is homebound (i.e. absences from home require considerable and taxing effort and are for medical reasons or synagogue services or infrequently or of short duration when for other reasons) because: Certification for Home Health Services: Based on the above findings, I certify that this patient is confined to the home and needs intermittent alf care, physical therapy and/or speech therapy or continues to need occupational therapy. The patient is under my care, and I have initiated the establishment of the plan of care. This patient will be followed by a physician who will periodically review the plan of care.
[2025-09-26 15:31] VITALS: BP 141/78; PULSE 65; RESP 16; TEMP 98.2; O2SAT 94
[2025-09-30] MEDS ORDERED: ERGOCALCIFEROL 1250 MCG (50,000 UNITS) CAP PO SCH (09:00)
== END 2025-09-26 17:15 | disposition home health service (06) | DRG 689 ==
LOC: ED 13:29 → 3N 13:29

== ENCOUNTER 2025-09-28 15:38 | Inpatient (IN) ==
[2025-09-28] MEDS: SODIUM CHLORIDE 0.9% 500 ML IV STA (16:18)
--- NOTE | 2025-09-28 16:24 | Emergency Department Note ---
Impression & Plan Acute encephalopathy, Complicated urinary tract infection, Bacteremia due to Gram-negative bacteria, Hypoalbuminemia ED Provider Note NAME: FLASH CONLEY AGE: 69 SEX: F : 1955 ARRIVES VIA: Walk-In INFORMANT: Patient, son ED PROVIDER(S): Adam Escoto DO CHIEF COMPLAINT: encephalopathy HPI: This is a 69-year-old female with the PMHx of DM2, DLD, HTN, obesity, asthma and CKD presenting to [facility] for further evaluation of confusion. Patient is accompanied by her son who provide additional history. Severely confused since hospital discharge. She accidently took all of her Ciprofloxacin prior to arrival. They deny fever or chills. No cough or congestion. Denies chest pain or palpitations. No shortness of breath. They deny abdominal pain, nausea and vomiting. No urinary complaints. No recent changes in bowel movements. Patient denies recent changes in medications or OTC supplements. Patient offers no other complaints, today. ADDITIONAL HISTORY OBTAINED: Per HPI Chronic Medical/Social Conditions Affecting Care: Per HPI PAST MEDICAL HISTORY: See Below PAST SURGICAL HISTORY: See Below FAMILY HISTORY: See Below SOCIAL HISTORY: See Below HOME MEDICATIONS: See Below ALLERGIES: See Below VITALS: See Below PHYSICAL EXAMINATION: GENERAL: Sitting up in bed, alert, well appearing, well nourished, no distress, non-toxic EYE EXAM: normal conjunctiva. PERRL and EOM's grossly intact. OROPHARYNX: no exudate, no erythema, lips, buccal mucosa, and tongue normal and mucous membranes are moist NECK: supple, no nuchal rigidity, no adenopathy, non-tender LUNGS: Clear to auscultation. Normal chest wall mechanics HEART: no murmurs, regular rate, regular rhythm ABDOMEN: abdomen soft, non-tender, no masses, no rebound or guarding. BACK: Back is symmetrical on inspection and there is no deformity, no midline tenderness, no CVA tenderness. SKIN: no rashes and no bruising UPPER EXTREMITIES: upper extremities are grossly normal. LOWER EXTREMITIES: No pitting edema. NEURO EXAM: Normal sensorium, GCS 15, normal speech, she is very inattentive, no gross weakness of arms, no gross weakness of legs. No drift. Finger to nose intact. Gross sensation intact. MEDICAL DECISION MAKING: Differential diagnoses includes but not limited to AMS, acute encephalopathy, multifactorial encephalopathy, complicated UTI, bacteremia, neurocognitive disorder, electrolyte derangements, delirium, pneumonia, polypharmacy, medication side effect In summary, this is a 69 year old female who presented with confusion. Differential as above. Nursing notes and pertinent past medical records reviewed. Vital signs reviewed and the patient is mildly hypertensive but otherwise afebrile and HDS. History and presentation revealed Recent admission to the hospital for complicated UTI with bacteremia. Appears to be a gram- negative bacteremia from pansensitive Klebsiella. Patient was encephalopathic during her hospital stay. Patient now has continued to decline. She is severely encephalopathic. Patient took all of her ciprofloxacin at once by mistake. Although she does not remember this and states that she had the medicine from her son. Patient is not safe to return home. Physical examination revealed as above. As a result of my initial evaluation, IV access was established and the patient was placed on CCRM. Therapeutics ordered include IVFR.. Diagnostics interpreted by me include EKG and cardiac monitoring as listed below: -Cardiac Monitoring: An order was placed for continuous cardiac monitoring. The monitor shows a rate of 50-70s with regular rhythm. -ECG: Normal sinus rhythm at a ventricular rate of [address] segment changes to suggest STEMI. Intervals are within normal limits. Patient completed laboratory studies and imaging. Results independently interpreted by me are no leukocytosis or anemia. Slight increased urine creatinine ratio likely from mild dehydration. Electrolytes are largely unremarkable. Lactate is normal. Alkaline phosphatase is minimally elevated but otherwise normal LFTs. Hypoalbuminemia present. Normal procalcitonin. The patient was managed with IVFR. Discussed with pharmacy regarding continuation of abx. We will utilize IV Cefazolin given pansensitive Klebsiella. Patient and son agreeable to hospitalization. Ultimately, the decision was made to admit the patient for acute encephalopathy. I discussed the case with the hospitalist service via telephone/Tiger[employer] and they are agreeable to admit the patient to their services. Based on the above, including the patient's age, coexisting illnesses, labs, imaging, and exam findings the decision to treat as an inpatient. I discussed the patient with the hospitalist team who recommended admission to their services. They received the medications, treatments, interventions indicated above and their condition remained guarded. I discussed my findings with the patient and their family and they understand and agree with the treatment plan. All patient / family questions were answered to their satisfaction. Consults/Care Managements Discussions: Per MDM ER treatment provided: See above Procedures:none Critical Care: None The chart was completed utilizing [employer] Speech voice recognition software. Grammatical errors, random word insertions, pronoun errors, and incomplete sentences are an occasional consequence of this system due to software limitations, ambient noise, and hardware issues. Any formal questions or concerns about the content, text, or information contained within the body of this dictation should be directly addressed to the physician for clarification. Past Med/Surg History Problem List Hypoalbuminemia (Acute) Bacteremia due to Gram-negative bacteria (Acute) Complicated urinary tract infection (Acute) Acute encephalopathy (Acute) Urinary tract infection (Acute) Elevated troponin I level (Acute) Acute confusion (Acute) Acute encephalopathy Confusion Poorly controlled type 2 diabetes mellitus (Acute) Hypertension Hyperglycemia Asthma exacerbation (Acute) RSV (respiratory syncytial virus infection) (Acute) Cough productive of yellow sputum Albuminuria Obesity, morbid, BMI 40.0-49.9 Proximal humeral fracture CKD (chronic kidney disease) Gram-positive cocci bacteremia Infection due to Peptostreptococcus species Urine culture positive Candiduria Hyponatremia Elevated procalcitonin (Acute) Elevated lactic acid level (Acute) Class 3 severe obesity with body mass index (BMI) of 50.0 to 59.9 in adult Mixed hyperlipidemia NAFLD (nonalcoholic fatty liver disease) Stage 3 chronic renal impairment associated with type 2 diabetes mellitus Type 2 diabetes mellitus with obesity Allergic rhinitis Anxiety Asthma Eustachian tube dysfunction Lichen sclerosus et atrophicus Microalbuminuria Nephrolithiasis Osteopenia Postmenopausal bleeding Rosacea Vitamin D deficiency Metabolic syndrome Uncontrolled type 2 diabetes mellitus Right flank pain Low back pain Lumbar disc disease Lumbar back pain with radiculopathy affecting lower extremity Medical History Acute hyperglycemia Gram-negative bacteremia Acute UTI (urinary tract infection) DKA (diabetic ketoacidosis) Alcohol intoxication Hyperlipidemia Pain of left lower extremity Fall down steps Closed head injury Surgical History History of bilateral carpal tunnel release H/O colonoscopy Fiberoptic History of tonsillectomy Family History Unknown Diabetes Pancreatic cancer Thyroid disorder Sleep apnea nonorganic Alcoholism Brother Diabetes Sarcoidosis Mother Thyroid disorder Sleep apnea nonorganic Emphysema, unspecified Sister Sleep apnea nonorganic Grandmother Sleep apnea nonorganic Social History Smoking Status: Never smoker Tobacco Type: Declines Second Hand Exposure: No; Do You Dip or Chew Tobacco: No; Hx Alcohol Use: Yes Alcohol type: beer Alcohol Intake Frequency: Monthly or Less Hx Substance Use: No Preferred Language: Panamanian Communication Ability: Effective Research Test Engine Evaluator Required: No Beliefs That Will Affect Care: None marital status: Current Living Situation: Family Current Living Situation Comment: pt lives with son Kai current occupational status: retired current occupation: Retired from special ed in elementary school setting How many Children do You have: 2 Feels Safe at Home: Declines to Answer Childhood Exposure to Second-Hand Smoke: Yes Dental Care, Regularly: Yes Physical Activity Frequency: Does not Exercise Seatbelt Use: always Sunscreen Use: Yes Assistive Devices: Walker Allergies Allergies Allergy/AdvReac Type Severity Reaction Status Date / Time Milk Containing Products Allergy Severe Difficulty Verified 09/24/25 16:18 (Dairy) Breathing grass pollen-perennial rye, Allergy Intermediate ASTHMATIC Verified 09/24/25 16:18 standar SYMPTOMS mold Allergy Intermediate ASTHMATIC Verified 09/24/25 16:18 SYMPTOMS codeine AdvReac Intermediate HALLUCINATI Verified 09/24/25 16:18 ONS dulaglutide [From Trulicity] AdvReac Intermediate Nausea Verified 09/24/25 16:18 Home Meds Home Medications Medication Instructions Recorded Confirmed aspirin 325 mg tablet 325 mg PO DAILY 08/04/25 09/28/25 cetirizine 10 mg tablet (Zyrtec) 10 mg PO DAILY PRN Congestion 08/04/25 09/28/25 montelukast 10 mg tablet 10 mg PO DAILY 08/04/25 09/28/25 (Singulair) cholecalciferol (vitamin D3) 1,250 50,000 unit PO WK 09/24/25 09/28/25 mcg (50,000 unit) capsule Previous Rx's Medication Instructions Recorded acetone (urine) test (Ketostix #50 ea 08/28/24 strips) glucagon HCl 1 mg/mL solution for 1 mg IM UD PRN hypoglycemia #2 ea 08/28/24 injection hydrochlorothiazide 25 mg tablet 25 mg PO DAILY #90 tabs 08/28/24 rosuvastatin 20 mg tablet 20 mg PO QPM #90 tabs 08/28/24 albuterol sulfate 90 mcg/actuation 2 inh inhalation Q4H PRN shortness 12/05/24 aerosol inhaler of breath or wheezing #13.4 grams fluticasone 250 mcg-salmeterol 50 1 inh inhalation BID #60 ea 01/16/25 mcg/dose blistr powdr for inhalation (Advair Diskus) lisinopril 40 mg tablet 40 mg PO DAILY #90 tabs 02/06/25 blood-glucose sensor ([employer] G7 #1 ea 03/08/25 Sensor device) insulin pump cart,auto,BT,G6/7 #5 ea 03/08/25 (Omnipod 5 G6-G7 Pods (Gen 5) subcutaneous cartridge) spironolactone 25 mg tablet 25 mg PO DAILY #30 tabs 06/04/25 blood sugar diagnostic (The CloakroomTouch #100 ea 07/26/25 Verio test strips) blood-glucose meter (The CloakroomTouch #1 ea 07/26/25 Verio Flex Meter) insulin aspart U-100 100 unit/mL 1 sliding scale dose subcut 07/26/25 subcutaneous solution TIDWMEAL #60 mL insulin glargine 100 unit/mL 100 unit subcut PM #30 mL 07/26/25 subcutaneous solution insulin syringe,safety needle 1 mL #150 ea 07/26/25 31 gauge x 15/64" (BD SafetyGlide Insulin Syringe) lancets 33 gauge (OneTouch Delica #100 ea 07/26/25 Plus Lancet) glucagon 3 mg/actuation nasal spray 3 mg intranasal ONCE #2 ea 08/01/25 ciprofloxacin HCl 500 mg tablet 500 mg PO BID #3 tabs 09/30/25 Results & Data (ED) Vital Signs Vital Signs - 24 hr 09/28/25 15:42 09/28/25 15:53 09/28/25 15:59 Temperature 36.4 C L Temperature Source Temporal Artery Scan Pulse Rate 63 64 Pulse Rate [Apical] 64 Respiratory Rate 18 16 Respiratory Effort / Characteristics Non-Labored Spontaneous Respiratory Depth Normal Respiratory Pattern Regular Blood Pressure 174/86 H Blood Pressure [Left Arm] 140/64 Blood Pressure Mean 115 Blood Pressure Mean [Left Arm] 89 Pulse Oximetry 99 94 Oxygen Delivery Method Room Air Room Air Sepsis Recent Fever Within 48 Hours No Sepsis New/Unexplained Change in Mental Status No Sepsis Action Taken by Nursing No Action Required Laboratory Data 09/29/25 09:25 09/29/25 09:25 Lab Results 09/28/25 09/28/25 Range/Units 16:15 16:55 WBC 9.39 (4.8-10.8) K/ul RBC 4.11 L (4.20-5.40) M/uL Hgb 12.6 (12.0-16.0) g/dL Hct 36.8 L (37.0-47.0) % MCV 89.5 (80.0-100.0) fL MCH 30.7 (25.0-34.0) pg MCHC 34.2 (32.0-36.0) g/dL RDW Std Deviation 43.3 (36.4-46.3) fL RDW Coeff of Reji 13.2 (11.5-14.5) % Plt Count 266 (130-400) K/uL MPV 11.9 (9.4-12.4) fL Immature Gran % (Auto) 1.1 % Neut % (Auto) 72.1 % Lymph % (Auto) 14.0 % Stearns % (Auto) 7.2 % Eos % (Auto) 4.9 % Baso % (Auto) 0.7 % Neut # (Auto) 6.77 H (1.40-6.50) K/uL Lymph # (Auto) 1.31 (1.20-3.40) K/uL Stearns # (Auto) 0.68 H (0.11-0.59) K/uL Eos # (Auto) 0.46 (0.00-0.50) K/uL Baso # (Auto) 0.07 (0.00-0.20) K/uL Immature Gran # (Auto) 0.10 (0.01-0.20) K/uL Sodium 137 (136-145) mmol/L Potassium 4.1 (3.5-5.1) mmol/L Chloride 102 (98-107) mmol/L Carbon Dioxide 29 (21-32) mmol/L Anion Gap 6 (3-11) BUN 26 H (6-23) mg/dl Creatinine 0.99 (0.6-1.2) mg/dl Est Cr Clr Drug Dosing Not Reportable eGFR 60.96 BUN/Creatinine Ratio 26.3 H (10-20) Glucose 193 H (70-99(Fasting)) mg/dl Lactate 1.8 (0.4-2.0) mmol/L Calcium 9.0 (8.6-10.3) mg/dl Magnesium 1.9 (1.7-2.4) mg/dl Total Bilirubin 0.3 (0.2-1.0) mg/dl AST 15 (13-39) U/L ALT 20 (7-52) U/L Alkaline Phosphatase 186 H (34-104) U/L Troponin I High Sens 5.4 (0-14) pg/ml Total Protein 7.3 (6.0-8.3) gm/dl Albumin 3.1 L (3.4-5.0) gm/dl Globulin 4.2 H (2.5-4.0) gm/dl Albumin/Globulin Ratio 0.7 L (0.9-2) Lipase 27 (11-82) U/L Procalcitonin 0.23 (0-0.5) ng/ml Urine Color Yellow Urine Appearance Clear (Clear) Urine pH 5.5 (4.5-7.5) Ur Specific Tyro 1.010 (1.000-1.030) Urine Protein 2+ H (Negative) Urine Glucose (UA) Negative (Negative) Urine Ketones Negative (Negative) Urine Blood 1+ H (Negative) Urine Nitrite Negative (Negative) Urine Bilirubin Negative (Negative) Urine Urobilinogen Negative (Negative) Ur Leukocyte Esterase Trace H (Negative) Urine WBC (Auto) 21-50 H (0-5) /hpf Urine RBC (Auto) 0-2 (0-2) /hpf U Hyaline Cast (Auto) 0-2 (0-2) /lpf U Epithel Cells (Auto) 3-5 H (0-2) /hpf Urine Bacteria (Auto) None Seen (None Seen) Urine Comment Bld Cult ID Panel PCR PCR Panel Negative (NotDetected) Administered Medications Discontinued Medications Aspirin (Aspirin 325 Mg Ectab) 325 mg PO DAILY NURYS Stop: 10/29/25 08:59 Last Admin: 09/30/25 07:43 Dose: 325 mg Documented By: [facility] Admin: 09/29/25 07:39 Dose: 325 mg Documented By: ANN Enoxaparin Sodium (Enoxaparin Inj 40 Mg/0.4 Ml Syr) 40 mg SQ Q24H NURYS Stop: 10/28/25 20:59 Last Admin: 09/28/25 23:36 Dose: Not Given Documented By: ANDREA Enoxaparin Sodium (Enoxaparin Inj 40 Mg/0.4 Ml Syr) 40 mg SQ Q12 NURYS Stop: 10/29/25 11:29 Last Admin: 09/30/25 07:46 Dose: Not Given Documented By: Admin: 09/29/25 21:19 Dose: Not Given Documented By: Admin: 09/29/25 12:15 Dose: Not Given Documented By: ANN Ergocalciferol (Ergocalciferol 1250 Mcg (50,000 Units) Cap) 1,250 mcg PO Tu@0900 NURYS Stop: 10/30/25 08:59 Last Admin: 09/30/25 07:43 Dose: 1,250 mcg Documented By: ANN Fluticasone/Vilanterol (Fluticasone/Vilanterol 200/25mcg 14 Puffs/Inhaler) 1 puffs INH DAILY NURYS Stop: 10/29/25 08:59 Last Admin: 09/30/25 07:41 Dose: 1 puffs Documented By: Admin: 09/29/25 07:39 Dose: 1 puffs Documented By: ANN Sodium Chloride (Nss) 500 mls @ 999 mls/hr IV .Q31M STA Stop: 09/28/25 16:19 Last Infusion: 09/28/25 17:58 Dose: Infused Documented By: eddie Admin: 09/28/25 16:18 Dose: 999 mls/hr Documented By: eddie Cefazolin Sodium (Ancef 2000mg) 2,000 mg in 15 mls @ 3.75 mls/min IV NOW STA Stop: 09/28/25 16:23 Last Admin: 09/28/25 17:55 Dose: 3.75 mls/min Documented By: eddie Cefazolin Sodium (Ancef 2000mg) 2,000 mg in 15 mls @ 3.75 mls/min IV Q8H NURYS Stop: 09/29/25 12:00 Last Admin: 09/29/25 09:34 Dose: 3.75 mls/min Documented By: Admin: 09/29/25 01:47 Dose: 3.75 mls/min Documented By: ANDREA Lactated Ringer's (Lr) 1,000 mls @ 80 mls/hr IV .[id number] NURYS Stop: 10/01/25 21:59 Last Infusion: 09/30/25 11:49 Dose: 0 mls/hr Documented By: Admin: 09/30/25 09:28 Dose: 80 mls/hr Documented By: Infusion: 09/30/25 09:28 Dose: Infused Documented By: Admin: 09/29/25 21:28 Dose: 80 mls/hr Documented By: Admin: 09/29/25 09:02 Dose: Not Given Documented By: Infusion: 09/29/25 07:02 Dose: Infused Documented By: Admin: 09/28/25 22:14 Dose: 125 mls/hr Documented By: ANDREA Cefazolin Sodium (Ancef 2000mg) 2,000 mg in 15 mls @ 3.75 mls/min IV Q8H [facility] Stop: 10/12/25 22:30 Last Admin: 09/30/25 09:23 Dose: 3.75 mls/min Documented By: Admin: 09/30/25 02:36 Dose: 3.75 mls/min Documented By: Admin: 09/29/25 17:25 Dose: 3.75 mls/min Documented By: ANN Insulin Aspart (Insulin Aspart Per Unit Charge) 0 units SC ACHS NURYS Stop: 10/28/25 22:30 Last Admin: 09/30/25 12:55 Dose: 6 units Documented By: ANN Co-signed By: RAJ Admin: 09/30/25 08:55 Dose: 11 units Documented By: ANN Co-signed By: CF Admin: 09/29/25 21:26 Dose: 8 units Documented By: ANDREA Co-signed By: [id number] Admin: 09/29/25 17:25 Dose: 19 units Documented By: ANN Co-signed By: ESTELA Admin: 09/29/25 12:47 Dose: 20 units Documented By: ANN Co-signed By: ESTELA Admin: 09/29/25 09:33 Dose: 9 units Documented By: ANN Co-signed By: KKS Admin: 09/28/25 23:36 Dose: Not Given Documented By: ANDREA Insulin Glargine (Lantus Per Unit Charge) 100 units SQ PM NURYS Stop: 10/28/25 22:30 Last Admin: 09/28/25 23:36 Dose: Not Given Documented By: ANDREA Insulin Glargine (Lantus Per Unit Charge) 50 units SQ BID NURYS Stop: 10/29/25 11:29 Last Admin: 09/30/25 08:56 Dose: 50 units Documented By: ANN Co-signed By: CF Admin: 09/29/25 21:26 Dose: 50 units Documented By: ANDREA Co-signed By: [id number] Admin: 09/29/25 12:47 Dose: 50 units Documented By: ANN Co-signed By: KKS Lisinopril (Lisinopril 40 Mg Tab) 40 mg PO DAILY NURYS Stop: 10/29/25 08:59 Last Admin: 09/30/25 07:44 Dose: 40 mg Documented By: Admin: 09/29/25 07:39 Dose: 40 mg Documented By: ANN Montelukast Sodium (Montelukast Sodium 10 Mg Tablet) 10 mg PO DAILY NURYS Stop: 10/29/25 08:59 Last Admin: 09/30/25 07:43 Dose: 10 mg Documented By: Admin: 09/29/25 07:39 Dose: 10 mg Documented By: ANN Olanzapine (Olanzapine 10 Mg/2.1 Ml Sdv) 5 mg IM NOW STA Stop: 09/28/25 21:35 Last Admin: 09/28/25 21:48 Dose: 5 mg Documented By: ANDREA Olanzapine (Olanzapine 10 Mg/2.1 Ml Sdv) Confirm Administered Dose 10 mg IM .STK-MED ONE Stop: 09/28/25 21:42 Last Admin: 09/28/25 21:59 Dose: Not Given Documented By: ANDREA Rosuvastatin Calcium (Rosuvastatin Calcium 20 Mg Tab) 20 mg PO QPM NURYS Stop: 10/28/25 22:30 Last Admin: 09/29/25 21:27 Dose: 20 mg Documented By: Admin: 09/28/25 23:39 Dose: 20 mg Documented By: ANDREA Spironolactone (Spironolactone 25 Mg Tab) 25 mg PO DAILY NURYS Stop: 10/29/25 08:59 Last Admin: 09/30/25 07:41 Dose: 25 mg Documented By: Admin: 09/29/25 07:39 Dose: 25 mg Documented By: AMS Discharge Plan Visit Data Chief Complaint: Overdose (Accidental) Stated Complaint: OVERDOSE POSION CONTROL CALLED ED Provider: Adam Escoto Discharge Problem: Acute encephalopathy, Complicated urinary tract infection, Bacteremia due to Gram-negative bacteria, Hypoalbuminemia Patient Disposition: Admitted As Inpatient Condition: Serious Discharge Instructions Interventions: ED Discharge Assessment Last Done: 09/28/25 19:54
[2025-09-28 16:33] LABS: Hematocrit (blood only) 36.8 % (37.0-47.0); Hemoglobin 12.6 g/dL (12.0-16.0); Immature Granulocytes # (auto) 0.10 K/uL (0.01-0.20); Immature Granulocytes % (auto) 1.1 %; Mean Corpuscular Hemoglobin 30.7 pg (25.0-34.0); Mean Corpuscular Volume 89.5 fL (80.0-100.0); Platelet Count 266 K/uL (130-400); RDW Standard Deviation 43.3 fL (36.4-46.3); Red Blood Count 4.11 M/uL (4.20-5.40); White Blood Count 9.39 K/ul (4.8-10.8)
[2025-09-28 16:50] LABS: Alanine Aminotransferase 20 U/L (7-52); Albumin Globulin Ratio 0.7 (0.9-2); Albumin Level 3.1 gm/dl (3.4-5.0); Alkaline Phosphatase 186 U/L (34-104); Anion Gap 6 (3-11); Bilirubin,Total 0.3 mg/dl (0.2-1.0); Blood Urea Nitrogen 26 mg/dl (6-23); Calcium 9.0 mg/dl (8.6-10.3); Carbon Dioxide 29 mmol/L (21-32); Chloride 102 mmol/L (98-107); Globulin 4.2 gm/dl (2.5-4.0); Glucose 193 mg/dl (70-99(Fasting)); Lipase 27 U/L (11-82); Magnesium 1.9 mg/dl (1.7-2.4); Potassium 4.1 mmol/L (3.5-5.1); Sodium 137 mmol/L (136-145); Total Protein 7.3 gm/dl (6.0-8.3)
[2025-09-28 17:16] LABS: Appearance Urine Clear (Clear); Bacteria Urine Automated None Seen (None Seen); Cast Urine Automated 0-2 /lpf (0-2); Glucose Urine UA Negative (Negative); RBC Urine Automated 0-2 /hpf (0-2); WBC Urine Automated 21-50 /hpf (0-5)
--- NOTE | 2025-09-28 18:20 | History & Physical Report ---
Date of Service September 28, 2025 Assessment & Plan (1) Acute encephalopathy: (2) Bacteremia due to Gram-negative bacteria: (3) Poorly controlled type 2 diabetes mellitus: (4) Hypertension: (5) CKD (chronic kidney disease): Plan #Ciprofloxacin overdosesupportive care. QTc reasonable. Follow on monitor. Anticipate no significant sequelae #altered mental statusfairly hard to truly even discern what her mental status is given that she seems to be fairly guarded but is oriented x 3. Getting collateral from her son, I suspect she is deliriousmore suspicious it relates to the bacteremia/recent hospital stay/etc. rather than the ciprofloxacin given that it sounds like the confused behavior predates her Cipro overdose and leads back to the previous hospitalization. It was a bit difficult getting history from Kai as wellhe noted that he was at work whenever I called and apologized for being distractedwill be helpful to gather more collateral from Kai whenever he is able to speak more freelyboth of them in regards to her recent mental status and trajectory, as well as her baseline mental status (such as her functional status/memory/etc. about a month ago). Supportive care, time. Once were able to get more collateral from there, might benefit from more formal evaluation such as a MoCA. PT/OT eval and treat. Might need SNF or rehab depending on trajectory. #Klebsiella bacteremiawas getting better, was sent home on Cipro. It appears that her last day of antibiotics was to be 10/01. Given that it was pansensitive Klebsiella, the ER started her on cefazolinwe will continue this. For now the presumptive stop date would be 10/01. ER sent follow-up blood culturesexpect that they will be negative. #Markedly uncontrolled diabetes with last A1c being about 9.9. On 100 units of Lantuswill continue this, and do log at each meal with a carb ratio of 1:7probably will need to tighten over time but 1 of follow sugars first. #dehydrationappears maybe a little bit dry, certainly this would be a common reason for delirium, and BUN to creatinine is greater than 20-1. LR at 80 x 3 L, follow p.o. intake. #hypertensionholding hydrochlorothiazide for now given that she appears a bit dehydrated #asthmacontinue home inhalers #CKDappears that she is 3A. Creatinine reasonablejust BUN to creatinine elevated suggesting dehydration #morbid obesity with elevated BMI contributes to morbidity #DVT prophylaxisLovenox History of Present Illness Chief Complaint: My son brought me in Primary Care Provider: Lucia Dsouza MD 69-year-old female brought in by her son. According to her she has no idea why she is here. "You will have to ask him". Later she makes statements such as the doctor who put me here once all this informationbut whenever asked to clarify she does not or deflects. She only complains of left arm painbut phlebotomy had just drawn labs as I was entering the room, and after further review it is clear that it is a sore arm from a needlestick that occurred about 2 minutes earlier. She denies any other history. She really does not express any understanding of why she is here, but does seem to be upset about it. I was able to call her son Rod notes that he was helping look after her at home after her discharge, and he asked her if she had taken her antibiotics. She did not know. Whenever he went to check the pill bottle they were all gonesuggesting that she took several days of Cipro probably all at once. He also noted that she was acting confused and did not even know where the bathroom was. To little bit difficult even to get the history from him, the patient herself is obviously not really able to provide much of any meaningful historybut in discussion, Kai does make it sound possible that the confusion is the same as what the team was seeing during her previous hospital staypossibly not new/different/acute. Allergies Allergy/AdvReac Type Severity Reaction Status Date / Time Milk Containing Products Allergy Severe Difficulty Verified 09/24/25 16:18 (Dairy) Breathing grass pollen-perennial rye, Allergy Intermediate ASTHMATIC Verified 09/24/25 16:18 standar SYMPTOMS mold Allergy Intermediate ASTHMATIC Verified 09/24/25 16:18 SYMPTOMS codeine AdvReac Intermediate HALLUCINATI Verified 09/24/25 16:18 [facility] AdvReac Intermediate Nausea Verified 09/24/25 16:18 Home Medications Medication Instructions Recorded Confirmed Type acetone (urine) test (Ketostix #50 ea 08/28/24 08/04/25 Rx strips) glucagon HCl 1 mg/mL solution for 1 mg IM UD PRN hypoglycemia #2 ea 08/28/24 09/28/25 Rx injection hydrochlorothiazide 25 mg tablet 25 mg PO DAILY #90 tabs 08/28/24 09/28/25 Rx rosuvastatin 20 mg tablet 20 mg PO QPM #90 tabs 08/28/24 09/28/25 Rx albuterol sulfate 90 mcg/actuation 2 inh inhalation Q4H PRN shortness 12/05/24 09/28/25 Rx aerosol inhaler of breath or wheezing #13.4 grams fluticasone 250 mcg-salmeterol 50 1 inh inhalation BID #60 ea 01/16/25 09/28/25 Rx mcg/dose blistr powdr for inhalation (Advair Diskus) lisinopril 40 mg tablet 40 mg PO DAILY #90 tabs 02/06/25 09/28/25 Rx blood-glucose sensor (Dexcom G7 #1 ea 03/08/25 08/04/25 Rx Sensor device) insulin pump cart,auto,BT,G6/7 #5 ea 03/08/25 08/04/25 Rx (Omnipod 5 G6-G7 Pods (Gen 5) subcutaneous cartridge) spironolactone 25 mg tablet 25 mg PO DAILY #30 tabs 06/04/25 09/28/25 Rx blood sugar diagnostic (OneTouch #100 ea 07/26/25 08/04/25 Rx Verio test strips) blood-glucose meter (OneTouch #1 ea 07/26/25 08/04/25 Rx Verio Flex Meter) insulin aspart U-100 100 unit/mL 1 sliding scale dose subcut 07/26/25 09/28/25 Rx subcutaneous solution TIDWMEAL #60 mL insulin glargine 100 unit/mL 100 unit subcut PM #30 mL 07/26/25 09/28/25 Rx subcutaneous solution insulin syringe,safety needle 1 mL #150 ea 07/26/25 08/04/25 Rx 31 gauge x 15/64" (BD SafetyGlide Insulin Syringe) lancets 33 gauge (OneTouch Delica #100 ea 07/26/25 08/04/25 Rx Plus Lancet) glucagon 3 mg/actuation nasal spray 3 mg intranasal ONCE #2 ea 08/01/25 09/28/25 Rx aspirin 325 mg tablet 325 mg PO DAILY 08/04/25 09/28/25 History cetirizine 10 mg tablet (Zyrtec) 10 mg PO DAILY PRN Congestion 08/04/25 09/28/25 History montelukast 10 mg tablet 10 mg PO DAILY 08/04/25 09/28/25 History (Singulair) cholecalciferol (vitamin D3) 1,250 50,000 unit PO WK 09/24/25 09/28/25 History mcg (50,000 unit) capsule ciprofloxacin HCl 500 mg tablet 500 mg PO BID #10 tabs 09/26/25 09/28/25 Rx Past Med/Surg History Problem List Hypoalbuminemia (Acute) Bacteremia due to Gram-negative bacteria (Acute) Complicated urinary tract infection (Acute) Acute encephalopathy (Acute) Urinary tract infection (Acute) Elevated troponin I level (Acute) Acute confusion (Acute) Acute encephalopathy Confusion Poorly controlled type 2 diabetes mellitus (Acute) Hypertension Hyperglycemia Asthma exacerbation (Acute) RSV (respiratory syncytial virus infection) (Acute) Cough productive of yellow sputum Albuminuria Obesity, morbid, BMI 40.0-49.9 Proximal humeral fracture CKD (chronic kidney disease) Gram-positive cocci bacteremia Infection due to Peptostreptococcus species Urine culture positive Candiduria Hyponatremia Elevated procalcitonin (Acute) Elevated lactic acid level (Acute) Class 3 severe obesity with body mass index (BMI) of 50.0 to 59.9 in adult Mixed hyperlipidemia NAFLD (nonalcoholic fatty liver disease) Stage 3 chronic renal impairment associated with type 2 diabetes mellitus Type 2 diabetes mellitus with obesity Allergic rhinitis Anxiety Asthma Eustachian tube dysfunction Lichen sclerosus et atrophicus Microalbuminuria Nephrolithiasis Osteopenia Postmenopausal bleeding Rosacea Vitamin D deficiency Metabolic syndrome Uncontrolled type 2 diabetes mellitus Right flank pain Low back pain Lumbar disc disease Lumbar back pain with radiculopathy affecting lower extremity Medical History Acute hyperglycemia Gram-negative bacteremia Acute UTI (urinary tract infection) DKA (diabetic ketoacidosis) Alcohol intoxication Hyperlipidemia Pain of left lower extremity Fall down steps Closed head injury Surgical History History of bilateral carpal tunnel release H/O colonoscopy Fiberoptic History of tonsillectomy Family History Unknown Diabetes Pancreatic cancer Thyroid disorder Sleep apnea nonorganic Alcoholism Brother Diabetes Sarcoidosis Mother Thyroid disorder Sleep apnea nonorganic Emphysema, unspecified Sister Sleep apnea nonorganic Grandmother Sleep apnea nonorganic Social History Smoking Status: Never smoker Second Hand Exposure: No; Do You Dip or Chew Tobacco: No; Hx Alcohol Use: Yes Alcohol type: beer Alcohol Intake Frequency: Monthly or Less Hx Substance Use: No Preferred Language: Sinhala Communication Ability: Effective Supervisor Body Assembly Required: No Beliefs That Will Affect Care: None marital status: Current Living Situation: Alone Current Living Situation Comment: PT states she recently has been staying with a friend instead of her son current occupational status: retired current occupation: Retired from special ed in elementary school setting How many Children do You have: 2 Feels Safe at Home: Yes Childhood Exposure to Second-Hand Smoke: Yes Dental Care, Regularly: Yes Physical Activity Frequency: Does not Exercise Seatbelt Use: always Sunscreen Use: Yes Assistive Devices: Walker Review of Systems Review of Systems: All systems reviewed & are unremarkable except as noted in HPI & below Physical Exam Physical Exam: In general she is technically awake alert oriented x 3, but makes statements that are undefined, a bit mistrusting and agitated at times, and a little hard to sort out what she is talking about. HEENT normocephalic atraumatic mucous membranes somewhat dry. Cardio is regular without rubs murmurs or gallops. Lungs are clear without rales rhonchi or wheezes good effort. Abdomen is soft nondistended nontender no masses or organomegaly. Extremities without sinus clubbing or edema. Skin without rashes pallor or icterus. Neuro without focal deficits or lateralizing signs. Mental status as above. Results & Data Results & Data Vital Signs (Past 12 Hours) Vital Signs Temp Pulse Pulse Resp BP BP Pulse Ox 09/28/25 17:29 58 L 95 09/28/25 17:00 60 20 177/73 H 97 09/28/25 15:59 64 09/28/25 15:53 64 16 140/64 94 09/28/25 15:42 97.5 F L 63 18 174/86 H 99 O2 Del Method 09/28/25 17:29 Room Air 09/28/25 17:00 Room Air 09/28/25 15:59 09/28/25 15:53 Room Air 09/28/25 15:42 Room Air Code Status & VTE Plan VTE Prophylaxis Plan VTE Prophylaxis will be ordered: Yes PG Care Time/CCT Total # of Minutes Spent Total Time Spent with Patient: Total time spent is greater than 50% in coordination of care (as documented) at patient's floor/unit and/or counseling patient: Coding Level of Care Code 78866 INT INP/OBS CARE 3/75MIN Diagnoses Acute encephalopathy G93.40 Bacteremia due to Gram-negative bacteria R78.81 Poorly controlled type 2 diabetes mellitus E11.65 Hypertension I10 Stage 2 chronic kidney disease N18.2 Chronic kidney disease stage: stage 2 (mild) (5) CKD (chronic kidney disease) Chronic kidney disease stage: stage 2 (mild) Qualified Code(s): N18.2 - Chronic kidney disease, stage 2 (mild)
[2025-09-28] MEDS: LACTATED RINGER'S 1,000 ML IV SCH (22:14)
[2025-09-28] MEDS ORDERED: CETIRIZINE HCL 10 MG TABLET PO PRN (22:31)
[2025-09-28] MEDS ORDERED: LACTATED RINGER'S 1,000 ML IV SCH (22:31)
[2025-09-28] MEDS ORDERED: POLYETHYLENE (MIRALAX) 17 GM PACK PO PRN (22:31)
[2025-09-28] MEDS ORDERED: ALUMINUM/MAGNESIUM SUSP 30 ML UDC PO PRN (22:31)
[2025-09-28] MEDS ORDERED: MELATONIN 3 MG TAB PO PRN (22:31)
[2025-09-28] MEDS ORDERED: ALBUTEROL HFA 8 GM INHALER INH PRN (22:31)
[2025-09-28] MEDS ORDERED: ONDANSETRON INJ 2 MG/ML 2 ML VIAL IV PRN (22:31)
[2025-09-28] MEDS ORDERED: ACETAMINOPHEN 325 MG TAB PO PRN (22:31)
[2025-09-28] MEDS ORDERED: MAGNESIUM HYDROXIDE SUSP 30 ML UDC PO PRN (22:31)
--- NOTE | 2025-09-28 22:55 | Communication Note ---
Date of Service: September 28, 2025 S/O: Called to bedside as patient was threatening to leave AMA. Pt insisted that she was here to "investigate the hospital", that some of her co-investigators had brought her to the hospital and that she had used the possible "ciprofloxacin overdose" as a ruse to get inside the hospital to do her investigations. Pt did not appear to remember that her son had brought her to the hospital earlier that day and was unwilling to either call her son or have me call her son so the three of us could discuss her health care together. Pt also continued to be verbally aggressive, threatening that she was going to get all of us fired for the conduct violations we were participating in at the hospital. Talked to son by phone. He states that the patient has been getting lost more often while driving, has been incontinent of urine more frequently, seems to alternate between being either verbally combative/confrontational/uncooperative or overly sweet/childlike. Patient's son has not seen a sustained return to baseline since the pt was seen at [facility] back in early July also for acute toxic metabolic encephalopathy, although notes from May 2025 reveal pt's own concerns that "her sugars were off and her thinking was whacky". A/P: After the Code Roche was called and the patient was brought back to her room, 4-pt soft limb restraints were ordered, a 1-to-1 was ordered, and Zyprexa, 5 mg, IM was given. In addition cefazolin, 2 g, IV, q8hr was started to treat a presumably not fully treated bacteremia that was diagnosed during pt's previous hospital stay. One of the Bl Cx results from 09/24/25 were positive for Klebsiella pneumoniae, zheng-sensitive, so can continue the cefazolin. LR, 125 mL/hr, ordered as well. Added GGT to determine if elevated AlkPhos due to cholestasis or possibly other etiology, and also added B12 and folic acid. TSH recently done and was normal. Unclear now whether this is strictly delirium, a progressive dementia that has only within the last several months begun to consistently manifest itself, or whether this is a more sudden onset of dementia. Patient with PMHx of alcohol abuse, alcohol intoxication (Feb, 2025), very poorly controlled diabetes, one positive THC UDS (Jul, 2025). Would probably benefit from an MRI and neuropsychiatric testing (mentioned by other provider too) either partly done here or completely done as an outpt, though previous notes suggest pt declined MRI. Did speak to son to ask his help in convincing his mom to get this imaging done.
[2025-09-28] MEDS ORDERED: GLUCAGON FOR INJ 1 MG VIAL SQ PRN (23:15)
[2025-09-28] MEDS ORDERED: GLUCOSE 40% GEL 15 GM TUBE PO PRN (23:15)
[2025-09-28] MEDS ORDERED: DEXTROSE 50% 50 ML SYRINGE IV PRN (23:15)
[2025-09-28] MEDS ORDERED: CARBOHYDRATES FOR HYPOGLYCEMIA PO PRN (23:15)
[2025-09-28] MEDS ORDERED: GLUCOSE 10 TAB/TUBE PO PRN (23:15)
[2025-09-28] MEDS: ENOXAPARIN INJ 40 MG/0.4 ML SYR SQ SCH (23:36)
[2025-09-28] MEDS: LANTUS PER UNIT CHARGE SQ SCH (23:36)
[2025-09-28] MEDS: INSULIN ASPART PER UNIT CHARGE SC SCH (23:36)
[2025-09-28] MEDS: ROSUVASTATIN CALCIUM 20 MG TAB PO SCH (23:39)
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
[2025-09-29] MEDS: ASPIRIN 325 MG ECTAB PO SCH (07:39)
[2025-09-29] MEDS: SPIRONOLACTONE 25 MG TAB PO SCH (07:39)
[2025-09-29] MEDS: FLUTICASONE/VILANTEROL 200/25MCG 14 PUFFS/INHALER INH SCH (07:39)
[2025-09-29] MEDS: MONTELUKAST SODIUM 10 MG TABLET PO SCH (07:39)
[2025-09-29 09:54] LABS: Hematocrit (blood only) 34.6 % (37.0-47.0); Hemoglobin 11.5 g/dL (12.0-16.0); Immature Granulocytes # (auto) 0.10 K/uL (0.01-0.20); Immature Granulocytes % (auto) 1.3 %; Mean Corpuscular Hemoglobin 29.5 pg (25.0-34.0); Mean Corpuscular Volume 88.7 fL (80.0-100.0); Platelet Count 254 K/uL (130-400); RDW Standard Deviation 43.3 fL (36.4-46.3); Red Blood Count 3.90 M/uL (4.20-5.40); White Blood Count 7.87 K/ul (4.8-10.8)
[2025-09-29 10:11] LABS: Alanine Aminotransferase 14.0 U/L (7-52); Albumin Globulin Ratio 0.9 (0.9-2); Albumin Level 3.1 gm/dl (3.4-5.0); Alkaline Phosphatase 147.0 U/L (34-104); Anion Gap 6.0 (3-11); Bilirubin,Total 0.3 mg/dl (0.2-1.0); Blood Urea Nitrogen 16.0 mg/dl (6-23); Calcium 8.6 mg/dl (8.6-10.3); Carbon Dioxide 30.0 mmol/L (21-32); Chloride 101.0 mmol/L (98-107); Creatinine Clr Calc Pharmacy 70.4 ml/min; Globulin 3.5 gm/dl (2.5-4.0); Glucose 336.0 mg/dl (70-99(Fasting)); Potassium 3.6 mmol/L (3.5-5.1); Sodium 137.0 mmol/L (136-145); Total Protein 6.6 gm/dl (6.0-8.3)
[2025-09-29 10:34] LABS: Folate (Folic Acid),Ser orPlas 9.14 ng/ml (>5.38)
[2025-09-29 10:35] LABS: Vitamin B12 326.0 pg/ml (180-914)
[2025-09-29] MEDS: ENOXAPARIN INJ 40 MG/0.4 ML SYR SQ SCH (12:15)
[2025-09-29] MEDS: LANTUS PER UNIT CHARGE SQ SCH (12:47)
[2025-09-29 22:47] LABS: A calco-baum cmplx NotReported Not Detected (NotDetected); Bact fragilis Not Reported Not Detected (NotDetected); Blood Culture Id Panel PCR Panel Negative (NotDetected); C auris Not Reported Not Detected (NotDetected); Calbicans Not Reported Not Detected (NotDetected); Candida glabrata Not Reported Not Detected (NotDetected); Candida krusei Not Reported Not Detected (NotDetected); Cneoformans/gatti Not Reported Not Detected (NotDetected); Cparapsilosis Not Reported Not Detected (NotDetected); Ctropicalis Not Reported Not Detected (NotDetected); E cloacae compx Not Reported Not Detected (NotDetected); Efaecalis Not Reported Not Detected (NotDetected); Efaecium Not Reported Not Detected (NotDetected); Enterobacterales Not Reported Not Detected (NotDetected); Escherichia coli Not Reported Not Detected (NotDetected); H influenzae Not Reported Not Detected (NotDetected); K aerogenes Not Reported Not Detected (NotDetected); Koxytoca Not Reported Not Detected (NotDetected); Kpneumoniae grp Not Reported Not Detected (NotDetected); Lmonocyt Not Reported Not Detected (NotDetected); N meningitidis Not Reported Not Detected (NotDetected); P aeruginosa Not Reported Not Detected (NotDetected); Proteus spp Not Reported Not Detected (NotDetected); Salmonella spp Not Reported Not Detected (NotDetected); Staph lugdunensis Not Reported Not Detected (NotDetected); Staph spp. Not Reported Not Detected (NotDetected); Staphaureus Not Reported Not Detected (NotDetected); Staphepi Not Reported Not Detected (NotDetected); Stenmaltophilia Not Reported Not Detected (NotDetected); Strep agal(GrpB) Not Reported Not Detected (NotDetected); Strep pneum Not Reported Not Detected (NotDetected); Strep pyog (GrpA) Not Reported Not Detected (NotDetected); Strep spp Not Reported Not Detected (NotDetected)
[2025-09-30] MEDS: ERGOCALCIFEROL 1250 MCG (50,000 UNITS) CAP PO SCH (07:43)
[2025-09-30 11:23] VITALS: BP 149/82; PULSE 72; RESP 20; TEMP 98.1; O2SAT 93
--- NOTE | 2025-09-30 17:35 | Discharge Summary ---
Date of Service September 30, 2025 Admission HPI Per Admitting Provider 69-year-old female brought in by her son. According to her she has no idea why she is here. "You will have to ask him". Later she makes statements such as the doctor who put me here once all this informationbut whenever asked to clarify she does not or deflects. She only complains of left arm painbut phlebotomy had just drawn labs as I was entering the room, and after further review it is clear that it is a sore arm from a needlestick that occurred about 2 minutes earlier. She denies any other history. She really does not express any understanding of why she is here, but does seem to be upset about it. I was able to call her son Rod notes that he was helping look after her at home after her discharge, and he asked her if she had taken her antibiotics. She did not know. Whenever he went to check the pill bottle they were all gonesuggesting that she took several days of Cipro probably all at once. He also noted that she was acting confused and did not even know where the bathroom was. To little bit difficult even to get the history from him, the patient herself is obviously not really able to provide much of any meaningful historybut in discussion, Kai does make it sound possible that the confusion is the same as what the team was seeing during her previous hospital staypossibly not new/different/acute. Principal Diagnosis AMS/delirium Discharge Exam Gen: Obese, alert, oriented to person and place, NAD HEENT: NCAT, normal conjunctiva CV: RRR, no m/r/g, no LE edema Resp: CTAB, symmetrical chest rise, breathing non-labored Abd: Soft, NT/ND MSK: Full ROM, no gross deformities on inspection Skin: Warm, dry, well-perfused, no rashes bruising or other lesions appreciated Neuro: CN II-XII grossly intact, no focal deficits Psych: Full, euthymic affect. Speech pace normal. Thoughts linear. Perserverative vs paranoid about son's involvement in her medical affairs. No AVH, PMA/PMR Discharge Data Allergies Allergy/AdvReac Type Severity Reaction Status Date / Time Milk Containing Products Allergy Severe Difficulty Verified 09/24/25 16:18 (Dairy) Breathing grass pollen-perennial rye, Allergy Intermediate ASTHMATIC Verified 09/24/25 16:18 standar SYMPTOMS mold Allergy Intermediate ASTHMATIC Verified 09/24/25 16:18 SYMPTOMS codeine AdvReac Intermediate HALLUCINATI Verified 09/24/25 16:18 ONS dulaglutide [From Trulicity] AdvReac Intermediate Nausea Verified 09/24/25 16:18 Consultations 09/28/25 17:29 ED Decision to Admit Stat Hospital Course (1) Acute encephalopathy: (2) Bacteremia due to Gram-negative bacteria: (3) Poorly controlled type 2 diabetes mellitus: (4) Hypertension: (5) CKD (chronic kidney disease): Plan Patient is a 69 y/o female with PMH of DM2, hypertension, hyperlipidemia, CKD stage III, Asthma who was brought to the ED 09/28 by her son due to concern of confusion with possible ciprofloxacin overdose. She was admitted for observation and further workup. She was deemed safe for discharged when back to cognitive baseline and plan was established to complete treatment of UTI. We strongly urged her to arrange a transitional care visit with her PCP within 1 week of discharge. #Altered mental status - Brought in by son due to patient's confusion and son finding an empty bottle of abx that should have lasted 3 more days. Further questioning of patient ruled out actual ciprofloxacin overdose. - Presentation most consistent with delirium, possibly on top of progressive dementia. Patient did receive 1x 5mg IM Zyprexa on 09/28 PM after a Code Roche but otherwise did not need physical or pharmacological restraints. - Baseline mental status uncertain, but son reports notable worsening starting in July (pt's hospitalization on 07/29-08/01). Patient is alert and oriented and denies any issues with her memory or any safety issues at home. Reports being well aware of her sx and having her own system in place to safeguard against them. - Patient did cooperate with CT head, which showed no abnormality. Declined further testing w/ MRI. In future, may benefit from more formal evaluation such as a MoCA. On Jul 2025 visit, psych was consulted, but psychiatrist felt strongly this is delirium so consult was changed to liaison consult. During this admission, we extensively discussed risk factors for delirium and ways patient can improve her safety at home. Patient appeared ambivalent and her true understanding of recommendations is uncertain - Seen by PT/OT, who felt pt is safe to go home. - F/u appt w/ PCP's office scheduled for 10/08 #Klebsiella bacteremia - Was improving during admission last week, discharged on 09/26 on cipro. Her last day of antibiotics was to be 10/01. Son was concerned at finding bottle empty on 12/7 AM. Patient reports not taking all her pills but rather hiding them so her son cannot "poke his nose" into her medications. No concerning QT on admission. Patient has not cooperated with telemetry - UCx did grow pansensitive Klebsiella, so ER started her on cefazolin this visit. ER also sent follow-up blood cultures; 1 aerobic culture grew micrococcus species, more likely contaminant, suggesting infection has cleared - Will finish out intended course of abx with 3 more doses of cipro, to end on 10/01 #Sleep disorder - Patient reports frequent parasomnias, including sleepwalking and acting out/narrating her dreams - which she claims is the cause of her aggressive behavior on the first night of admission - Reports having sleep study done in the past, with no abnormality found and not started on any medications. Chart review shows PCP did order PSG in Jun 2023 and again in May 2025, but neither was done - We discussed strategies to improve safety and urged patient to undergo sleep study, but she did not seem agreeable #T2DM - Markedly uncontrolled, with last A1c being 9.9 and previous values ranging up to 16 - Per pharmacy recs, during visit patient was on 50u glargine BID and SSI with goal 110-140, CF 15, CR 5 - At home, on 100 units of Lantus. Should resume. Patient did express interest in insulin pump, which we recommend she discuss with her PCP at her transitional care visit. #Dehydration Resolved - On admission appeared maybe a little bit dry, which could account for / contribute to her delirium. BUN to creatinine ratio was elevated, but now wnl. s/p LR x 3L - Levels normalized on subsequent BMPs #Hypertension hydrochlorothiazide held during visit d/t likely dehydration #Asthmacontinue home inhalers #CKDappears that she is 3A. Creatinine reasonable; BUN and ratio improved by discharge #Morbid obesity contributes to morbidity Total Time Total Time Spent Total Time Spent (In Minutes): See attending documentation Discharge Plan Discharge Items Patient Disposition: Home - Self-Care Reason For Visit: DELIRIUM, CIPRO OD Discharge Diagnosis: delirium Activity: Per Instructions section Non-emergency contact: Primary Care Provider Call non-emergency contact if: you have any medication questions and your symptoms worsen Follow-up/Referrals: Lucia Dsouza MD [Primary Care Provider] - 10/08/25 11:00 am Diet: Regular Addtl Attending Provider Instructions: You were brought to the hospital because of confusion and concern for overdose on ciprofloxacin. You explained how that was not the case, and you were restarted on appropriate antibiotics for your urinary tract infection (UTI). You were deemed safe for discharge when your vitals stabilized, labs remained normal, and cultures no longer showed the infectious organism (Klebsiella). Upon discharge, you must complete your course of antibiotics and follow up with your primary care physician (PCP). Medications Your medication list has been reviewed and reconciled. An updated list is included with your discharge paperwork; please review this list closely and make note of any changes. We sent a prescription for the antibiotic Ciprofloxacin to complete the treatment for your UTI. Please take one dose this evening, one dose tomorrow morning, and the final dose tomorrow evening. Take your medications as instructed; do not skip a dose. It may be helpful to buy a weekly pill organizer to ensure each medication is taken as prescribed. Make sure all of your doctors know every medicine you are taking, including lzhv-bal-brpsxrp medicines, vitamins, or supplements. Follow-up appointments: Make a follow-up appointment with your PCP within the next week. It is very important that you follow up with them shortly after discharge from the hospital. Please bring a copy of this discharge summary with you to your next office appointment so that your provider can review it at that time and stay updated on your hospitalization and potential changes in your care. We also advise seeing a sleep specialist in order to prevent further episodes of sleepwalking, as this is a significant danger to your health regardless of what measures you take to try to minimize risks. A sleep specialist would be best s uited to determine the cause and find a treatment that is acceptable to you, i.e. not necessarily sleeping pills. Contact your PCP if your symptoms return or worsen. Call 911 or go to the ER if you experience any of the following: Sudden, severe abdominal pain or nausea/vomiting Severe chest pain, or chest pain that radiates (moves) to your jaw or arm Sudden, severe shortness of breath or difficulty breathing Thank you for allowing us to participate in your care. Pending Studies at Discharge: No Stand-Alone Forms: My [facility] [employer], Smoking Cessation Medications and DC Order Prescriptions: Continued rosuvastatin 20 mg tablet 20 mg PO QPM Qty: 90 0RF (DME) Ketostix Strip See Rx Instructions miscellaneous .MEDSUPPLY Qty: 50 5RF Rx Instructions: Check when blood sugars > 250 for 4 to 6 hours glucagon HCl 1 mg/mL recon soln 1 mg IM UD PRN (Reason: hypoglycemia) Qty: 2 1RF hydrochlorothiazide 25 mg tablet 25 mg PO DAILY Qty: 90 1RF albuterol sulfate 90 mcg/actuation HFA aerosol inhaler 2 inh inhalation Q4H PRN (Reason: shortness of breath or wheezing) Qty: 13.4 5RF lisinopril 40 mg tablet 40 mg PO DAILY Qty: 90 0RF spironolactone 25 mg tablet 25 mg PO DAILY Qty: 30 2RF aspirin 325 mg tablet 325 mg PO DAILY montelukast [Singulair] 10 mg tablet 10 mg PO DAILY Patient Comments: 08/04/25 - Pt reports taking at home cetirizine [Zyrtec] 10 mg tablet 10 mg PO DAILY PRN (Reason: Congestion) Patient Comments: 08/04/25 - Pt reports taking. fluticasone propion-salmeterol [Advair Diskus] 250-50 mcg/dose blister with device 1 inh inhalation BID Qty: 60 0RF (DME) Dexcom G7 Sensor Device See Rx Instructions .Route Qty: 1 0RF Rx Instructions: As directed (DME) Omnipod 5 G6-G7 Pods (Gen 5) Cartridge See Rx Instructions .Route Qty: 5 5RF Rx Instructions: As directed insulin glargine 100 unit/mL solution 100 unit subcut PM Qty: 30 1RF insulin aspart U-100 100 unit/mL solution 1 sliding scale dose subcut TIDWMEAL Qty: 60 1RF Rx Instructions: per carb count/CF up to 200 units per day (DME) blood-glucose meter [OneTouch Verio Flex meter] Misc See Rx Instructions .Route Qty: 1 0RF Rx Instructions: check BG three times a day (DME) OneTouch Verio test strips Strip See Rx Instructions .Route Qty: 100 1RF Rx Instructions: Check BG three times a day (DME) lancets [OneTouch Delica Plus Lancet] 33 gauge misc See Rx Instructions .Route Qty: 100 1RF Rx Instructions: check BG three times a day (DME) BD SafetyGlide Insulin Syringe 1 mL 31 gauge x 15/64" syringe See Rx Instructions .Route Qty: 150 1RF Rx Instructions: five times a day glucagon 3 mg/actuation spray,non-aerosol 3 mg intranasal ONCE Qty: 2 5RF cholecalciferol (vitamin D3) 1,250 mcg (50,000 unit) capsule 50,000 unit PO WK ciprofloxacin HCl 500 mg tablet 500 mg PO BID Qty: 3 0RF Rx Instructions: next dose due on 09/30 before bed Discharge Orders: Discharge Order (Routine); Ordered 09/30/25 Ordered By: Camilo Nowak Admission Data Admit Date/Time: 09/28/25 18:05 Attending Provider: Ade Tapia Admit Provider: Steve Murdock Primary Care Provider: Lucia Dsouza Other Providers: Steve Murdock Other Interventions: Discharge Summary Assessment (RN) Last Done: 09/30/25 13:31 Supervising Physician Co-Signing Physician Notes I personally examined the patient and verified abraham points of history and exam, discussed case, and agree with decision making and plan documented by Dr. Trejo. Patient is a 69-year-old female with past medical history of T2DM, CKD 3, hypertension, hyperlipidemia, sleep disorder, and asthma on admission for reported altered mental status in setting of recent discharge following hospital admission for Klebsiella bacteremia. Reportedly, patient states her son brought her to the hospital due to concerns that she was not taking her medication appropriately, which patient denies. Throughout hospitalization, patient had abnormal sleep-wake cycle with episodic delirium. Due to concerns of lapse in her antibiotic treatment, patient was placed on cefazolin during hospitalization, repeat blood cultures x2 were obtained and 1 NGTD. Patient was discharged and advised to complete remaining course of her ciprofloxacin to end on 10/01/2025. Patient advised to follow up closely with her PCP for TCM visit. She reports understanding. Total attending time 38 min Resident Activity Tracking Resident Involvement: Resident Care Provided Care Provided: Adult [facility]
[2025-09-30] MEDS ORDERED: LANTUS PER UNIT CHARGE SQ SCH (21:00)
== END 2025-09-30 15:58 | disposition home or self-care (01) | DRG 690 ==
LOC: ED 15:38 → SUATTDRO 18:05 → 2N 18:05